=== PATIENT | male | born 1950 | race African-American/Black ===

== ENCOUNTER 2017-10-30 14:22 | Emergency (ER) | payer MEDICARE, MEDICAID ==
[2017-10-30 16:13] LABS: #Eosinphils 0.2 thou/uL (0.0-0.7); #Lymphocytes 0.9 thou/uL (1.20-3.40); #Monocytes 0.3 thou/uL (0.11-0.59); %Eosinophils 4.7 % (0.0-10.0); %Lymphocytes 27.3 % (21.0-51.0); %Monocytes 8.7 % (0.0-10.0); %Neutrophils 58.3 % (42.0-75.0); Hemoglobin 15.5 g/dL (14.0-18.0); Mean Corpuscular HGB CONC 33.5 g/dL (32.0-36.0); Mean Corpuscular Hemoglobin 30.3 pg (27.0-31.0); Mean Corpuscular Volume 90.4 fl (80.0-94.0); Mean Platelet Volume 8.5 fL (7.4-10.4); Platelet Count 167 thou/uL (130-400); RBC Distribution Width 12.8 % (11.5-14.5); Red Blood Cell (RBC) Count 5.14 mill/uL (4.70-6.10); White Blood Cell (WBC) Count 3.4 thou/uL (4.8-10.8)
[2017-10-30 16:23] LABS: INR-International Normal Ratio 1.1; PTT 36.2 SEC (22.9-36.1); Prothrombin Time 14.7 SEC (12.0-14.7)
[2017-10-30 16:38] LABS: ALT (SGPT) Less than 7 U/L (8-55); AST (SGOT) 14 U/L (5-34); Albumin 3.7 g/dL (3.4-4.8); Alkaline Phosphatase 68 U/L (40-150); Anion Gap 10 mmol/L (10-20); BUN (Urea Nitrogen) 15 mg/dL (8.4-25.7); Bilirubin, Total 0.6 mg/dL (0.2-1.2); Calc. Creatinine Clearance 0 mL/min (70-130); Carbon Dioxide 28 mmol/L (23-31); Chloride 107 mmol/L (98-107); Estimated GFR-MDRD 69; Globulin 2.3 g/dL (2.4-3.5); Glucose 167 mg/dL (80-115); Lipase 7 U/L (8-78); Potassium 4.2 mmol/L (3.5-5.1); Sodium 141 mmol/L (136-145)
== END 2017-10-30 16:55 | disposition home or self-care (01) ==
LOC: ERS 14:22
DX: K62.5 Hemorrhage of anus and rectum (principal); E11.9 Type 2 diabetes mellitus without complications; I11.0 Hypertensive heart disease with heart failure; I50.9 Heart failure, unspecified; J44.9 Chronic obstructive pulmonary disease, unspecified; Z87.891 Personal history of nicotine dependence; Z79.82 Long term (current) use of aspirin; Z79.4 Long term (current) use of insulin; Z79.899 Other long term (current) drug therapy
CPT/HCPCS: 36415; 80053; 82274; 83690; 85025; 85610; 85730; 99285

== ENCOUNTER 2018-01-25 12:51 | Emergency (ER) | payer MEDICARE, MEDICAID ==
[2018-01-25] MEDS ORDERED: Nitroglycerin 2% Ointment 1 INCH/1 GM Packet ONE (12:57)
[2018-01-25 13:23] LABS: #Eosinphils 0.2 thou/uL (0.0-0.7); #Monocytes 0.2 thou/uL (0.11-0.59); #Neutrophils 1.4 thou/uL (1.40-6.50); %Basophils 0.4 % (0.0-1.0); %Eosinophils 5.6 % (0.0-10.0); %Lymphocytes 36.4 % (21.0-51.0); %Monocytes 7.5 % (0.0-10.0); Mean Corpuscular Hemoglobin 29.8 pg (27.0-31.0); Mean Corpuscular Volume 87.6 fl (80.0-94.0); Mean Platelet Volume 7.8 fL (7.4-10.4); Platelet Count 163 thou/uL (130-400); RBC Distribution Width 12.7 % (11.5-14.5); Red Blood Cell (RBC) Count 5.36 mill/uL (4.70-6.10); White Blood Cell (WBC) Count 2.8 thou/uL (4.8-10.8)
[2018-01-25 13:43] LABS: ALT (SGPT) 10 U/L (8-55); AST (SGOT) 15 U/L (5-34); Albumin 3.7 g/dL (3.4-4.8); Alkaline Phosphatase 67 U/L (40-150); Anion Gap 8 mmol/L (10-20); BUN (Urea Nitrogen) 12 mg/dL (8.4-25.7); Bilirubin, Total 0.7 mg/dL (0.2-1.2); Calc. Creatinine Clearance 0 mL/min (70-130); Calcium 9.2 mg/dL (7.8-10.44); Carbon Dioxide 31 mmol/L (23-31); Chloride 106 mmol/L (98-107); Estimated GFR-MDRD 58; Globulin 2.4 g/dL (2.4-3.5); Glucose 255 mg/dL (80-115); Potassium 4.4 mmol/L (3.5-5.1); Protein, Total 6.1 g/dL (5.8-8.1); Sodium 141 mmol/L (136-145)
[2018-01-25 13:48] LABS: CKMB 1.9 ng/mL (0-6.6); Troponin I 0.022 ng/mL (< 0.028)
--- NOTE | 2018-01-25 14:09 | RAD ---
PORTABLE AP CHEST: Date: 01/25/18 HISTORY: Chest pain. COMPARISON: 01/07/17. FINDINGS: Postsurgical changes related to CABG are again noted. Cardiac silhouette and pulmonary vasculature ar e within normal limits. Vascular calcifications seen in thoracic aorta. Lungs are clear. There is rig ht convex curvature of the thoracic spine. Chest is stable from prior exam. IMPRESSION: No acute cardiopulmonary process. POS: [facility]
== END 2018-01-25 14:35 | disposition home or self-care (01) ==
LOC: ERS 12:51
DX: M54.2 Cervicalgia (principal); E11.9 Type 2 diabetes mellitus without complications; I25.10 Atherosclerotic heart disease of native coronary artery without angina pectoris; I11.0 Hypertensive heart disease with heart failure; I50.9 Heart failure, unspecified; I69.361 Other paralytic syndrome following cerebral infarction affecting right dominant side; J44.9 Chronic obstructive pulmonary disease, unspecified; Z87.891 Personal history of nicotine dependence
CPT/HCPCS: 36415; 71045; 80053; 82553; 84484; 85025; 93005

== ENCOUNTER 2018-03-02 09:04 | Emergency (ER) | payer MEDICARE, MEDICAID ==
[2018-03-02 10:00] LABS: #Eosinphils 0.2 thou/uL (0.0-0.7); #Lymphocytes 0.9 thou/uL (1.20-3.40); #Monocytes 0.2 thou/uL (0.11-0.59); #Neutrophils 1.9 thou/uL (1.40-6.50); %Basophils 0.6 % (0.0-1.0); %Eosinophils 5.3 % (0.0-10.0); %Lymphocytes 28.1 % (21.0-51.0); %Monocytes 6.3 % (0.0-10.0); %Neutrophils 59.6 % (42.0-75.0); Hemoglobin 16.1 g/dL (14.0-18.0); Mean Corpuscular HGB CONC 34.8 g/dL (32.0-36.0); Mean Corpuscular Hemoglobin 30.6 pg (27.0-31.0); Mean Corpuscular Volume 88.1 fL (78.0-98.0); Mean Platelet Volume 7.7 fL (7.4-10.4); Platelet Count 159 thou/uL (130-400); RBC Distribution Width 13.3 % (11.5-14.5); Red Blood Cell (RBC) Count 5.25 mill/uL (4.70-6.10); White Blood Cell (WBC) Count 3.3 thou/uL (4.8-10.8)
[2018-03-02 10:37] LABS: Bilirubin Small (Negative); Blood, Urine Negative (Negative); Clarity CLEAR (Clear); Glucose, Urine (Dipstick) 500 mg/dL (Negative); Leukocyte Negative (Negative); Nitrite Negative (Negative); Protein, Urine (Dipstick) 30 mg/dL (Neg-Trace); Specific Gravity, Urine 1.023 (1.002-1.036); pH, Urine 5.5 (5.0-9.0)
[2018-03-02 10:39] LABS: Bacteria/HPF None Seen HPF (None Seen); Hyaline Casts/LPF 4-6 HYALINE CAST LPF (0-3 Hyaline); Pathc Cast-AUWi Flag 1.16 (0-2.49); Squamous Epithelial 0-3 HPF (0-3)
[2018-03-02 11:41] LABS: Albumin 3.8 g/dL (3.4-4.8); Calcium 9.2 mg/dL (7.8-10.44); Carbon Dioxide 32 mmol/L (23-31); Chloride 107 mmol/L (98-107); Globulin 2.3 g/dL (2.4-3.5); Glucose 129 mg/dL (80-115); Potassium 4.1 mmol/L (3.5-5.1); Protein, Total 6.1 g/dL (5.8-8.1); Sodium 144 mmol/L (136-145)
[2018-03-02 11:42] LABS: Bilirubin, Total 0.6 mg/dL (0.2-1.2)
[2018-03-02 11:43] LABS: Alkaline Phosphatase 66 U/L (40-150)
[2018-03-02 11:44] LABS: BUN (Urea Nitrogen) 12 mg/dL (8.4-25.7); Calc. Creatinine Clearance 0 mL/min (70-130); Estimated GFR-MDRD 66
[2018-03-02 11:45] LABS: AST (SGOT) 16 U/L (5-34)
[2018-03-02 11:46] LABS: ALT (SGPT) 11 U/L (8-55)
[2018-03-02 11:53] LABS: Anion Gap 12 mmol/L (10-20)
== END 2018-03-02 13:05 | disposition home or self-care (01) ==
LOC: ERS 09:04
DX: M54.5 Low back pain (principal); E11.9 Type 2 diabetes mellitus without complications; I11.0 Hypertensive heart disease with heart failure; I50.9 Heart failure, unspecified; J44.9 Chronic obstructive pulmonary disease, unspecified; Z87.891 Personal history of nicotine dependence; Z79.899 Other long term (current) drug therapy; Z86.73 Personal history of transient ischemic attack (TIA), and cerebral infarction without residual deficits; Z79.4 Long term (current) use of insulin
CPT/HCPCS: 36415; 80053; 81003; 81015; 85025; 85652; 86140; 99283

== ENCOUNTER 2018-03-09 09:41 | Emergency (ER) | payer MEDICARE, MEDICAID ==
[2018-03-09] MEDS ORDERED: Ketorolac Tromethamine 60 MG/2 ML VIAL ONE (10:58)
== END 2018-03-09 11:19 | disposition home or self-care (01) ==
LOC: ERS 09:41
DX: M54.2 Cervicalgia (principal); E11.9 Type 2 diabetes mellitus without complications; I25.10 Atherosclerotic heart disease of native coronary artery without angina pectoris; I11.0 Hypertensive heart disease with heart failure; I50.9 Heart failure, unspecified; Z86.73 Personal history of transient ischemic attack (TIA), and cerebral infarction without residual deficits; J44.9 Chronic obstructive pulmonary disease, unspecified; Z87.891 Personal history of nicotine dependence
CPT/HCPCS: 96372; J1885

== ENCOUNTER 2018-03-14 18:47 | Emergency (ER) | payer MEDICARE, MEDICAID ==
--- NOTE | 2018-03-14 19:22 | RAD ---
RIGHT KNEE: 03/14/18 Four views. HISTORY: Knee pain. FINDINGS/IMPRESSION: The joint spaces are maintained. No significant degenerative change seen. No evidence of joint effusi on. There is mild irregularity along the articular surface of the patella which could present early c hanges of chondromalacia. MRI could better evaluate if clinically indicated. Otherwise, the right knee is unremarkable. POS: [facility]
--- NOTE | 2018-03-14 19:49 | RAD ---
RIGHT SHOULDER: 03/14/18 Three views. HISTORY: Shoulder pain. No evidence of fracture or dislocation. AC joint is normally aligned with mild degenerative change. N o significant degenerative change seen at the glenohumeral joint. IMPRESSION: No acute process. POS: [facility]
== END 2018-03-14 20:06 | disposition home or self-care (01) ==
LOC: ERS 18:47
DX: S80.211A Abrasion, right knee, initial encounter (principal); M25.511 Pain in right shoulder; E11.9 Type 2 diabetes mellitus without complications; I25.10 Atherosclerotic heart disease of native coronary artery without angina pectoris; I11.0 Hypertensive heart disease with heart failure; J44.9 Chronic obstructive pulmonary disease, unspecified; I50.9 Heart failure, unspecified; Z79.82 Long term (current) use of aspirin; Z79.4 Long term (current) use of insulin; Z79.899 Other long term (current) drug therapy; W17.89XA Other fall from one level to another, initial encounter

== ENCOUNTER 2018-03-16 19:05 | Emergency (ER) | payer MEDICARE, MEDICAID ==
[2018-03-16 20:01] LABS: #Eosinphils 0.1 thou/uL (0.0-0.7); #Lymphocytes 0.9 thou/uL (1.20-3.40); #Monocytes 0.5 thou/uL (0.11-0.59); #Neutrophils 4.3 thou/uL (1.40-6.50); %Basophils 0.5 % (0.0-1.0); %Eosinophils 2.4 % (0.0-10.0); %Lymphocytes 14.7 % (21.0-51.0); %Neutrophils 73.5 % (42.0-75.0); Hemoglobin 15.8 g/dL (14.0-18.0); Mean Corpuscular Hemoglobin 30.5 pg (27.0-31.0); Mean Corpuscular Volume 89.7 fL (78.0-98.0); Mean Platelet Volume 8.4 fL (7.4-10.4); Platelet Count 173 thou/uL (130-400); RBC Distribution Width 13.2 % (11.5-14.5); Red Blood Cell (RBC) Count 5.18 mill/uL (4.70-6.10); White Blood Cell (WBC) Count 5.8 thou/uL (4.8-10.8)
[2018-03-16] MEDS ORDERED: Ketorolac Tromethamine 30 MG/ML VIAL ONE (20:02)
--- NOTE | 2018-03-16 20:05 | RAD ---
SINGLE VIEW OF THE PELVIS: 03/16/18 COMPARISON: 09/12/10. HISTORY: Right leg and hip pain. FINDINGS: Single view of the pelvis shows no evidence of acute fracture or dislocation. There are mild degenera tive changes in both hips. Surgical clips are seen in the right inguinal region. Vascular calcificati ons are seen. IMPRESSION: Mild bilateral hip osteoarthritis without acute osseous abnormality. POS: [facility]
[2018-03-16 20:19] LABS: ALT (SGPT) 17 U/L (8-55); AST (SGOT) 32 U/L (5-34); Albumin 4.2 g/dL (3.4-4.8); Alkaline Phosphatase 72 U/L (40-150); Anion Gap 13 mmol/L (10-20); BUN (Urea Nitrogen) 22 mg/dL (8.4-25.7); Bilirubin, Total 0.7 mg/dL (0.2-1.2); Calc. Creatinine Clearance 0 mL/min (70-130); Calcium 9.8 mg/dL (7.8-10.44); Carbon Dioxide 27 mmol/L (23-31); Chloride 108 mmol/L (98-107); Estimated GFR-MDRD 56; Globulin 2.6 g/dL (2.4-3.5); Potassium 3.8 mmol/L (3.5-5.1); Protein, Total 6.8 g/dL (5.8-8.1); Sodium 144 mmol/L (136-145)
[2018-03-16 20:22] LABS: Glucose 38 mg/dL (80-115)
--- NOTE | 2018-03-16 20:51 | ULT ---
RIGHT LOWER EXTREMITY VENOUS ULTRASOUND: 03/16/18 COMPARISON: 09/30/13 HISTORY: Right lower extremity pain. TECHNIQUE: Multiplanar franco scale and color doppler images were obtained in a right lower extremity venous ultra sound. Spectral analysis of the doppler waveforms were performed. FINDINGS: The right common femoral vein, profunda femoral vein, superficial femoral vein, popliteal vein have a normal appearance without visible thrombus. These vessels demonstrate a normal compression, flow and augmentation. The posterior tibial vein and greater saphenous vein are also patent. IMPRESSION: No evidence of DVT in the right lower extremity. POS: [facility]
[2018-03-16] MEDS ORDERED: HYDROcodone/Acetaminophen 10/325 mg Tablet ONE (21:28)
--- NOTE | 2018-03-16 21:59 | CT ---
CT OF THE PELVIS WITHOUT CONTRAST: 03/16/18 COMPARISON: None. HISTORY: Right hip pain for one day that radiates down the right lower extremity. COMPARISON: Pelvic radiographs 03/16/18. TECHNIQUE: Multiple contiguous axial images are obtained in a CT of the pelvis and hips without contrast. Sagitt al and coronal reformats were performed. FINDINGS: Mild degenerative changes are seen in both hips. No fracture or dislocation are seen. Moderate stool seen in the rectum. The other visualized intrapelvic structures are unremarkable. Vasc ular calcifications are seen. IMPRESSION: 1. No evidence of right hip fracture. 2. Mild bilateral hip osteoarthritis. POS: [facility]
== END 2018-03-16 22:07 | disposition home or self-care (01) ==
LOC: ERS 19:05
DX: M54.10 Radiculopathy, site unspecified (principal); S80.211D Abrasion, right knee, subsequent encounter; E11.9 Type 2 diabetes mellitus without complications; I25.10 Atherosclerotic heart disease of native coronary artery without angina pectoris; I11.0 Hypertensive heart disease with heart failure; I50.9 Heart failure, unspecified; J44.9 Chronic obstructive pulmonary disease, unspecified; Z86.73 Personal history of transient ischemic attack (TIA), and cerebral infarction without residual deficits; Z79.4 Long term (current) use of insulin; Z79.899 Other long term (current) drug therapy; Z79.82 Long term (current) use of aspirin
CPT/HCPCS: 36415; 72170; 72192; 80053; 85025; 85379; 85652; 86140; 96372; J1885

== ENCOUNTER 2018-06-01 12:21 | Emergency (ER) | payer MEDICARE, OTHER ==
[2018-06-01 13:37] LABS: #Eosinphils 0.2 thou/uL (0.0-0.7); #Lymphocytes 1.2 thou/uL (1.20-3.40); #Monocytes 0.3 thou/uL (0.11-0.59); %Basophils 0.8 % (0.0-1.0); %Eosinophils 5.8 % (0.0-10.0); %Lymphocytes 31.8 % (21.0-51.0); %Monocytes 7.3 % (0.0-10.0); %Neutrophils 54.4 % (42.0-75.0); Mean Corpuscular HGB CONC 33.1 g/dL (32.0-36.0); Mean Corpuscular Hemoglobin 29.7 pg (27.0-31.0); Mean Corpuscular Volume 89.7 fL (78.0-98.0); Mean Platelet Volume 8.6 fL (7.4-10.4); Platelet Count 197 thou/uL (130-400); RBC Distribution Width 12.2 % (11.5-14.5); Red Blood Cell (RBC) Count 5.38 mill/uL (4.70-6.10); White Blood Cell (WBC) Count 3.6 thou/uL (4.8-10.8)
[2018-06-01 13:57] LABS: CKMB 3.6 ng/mL (0-6.6); Troponin I Less than 0.010 ng/mL (< 0.028)
--- NOTE | 2018-06-01 14:23 | CT ---
NONCONTRAST CT HEAD: DATE: 06/01/18. HISTORY: Altered mental status. Right-sided weakness. COMPARISON: 08/05/15. FINDINGS: There are mild chronic small-vessel ischemic changes and cerebral volume loss. There is no evidence of an acute cortical infarction, hemorrhage, mass effect, or midline shift. Mild cerebral and cerebe llar volume loss is again seen. There has been no interval change compared to prior study. IMPRESSION: No acute intracranial abnormality is demonstrated. POS: [facility]
[2018-06-01 14:27] LABS: ALT (SGPT) 15 U/L (8-55); AST (SGOT) 25 U/L (5-34); Albumin 3.8 g/dL (3.4-4.8); Alkaline Phosphatase 75 U/L (40-150); Anion Gap 14 mmol/L (10-20); BUN (Urea Nitrogen) 20 mg/dL (8.4-25.7); Bilirubin, Total 0.6 mg/dL (0.2-1.2); CK (CPK) 137 U/L (30-200); Calc. Creatinine Clearance 0 mL/min (70-130); Calcium 8.9 mg/dL (7.8-10.44); Carbon Dioxide 24 mmol/L (23-31); Chloride 109 mmol/L (98-107); Estimated GFR-MDRD 63; Globulin 2.7 g/dL (2.4-3.5); Glucose 157 mg/dL (80-115); Lipase 8 U/L (8-78); Protein, Total 6.5 g/dL (5.8-8.1); Sodium 142 mmol/L (136-145)
--- NOTE | 2018-06-01 14:40 | RAD ---
SINGLE VIEW OF THE CHEST: COMPARISON: 01/25/18. HISTORY: Chest pain that extends down the right arm. FINDINGS: A single view of the chest shows a normal-size cardiomediastinal silhouette. The patient is status p ost sternotomy. There is no evidence of consolidation, mass, or pleural effusion. IMPRESSION: No evidence of acute cardiopulmonary disease. POS: [facility]
== END 2018-06-01 15:25 | disposition home or self-care (01) ==
LOC: ERS 12:21
DX: Z04.3 Encounter for examination and observation following other accident (principal); E11.9 Type 2 diabetes mellitus without complications; I11.0 Hypertensive heart disease with heart failure; I50.9 Heart failure, unspecified; I69.844 Monoplegia of lower limb following other cerebrovascular disease affecting left non-dominant side; Z79.82 Long term (current) use of aspirin; Z79.899 Other long term (current) drug therapy; Z79.4 Long term (current) use of insulin
CPT/HCPCS: 70450; 71045; 80053; 82553; 83690; 83880; 84484; 85025; 93005

== ENCOUNTER 2018-06-16 10:41 | Emergency (ER) | payer MEDICARE, OTHER ==
[2018-06-16 12:45] LABS: ALT (SGPT) 14 U/L (8-55); AST (SGOT) 17 U/L (5-34); Albumin 3.8 g/dL (3.4-4.8); Alkaline Phosphatase 69 U/L (40-150); Anion Gap 9 mmol/L (10-20); BUN (Urea Nitrogen) 16 mg/dL (8.4-25.7); Bilirubin, Total 0.9 mg/dL (0.2-1.2); CK (CPK) 204 U/L (30-200); Calc. Creatinine Clearance 0 mL/min (70-130); Calcium 9.2 mg/dL (7.8-10.44); Carbon Dioxide 30 mmol/L (23-31); Chloride 104 mmol/L (98-107); Estimated GFR-MDRD 57; Globulin 2.6 g/dL (2.4-3.5); Glucose 241 mg/dL (80-115); Potassium 4.1 mmol/L (3.5-5.1); Protein, Total 6.4 g/dL (5.8-8.1); Sodium 139 mmol/L (136-145)
[2018-06-16 12:45] LABS: Bilirubin Negative (Negative); Blood, Urine Negative (Negative); Clarity CLEAR (Clear); Glucose, Urine (Dipstick) 500 mg/dL (Negative); Leukocyte Negative (Negative); Nitrite Negative (Negative); Protein, Urine (Dipstick) Negative (Neg-Trace); Specific Gravity, Urine 1.016 (1.002-1.036)
[2018-06-16] MEDS ORDERED: Metoprolol Tartrate 25 MG TAB ONE (13:23)
[2018-06-16] MEDS ORDERED: Lisinopril 10 MG TAB ONE ×2 (14:08→14:10)
== END 2018-06-16 16:05 | disposition home or self-care (01) ==
LOC: ERS 10:41
DX: R30.0 Dysuria (principal); I11.0 Hypertensive heart disease with heart failure; I50.9 Heart failure, unspecified; I25.10 Atherosclerotic heart disease of native coronary artery without angina pectoris; E11.9 Type 2 diabetes mellitus without complications; Z86.73 Personal history of transient ischemic attack (TIA), and cerebral infarction without residual deficits; J44.9 Chronic obstructive pulmonary disease, unspecified; Z79.899 Other long term (current) drug therapy; Z79.82 Long term (current) use of aspirin; Z79.4 Long term (current) use of insulin
CPT/HCPCS: 36415; 80053; 81003; 82550; 93005

== ENCOUNTER 2018-06-26 10:36 | Emergency (ER) | payer MEDICARE, MEDICAID ==
--- NOTE | 2018-06-26 11:36 | RAD ---
PORTABLE CHEST: Date: 06/26/18 HISTORY: Chest pain. COMPARISON: 06/01/18 exam. FINDINGS: Heart size is within normal limits for portable technique with postop sternotomy change. The lungs ar e clear of infiltrates. There are no signs of failure. IMPRESSION: No active intrathoracic disease. POS: [facility]
[2018-06-26 11:40] LABS: #Eosinphils 0.2 thou/uL (0.0-0.7); #Lymphocytes 1.1 thou/uL (1.20-3.40); #Monocytes 0.3 thou/uL (0.11-0.59); #Neutrophils 2.3 thou/uL (1.40-6.50); %Basophils 0.8 % (0.0-1.0); %Eosinophils 4.4 % (0.0-10.0); %Lymphocytes 28.7 % (21.0-51.0); %Monocytes 7.3 % (0.0-10.0); %Neutrophils 58.8 % (42.0-75.0); Hemoglobin 15.9 g/dL (14.0-18.0); Mean Corpuscular HGB CONC 32.2 g/dL (32.0-36.0); Mean Corpuscular Hemoglobin 28.8 pg (27.0-31.0); Mean Corpuscular Volume 89.4 fL (78.0-98.0); Mean Platelet Volume 8.5 fL (7.4-10.4); Platelet Count 171 thou/uL (130-400); Red Blood Cell (RBC) Count 5.52 mill/uL (4.70-6.10); White Blood Cell (WBC) Count 3.9 thou/uL (4.8-10.8)
[2018-06-26 12:07] LABS: CKMB 2.1 ng/mL (0-6.6); Troponin I Less than 0.010 ng/mL (< 0.028)
[2018-06-26 12:46] LABS: ALT (SGPT) 11 U/L (8-55); AST (SGOT) 12 U/L (5-34); Albumin 3.8 g/dL (3.4-4.8); Alkaline Phosphatase 97 U/L (40-150); Anion Gap 12 mmol/L (10-20); BUN (Urea Nitrogen) 21 mg/dL (8.4-25.7); Bilirubin, Total 0.6 mg/dL (0.2-1.2); CK (CPK) 70 U/L (30-200); Calc. Creatinine Clearance 0 mL/min (70-130); Calcium 9.5 mg/dL (7.8-10.44); Carbon Dioxide 29 mmol/L (23-31); Chloride 104 mmol/L (98-107); Estimated GFR-MDRD 50; Globulin 2.5 g/dL (2.4-3.5); Glucose 296 mg/dL (80-115); Lipase 93 U/L (8-78); Potassium 4.7 mmol/L (3.5-5.1); Protein, Total 6.3 g/dL (5.8-8.1); Sodium 140 mmol/L (136-145)
[2018-06-26 14:50] LABS: Troponin I 0.017 ng/mL (< 0.028)
--- NOTE | 2018-06-26 15:40 | ULT ---
RIGHT UPPER QUADRANT ULTRASOUND: 06/26/18 INDICATION: Chest pain. FINDINGS: Overlying bowel gas heavily limits image detail. The pancreas is largely obscured. There is a nodular contour to the liver with coarse echogenicity tidwell spicious for changes of underlying chronic liver disease. No focal hepatic lesion is evident. Within the region of the gallbladder, there is suspicion of small stones within a contracted gallbladder. G allbladder wall measures approximately 2.4 mm. No Hensley's sign is reported. Common bile duct measure s 4.3 mm. The right kidney measures 10.6 cm in length. There is a 1.3 cm cyst seen within the right mid kidney. IMPRESSION: 1. Coarse echotexture of the liver with nodular contour suspicious for underlying chronic liver disease. Recommend correlation with clinical exam and laboratory evaluations. 2. Contracted gallbladder with gallstones. No definite sonographic evidence to suggest acute cho lecystitis. 3. Right renal cyst. 4. Limitations to the exam as above. POS: [facility]
--- NOTE | 2018-07-06 13:41 | EKG ---
Test Reason : Blood Pressure : / mmHG Vent. Rate : 083 BPM Atrial Rate : 083 BPM P-R Int : 146 ms QRS Dur : 072 ms QT Int : 342 ms P-R-T Axes : 074 061 -04 degrees QTc Int : 401 ms Normal sinus rhythm Septal infarct , age undetermined Abnormal ECG Confirmed by EMMA HOUSTON DO ([id number]), material expeditor ARLEN SEXTON ([id number]) on 07/06/2018 1:41:03 PM Referred By: Confirmed By:EMMA HOUSTON DO
== END 2018-06-26 15:10 | disposition home or self-care (01) ==
LOC: ERS 10:36
DX: K80.20 Calculus of gallbladder without cholecystitis without obstruction (principal); G89.29 Other chronic pain; M79.661 Pain in right lower leg; E11.9 Type 2 diabetes mellitus without complications; I25.10 Atherosclerotic heart disease of native coronary artery without angina pectoris; I11.0 Hypertensive heart disease with heart failure; I50.9 Heart failure, unspecified; J44.9 Chronic obstructive pulmonary disease, unspecified; Z79.899 Other long term (current) drug therapy; Z79.82 Long term (current) use of aspirin; Z79.4 Long term (current) use of insulin
CPT/HCPCS: 36415; 71045; 76705; 80053; 82553; 83690; 83880; 84484; 85025; 93005

== ENCOUNTER 2018-07-19 14:53 | Observation (INO) | payer MEDICARE, MEDICAID ==
[2018-07-19 15:19] LABS: #Eosinphils 0.2 thou/uL (0.0-0.7); #Lymphocytes 1.2 thou/uL (1.20-3.40); #Monocytes 0.2 thou/uL (0.11-0.59); #Neutrophils 2.1 thou/uL (1.40-6.50); %Basophils 0.8 % (0.0-1.0); %Eosinophils 5.4 % (0.0-10.0); %Lymphocytes 32.2 % (21.0-51.0); %Monocytes 6.5 % (0.0-10.0); %Neutrophils 55.1 % (42.0-75.0); Mean Corpuscular HGB CONC 33.3 g/dL (32.0-36.0); Mean Corpuscular Hemoglobin 29.1 pg (27.0-31.0); Mean Corpuscular Volume 87.5 fL (78.0-98.0); Mean Platelet Volume 8.2 fL (7.4-10.4); Platelet Count 174 thou/uL (130-400); RBC Distribution Width 12.4 % (11.5-14.5); White Blood Cell (WBC) Count 3.7 thou/uL (4.8-10.8)
[2018-07-19 15:29] LABS: Prothrombin Time 13.3 SEC (12.0-14.7)
[2018-07-19 15:46] LABS: CKMB 3.3 ng/mL (0-6.6); Troponin I 0.014 ng/mL (< 0.028)
[2018-07-19 15:49] LABS: Anion Gap 10 mmol/L (10-20); BUN (Urea Nitrogen) 20 mg/dL (8.4-25.7); Calc. Creatinine Clearance 0 mL/min (70-130); Calcium 9.1 mg/dL (7.8-10.44); Carbon Dioxide 28 mmol/L (23-31); Chloride 107 mmol/L (98-107); Estimated GFR-MDRD 65; Glucose 230 mg/dL (80-115); Potassium 4.1 mmol/L (3.5-5.1); Sodium 141 mmol/L (136-145)
--- NOTE | 2018-07-19 16:06 | RAD ---
CHEST 1 VIEW: Date: 07/19/18 HISTORY: Dyspnea. COMPARISON: 06/26/18. FINDINGS: Cardiac silhouette is magnified by projection. Pulmonary vasculature is unremarkable. Mediastinum is midline with postoperative changes and aortic calcification. No lobar consolidation or evidence of pn eumothorax. playground monitor leads overlie the chest. IMPRESSION: No active cardiopulmonary abnormalities are demonstrated. Chronic-type findings are stable. POS: [facility]
[2018-07-19] MEDS ORDERED: Nitroglycerin 0.4 MG TAB (25 Tab Bottle) ONE (16:27)
[2018-07-19] MEDS ORDERED: Morphine 2 MG/ML SYRINGE ONE (16:27)
[2018-07-19 17:27] LABS: Troponin I Less than 0.010 ng/mL (< 0.028)
[2018-07-19] MEDS ORDERED: Labetalol HCl 100 MG/20 ML VIAL ONE (19:31)
[2018-07-19] MEDS ORDERED: Acetaminophen 325 MG TAB PO PRN (20:32)
[2018-07-19] MEDS ORDERED: HYDROcodone/Acetaminophen 5/325 mg Tablet PO PRN ×2 (20:32)
[2018-07-19 20:34] VITALS: BMI 27.3
[2018-07-19] MEDS ORDERED: Enoxaparin Sodium 80 MG/0.8 ML SYRINGE SC SCH (21:00)
[2018-07-19] MEDS ORDERED: Dextrose 50% Abboject 50 ML SYRINGE IVP PRN (21:32)
[2018-07-19] MEDS ORDERED: HumaLOG 300 UNITS/3 ML VIAL SC PRN ×2 (21:32)
[2018-07-19] MEDS ORDERED: Dextrose 5% in Water 1,000 ML IV PRN (21:32)
[2018-07-19] MEDS: hydrALAZINE 20 MG/ML VIAL SLOW IVP PRN (22:26)
[2018-07-20] MEDS ORDERED: Bisacodyl 5 MG TAB PO PRN (03:12)
[2018-07-20] MEDS ORDERED: Acetaminophen 325 MG TAB PO PRN (03:12)
[2018-07-20] MEDS: hydrALAZINE 20 MG/ML VIAL SLOW IVP PRN (04:23)
--- NOTE | 2018-07-20 04:28 | HP ---
PRIMARY CARE PROVIDER: Luis Christina M.D. CHIEF COMPLAINT: Chest pain. HISTORY OF PRESENT ILLNESS: Mr. Reed is a pleasant 68-year-old gentleman, who was seen at [facility] on 07/20/2018. He reports that he developed chest pain around 7:00 a.m. yesterday. The pain is over the left side o f his chest, sharp, 5/10 at its worst, accompanied by shortness of breath, but not accompanied by maria dolores sea or vomiting. He denies any lightheadedness. He denies any fevers or chills. He reports that he is scheduled to see his machine tool rebuilder, Dr. Magan Valdez at [facility] in 2 days. REVIEW OF SYSTEMS: All other systems reviewed and found to be negative. PAST MEDICAL HISTORY: Significant for coronary artery disease, status post PCI with stent, coronary artery bypass graft, diabetes mellitus type 2, peripheral vascular disease bilaterally with stent roderick cement, congestive heart failure, hypertension, CVA x3 with right leg paralysis and COPD. PAST SURGICAL HISTORY: Coronary artery bypass graft surgery. SOCIAL HISTORY: The patient denies tobacco use, alcohol use or recreational drug use. CODE STATUS: I discussed his code status. He is FULL CODE. ALLERGIES: No known drug allergies. CURRENT MEDICATIONS: Ranexa 500 mg 2 times a day, isosorbide mononitrate 30 mg daily, aspirin 81 mg daily, latanoprost eyedrops, atorvastatin 20 mg daily, Levemir 40 units daily, lisinopril 20 mg 2 deniz es a day, Coreg 12.5 mg 2 times a day, Norvasc 5 mg daily, and acetaminophen/codeine 1-2 tablets ever y 4 hours as needed. PHYSICAL EXAMINATION: GENERAL: Mr. Reed is awake and alert, not in acute distress. VITAL SIGNS: Blood pressure is 143/76, pulse 82, respiratory rate 17, and oxygen saturation 99% on r oom air. He is afebrile. EYES: No scleral icterus. No conjunctival pallor. ENT: Moist mucosal membranes, no oropharyngeal erythema or exudates. NECK: Supple, nontender. Trachea is midline. RESPIRATORY: Accessory muscles of breathing are not active. Chest wall movements are symmetric bila terally. LUNGS: Clear to auscultation without wheeze, rhonchi or crepitations. CARDIOVASCULAR: S1 and S2 are heard, regular. Peripheral pulses palpable. No carotid bruit, no per icardial rub. ABDOMEN: Soft, nontender, bowel sounds are heard. NEUROLOGIC: Cranial nerves II-XII intact. Deep tendon reflexes are 2+. MUSCULOSKELETAL: Moving all 4 extremities. SKIN: No rashes or subcutaneous nodules. LYMPHATIC: No cervical lymphadenopathy. PSYCHIATRIC: Normal mood, normal affect, patient is oriented to person, place, and time. LABORATORY DATA: Mr. Reed's labs and investigations were reviewed. I reviewed his electrocardiogram , which shows normal sinus rhythm, no ST changes to suggest an acute coronary syndrome. I also revie wed his chest x-ray, which does not show any pulmonary infiltrates. He has leukopenia with 3700 whit e cells, otherwise unremarkable CBC, D-dimer less than 0.27, INR 1.0, normal sodium, normal potassium , normal blood urea nitrogen, elevated creatinine of 1.32, last known creatinine 1.66 on 06/26/2018, troponin I negative x2, normal BNP of 77.6 and normal lipase. ASSESSMENT AND PLAN: Mr. Reed is a pleasant 68-year-old gentleman, who was seen at [facility] on 07/20/2018. His problem list includes: 1. Chest pain: Etiology is unclear. He has a normal D-dimer. He does have a history of coronary a rtery disease. His case was discussed with machine tool rebuilder hand stoner by emergency room physician, who has kindly agreed to see the patient during this hospitalization. We will await opinion and instruction s. 2. Diabetes mellitus type 2: We will start Accu-Cheks and insulin sliding scale. 3. Congestive heart failure: Appears to be stable. 4. Hypertension: Resume home medications, monitor vital signs and titrate antihypertensives as need ed. 5. Chronic obstructive pulmonary disease: Stable. Many thanks for allowing me to participate in your patient's care. Please feel free to contact me wi th any questions or concerns. LEVEL OF RISK: High. LEVEL OF COMPLEXITY: High.
[2018-07-20 05:48] LABS: #Eosinphils 0.2 thou/uL (0.0-0.7); #Lymphocytes 1.2 thou/uL (1.20-3.40); #Monocytes 0.3 thou/uL (0.11-0.59); #Neutrophils 2.1 thou/uL (1.40-6.50); %Basophils 0.2 % (0.0-1.0); %Eosinophils 5.6 % (0.0-10.0); %Lymphocytes 30.5 % (21.0-51.0); %Monocytes 7.6 % (0.0-10.0); Hemoglobin 16.1 g/dL (14.0-18.0); Mean Corpuscular HGB CONC 32.5 g/dL (32.0-36.0); Mean Corpuscular Hemoglobin 28.9 pg (27.0-31.0); Mean Corpuscular Volume 88.9 fL (78.0-98.0); Platelet Count 164 thou/uL (130-400); RBC Distribution Width 12.5 % (11.5-14.5); Red Blood Cell (RBC) Count 5.58 mill/uL (4.70-6.10); White Blood Cell (WBC) Count 3.8 thou/uL (4.8-10.8)
[2018-07-20 06:15] LABS: Anion Gap 11 mmol/L (10-20); BUN (Urea Nitrogen) 18 mg/dL (8.4-25.7); Calc. Creatinine Clearance 63 mL/min (70-130); Calcium 8.9 mg/dL (7.8-10.44); Carbon Dioxide 28 mmol/L (23-31); Chloride 106 mmol/L (98-107); Estimated GFR-MDRD 72; Glucose 185 mg/dL (80-115); Potassium 3.5 mmol/L (3.5-5.1); Sodium 141 mmol/L (136-145)
[2018-07-20] MEDS ORDERED: Enoxaparin Sodium 40 MG/0.4 ML SYRINGE SC SCH (09:00)
--- NOTE | 2018-07-20 11:51 | PDOC.PN ---
- Subjective Encounter Start Date: 07/20/18 Encounter Start Time: 09:15 Subjective: no chest pain or sob -: feels better this morning - Objective Resuscitation Status: Resuscitation Status FULL:Full Resuscitation MAR Reviewed: Yes Vital Signs & Weight: Vital Signs (12 hours) Temp Pulse Resp BP BP Pulse Ox 07/20/18 08:43 98.4 F 80 13 164/84 H 98 07/20/18 04:23 74 183/105 H 07/20/18 03:55 97.9 F 76 15 183/105 H 97 07/20/18 00:00 97.7 F 82 17 143/76 H 99 Weight Weight 164 lb 11.2 oz Result Diagrams: 07/20/18 04:37 07/20/18 04:37 Additional Labs: Accuchecks 07/20/18 07/20/18 07/19/18 06:09 04:33 21:18 POC Glucose 223 H 173 H 451 H Phys Exam - Physical Examination HEENT: PERRLA, moist MMs Neck: no JVD, supple Respiratory: no wheezing, no rales Cardiovascular: RRR, no significant murmur Gastrointestinal: soft, non-tender, positive bowel sounds Musculoskeletal: no edema, pulses present Neurological: non-focal, moves all 4 limbs Dx/Plan (1) Chest pain Code(s): R07.9 - CHEST PAIN, UNSPECIFIED Status: Acute Qualifiers: Chest pain type: unspecified Qualified Code(s): R07.9 - Chest pain, unspecified (2) COPD (chronic obstructive pulmonary disease) Status: Chronic Qualifiers: COPD type: chronic bronchitis (3) H/O: CVA (cerebrovascular accident) Code(s): Z86.73 - PRSNL HX OF TIA (TIA), AND CEREB INFRC W/O RESID DEFICITS Status: Chronic Comment: right LE paresis (4) CAD (coronary artery disease) Code(s): I25.10 - ATHSCL HEART DISEASE OF [place] CORONARY ARTERY W/O ANG PCTRS Status: Chronic Qualifiers: Coronary Disease-Associated Artery/Lesion type: bypass graft [place] vs. transplanted heart: [place] heart Associated angina: without angina Qualified Code(s): I25.810 - Atherosclerosis of coronary artery bypass graft(s) without angina pectoris (5) Dyslipidemia Code(s): E78.5 - HYPERLIPIDEMIA, UNSPECIFIED Status: Chronic (6) Hypertension Code(s): I10 - ESSENTIAL (PRIMARY) HYPERTENSION Status: Chronic Qualifiers: Hypertension type: essential hypertension Qualified Code(s): I10 - Essential (primary) hypertension (7) PAD (peripheral artery disease) Code(s): I73.9 - PERIPHERAL VASCULAR DISEASE, UNSPECIFIED Status: Chronic Comment: prior stent - Plan hemostable -: cardiac enzymes are -ve -: has f/u appt to see his cardio at [facility] in am at 10 am per patient -: dc pt home * . Review of Systems - Medications/Allergies Allergies/Adverse Reactions: Allergies Allergy/AdvReac Type Severity Reaction Status Date / Time No Known Allergies Allergy Verified 10/19/16 21:26 Medications: Current Medications Acetaminophen (Tylenol) 650 mg PO Q4H PRN PRN Reason: Headache/Fever/Mild Pain (1-3) Bisacodyl (Dulcolax) 10 mg PO DAILYPRN PRN PRN Reason: Constipation Dextrose/Water (Dextrose 50%) 25 gm IVP PRN PRN PRN Reason: HYPOGLYCEMIA PROTOCOL Enoxaparin Sodium (Lovenox) 40 mg SC 0900 KISHAN Last Admin: 07/20/18 08:47 Dose: 40 mg Glucagon (Glucagon) 1 mg IM PRN PRN PRN Reason: HYPOGLYCEMIA PROTOCOL Hydralazine HCl (Apresoline) 10 mg SLOW IVP Q4H PRN PRN Reason: IF SBP > 180 Last Admin: 07/20/18 04:23 Dose: 10 mg Dextrose/Water (D5w) 1,000 mls @ 0 mls/hr IV INF PRN PRN Reason: HYPOGLYCEMIA PROTOCOL Insulin Human Lispro (Humalog) 0 units SC .MODERATE SLIDING SC PRN; Protocol PRN Reason: MODERATE SLIDING SCALE Insulin Human Lispro (Humalog) 0 units SC .BEDTIME SLIDING SC PRN; Protocol PRN Reason: BEDTIME SLIDING SCALE Last Admin: 07/19/18 22:35 Dose: 5 unit
[2018-07-20 16:12] VITALS: BP 172/89; TEMP 97.8
--- NOTE | 2018-07-20 16:29 | CON ---
DATE OF CONSULTATION: 07/20/2018 HISTORY OF PRESENT ILLNESS: Patient is a 68-year-old gentleman with a long history of coronary artery disease who presents with recurrent chest discomfort. The patient has a history of coronary artery disease and has undergone coronary artery bypass graft surgery. The patient was admitted on several occasions with chest discomfort. He has had previous stent placement into the LAD in 2017. The patient states he was in his usual state of health when he developed left-sided chest discomfort. He states this was a persistent discomfort that was present throughout the day. He stated it was clearly made worse when he took a deep breath. The patient denies having any present chest discomfort. The patient was noted to be markedly hypertensive on admission. PAST MEDICAL HISTORY: 1. Coronary artery disease. 2. Hypertension. 3. Peripheral vascular disease. 4. History of cerebrovascular accident. 5. Chronic obstructive pulmonary disease. PAST SURGICAL HISTORY: Coronary artery bypass surgery. SOCIAL HISTORY: Nonsmoker. ALLERGIES: No known drug allergies. MEDICATIONS: See nursing list. REVIEW OF SYSTEMS: Ten-point system otherwise is unremarkable. PHYSICAL EXAMINATION: GENERAL: This is a middle-aged gentleman in no acute distress. VITAL SIGNS: Blood pressure of 164/84. NECK: No jugular venous distention. LUNGS: Clear to auscultation. HEART: Regular rate and rhythm, normal S1, S2. ABDOMEN: Nondistended. EXTREMITIES: Showed no edema. VASCULAR: Radial pulses are 2+. LABORATORY DATA: White blood count 3.8, hemoglobin 16.1, hematocrit 49.6, platelets are 164. His sodium was 141, potassium 3.5, chloride 106, bicarbonate 28, BUN 18, creatinine 1.2, glucose is 185. Troponin was less than 0.01. EKG revealed him to have normal sinus rhythm with nonspecific T-wave abnormality. IMPRESSION: 1. Chest pain, atypical. 2. History of coronary artery disease. 3. Status post coronary artery bypass surgery. 4. Peripheral vascular disease. 5. History of cerebrovascular accident. 6. Chronic obstructive pulmonary disease. PLAN: This gentleman presented with left-sided chest discomfort. His blood pressure was markedly hypertensive. The patient had persistent chest pain with no elevation in his cardiac enzymes or EKG changes. The patient will follow up with his blue leather sorter next week. The patient needs to remain compliant with his medication and have improved control of his hypertension. We will follow this patient with you through his hospitalization. BREANN
--- NOTE | 2018-07-21 18:05 | DIS ---
DATE OF ADMISSION: 07/19/2018 DATE OF DISCHARGE: 07/20/2018 DISCHARGE DISPOSITION: To home. PRIMARY DISCHARGE DIAGNOSIS: Chest pain, which is noncardiac. SECONDARY DISCHARGE DIAGNOSES: Uncontrolled hypertension, resolved; chronic obstructive pulmonary di sease; history of cerebrovascular accident with right lower extremity paresis; coronary artery diseas e; dyslipidemia; peripheral vascular disease; hypertension. PROCEDURES DONE DURING HOSPITALIZATION: Chest x-ray done showed no acute cardiopulmonary abnormaliti es. There are chronic changes seen. H and H 16 and 49, platelet count 164. D-dimer was less than 0 .2. BUN 18, creatinine 1.21. Troponin x2 negative. CK-MB 3.3. BNP 77. DISCHARGE MEDICATIONS: Plavix 75 mg p.o. daily, Coreg 6.25 mg p.o. twice daily, atorvastatin 20 mg d aily, Imdur extended release 30 mg daily, latanoprost eyedrops as before, Levemir 40 units subcutaneo usly daily, lisinopril 20 mg twice daily, Ranexa 500 mg p.o. twice daily, aspirin 81 mg p.o. daily. ALLERGIES: No known drug allergies. DISCHARGE PLAN: The patient to follow up with his financial services counselor at [facility] at 10:00 a.m. on 09/21/2017. BRIEF COURSE DURING HOSPITALIZATION: Patient initially got admitted with complaints of chest pain. Also, his initial blood pressure was elevated. He was placed under observation on telemetry. Two se ts of cardiac enzymes were negative. He was placed on his home medications for high blood pressure o n and they are stable at present. The patient is asymptomatic now. He has a followup appointment to see his financial services counselor at [facility] on Sunday at 10:00 a.m. In view of this and the cardiac enz ymes being negative with chest pain being atypical, he is being discharged home. Please see a face-t o-face documentation on [facility] for the day of discharge.
== END 2018-07-20 15:38 | disposition home or self-care (01) ==
LOC: ERS 14:53 → 2NO 18:08
PROVIDERS: ADMIT Family Medicine; ATTEND Family Medicine
DX: R07.89 Other chest pain (principal); I25.10 Atherosclerotic heart disease of native coronary artery without angina pectoris; I11.0 Hypertensive heart disease with heart failure; I50.9 Heart failure, unspecified; I69.341 Monoplegia of lower limb following cerebral infarction affecting right dominant side; J44.9 Chronic obstructive pulmonary disease, unspecified; E11.51 Type 2 diabetes mellitus with diabetic peripheral angiopathy without gangrene; I73.9 Peripheral vascular disease, unspecified; Z79.02 Long term (current) use of antithrombotics/antiplatelets; Z79.4 Long term (current) use of insulin; Z79.82 Long term (current) use of aspirin; Z79.899 Other long term (current) drug therapy; Z95.1 Presence of aortocoronary bypass graft; Z95.5 Presence of coronary angioplasty implant and graft; Z95.820 Peripheral vascular angioplasty status with implants and grafts
CPT/HCPCS: 71045; 80048 ×2; 82553; 82962 ×2; 83690; 83880; 84484 ×2; 85025 ×2; 85379; 85610; 93005; 96372 ×2; 96374; 96375 ×2; 96376; 99285; G0378 ×2; 36415; 36416; J0360; J1650; J2270

== ENCOUNTER 2018-07-26 15:49 | Emergency (ER) | payer MEDICARE, MEDICAID ==
--- NOTE | 2018-07-26 16:23 | RAD ---
CHEST 1 VIEW: Date: 07/26/18 HISTORY: Chest pain. COMPARISON: 07/19/18. FINDINGS: Cardiac silhouette is magnified and upper limits of normal in size. Pulmonary vasculature is unremark able. Mediastinum is midline with aortic calcification and postoperative changes. Rightward convex cu rvature of the thoracic spine is similar in appearance to the prior study. monitor car operator leads over lie the chest. IMPRESSION: Atherosclerosis. Chronic-type findings are stable. No active cardiopulmonary abnormalities are demons trated. POS: [facility]
[2018-07-26 17:06] LABS: #Eosinphils 0.2 thou/uL (0.0-0.7); #Lymphocytes 1.5 thou/uL (1.20-3.40); #Monocytes 0.3 thou/uL (0.11-0.59); #Neutrophils 1.9 thou/uL (1.40-6.50); %Lymphocytes 37.3 % (21.0-51.0); %Monocytes 7.6 % (0.0-10.0); %Neutrophils 48.1 % (42.0-75.0); Hemoglobin 14.3 g/dL (14.0-18.0); Mean Corpuscular HGB CONC 33.6 g/dL (32.0-36.0); Mean Corpuscular Hemoglobin 29.7 pg (27.0-31.0); Mean Corpuscular Volume 88.5 fL (78.0-98.0); Mean Platelet Volume 8.8 fL (7.4-10.4); Platelet Count 161 thou/uL (130-400); RBC Distribution Width 12.5 % (11.5-14.5); White Blood Cell (WBC) Count 3.9 thou/uL (4.8-10.8)
[2018-07-26 17:26] LABS: ALT (SGPT) 17 U/L (8-55); AST (SGOT) 15 U/L (5-34); Albumin 3.5 g/dL (3.4-4.8); Alkaline Phosphatase 80 U/L (40-150); Anion Gap 8 mmol/L (10-20); BUN (Urea Nitrogen) 25 mg/dL (8.4-25.7); Bilirubin, Total 0.6 mg/dL (0.2-1.2); CK (CPK) 89 U/L (30-200); Calc. Creatinine Clearance 0 mL/min (70-130); Calcium 8.8 mg/dL (7.8-10.44); Carbon Dioxide 30 mmol/L (23-31); Chloride 107 mmol/L (98-107); Estimated GFR-MDRD 46; Globulin 2.3 g/dL (2.4-3.5); Glucose 317 mg/dL (80-115); Lipase 32 U/L (8-78); Potassium 4.7 mmol/L (3.5-5.1); Protein, Total 5.8 g/dL (5.8-8.1); Sodium 140 mmol/L (136-145)
[2018-07-26 17:30] LABS: CKMB 2.7 ng/mL (0-6.6); Troponin I Less than 0.010 ng/mL (< 0.028)
[2018-07-26] MEDS ORDERED: Labetalol HCl 100 MG/20 ML VIAL ONE (18:47)
[2018-07-26 20:14] LABS: Troponin I Less than 0.010 ng/mL (< 0.028)
== END 2018-07-26 20:28 | disposition home or self-care (01) ==
LOC: ERS 15:49
DX: R07.9 Chest pain, unspecified (principal); K02.9 Dental caries, unspecified; R05 Cough; E11.9 Type 2 diabetes mellitus without complications; I25.10 Atherosclerotic heart disease of native coronary artery without angina pectoris; I11.0 Hypertensive heart disease with heart failure; I50.9 Heart failure, unspecified; J44.9 Chronic obstructive pulmonary disease, unspecified; Z86.73 Personal history of transient ischemic attack (TIA), and cerebral infarction without residual deficits; Z79.899 Other long term (current) drug therapy; Z79.82 Long term (current) use of aspirin; Z79.4 Long term (current) use of insulin
CPT/HCPCS: 36415; 71045; 80053; 82553; 83690; 83880; 84484; 85025; 85379; 93005; 96374

== ENCOUNTER 2018-07-30 10:17 | Emergency (ER) | payer MEDICARE, MEDICAID ==
--- NOTE | 2018-07-30 11:26 | RAD ---
RIGHT HIP TWO VIEWS: HISTORY: Fall. Right hip pain. FINDINGS: Degenerative changes are present. No acute fracture or dislocation is identified. POS: [facility]
--- NOTE | 2018-07-30 11:31 | RAD ---
CHEST ONE VIEW: HISTORY: Fall. COMPARISON: 07/26/2018 FINDINGS: There are sternotomy wires. Atherosclerosis of the aorta. Coronary calcifications are noted. Jessica l cardiac silhouette. Pulmonary vessels and hilum are normal. Costophrenic angles are clear. No co nsolidation or mass. No pneumothorax or osseous abnormalities. IMPRESSION: No acute cardiopulmonary process. POS: [facility]
[2018-07-30] MEDS ORDERED: Lisinopril 10 MG TAB ONE (13:02)
[2018-07-30] MEDS ORDERED: Bacitracin Zinc 1 Packet ONE (13:02)
--- NOTE | 2018-07-30 13:21 | CT ---
HEAD CT WITHOUT CONTRAST: COMPARISON: 06/01/2018. History Fall from standing. Hit head on wall. FINDINGS: No parenchymal hemorrhage. No extraaxial hematoma. No midline shift. Basilar cisterns are patent. Brain volume age appropriate. Cortical franco-white matter differentiation is preserved. No evidence of hydrocephalus. Chronic small-vessel ischemic changes of the white matter are noted. Calvarium is intact. Adequate aeration of the sinuses mastoid air cells. IMPRESSION: Intracranial posttraumatic sequelae. POS: [facility]
== END 2018-07-30 13:15 | disposition home or self-care (01) ==
LOC: ERS 10:17
DX: S00.31XA Abrasion of nose, initial encounter (principal); M25.551 Pain in right hip; E11.9 Type 2 diabetes mellitus without complications; I25.10 Atherosclerotic heart disease of native coronary artery without angina pectoris; I11.0 Hypertensive heart disease with heart failure; I50.9 Heart failure, unspecified; Z86.73 Personal history of transient ischemic attack (TIA), and cerebral infarction without residual deficits; J44.9 Chronic obstructive pulmonary disease, unspecified; Z79.899 Other long term (current) drug therapy; Z79.82 Long term (current) use of aspirin; Z79.4 Long term (current) use of insulin; W01.0XXA Fall on same level from slipping, tripping and stumbling without subsequent striking against object, initial encounter
CPT/HCPCS: 70450; 71045; 93005

== ENCOUNTER 2018-09-11 12:59 | Emergency (ER) | payer MEDICARE, MEDICAID ==
[2018-09-11 13:57] LABS: #Basophils 0.1 thou/uL (0.0-0.2); #Eosinphils 0.2 thou/uL (0.0-0.7); #Lymphocytes 1.5 thou/uL (1.20-3.40); #Monocytes 0.3 thou/uL (0.11-0.59); #Neutrophils 1.7 thou/uL (1.40-6.50); %Basophils 1.4 % (0.0-1.0); %Eosinophils 5.1 % (0.0-10.0); %Lymphocytes 39.5 % (21.0-51.0); %Monocytes 7.9 % (0.0-10.0); %Neutrophils 46.1 % (42.0-75.0); Hemoglobin 15.6 g/dL (14.0-18.0); Mean Corpuscular HGB CONC 32.9 g/dL (32.0-36.0); Mean Corpuscular Volume 88.2 fL (78.0-98.0); Mean Platelet Volume 7.6 fL (7.4-10.4); Platelet Count 258 thou/uL (130-400); RBC Distribution Width 12.5 % (11.5-14.5); Red Blood Cell (RBC) Count 5.38 mill/uL (4.70-6.10); White Blood Cell (WBC) Count 3.8 thou/uL (4.8-10.8)
[2018-09-11 14:18] LABS: ALT (SGPT) 12 U/L (8-55); AST (SGOT) 14 U/L (5-34); Albumin 3.9 g/dL (3.4-4.8); Alkaline Phosphatase 71 U/L (40-150); Anion Gap 11 mmol/L (10-20); BUN (Urea Nitrogen) 11 mg/dL (8.4-25.7); Bilirubin, Total 0.7 mg/dL (0.2-1.2); CK (CPK) 123 U/L (30-200); Calc. Creatinine Clearance 0 mL/min (70-130); Calcium 9.5 mg/dL (7.8-10.44); Carbon Dioxide 29 mmol/L (23-31); Chloride 108 mmol/L (98-107); Estimated GFR-MDRD 71; Globulin 2.7 g/dL (2.4-3.5); Potassium 4.7 mmol/L (3.5-5.1); Protein, Total 6.6 g/dL (5.8-8.1); Sodium 143 mmol/L (136-145)
[2018-09-11 14:28] LABS: Glucose 40 mg/dL (80-115)
[2018-09-11] MEDS ORDERED: Dextrose 50% Abboject 50 ML SYRINGE ONE (14:35)
--- NOTE | 2018-09-11 14:45 | RAD ---
CHEST 1 VIEW: Date: 09/11/18 HISTORY: Chest pain. COMPARISON: Radiograph dated 07/30/18. FINDINGS: Exam performed in lordotic technique with the patient tilted to the left. No focal air space consolid ation, pneumothorax, or effusion. Coronal artery stents are present. Multiple midline sternotomy wire s. IMPRESSION: No acute intrathoracic abnormality. POS: [facility]
== END 2018-09-11 17:30 | disposition home or self-care (01) ==
LOC: ERS 12:59
DX: E11.649 Type 2 diabetes mellitus with hypoglycemia without coma (principal); G89.29 Other chronic pain; I25.10 Atherosclerotic heart disease of native coronary artery without angina pectoris; I11.0 Hypertensive heart disease with heart failure; I50.9 Heart failure, unspecified; Z86.73 Personal history of transient ischemic attack (TIA), and cerebral infarction without residual deficits; J44.9 Chronic obstructive pulmonary disease, unspecified; Z79.899 Other long term (current) drug therapy; Z79.4 Long term (current) use of insulin; Z79.82 Long term (current) use of aspirin
CPT/HCPCS: 36415; 36416; 71045; 80053; 82550; 84484; 85025; 93005; 96374

== ENCOUNTER 2018-09-14 11:31 | Emergency (ER) | payer MEDICARE, MEDICAID ==
[2018-09-14 12:32] LABS: #Eosinphils 0.1 thou/uL (0.0-0.7); #Monocytes 0.2 thou/uL (0.11-0.59); #Neutrophils 1.6 thou/uL (1.40-6.50); %Basophils 1.2 % (0.0-1.0); %Eosinophils 3.4 % (0.0-10.0); %Lymphocytes 33.2 % (21.0-51.0); %Monocytes 8.1 % (0.0-10.0); %Neutrophils 54.1 % (42.0-75.0); Hemoglobin 15.5 g/dL (14.0-18.0); Mean Corpuscular Hemoglobin 29.8 pg (27.0-31.0); Mean Corpuscular Volume 87.7 fL (78.0-98.0); Mean Platelet Volume 7.7 fL (7.4-10.4); Platelet Count 166 thou/uL (130-400); RBC Distribution Width 12.4 % (11.5-14.5)
[2018-09-14 12:47] LABS: ALT (SGPT) 11 U/L (8-55); AST (SGOT) 15 U/L (5-34); Albumin 3.7 g/dL (3.4-4.8); Alkaline Phosphatase 93 U/L (40-150); Anion Gap 14 mmol/L (10-20); BUN (Urea Nitrogen) 20 mg/dL (8.4-25.7); Bilirubin, Total 0.5 mg/dL (0.2-1.2); CK (CPK) 163 U/L (30-200); Calc. Creatinine Clearance 0 mL/min (70-130); Calcium 9.3 mg/dL (7.8-10.44); Carbon Dioxide 28 mmol/L (23-31); Chloride 104 mmol/L (98-107); Estimated GFR-MDRD 50; Globulin 2.7 g/dL (2.4-3.5); Glucose 341 mg/dL (80-115); Lipase 13 U/L (8-78); Protein, Total 6.4 g/dL (5.8-8.1); Sodium 141 mmol/L (136-145)
--- NOTE | 2018-09-14 13:46 | RAD ---
CHEST 1 VIEW: Date: 09/14/18 HISTORY: Chest pain. COMPARISON: Radiograph dated 09/11/18. FINDINGS: Likely a prominent nipple shadow projecting over the right lung base. Moderate dextroscoliosis. No ac vy osseous abnormality. IMPRESSION: No acute intrathoracic abnormality. POS: [facility]
[2018-09-14] MEDS ORDERED: Acetaminophen 500 MG TAB ONE (19:06)
[2018-09-14] MEDS ORDERED: Nitroglycerin 0.4 MG TAB (25 Tab Bottle) ONE (19:06)
--- NOTE | 2018-09-14 22:30 | CON ---
DATE OF CONSULTATION: CHIEF COMPLAINT: Chest pain. HISTORY OF PRESENT ILLNESS: This patient is a 68-year-old male who has a history of diabetes, coronary artery disease, peripheral vascular disease with stent placement, history of bypass surgery, history of stroke with paralysis to the right leg, pulmonary disease with chronic obstructive pulmonary disease. The patient has been seen here multiple times with the complaint of chest pain. The patient had admission with a stress test performed in December of 2016 with normal results. 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 The patient came here on July 26 and September 11 complaining of chest pain and came back again today. The patient reports his pain is the same all the time and central in his chest. The patient demonstrates significant keloid over the midsternal incision line and points to this as the source of his pain. The patient reports that he has seen his electrical laboratory technician and he has been referred and has had multiple injections of the keloid, but in his opinion it only made it get bigger, but he is quite clear that his pain is emanating from the keloid. He has no other abdominal or chest pains. No shortness of breath. PAST MEDICAL HISTORY: As above. PAST SURGICAL HISTORY: Coronary artery bypass graft. SOCIAL HISTORY: The patient denies alcohol, drugs, or tobacco. FAMILY HISTORY: Negative for coronary artery disease. ALLERGIES: NONE. CURRENT MEDICATIONS: 1. Ranexa 500 mg b.i.d. 2. Isosorbide 30 mg daily. 3. Aspirin 81 mg daily. 4. Latanoprost eyedrops. 5. Atorvastatin 20 mg daily. 6. Levemir 60 units q.a.m. and 20 q.p.m. 7. Lisinopril 20 mg b.i.d. 8. Carvedilol 12.5 mg b.i.d. 9. Norvasc 5 mg daily. 10. Tylenol No.3 q.4 hours p.r.n. PHYSICAL EXAMINATION: VITAL SIGNS: BP 167/110, pulse 89, respirations 18, temperature 97.9, O2 sats 100% on room air. GENERAL APPEARANCE: Age-appropriate male. He is awake and alert. He is in no distress. He is extremely pleasant, but appears to be fairly simple and possibly a low intellect. HEENT: PERRL. No OP lesions. NECK: Supple and symmetric. No lymphadenopathy or carotid bruits. HEART: Regular rate and rhythm without murmurs, gallops, or rubs. LUNGS: Clear bilaterally. ABDOMEN: Soft, nontender, and nondistended. Positive bowel sounds. No masses. No organomegaly. EXTREMITIES: Warm and dry with no edema. SKIN: Reveals large keloid over the midline incision, which is tender to palpation throughout the course of it. There is no erythema or cellulitic changes to suggest that this is infected or inflamed. LABORATORY DATA: White count 3.0, hemoglobin 15.5, platelets 166. Sodium 141, potassium 5.0, chloride 104, CO2 of 28, BUN 20, creatinine is 1.67, glucose 341, calcium 9.3, AST 15, ALT 11, alkaline phosphatase 93, CK 163, troponin 0.01. Albumin 3.7, lipase 13. Chest x-ray shows no acute intrathoracic abnormalities. EKG shows no acute ischemic changes. IMPRESSION AND PLAN: 1. Chest pain. This appears to be specifically related to pain associated with his chest incision keloid that he reports the reproducible pain with palpation of the keloid is exactly the pain that he came in for and it is the pain that he has been in for before. He has no other pain or associated symptoms. I do not believe this represents cardiac chest pain, and as such, I believe the patient can be treated for his hypertension with IV medication x1 and then discharge to home to have outpatient followup with his electrical laboratory technician. Discussed this with the patient. He is amenable to that plan. 2. Hypertension. The patient's blood pressure is poorly controlled. In reviewing his record, it was poorly controlled when he was here in his last visit; however , when he was started back on his usual home medications, it improved, and there were no other interventions necessary. He may need a dose of IV medication here now in order to give a better control prior to discharge. However, I will leave that to the discretion of the ER provider. 3. Chronic kidney disease. The patient's creatinine is about his current baseline. 4. Diabetes mellitus with mild hyperglycemia. Reviewing the patient's previous blood sugars, he has had substantial lability in fact his one from his last ER visit when he was here was 40 and before that in July was 317. The patient will need outpatient followup with the PCP to improve the blood sugar control. Addendum: Discussed the case with the ED physician. He indicated that he would repeat a troponin and discharge the patient if normal. I agreed with that plan and again iterated the need to consider something for his hypertension. Dr. Díaz took over care of the patient and called me as well. She was in agreement with the plan to discharge the patient to follow up with his PCP and electrical laboratory technician for his chronic keloid-associated pain. Job ID: [id number] MTDD
== END 2018-09-14 19:58 | disposition home or self-care (01) ==
LOC: ERS 11:31
DX: R07.9 Chest pain, unspecified (principal); I11.0 Hypertensive heart disease with heart failure; I50.9 Heart failure, unspecified; E11.9 Type 2 diabetes mellitus without complications; J44.9 Chronic obstructive pulmonary disease, unspecified; Z87.891 Personal history of nicotine dependence; Z79.4 Long term (current) use of insulin; Z79.899 Other long term (current) drug therapy
CPT/HCPCS: 36415; 71045; 80053; 82550; 83690; 84484; 85025; 93005

== ENCOUNTER 2018-11-10 08:34 | Inpatient (IN) | payer MEDICARE, MEDICAID ==
[2018-11-10 09:30] LABS: #Eosinphils 0.1 thou/uL (0.0-0.7); #Lymphocytes 1.2 thou/uL (1.20-3.40); #Monocytes 0.4 thou/uL (0.11-0.59); %Basophils 0.3 % (0.0-1.0); %Eosinophils 0.8 % (0.0-10.0); %Lymphocytes 15.4 % (21.0-51.0); %Monocytes 4.8 % (0.0-10.0); %Neutrophils 78.7 % (42.0-75.0); Hemoglobin 18.8 g/dL (14.0-18.0); Mean Corpuscular HGB CONC 33.5 g/dL (32.0-36.0); Mean Corpuscular Hemoglobin 30.1 pg (27.0-31.0); Mean Platelet Volume 9.1 fL (7.4-10.4); Platelet Count 199 thou/uL (130-400); RBC Distribution Width 13.1 % (11.5-14.5); Red Blood Cell (RBC) Count 6.23 mill/uL (4.70-6.10); White Blood Cell (WBC) Count 7.6 thou/uL (4.8-10.8)
[2018-11-10 09:55] LABS: ALT (SGPT) 28 U/L (8-55); AST (SGOT) 40 U/L (5-34); Albumin 4.5 g/dL (3.4-4.8); Alkaline Phosphatase 82 U/L (40-150); Anion Gap 18 mmol/L (10-20); BUN (Urea Nitrogen) 30 mg/dL (8.4-25.7); Bilirubin, Total 0.7 mg/dL (0.2-1.2); Calc. Creatinine Clearance 0 mL/min (70-130); Calcium 10.9 mg/dL (7.8-10.44); Carbon Dioxide 22 mmol/L (23-31); Chloride 107 mmol/L (98-107); Estimated GFR-MDRD 37; Glucose 107 mg/dL (80-115); Potassium 4.4 mmol/L (3.5-5.1); Protein, Total 7.5 g/dL (5.8-8.1); Sodium 143 mmol/L (136-145)
[2018-11-10] MEDS ORDERED: Dextrose 50% Abboject 50 ML SYRINGE SLOW IVP PRN (10:33)
[2018-11-10] MEDS ORDERED: Dextrose 5% in Water 1,000 ML IV PRN (10:33)
[2018-11-10] MEDS ORDERED: HumaLOG 300 UNITS/3 ML VIAL SC PRN (10:33)
[2018-11-10] MEDS ORDERED: Piperacillin/Tazobactam 3.375 GM VIAL ONE (10:48)
[2018-11-10] MEDS ORDERED: Senokot S 8.6-50 MG TAB PO PRN (10:54)
[2018-11-10] MEDS ORDERED: Ondansetron PF 4 MG/2 ML Vial IVP PRN (10:54)
[2018-11-10] MEDS ORDERED: Bisacodyl 5 MG TAB PO PRN (10:54)
[2018-11-10] MEDS ORDERED: [UNRECOGNIZED DRUG - REMARK] IVPB PRN (12:22)
[2018-11-10] MEDS ORDERED: VANCOMYCIN IVPB PRN (12:24)
--- NOTE | 2018-11-10 12:52 | HP ---
PRIMARY CARE PHYSICIAN: Dr. Elizabeth Mayorga. CHIEF COMPLAINT: Rash on both elbows. HISTORY OF PRESENTING ILLNESS: Mr. Reed is a 68-year-old male with known history of coronary artery disease, status post CABG as well as stenting and history of diabetes, peripheral vascular disease with stenting, as well as congestive heart failure, hypertension, CVA with right leg weakness, and COPD, who presented to the emergency room from [facility] with the above-mentioned complaint. History is mainly obtained from the patient who is a little bit of a poor historian. Extensive electronic medical records have been reviewed and case has been discussed with admitting ER physician. Mr. Reed reports that he started to notice this rash on inside of his elbows on both arms just this morning, so, he presented to the ER. He feels that the rash is expanding. He denies any fever or chills with that. Denies any nausea, vomiting, diarrhea, or any other recent illnesses. In general, reports that his right leg is weak and he is having a hard time walking around and he has a cane and a walker as well as a motorized wheelchair. Upon presentation in the ER, he was hemodynamically stable with a blood pressure 163/101 with a pulse of 84. He was found to have some maceration and excoriation of the skin in the cubital fossa with some probability of cellulitis. He was given IV antibiotics. His creatinine was also found to be bumped up to 2.19 and a baseline is around 1.6. Now, he is being admitted to medical floor for IV antibiotics and further evaluation and management of acute renal insufficiency. PAST MEDICAL HISTORY: 1. Coronary artery disease, status post coronary artery bypass graft and stenting in the past. 2. History of CVA with residual right-sided hemiparesis and muscle weakness in the leg. 3. Diabetes mellitus. 4. Peripheral vascular disease with stent placement. 5. COPD. PAST SURGICAL HISTORY: 1. Coronary artery bypass graft 3 vessels in 2017. 2. Status post bilateral lower extremity stent placement. ALLERGIES: NO KNOWN MEDICATION ALLERGIES. FAMILY HISTORY: Mother at the age of 48 secondary to diabetes complications. SOCIAL HISTORY: He is currently a resident of long term at [facility]. He has no history of drug, tobacco, or alcohol abuse. HOME MEDICATIONS: Not updated as yet, but according to the ER records, he takes the following; 1. Ranexa 500 b.i.d. 2. Isosorbide mononitrate 30 mg daily. 3. Aspirin 81 mg daily. 4. Latanoprost eyedrops daily. 5. Atorvastatin 20 mg daily. 6. Levemir 60 units in the morning and 20 units at bedtime. 7. Lisinopril 20 mg b.i.d. 8. Carvedilol 12.5 mg p.o. b.i.d. 9. Norvasc 5 mg daily. CODE STATUS: Full code discussed with the patient in detail. REVIEW OF SYSTEMS: A 12-point review of system is done, it is negative except for those mentioned in history and physical. LABORATORY DATA: His CBC shows normal WBCs at 7.6 with 78% neutrophils, otherwise unremarkable. Serum chemistry showed BUN 30, creatinine 2.19 with baseline creatinine anywhere from 1 to 1.5. Lactic acid elevated to 2.6. PHYSICAL EXAMINATION: VITAL SIGNS: Upon presentation, blood pressure 163/101, pulse of 84, respirations 16, temperature 97, saturating 100% on room air. GENERAL: No acute distress. Awake, alert, and oriented x3. He is very emotionally labile and starts to cry at the drop of a hat. HEENT: Mucous membrane is moist and pink. No oropharyngeal exudate or erythema. Head is normocephalic, atraumatic. Pupils are equal and reactive to light and accommodation. Extraocular movement intact. NECK: Supple without any lymphadenopathy, JVD, or bruit. CHEST: Clear to auscultation bilaterally without any wheezing, rales, or rhonchi. He had extensive keloid present at the midline scar from his prior CABG incision. The rate and rhythm are regular without any murmurs, rubs, or gallops. EXTREMITIES: Free of any cyanosis, clubbing, or edema. His bilateral antecubital fossa shows excoriation and macerated skin with rash and erythema and warmth extending upwards and downwards in the right arm. This skin is peeling over the area. Lower extremity examination show pitting edema +1 bilaterally. NEUROLOGICAL: Nonfocal. SKIN: As above. PSYCHIATRIC: Labile affect. IMPRESSION: 1. Right upper extremity cellulitis. The patient had sudden onset of excoriation in the antecubital fossa consistent with possible eczema rash with cellulitis in the right upper extremity. He will be treated with IV antibiotics and we will check ultrasound to rule out deep venous thrombosis in both right and left upper extremities. 2. Acute renal insufficiency. Start him on gentle IV fluids and consult Nephrology. Avoid any nephrotoxic medications. We will monitor renal function closely and renally dose the medications. 3. Lactic acidosis. This is most likely secondary to acute renal insufficiency. Monitor and follow the results of the blood cultures obtained in the ER. 4. Uncontrolled hypertension. We will restart him on home medications once confirmed and use p.r.n. antihypertensives until then. 5. History of coronary artery disease. Restart Ranexa, isosorbide, statin, and beta dann. We will avoid the NIKOLAS inhibitor in the setting of acute renal insufficiency for now. 6. History of peripheral vascular disease. Continue medications including aspirin and statin. 7. Diabetes mellitus. We will restart his home medications once confirmed with close monitoring to avoid any hypoglycemia. Insulin sliding scale will be added as well. 8. History of chronic obstructive pulmonary disease, currently well compensated. Nebs as needed. 9. History of cerebrovascular accident. The patient reports worsening weakness in his right leg. We will consult OT/PT for therapy and outpatient followup as well. 10. Code status, full code. DISPOSITION: Mr. Reed is currently being admitted to the hospital for right upper extremity cellulitis and acute renal failure. Currently, he is admitted under observation status. Further management will depend upon his clinical course. Job ID: [id number]
[2018-11-10 13:36] LABS: Lactic Acid 3.2 mmol/L (0.5-2.2)
--- NOTE | 2018-11-10 15:10 | CON ---
DATE OF CONSULTATION: 11/10/2018 CONSULTING PHYSICIAN: Dr. Naima Olson. REASON FOR CONSULTATION: Acute kidney injury on CKD 3. CHIEF COMPLAINT: Bilateral cubital fossa rash. HISTORY OF PRESENT ILLNESS: A 68-year-old male with known history of coronary artery disease status post CABG, hypertension, peripheral vascular disease as well as CHF and others, who was brought in from his [facility] due to worsening bilateral cubital fossa rash. The patient reported that the rash was associated with a blister squish busted recently and has been getting worse, associated with pain. He, however, denied history of fever. The patient also was found to have acute increase in creatinine to 2.17 from recent baseline of 1.6, hence Nephrology consult was requested. The patient denied nausea, vomiting, or diarrhea. He, however, admitted to recent commencement of a new medication hydrochlorothiazide/triamterene 2 days ago. He denied any NSAID use, dysuria, hematuria, or leg swelling. In the emergency room, the patient was found to have elevated blood pressure. He is admitted by the hospitalist service for IV antibiotics. PAST MEDICAL HISTORY: 1. Coronary artery disease. 2. Status post CABG. 3. CVA with residual right-sided weakness. 4. Diabetes mellitus. 5. Peripheral vascular disease. 6. COPD. 7. Chronic congestive heart failure. 8. Hypertension. PAST SURGICAL HISTORY: 1. Coronary artery bypass graft in 2017. 2. Bilateral lower extremity stent placement. FAMILY HISTORY: Significant for diabetes in mother. SOCIAL HISTORY: The patient is currently residing in a fpc. He denied drug, tobacco, or alcohol use. ALLERGIES: NO KNOWN DRUG ALLERGIES REPORTED. HOME MEDICATIONS: 1. Isosorbide mononitrate. 2. Ranexa. 3. Lipitor. 4. Triamterene/hydrochlorothiazide. 5. Carvedilol. 6. Latanoprost eye drops. The patient may also be on lisinopril 20 mg b.i.d. and Norvasc, but these are not included in the bag I reviewed at the bedside. Of note, triamterene/hydrochlorothiazide was prescribed on November 08, 2018, for the first time. REVIEW OF SYSTEMS: A 12-point review of system performed was negative other than pertinent positives and negatives included in the history of present illness. PHYSICAL EXAMINATION: VITAL SIGNS: On presentation to the emergency room, the patient had BP of 150/95, pulse of 92, respiratory rate 16, temperature 97, and SpO2 of 100 on room air. Last vitals showed BP 131/82, pulse 82, respiratory rate 16, SpO2 of 100% on room air. GENERAL: Elderly male, in no obvious distress. Afebrile, anicteric, acyanotic. HEENT: Normocephalic, atraumatic. Pupils are equal and reactive to light. Oral mucosa is moist. NECK: Supple. Nontender with full range of motion. No JVD was appreciated. CHEST: Clear to auscultation without any obvious crackle or rhonchi or use of accessory muscles. CARDIOVASCULAR: Regular rhythm and rate with normal heart sounds 1 and 2. No edema appreciated. GI: Abdomen is full, soft, nontender, nondistended with normal bowel sounds. EXTREMITIES: Bilateral cubital fossa erythematous exfoliating rash, worse on the right with erythema extending both to the arm and proximally to the upper arm. The patient reported some blister squish had busted on the right side. There is some excoriation as well. Other extremities are grossly unremarkable with no edema or cyanosis. NEUROLOGIC: Conscious and alert, oriented x3 with appropriate mental status. Cranial nerves 2 through 12 are intact. The patient moves all extremities. Gait was not tested. DIAGNOSTIC DATA: CBC showed WBC count of 7.6, hemoglobin of 18.8, hematocrit of 56.1, and platelet of 199. Of note, the patient had a hemoglobin of 15.5 on September 14, 2018, but have had prior hemoglobin as high as 18.9 in the past. CMP showed sodium 143, potassium 4.4, chloride 107, CO2 of 22, anion gap 18, BUN 30, creatinine 2.19, glucose 107. Calcium 10.9, total bilirubin 0.9, AST 40, ALT 28, alkaline phosphatase 82, total protein 7.5, albumin 4.5. Lactic acid 2.6. Of note, the patient had a creatinine of 1.67 on September 14 and 1.23 on September 11, 2018. Review of prior creatinine showed baseline to range from 1.2 to 1.6. ASSESSMENT AND PLAN: Acute kidney injury superimposed on baseline chronic kidney disease stage 3: This most likely is due to hemodynamic factors. The patient seems clinically dry and also was recently started on triamterene/hydrochlorothiazide. It is unclear at this time the patient's home medication whether he is still on lisinopril. The medications patient showed me that are his medication, did not have lisinopril or amlodipine on it. Again, acute elevation in hemoglobin from 15.5 on September 14 to 18.8 is suggestive of hemoconcentration and volume depletion. The patient was started on IV fluids normal saline at 75 mL/hour. We will observe renal function with IV fluids. If acute kidney injury is not resolved with fluid therapy, we will proceed with urinary electrolytes to calculate fractional excretion of sodium and urea in case the patient given recent commencement of triamterene/hydrochlorothiazide. Hypertension: Control is suboptimal. We will avoid lisinopril at this time and other nephrotoxic agent giving acute kidney injury. Isosorbide, beta dann, and amlodipine would be appropriate at this time. Type 2 diabetes mellitus. The patient is at increased risk for complications. We will get urine protein and microalbuminuria. We will also get urinalysis as well as urine electrolytes and urine protein creatinine ratio. Further recommendation to follow depending on patient's clinical course. Many thanks for involving us in the care of this patient. We will follow along with you. Job ID: [id number]
[2018-11-10] MEDS: Sodium Chloride 0.9% 1,000 ML IV SCH (15:12)
[2018-11-10] MEDS ORDERED: Piperacillin/Tazobactam 3.375 GM in Sodium Chloride 0.9% 100 ML IVPB SCH (17:00)
--- NOTE | 2018-11-10 17:12 | ULT ---
BILATERAL VENOUS DOPPLER ULTRASOUND: TECHNIQUE: Multiple longitudinal and transverse images of the right and left upper extremity venous system are o btained using a Multi-Hertz linear array transducer. FINDINGS: Real-time, color-flow, and spectral wave-form Doppler analysis demonstrates no evidence of acute or o ld clot seen in the right or left internal jugular veins, subclavian veins, axillary veins, right and left basilic veins, right and left brachial veins, and right and left radial and ulnar veins. No evidence of clot seen in the right cephalic vein. There is a segment of clot and occlusion of the left cephalic vein, at a segmental portion in the lef t antecubital region. This only involves a segment of the left cephalic vein. POS: [facility]
[2018-11-10] MEDS: Carvedilol 6.25 MG TAB PO SCH (17:27)
[2018-11-10] MEDS: Famotidine 20 MG TAB PO SCH (20:07)
[2018-11-10] MEDS: Heparin 5,000 UNITS/ML VIAL SC SCH (20:07)
[2018-11-10] MEDS: Acetaminophen 325 MG TAB PO PRN (20:08)
[2018-11-11] MEDS: Sodium Chloride 0.9% 1,000 ML IV SCH ×3 (01:06→13:54)
[2018-11-11] MEDS: Piperacillin/Tazobactam 2.25 GM in Sodium Chloride 0.9% 100 ML IVPB SCH ×4 (01:08→20:29)
[2018-11-11 03:53] LABS: Bilirubin Negative (Negative); Blood, Urine Negative (Negative); Clarity CLEAR (Clear); Glucose, Urine (Dipstick) >=1000 mg/dL (Negative); Leukocyte Negative (Negative); Nitrite Negative (Negative); Protein, Urine (Dipstick) Negative (Neg-Trace); Specific Gravity, Urine 1.024 (1.002-1.036); pH, Urine 5.5 (5.0-9.0)
[2018-11-11 03:55] LABS: Bacteria/HPF None Seen HPF (None Seen); Hyaline Casts/LPF 0-3 HYALINE CAST LPF (0-3 Hyaline); Pathc Cast-AUWi Flag 0.58 (0-2.49); RBC/HPF 0-3 HPF (0-3); Squamous Epithelial 0-3 HPF (0-3); Urine Culture Reflex Yes Yes
[2018-11-11 04:11] LABS: Creatinine, Urine 104.26 mg/dL (63-166); Microalbumin Urine 2.5 mg/dL (0.5-50.0)
[2018-11-11] MEDS: Acetaminophen 325 MG TAB PO PRN (04:16)
[2018-11-11] MEDS ORDERED: diphenhydrAMINE 25 MG CAP PO SCH (04:45)
[2018-11-11 04:51] LABS: #Eosinphils 0.2 thou/uL (0.0-0.7); #Lymphocytes 1.3 thou/uL (1.20-3.40); #Monocytes 0.4 thou/uL (0.11-0.59); #Neutrophils 2.7 thou/uL (1.40-6.50); %Basophils 0.7 % (0.0-1.0); %Eosinophils 4.7 % (0.0-10.0); %Lymphocytes 28.8 % (21.0-51.0); %Monocytes 7.5 % (0.0-10.0); %Neutrophils 58.3 % (42.0-75.0); Hemoglobin 17.4 g/dL (14.0-18.0); Mean Corpuscular HGB CONC 33.4 g/dL (32.0-36.0); Mean Corpuscular Hemoglobin 30.3 pg (27.0-31.0); Mean Corpuscular Volume 90.6 fL (78.0-98.0); Mean Platelet Volume 8.9 fL (7.4-10.4); Platelet Count 158 thou/uL (130-400); Red Blood Cell (RBC) Count 5.75 mill/uL (4.70-6.10); White Blood Cell (WBC) Count 4.6 thou/uL (4.8-10.8)
[2018-11-11 05:17] LABS: Anion Gap 12 mmol/L (10-20); BUN (Urea Nitrogen) 26 mg/dL (8.4-25.7); Calc. Creatinine Clearance 31 mL/min (70-130); Calcium 9.7 mg/dL (7.8-10.44); Carbon Dioxide 26 mmol/L (23-31); Chloride 106 mmol/L (98-107); Estimated GFR-MDRD 38; Glucose 446 mg/dL (80-115); Potassium 4.1 mmol/L (3.5-5.1); Sodium 140 mmol/L (136-145)
[2018-11-11] MEDS ORDERED: HumaLOG 300 UNITS/3 ML VIAL SC SCH (06:00)
[2018-11-11] MEDS ORDERED: Insulin Glargine 12 UNITS in Pre-Filled Syringe 1 EACH SC SCH (06:00)
[2018-11-11] MEDS: Carvedilol 6.25 MG TAB PO SCH ×2 (08:39→16:20)
[2018-11-11] MEDS: Famotidine 20 MG TAB PO SCH ×2 (08:39→20:30)
[2018-11-11] MEDS: Heparin 5,000 UNITS/ML VIAL SC SCH ×3 (08:40→20:29)
[2018-11-11] MEDS: HumaLOG 300 UNITS/3 ML VIAL SC PRN ×2 (11:28→16:22)
[2018-11-11] MEDS: Vancomycin HCl 1 GM in Premix Bag 1 BAG IVPB SCH (11:29)
[2018-11-11 11:50] VITALS: BMI 24.1
[2018-11-11] MEDS: diphenhydrAMINE 25 MG CAP PO PRN ×2 (12:27→20:37)
--- NOTE | 2018-11-11 14:10 | PDOC.PN ---
- Subjective Encounter Start Date: 11/11/18 Encounter Start Time: 14:05 Subjective: f/u for Bilat UE cellulitis on Vanc/Zosyn as well as LOBO on IVF's. -: States feeling better overall and less redness to UE's. - Objective Resuscitation Status - Order Detail: 11/10/18 12:03 Resuscitation Status Routine Resuscitation Status: FULL: Full Resuscitation Discussed with: discussed w pt MAR Reviewed: Yes Vital Signs & Weight: Vital Signs (12 hours) Temp Pulse Resp BP BP BP Pulse Ox 11/11/18 13:15 97.5 F L 76 18 118/74 98 11/11/18 08:39 138/84 11/11/18 08:15 98.2 F 87 18 138/84 98 11/11/18 08:00 98.2 F 87 18 138/84 98 11/11/18 03:45 97.7 F 77 16 126/74 97 Weight Admit Weight 144 lb 15.968 oz Weight 144 lb 15.968 oz I&O: 11/10/18 11/11/18 11/12/18 06:59 06:59 06:59 Intake Total 300 Balance 300 Result Diagrams: 11/11/18 04:40 11/11/18 04:40 Additional Labs: Accuchecks 11/11/18 11/11/18 11/10/18 11:22 05:31 21:15 POC Glucose 276 H Greater than 550 H* 401 H 11/10/18 15:54 POC Glucose 131 H Microbiology 11/11/18 03:58 Urine clean catch Urine Culture - Preliminary NO GROWTH AT 12 HOURS 11/10/18 09:11 Venous blood - Right Arm Blood Culture - Preliminary Specimen has been received and culture in progress. No Growth to date. 11/10/18 09:11 Venous blood - Left Arm Blood Culture - Preliminary Specimen has been received and culture in progress. No Growth to date. Laboratory Tests 11/10/18 11/10/18 11/10/18 09:11 09:11 09:11 WBC 7.6 Neutrophils % 78.7 H Creatinine 2.19 H Lactic Acid 2.6 H 11/10/18 11/11/18 13:04 04:40 WBC Neutrophils % 58.3 Creatinine Lactic Acid 3.2 H Radiology Reviewed by me: Yes (Venogram - small L cephalic vein thrombus, superficial) Phys Exam - Physical Examination Constitutional: NAD HEENT: PERRLA, sclera anicteric, oral pharynx no lesions Neck: no nodes, no JVD, supple, full ROM Respiratory: no wheezing, no rales, no rhonchi, clear to auscultation bilateral S1, S2 Cardiovascular: RRR, no significant murmur, no rub, gallop Gastrointestinal: soft, non-tender, no distention, positive bowel sounds bilat antecubital fossa erythema R>L Musculoskeletal: pulses present, edema present Neurological: normal sensation, moves all 4 limbs Psychiatric: A&O x 3 Skin: normal turgor, cap refill <2 seconds Dx/Plan (1) Cellulitis of upper extremity Code(s): L03.119 - CELLULITIS OF UNSPECIFIED PART OF LIMB Status: Acute Comment: Bilat UE involvement, continue Zosyn/Vancomycin another 24h then de- escalate coverage, improving (2) LOBO (acute kidney injury) Code(s): N17.9 - ACUTE KIDNEY FAILURE, UNSPECIFIED Status: Acute Comment: Improved, continue IVF's, avoid nephrotoxic meds and limit contrast (3) Cephalic vein thrombosis, left Code(s): I82.612 - ACUTE EMBOLISM AND THOMBOS OF SUPERFIC VEINS OF L UP EXTREM Status: Acute Comment: Superficial vein involvement, no anticoagulation warranted (4) Diabetes mellitus type II, uncontrolled Code(s): E11.65 - TYPE 2 DIABETES MELLITUS WITH HYPERGLYCEMIA Status: Chronic Comment: Continue Glargine, ISS, ADA - Plan continue antibiotics, PT/OT, psychosocial rehabilitation counselor, out of bed/ambulate, DVT proph w/ SCDs Stable currently -: Continue Zosyn/Vancomycin -: Continue IVF's another 24h -: PT evaluation for functional assessment -: AM lab: BMP * Convert to inpt status
--- NOTE | 2018-11-11 18:57 | PRG ---
DATE OF SERVICE: 11/11/2018 SUBJECTIVE: The patient is seen and examined. Noted with the following vital signs. OBJECTIVE: VITAL SIGNS: Afebrile, temperature 97.5, pulse 76, respiratory rate of 18, O2 saturation of 98% with blood pressure of 176/101. HEENT: Unremarkable. CARDIOVASCULAR SYSTEM: First and second heart sounds were heard. RESPIRATORY SYSTEM: Clear to auscultation. DIGESTIVE SYSTEM: Revealed a benign abdomen. Positive bowel sounds. EXTREMITIES: No peripheral edema. SKIN: No new gross rash. LYMPHATICS: No peripheral lymphadenopathy. LABORATORY INVESTIGATION: Significant for creatinine of 2.14, BUN of 26, sodium of 140, hemoglobin 17.4. IMPRESSION: 1. Acute on chronic kidney disease, possibly related to medication in this case, Bactrim. 2. Cannot completely rule out hemodynamically mediated changes. PLAN: 1. The patient's blood pressure seems to be suboptimally controlled with systolic in the 170s. We will proceed to deescalate IV fluid resuscitation in this patient. 2. Renally dose all medications for low GFR. 3. Avoid potentially nephrotoxic agents. 4. Further management to be dependent on the clinical course. The patient to continue with his yarn carrier, Dr. Yang. Job ID: [id number]
[2018-11-12] MEDS: Piperacillin/Tazobactam 2.25 GM in Sodium Chloride 0.9% 100 ML IVPB SCH ×3 (01:22→13:30)
[2018-11-12 05:27] LABS: Anion Gap 14 mmol/L (10-20); BUN (Urea Nitrogen) 19 mg/dL (8.4-25.7); Calc. Creatinine Clearance 44 mL/min (70-130); Calcium 9.4 mg/dL (7.8-10.44); Carbon Dioxide 23 mmol/L (23-31); Chloride 106 mmol/L (98-107); Estimated GFR-MDRD 55; Glucose 274 mg/dL (80-115); Potassium 4.4 mmol/L (3.5-5.1); Sodium 139 mmol/L (136-145)
[2018-11-12] MEDS: HumaLOG 300 UNITS/3 ML VIAL SC PRN ×2 (06:29→12:22)
[2018-11-12] MEDS: Carvedilol 6.25 MG TAB PO SCH (07:55)
[2018-11-12] MEDS: Famotidine 20 MG TAB PO SCH (08:02)
[2018-11-12] MEDS: Heparin 5,000 UNITS/ML VIAL SC SCH (08:02)
[2018-11-12] MEDS ORDERED: Insulin Glargine 12 UNITS in Pre-Filled Syringe 1 EACH SC SCH (09:00)
--- NOTE | 2018-11-12 11:11 | DIS ---
DATE OF ADMISSION: 11/10/2018 DATE OF DISCHARGE: 11/12/2018 PRIMARY CARE PHYSICIAN: Dr. Luis Mayorga. DISCHARGE DIAGNOSES: 1. Cellulitis of bilateral upper extremities, improved. 2. Acute kidney injury, improved. 3. Left cephalic vein superficial thrombosis. No anticoagulation recommended. 4. Diabetes mellitus type 2, insulin requiring, labile. CONSULTATIONS: Camilo Mcbride Obi, MD with Nephrology Service. PERTINENT LAB AND X-RAY FINDINGS: Creatinine ranged between 1.53 to 2.19, estimated GFR ranged between 37 to 55, and lactic acid level ranged between 2.6 to 3.2. CBC showed a white blood cell count ranged between 4.6 to 7.6 and hemoglobin ranged between 17.7 to 18.8. Blood cultures x2 dated 11/10/2018, showed no growth to-date. Urine culture dated 11/11/2018, showed no growth at 12 hours. Bilateral venous Doppler study of the upper extremities dated 11/10/2018, showed thrombus of the left cephalic vein. HOSPITAL COURSE: The patient was initially admitted to the medical floor after presenting with rash and erythema of the antecubital fossa on bilateral upper extremities. The patient underwent evaluation and placed on IV Zosyn and vancomycin for suspected cellulitis of the upper extremities. The patient was also treated for acute kidney injury with intravenous fluids and avoidance of nephrotoxic agents. Serial monitoring of creatinine showed overall improving renal function with modification to his chronic medication regimen and volume replacement. The patient was evaluated by the Nephrology Service with recommendations to continue conservative management and monitor on an ongoing basis as an outpatient. The patient clinically improved with IV antibiotic therapy with decreased erythema and edema of the antecubital fossa. The patient was noted with a superficial thrombus of the left cephalic vein, likely secondary to recent peripheral catheter insertion for IV access. Recommendations are for conservative management, local warm compresses, and no anticoagulation. Overall, the patient did remain clinically stable throughout the hospital course, tolerating regular oral intake and ambulating without assistance or difficulty. I have examined the patient at the time of discharge and discussed followup instructions. The patient verbalized understanding and agreement, ready for discharge on 11/12/2018. DISCHARGE MEDICATIONS: 1. Tylenol No. 3, 300/30 mg 1 to 2 tablets p.o. q.4 to 6 hours p.r.n. pain. 2. Norvasc 5 mg p.o. daily. 3. Lipitor 20 mg p.o. daily. 4. Coreg 6.25 mg p.o. b.i.d. 5. Isosorbide mononitrate 30 mg p.o. daily. 6. Latanoprost 0.05% 1 drop each eye at bedtime. 7. Levemir 60 units subcutaneously q.a.m. and 40 units subcutaneously at bedtime. 8. Ranexa 500 mg p.o. b.i.d. 9. Augmentin 500 mg 1 tablet p.o. b.i.d. x5 days. 10. Enteric-coated aspirin 81 mg p.o. daily. 11. Lisinopril 20 mg p.o. b.i.d., hold until 11/15/2018. FOLLOWUP: The patient followup with his primary care provider, Dr. Luis Mayorga's within 7 days of discharge. CONDITION ON DISCHARGE: Stable. ACTIVITY: Ad-nora. DIET: Heart healthy and ADA. CODE STATUS: Full. DISPOSITION: Home on 11/12/2018. TIME SPENT: Total time preparing and coordinating discharge, 32 minutes. Job ID: [id number]
[2018-11-12 11:27] LABS: Vancomycin, Trough 7.6 ug/mL
[2018-11-12] MEDS: Vancomycin HCl 1 GM in Premix Bag 1 BAG IVPB SCH (11:50)
[2018-11-12] MEDS ORDERED: Vancomycin HCl 750 MG in Sodium Chloride 0.9% 250 ML 250 ML IVPB SCH (12:00)
[2018-11-12 15:02] VITALS: BP 176/96; TEMP 97.6
== END 2018-11-12 15:03 | disposition home or self-care (01) | DRG 603 ==
LOC: ERS 08:34 → OBSVTOIN 10:43 → SURG B 10:43 → ONC 21:14
PROVIDERS: ADMIT Internal Medicine; ATTEND Internal Medicine
DX: L03.113 Cellulitis of right upper limb (principal); I69.351 Hemiplegia and hemiparesis following cerebral infarction affecting right dominant side; E87.2 Acidosis; N17.9 Acute kidney failure, unspecified; I82.612 Acute embolism and thrombosis of superficial veins of left upper extremity; I25.10 Atherosclerotic heart disease of native coronary artery without angina pectoris; E11.51 Type 2 diabetes mellitus with diabetic peripheral angiopathy without gangrene; J44.9 Chronic obstructive pulmonary disease, unspecified; N28.9 Disorder of kidney and ureter, unspecified; I12.9 Hypertensive chronic kidney disease with stage 1 through stage 4 chronic kidney disease, or unspecified chronic kidney disease; N18.3 Chronic kidney disease, stage 3 (moderate); L03.114 Cellulitis of left upper limb; E11.22 Type 2 diabetes mellitus with diabetic chronic kidney disease; Z95.1 Presence of aortocoronary bypass graft; Z79.82 Long term (current) use of aspirin; Z79.84 Long term (current) use of oral hypoglycemic drugs
CPT/HCPCS: 36415; 36416; 80048; 80053; 80202; 81001; 82043; 82570; 83605; 84156; 85025; 87040; 87086; 93970; 96361; 96365; 96375; J1644; J1825; J2543; J3370; J7050; Q0163

== ENCOUNTER 2018-11-13 10:24 | Emergency (ER) | payer MEDICARE, MEDICAID | END 2018-11-13 12:09 | disposition home or self-care (01) | LOC: ERS 10:24 | DX: L03.113 Cellulitis of right upper limb (principal); L03.114 Cellulitis of left upper limb; E11.9 Type 2 diabetes mellitus without complications; I25.10 Atherosclerotic heart disease of native coronary artery without angina pectoris; I11.0 Hypertensive heart disease with heart failure; I50.9 Heart failure, unspecified; J44.9 Chronic obstructive pulmonary disease, unspecified; Z87.891 Personal history of nicotine dependence; Z86.73 Personal history of transient ischemic attack (TIA), and cerebral infarction without residual deficits | CPT/HCPCS: 99283 ==

== ENCOUNTER 2018-11-16 07:55 | Emergency (ER) | payer MEDICARE, MEDICAID ==
--- NOTE | 2018-11-16 10:16 | ULT ---
ULTRASOUND WITH DOPPLER DUPLEX VENOUS LOWER EXTREMITY RIGHT: HISTORY: A 68-year-old male with right lower extremity pain and edema. TECHNIQUE: Color flow Doppler, spectral waveform analysis of pulsed Doppler, and franco-scale imaging with sebastian maldonado and augmentation, were used to evaluate the right common femoral, femoral, popliteal, posterior tibial, and superficial femoral, veins; and the proximal portions of the profunda femoral and greater saphenous, veins. FINDINGS: There is normal compressibility, demonstration of blood flow by color Doppler and pulsed Doppler, and response to augmentation, in all interrogated veins. IMPRESSION: Negative. No deep vein thrombosis in the right lower extremity. jn [] POS: NITZA
== END 2018-11-16 09:21 | disposition home or self-care (01) ==
LOC: ERS 07:55
DX: M79.604 Pain in right leg (principal); L30.9 Dermatitis, unspecified; I25.10 Atherosclerotic heart disease of native coronary artery without angina pectoris; E11.9 Type 2 diabetes mellitus without complications; I11.0 Hypertensive heart disease with heart failure; I50.9 Heart failure, unspecified; Z86.73 Personal history of transient ischemic attack (TIA), and cerebral infarction without residual deficits; J44.9 Chronic obstructive pulmonary disease, unspecified; Z87.891 Personal history of nicotine dependence

== ENCOUNTER 2018-11-25 12:01 | Emergency (ER) | payer MEDICARE, MEDICAID ==
[2018-11-25] MEDS ORDERED: Ketorolac Tromethamine 30 MG/ML VIAL ONE (14:07)
== END 2018-11-25 14:57 | disposition home or self-care (01) ==
LOC: ERS 12:01
DX: G89.29 Other chronic pain (principal); M54.9 Dorsalgia, unspecified
CPT/HCPCS: 96372; J1885

== ENCOUNTER 2019-02-11 13:19 | Inpatient (IN) | payer MEDICARE, MEDICAID ==
--- NOTE | 2019-02-11 13:39 | CT ---
Exam: Head CT without contrast HISTORY: Level 1 stroke alert. Altered mental status. Patient quit following commands and communicating, during transfer. COMPARISON: 07/30/2018 FINDINGS: Hemorrhage: No intraparenchymal hemorrhage or extra-axial hematoma. Brain parenchyma: Cortical franco-white matter differentiation is preserved. No mass effect or midline shift. Basilar cisterns are patent. Ventricular system: Ventricles and sulci are patent and symmetric. Calvarium: Intact. Sinuses and mastoid air cells: Adequate aeration. IMPRESSION: No acute intracranial process. Results of study discussed with Dr. Pacheco 02/11/2019 at 1:36 PM code CR
[2019-02-11 13:57] LABS: #Eosinphils 0.1 thou/uL (0.0-0.7); #Monocytes 0.3 thou/uL (0.11-0.59); #Neutrophils 3.1 thou/uL (1.40-6.50); %Basophils 0.4 % (0.0-1.0); %Eosinophils 1.1 % (0.0-10.0); %Lymphocytes 22.5 % (21.0-51.0); %Monocytes 7.2 % (0.0-10.0); %Neutrophils 68.7 % (42.0-75.0); Hemoglobin 14.1 g/dL (14.0-18.0); Mean Corpuscular HGB CONC 34.4 g/dL (32.0-36.0); Mean Corpuscular Hemoglobin 31.8 pg (27.0-31.0); Mean Corpuscular Volume 92.3 fL (78.0-98.0); Mean Platelet Volume 7.9 fL (7.4-10.4); Platelet Count 192 thou/uL (130-400); RBC Distribution Width 14.2 % (11.5-14.5); Red Blood Cell (RBC) Count 4.45 mill/uL (4.70-6.10); White Blood Cell (WBC) Count 4.5 thou/uL (4.8-10.8)
--- NOTE | 2019-02-11 13:58 | RAD ---
RADIOGRAPH CHEST 1 VIEW: Date: 02/11/19 Time: 1336 hours HISTORY: 68-year-old male with dyspnea. FINDINGS: There are no air space densities, pulmonary edema, pneumothorax, or cardiomegaly. The lateral costop hrenic angles are sharp. There are sternotomy wires. IMPRESSION: 1. No acute cardiopulmonary findings. 2. Evidence of previous open heart surgery. jn [] POS: TPC
--- NOTE | 2019-02-11 13:59 | CT ---
CTA Angio Head W WO Con History: [Level One stroke alert.] Comparison: None. Findings: CT angiogram of the head and neck performed after the intravenous administration of contras t. 3-D rendering provided. Likely inflow artifact of the visualized portion of the pulmonary trunk. The transverse aorta is normal. Lung apices are clear. Prior median sternotomy. The right vertebral artery is dominant. The left vertebral artery terminates in the PICA. The right common carotid artery is patent. Per NASCET criteria no hemodynamically significant stenosi s of the internal carotid artery. Left common carotid artery is patent. Per NASCET criteria no hemodynamically significant stenosis of the internal carotid artery. The [place] is patent. No stenosis, thrombosis, nor aneurysm formation. 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 Impression: 1. Per NASCET criteria no hemodynamically significant stenosis of the internal carotid arteries. 2. [place] is patent without stenosis, thrombosis, nor aneurysm formation.
[2019-02-11 14:02] LABS: INR-International Normal Ratio 1.2; PTT 34.3 SEC (22.9-36.1); Prothrombin Time 14.8 SEC (12.0-14.7)
[2019-02-11 14:11] LABS: ALT (SGPT) 14 U/L (8-55); AST (SGOT) 16 U/L (5-34); Albumin 3.7 g/dL (3.4-4.8); Alkaline Phosphatase 53 U/L (40-150); Anion Gap 14 mmol/L (10-20); BUN (Urea Nitrogen) 78 mg/dL (8.4-25.7); Bilirubin, Total 0.7 mg/dL (0.2-1.2); CK (CPK) 107 U/L (30-200); Calc. Creatinine Clearance 0 mL/min (70-130); Calcium 9.3 mg/dL (7.8-10.44); Carbon Dioxide 22 mmol/L (23-31); Chloride 104 mmol/L (98-107); Estimated GFR-MDRD 24; Globulin 2.2 g/dL (2.4-3.5); Glucose 116 mg/dL (80-115); Potassium 5.7 mmol/L (3.5-5.1); Protein, Total 5.9 g/dL (5.8-8.1); Sodium 134 mmol/L (136-145)
[2019-02-11 15:43] LABS: Anion Gap 12 mmol/L (10-20); BUN (Urea Nitrogen) 74 mg/dL (8.4-25.7); Calc. Creatinine Clearance 0 mL/min (70-130); Calcium 9.3 mg/dL (7.8-10.44); Carbon Dioxide 24 mmol/L (23-31); Chloride 106 mmol/L (98-107); Estimated GFR-MDRD 27; Potassium 5.8 mmol/L (3.5-5.1); Sodium 136 mmol/L (136-145)
[2019-02-11 15:53] LABS: Glucose 59 mg/dL (80-115)
[2019-02-11] MEDS ORDERED: Bisacodyl 10 MG SUPP PR PRN (17:28)
[2019-02-11] MEDS ORDERED: Dextrose 50% Abboject 50 ML SYRINGE SLOW IVP PRN (17:28)
[2019-02-11] MEDS ORDERED: Acetaminophen 325 MG TAB PO PRN (17:28)
[2019-02-11] MEDS ORDERED: Dextrose 5% in Water 1,000 ML IV PRN (17:28)
[2019-02-11] MEDS ORDERED: Senokot S 8.6-50 MG TAB PO PRN (17:28)
[2019-02-11] MEDS ORDERED: Guaifenesin DM 100-10/5 ML UDCUP PO PRN (17:28)
--- NOTE | 2019-02-11 19:03 | HP ---
REASON FOR ADMISSION: Acute renal failure, hypoglycemia, and hyperkalemia. HISTORY OF PRESENTING ILLNESS: The patient was mobilizing in his power scooter, apparently, the power got out of it. He was found slumped over in his power wheelchair. When EMS arrived, the patient's blood sugar was in the 50s. He was given multiple D50 ampules and was brought to emergency room here. Currently, the patient has no complaints of chest pain, palpitations, or PND. He is not clear what medications he takes. He knows he takes insulin. The patient says he might not have hydrated himself well while he was out in the sun today. Currently, he answers most of the questions correctly. He has no complaints of urinary frequency or urgency. He has not noticed any change in the color of his urine. No new cough or expectoration. He has some dry cough, which is chronic for him. No complaints of fever at home yesterday or day before. No diarrhea, nausea, or vomiting. PAST MEDICAL AND SURGICAL HISTORY: Hypertension, history of CABG, stenting for his coronaries in the past, history of CVA with right hemiparesis, diabetes mellitus type 2, peripheral vascular disease with prior stent, COPD. He has had CABG for 3-vessel disease in 2017, bilateral lower extremities with stents for peripheral vascular disease, dyslipidemia. CURRENT MEDICATIONS: Per discharge records from here in November of 2018, he was on; 1. Norvasc 5 mg daily. 2. Atorvastatin 20 mg daily. 3. Coreg 6.25 mg twice daily. 4. Imdur extended release 30 mg daily. 5. Latanoprost eye drops. 6. Levemir 60 units q.a.m. and 40 units q.p.m. 7. Ranexa 500 mg p.o. twice daily. 8. Aspirin 81 mg daily. 9. Lisinopril 20 mg twice daily. 10. Tylenol No.3 one to two tabs q.4 hourly p.r.n. ALLERGIES: NO KNOWN DRUG ALLERGIES. PERSONAL HISTORY: Says he quit alcohol, smoking, and drugs when he was 26 years old. FAMILY HISTORY: The patient says he is not and has no children. He had 2 siblings, brother and sister, both are . Brother apparently at the age of 52, he had lung cancer and was on chemotherapy. Sister killed herself when she was 48 years old. Mother of stroke at the age of 51. Father of old age apparently per patient, at the age of 53 years. CODE STATUS: Full. Power of trust and estates attorney is his cousin, Ms. Tika Solis. REVIEW OF SYSTEMS: CONSTITUTIONAL: Negative for weight loss or gain, ability to conduct usual activities. SKIN: Negative for rash, itching. EYES: Negative for double vision, pain. ENT/MOUTH: Negative for nose bleeding, neck stiffness, pain, tenderness. CARDIOVASCULAR: Negative for palpitations, dyspnea on exertion, orthopnea. RESPIRATORY: Negative for shortness of breath, wheezing, cough, hemoptysis, fever or night sweats. GASTROINTESTINAL: Negative for poor appetite, abdominal pain, heartburn, nausea , vomiting, constipation, or diarrhea. GENITOURINARY: Negative for urgency, frequency, dysuria, nocturia. MUSCULOSKELETAL: Negative for pain, swelling. NEUROLOGIC/PSYCHIATRIC: Negative for anxiety, depression. ALLERGY/IMMUNOLOGIC: Negative for skin rash, bleeding tendency. PHYSICAL EXAMINATION: GENERAL: The patient is a 68-year-old male, who is currently not in any acute distress. VITAL SIGNS: Blood pressure 130/76, pulse 74 per minute, respiratory rate 18 per minute, temperature 98.7 degrees Fahrenheit, saturating 98% on room air. NECK: Supple. No elevated JVD. HEENT: Eyes; extraocular muscles intact. Pupils reacting to light. Oral cavity, mucous membranes are dry. No exudates or congestion. CARDIOVASCULAR: S1 and S2 heard. Regular rhythm. RESPIRATORY: Air entry 1+ bilateral. Scattered rhonchi plus no rales or wheezing. ABDOMEN: Soft. Bowel sounds heard. No tenderness, rigidity, or guarding. EXTREMITIES: No peripheral edema or calf tenderness. VASCULAR: Peripheral pulses 1+ bilateral. No ischemic ulcerations or gangrene. CENTRAL NERVOUS SYSTEM: No gross focal deficits noted. The patient moves all 4 extremities. PSYCHIATRIC: The patient is a bit slow to talk, but is oriented. No obvious hallucinations or delusions. LABORATORY DATA: The patient has had 2 prior stress test done in October of 2016 and December of 2016, both of which were negative. He has had cardiac cath done in October of 2016 when he had a stent placed to proximal LAD, he was known to have a vein graft to mid RCA, free CALLES graft to distal LAD. His ejection fraction was normal on the stress test that was done in 2017. White count of 4.5, H and H 14 and 41, platelet count 192, MCV is 92. PT, INR, and PTT within normal limits. Potassium 5.8, serum bicarb 22, BUN 78, creatinine 3.16. Serum glucose initially was 116, repeat was 59. Liver enzymes within normal limits. CK level is 107. Albumin is 3.7. Troponin I 0.02. CT head without contrast done showed no acute intracranial process. Chest x-ray done shows no acute cardiopulmonary findings. CT angio head with and without contrast showed no hemodynamically significant stenosis of internal carotid arteries. [place] was patent without stenosis, thrombosis, nor aneurysm formation. CLINICAL IMPRESSION AND PLAN: The patient will be admitted to medical floor for acute kidney injury, likely prerenal plus medications that he was on including lisinopril might have contributed to it. He also has hyperkalemia and hypoglycemia on arrival. We will try to keep him on regular diet until his sugars consistently come up. He was on a heavy dose of Levemir per prior records. We will obtain accurate medication list from [email or web address] I have consulted Dr. Fraire for Nephrology. He will be gently hydrated with D5 water at 70 mL per hour for now. We will also continue him on aspirin, home dose of 5 mg of Norvasc, Lipitor 20 mg, Coreg 6.25 mg twice daily, Ranexa 500 mg twice daily, and Xalatan eye drops as before. Echo with 2D Doppler for LV function will be obtained. The patient has had contrast given for a CT angio in the ER and this might worsen his renal failure, acute kidney injury, and will closely monitor him. Job ID: [id number] [facility]
[2019-02-11 20:48] VITALS: BMI 28.4
[2019-02-11] MEDS: Carvedilol 6.25 MG TAB PO SCH (20:52)
[2019-02-11] MEDS: Dextrose 5% in Water 1,000 ML IV SCH (20:52)
[2019-02-11] MEDS: Latanoprost 0.005% Ophth Soln 2.5 ml Bottle EA EYE SCH (20:52)
[2019-02-12 00:37] LABS: Bilirubin Negative (Negative); Blood, Urine Negative (Negative); Clarity CLOUDY (Clear); Glucose, Urine (Dipstick) 250 mg/dL (Negative); Leukocyte Negative (Negative); Nitrite Negative (Negative); Protein, Urine (Dipstick) Negative (Neg-Trace); Specific Gravity, Urine 1.026 (1.002-1.036)
[2019-02-12 00:39] LABS: Bacteria/HPF None Seen HPF (None Seen); Hyaline Casts/LPF 4-6 HYALINE CAST LPF (0-3 Hyaline); Pathc Cast-AUWi Flag 0.95 (0-2.49); Squamous Epithelial 0-3 HPF (0-3); WBC/HPF 0-3 HPF (0-3)
[2019-02-12 00:54] LABS: Potassium, Urine 39.8 mmol/L
--- NOTE | 2019-02-12 01:33 | CON ---
DATE OF CONSULTATION: REASON FOR CONSULTATION: Hyperkalemia, elevated creatinine. HISTORY OF PRESENT ILLNESS: This is a very pleasant 68-year-old gentleman with a baseline creatinine of 1.5 on November 12, presented to the hospital and was noted to have a creatinine which was elevated. The patient had a CT scan for altered mental status. The patient can give no further history except was on a high potassium diet. PAST MEDICAL HISTORY: Coronary artery disease, CABG, history of CVA, diabetes mellitus, peripheral vascular disease, COPD, high blood pressure, bilateral lower extremity stent placement. FAMILY HISTORY: Negative for ESRD. ALLERGIES: REVIEWED. MEDICATIONS: Home medication list reviewed. Hospital medication list reviewed. REVIEW OF SYSTEMS: Unobtainable. PHYSICAL EXAMINATION: See above. CONSTITUTIONAL: The patient is awake and alert. VITAL SIGNS: Afebrile, pulse 75, breathing 16, blood pressure 130/73. GENERAL APPEARANCE AND MENTAL STATUS: Fair. HEAD/NECK: Normocephalic. Atraumatic. EYES: EOMI. No deformity. EARS: Clear. No ulcers. NOSE: Intact. No lesions. MOUTH: Clear. No discharge. THROAT: Clear. No exudate. LUNGS: Clear. No crackles. CARDIAC: S1, S2. No rub. ABDOMEN: Benign. Bowel sounds positive. GENITALIA/RECTUM: James absent. BACK/EXTREMITIES: Edema 0+. NEUROLOGICAL: Alert and motor intact. SKIN: LYMPHATICS: LABORATORY DATA: Potassium is 5.8, creatinine 2.8. ASSESSMENT AND PLAN: 1. Acute kidney injury with chronic kidney disease, most likely due to decreased effective arterial blood volume and progressive ischemic nephropathy. We would recommend hydration. 2. Hyperkalemia. Avoid NIKOLAS and ARB and Lovenox. 3. No urgent indication for dialysis. We will follow patient's renal function closely. Job ID: [id number]
[2019-02-12] MEDS: Dextrose 5% in Water 1,000 ML IV SCH (06:04)
[2019-02-12] MEDS ORDERED: HumaLOG 300 UNITS/3 ML VIAL SC PRN (06:09)
[2019-02-12 06:14] LABS: #Eosinphils 0.1 thou/uL (0.0-0.7); #Lymphocytes 1.2 thou/uL (1.20-3.40); #Monocytes 0.4 thou/uL (0.11-0.59); #Neutrophils 2.4 thou/uL (1.40-6.50); %Basophils 0.5 % (0.0-1.0); %Eosinophils 2.5 % (0.0-10.0); %Lymphocytes 28.9 % (21.0-51.0); %Monocytes 9.1 % (0.0-10.0); %Neutrophils 59.1 % (42.0-75.0); Hemoglobin 14.3 g/dL (14.0-18.0); Mean Corpuscular HGB CONC 34.5 g/dL (32.0-36.0); Mean Corpuscular Volume 92.7 fL (78.0-98.0); Mean Platelet Volume 8.6 fL (7.4-10.4); Platelet Count 172 thou/uL (130-400); RBC Distribution Width 14.1 % (11.5-14.5); Red Blood Cell (RBC) Count 4.46 mill/uL (4.70-6.10); White Blood Cell (WBC) Count 4.1 thou/uL (4.8-10.8)
[2019-02-12] MEDS ORDERED: Sodium Chloride 0.9% 1,000 ML IV SCH (06:15)
[2019-02-12 06:17] LABS: Hemoglobin A1c 6.7 % (4.0-6.0)
[2019-02-12] MEDS: HumaLOG 300 UNITS/3 ML VIAL SC PRN ×3 (06:18→17:28)
[2019-02-12 06:32] LABS: Albumin 3.6 g/dL (3.4-4.8); Anion Gap 12 mmol/L (10-20); BUN (Urea Nitrogen) 56 mg/dL (8.4-25.7); BUN/Creatinine Ratio 22.58; Calc. Creatinine Clearance 32 mL/min (70-130); Calcium 9.1 mg/dL (7.8-10.44); Carbon Dioxide 25 mmol/L (23-31); Chloride 107 mmol/L (98-107); Estimated GFR-MDRD 32; Glucose 321 mg/dL (80-115); Phosphorus 2.8 mg/dL (2.3-4.7); Sodium 139 mmol/L (136-145)
--- NOTE | 2019-02-12 08:09 | ULT ---
US Renal Bilateral STANDARD HISTORY: Acute renal insufficiency. COMPARISON: None. FINDINGS: Real-time imaging of the right and left kidneys were performed. The left kidney measures 10 .7 cm, the right kidney 10.4 cm in size. No evidence of cyst, mass or obstruction. The bladder is mildly distended at the time of this exam. IMPRESSION: Unremarkable renal ultrasound.
[2019-02-12] MEDS: Sodium Chloride 0.45% 1,000 ML IV SCH ×2 (08:14→23:03)
[2019-02-12] MEDS ORDERED: Insulin Glargine 10 UNITS in Pre-Filled Syringe 1 EACH SC SCH (09:00)
[2019-02-12] MEDS: Aspirin 81 mg Enteric Coated Tablet PO SCH (09:02)
[2019-02-12] MEDS: Atorvastatin Calcium 20 MG TAB PO SCH (09:02)
[2019-02-12] MEDS: Amlodipine 5 MG TAB PO SCH (09:02)
[2019-02-12] MEDS: Enoxaparin Sodium 30 MG/0.3 ML SYRINGE SC SCH (09:02)
[2019-02-12] MEDS: Carvedilol 6.25 MG TAB PO SCH ×2 (09:03→20:11)
--- NOTE | 2019-02-12 12:50 | PDOC.PN ---
- Subjective Encounter Start Date: 02/12/19 Encounter Start Time: 10:30 Subjective: awake, no sob -: gets emotional easily -: no chest pain, wants to ambulate with walker - Objective Resuscitation Status - Order Detail: 02/11/19 17:17 Resuscitation Status Routine Resuscitation Status: FULL: Full Resuscitation MAR Reviewed: Yes Vital Signs & Weight: Vital Signs (12 hours) Temp Pulse Resp BP BP Pulse Ox 02/12/19 11:00 97.6 F 83 18 132/83 95 02/12/19 09:03 143/87 H 02/12/19 09:02 86 143/87 H 02/12/19 07:46 98.2 F 88 18 143/87 H 94 L 02/12/19 05:00 98.5 F 86 18 112/71 95 Weight Weight 170 lb 13.732 oz I&O: 02/11/19 02/12/19 02/13/19 06:59 06:59 06:59 Intake Total 1250 Output Total 200 Balance 1050 Result Diagrams: 02/12/19 05:36 02/12/19 05:36 Additional Labs: Accuchecks 02/12/19 02/12/19 02/11/19 11:12 05:23 20:46 POC Glucose 297 H 325 H 266 H 02/11/19 02/11/19 17:52 13:26 POC Glucose 98 96 Phys Exam - Physical Examination HEENT: PERRLA, moist MMs Neck: no JVD, supple Respiratory: no rales, no rhonchi Cardiovascular: RRR, no significant murmur Gastrointestinal: soft, non-tender, positive bowel sounds Musculoskeletal: no edema, pulses present Neurological: non-focal, moves all 4 limbs responds well to verbal questions, oriented Dx/Plan (1) LOBO (acute kidney injury) Code(s): N17.9 - ACUTE KIDNEY FAILURE, UNSPECIFIED Status: Acute (2) Hypoglycemia associated with diabetes Code(s): E11.649 - TYPE 2 DIABETES MELLITUS WITH HYPOGLYCEMIA WITHOUT COMA Status: Resolved (3) CAD (coronary artery disease) Code(s): I25.10 - ATHSCL HEART DISEASE OF [place] CORONARY ARTERY W/O ANG PCTRS Status: Chronic Qualifiers: Coronary Disease-Associated Artery/Lesion type: bypass graft [place] vs. transplanted heart: [place] heart Associated angina: without angina Qualified Code(s): I25.810 - Atherosclerosis of coronary artery bypass graft(s) without angina pectoris (4) COPD (chronic obstructive pulmonary disease) Status: Chronic Qualifiers: COPD type: unspecified COPD Qualified Code(s): J44.9 - Chronic obstructive pulmonary disease, unspecified (5) Diabetes mellitus type II, uncontrolled Code(s): E11.65 - TYPE 2 DIABETES MELLITUS WITH HYPERGLYCEMIA Status: Chronic Comment: Continue Glargine, ISS, ADA (6) Dyslipidemia Code(s): E78.5 - HYPERLIPIDEMIA, UNSPECIFIED Status: Chronic (7) H/O: CVA (cerebrovascular accident) Code(s): Z86.73 - PRSNL HX OF TIA (TIA), AND CEREB INFRC W/O RESID DEFICITS Status: Chronic Comment: h/o right LE paresis (8) Hypertension Code(s): I10 - ESSENTIAL (PRIMARY) HYPERTENSION Status: Chronic Qualifiers: Hypertension type: essential hypertension (9) PAD (peripheral artery disease) Code(s): I73.9 - PERIPHERAL VASCULAR DISEASE, UNSPECIFIED Status: Chronic Comment: prior stent - Plan renal function is slowly returning towards baseline, still high -: tolerating iv fluids -: start lantus 20u bid, glucose trending towards 300 -: provide him walker to amb in room/hallway -: spiritual care consultation, continue asp, lipitor, coreg, norvasc and zoila * . Review of Systems - Medications/Allergies Allergies/Adverse Reactions: Allergies Allergy/AdvReac Type Severity Reaction Status Date / Time No Known Allergies Allergy Verified 10/19/16 21:26 Medications: Current Medications Acetaminophen (Tylenol) 650 mg PO Q4H PRN PRN Reason: Headache/Fever/Mild Pain (1-3) Amlodipine Besylate (Norvasc) [address] [facility] Last Admin: 02/12/19 09:02 Dose: 5 mg Aspirin (Ecotrin) [address] [facility] Last Admin: 02/12/19 09:02 Dose: 81 mg Atorvastatin Calcium (Lipitor) [address] [facility] Last Admin: 02/12/19 09:02 Dose: 20 mg Bisacodyl (Dulcolax) 10 mg OR DAILYPRN PRN PRN Reason: Constipation Carvedilol (Coreg) 6.[address] [facility] Last Admin: 02/12/19 09:03 Dose: 6.25 mg Dextrose/Water (Dextrose 50%) 25 gm SLOW IVP PRN PRN PRN Reason: Hypoglycemia Enoxaparin Sodium (Lovenox) [address] [facility] Last Admin: 02/12/19 09:02 Dose: 30 mg Glucagon (Glucagon) 1 mg IM PRN PRN PRN Reason: Hypoglycemia Guaifenesin/Dextromethorphan (Robitussin Dm) 15 ml PO Q4H PRN PRN Reason: Cough Dextrose/Water (D5w) 1,000 mls @ 0 mls/hr IV .Q0M PRN PRN Reason: Hypoglycemia Sodium Chloride (1/2 Normal Saline) 1,000 mls @ 75 mls/hr IV .[id number] [facility] Last Admin: 02/12/19 08:14 Dose: Not Given Insulin Glargine 20 units/ (Miscellaneous Medication) 0.2 mls @ 0 mls/hr SC BID [facility] Insulin Human Lispro (Humalog) 0 units SC .MILD SLIDING SCALE PRN; Protocol PRN Reason: MILD SLIDING SCALE Last Admin: 02/12/19 12:37 Dose: 4 unit Insulin Human Lispro (Humalog) 0 units SC .BEDTIME SLIDING SC PRN; Protocol PRN Reason: BEDTIME SLIDING SCALE Latanoprost (Xalatan 0.005% Oph Sol) [address] [facility] Last Admin: 02/11/19 20:52 Dose: 1 drp Ranolazine (Ranexa) [address] [facility] Last Admin: 02/12/19 09:02 Dose: 500 mg Senna/Docusate Sodium (Senokot S) 2 tab PO BID PRN PRN Reason: Constipation Sodium Chloride (Flush - Normal Saline) [address] [facility] Last Admin: 02/12/19 09:03 Dose: 10 ml Sodium Chloride (Flush - Normal Saline) 10 ml IVF PRN PRN PRN Reason: Saline Flush
--- NOTE | 2019-02-12 15:17 | PRG ---
DATE OF SERVICE: 02/12/2019 SUBJECTIVE: A 68-year-old gentleman being seen for acute kidney injury. The patient denies any nausea, vomiting, or chest pain. OBJECTIVE: CONSTITUTIONAL: The patient is awake and alert. VITAL SIGN: Afebrile, pulse 83, breathing 16, and blood pressure 132/86. GENERAL APPEARANCE AND MENTAL STATUS: Fair. HEAD/NECK: Normocephalic. Atraumatic. EYES: EOMI. No deformity. EARS: Clear. No ulcers. NOSE: Intact. No lesions. MOUTH: Clear. No discharge. THROAT: Clear. No exudate. LUNGS: Clear. No crackles. CARDIAC: S1, S2. No rub. ABDOMEN: Benign. Bowel sounds positive. GENITALIA/RECTUM: James absent. BACK/EXTREMITIES: Edema 0+. NEUROLOGICAL: Alert and motor intact. SKIN: LYMPHATICS: LABORATORY DATA: Hemoglobin 14.3, creatinine 2.4. ASSESSMENT AND PLAN: 1. Chronic kidney disease stage 3, stable. 2. Acute kidney injury, stable. 3. Hyperkalemia, stable. 4. Medication based on GFR appropriate. No indication for dialysis at this time. Job ID: [id number]
[2019-02-12] MEDS: Latanoprost 0.005% Ophth Soln 2.5 ml Bottle EA EYE SCH (20:13)
[2019-02-12] MEDS: Insulin Glargine 20 UNITS in Pre-Filled Syringe 1 EACH SC SCH (20:13)
[2019-02-13 05:43] LABS: Albumin 3.7 g/dL (3.4-4.8); Anion Gap 11 mmol/L (10-20); BUN (Urea Nitrogen) 32 mg/dL (8.4-25.7); Calc. Creatinine Clearance 49 mL/min (70-130); Calcium 8.8 mg/dL (7.8-10.44); Carbon Dioxide 26 mmol/L (23-31); Chloride 107 mmol/L (98-107); Estimated GFR-MDRD 53; Glucose 202 mg/dL (80-115); Phosphorus 2.6 mg/dL (2.3-4.7); Potassium 4.3 mmol/L (3.5-5.1); Sodium 140 mmol/L (136-145)
[2019-02-13] MEDS: Carvedilol 6.25 MG TAB PO SCH ×2 (07:58→20:10)
[2019-02-13] MEDS: Aspirin 81 mg Enteric Coated Tablet PO SCH (07:58)
[2019-02-13] MEDS: Enoxaparin Sodium 30 MG/0.3 ML SYRINGE SC SCH (07:58)
[2019-02-13] MEDS: Atorvastatin Calcium 20 MG TAB PO SCH (07:58)
[2019-02-13] MEDS: Amlodipine 5 MG TAB PO SCH (07:58)
[2019-02-13] MEDS: Insulin Glargine 20 UNITS in Pre-Filled Syringe 1 EACH SC SCH ×2 (08:33→20:09)
--- NOTE | 2019-02-13 10:56 | PDOC.PN ---
- Subjective Encounter Start Date: 02/13/19 Encounter Start Time: 09:15 Subjective: awake, sitting on bed, oriented well -: no sob, no trouble passing urine - Objective Resuscitation Status - Order Detail: 02/11/19 17:17 Resuscitation Status Routine Resuscitation Status: FULL: Full Resuscitation MAR Reviewed: Yes Vital Signs & Weight: Vital Signs (12 hours) Temp Pulse Resp BP BP Pulse Ox 02/13/19 07:58 76 129/76 02/13/19 07:23 97.8 F 76 16 129/76 97 Weight Weight 170 lb 13.732 oz I&O: 02/12/19 02/13/19 02/14/19 06:59 06:59 06:59 Intake Total 1250 1125 Output Total 200 950 Balance 1050 175 Result Diagrams: 02/12/19 05:36 02/13/19 04:31 Additional Labs: Accuchecks 02/13/19 02/12/19 02/12/19 05:06 19:57 16:18 POC Glucose 191 H 218 H 250 H 02/12/19 02/12/19 13:59 11:12 POC Glucose 325 H 297 H Phys Exam - Physical Examination HEENT: PERRLA, moist MMs Neck: no JVD, supple Respiratory: no wheezing, no rales Cardiovascular: RRR, no significant murmur Gastrointestinal: soft, non-tender, positive bowel sounds Musculoskeletal: no edema, pulses present Neurological: non-focal, moves all 4 limbs Psychiatric: normal affect, A&O x 3 Dx/Plan (1) LOBO (acute kidney injury) Code(s): N17.9 - ACUTE KIDNEY FAILURE, UNSPECIFIED Status: Acute Comment: resolving (2) Hypoglycemia associated with diabetes Code(s): E11.649 - TYPE 2 DIABETES MELLITUS WITH HYPOGLYCEMIA WITHOUT COMA Status: Resolved (3) CAD (coronary artery disease) Code(s): I25.10 - ATHSCL HEART DISEASE OF [place] CORONARY ARTERY W/O ANG PCTRS Status: Chronic Qualifiers: Coronary Disease-Associated Artery/Lesion type: bypass graft [place] vs. transplanted heart: [place] heart Associated angina: without angina Qualified Code(s): I25.810 - Atherosclerosis of coronary artery bypass graft(s) without angina pectoris (4) COPD (chronic obstructive pulmonary disease) Status: Chronic Qualifiers: COPD type: unspecified COPD Qualified Code(s): J44.9 - Chronic obstructive pulmonary disease, unspecified (5) Diabetes mellitus type II, uncontrolled Code(s): E11.65 - TYPE 2 DIABETES MELLITUS WITH HYPERGLYCEMIA Status: Chronic Comment: Continue Glargine, ISS, ADA (6) Dyslipidemia Code(s): E78.5 - HYPERLIPIDEMIA, UNSPECIFIED Status: Chronic (7) H/O: CVA (cerebrovascular accident) Code(s): Z86.73 - PRSNL HX OF TIA (TIA), AND CEREB INFRC W/O RESID DEFICITS Status: Chronic Comment: h/o right LE paresis (8) Hypertension Code(s): I10 - ESSENTIAL (PRIMARY) HYPERTENSION Status: Chronic Qualifiers: Hypertension type: essential hypertension (9) PAD (peripheral artery disease) Code(s): I73.9 - PERIPHERAL VASCULAR DISEASE, UNSPECIFIED Status: Chronic Comment: prior stent - Plan renal function is slowly trending back to baseline -: dc iv fluids, dm is slowly getting controlled -: increase lantus to 20u bid -: on asp, lipitor, norvasc, coreg, ranexa -: likely dc plan in am home with HH, has ambulated 160ft with PT * . Review of Systems - Medications/Allergies Allergies/Adverse Reactions: Allergies Allergy/AdvReac Type Severity Reaction Status Date / Time No Known Allergies Allergy Verified 10/19/16 21:26 Medications: Current Medications Acetaminophen (Tylenol) 650 mg PO Q4H PRN PRN Reason: Headache/Fever/Mild Pain (1-3) Amlodipine Besylate (Norvasc) 5 mg PO QAM [facility] Last Admin: 02/13/19 07:58 Dose: 5 mg Aspirin (Ecotrin) 81 mg PO DAILY [facility] Last Admin: 02/13/19 07:58 Dose: 81 mg Atorvastatin Calcium (Lipitor) 20 mg PO DAILY [facility] Last Admin: 02/13/19 07:58 Dose: 20 mg Bisacodyl (Dulcolax) 10 mg OR DAILYPRN PRN PRN Reason: Constipation Carvedilol (Coreg) 6.25 mg PO BID [facility] Last Admin: 02/13/19 07:58 Dose: 6.25 mg Dextrose/Water (Dextrose 50%) 25 gm SLOW IVP PRN PRN PRN Reason: Hypoglycemia Enoxaparin Sodium (Lovenox) 30 mg SC 0900 [facility] Last Admin: 02/13/19 07:58 Dose: 30 mg Glucagon (Glucagon) 1 mg IM PRN PRN PRN Reason: Hypoglycemia Guaifenesin/Dextromethorphan (Robitussin Dm) 15 ml PO Q4H PRN PRN Reason: Cough Dextrose/Water (D5w) 1,000 mls @ 0 mls/hr IV .Q0M PRN PRN Reason: Hypoglycemia Insulin Glargine 20 units/ (Miscellaneous Medication) 0.2 mls @ 0 mls/hr SC BID [facility] Last Admin: 02/13/19 08:33 Dose: 0.2 mls Insulin Human Lispro (Humalog) 0 units SC .MILD SLIDING SCALE PRN; Protocol PRN Reason: MILD SLIDING SCALE Last Admin: 02/12/19 17:28 Dose: 3 unit Insulin Human Lispro (Humalog) 0 units SC .BEDTIME SLIDING SC PRN; Protocol PRN Reason: BEDTIME SLIDING SCALE Latanoprost (Xalatan 0.005% Ophth Soln) 1 drop EA EYE HS [facility] Last Admin: 02/12/19 20:13 Dose: 1 drp Ranolazine (Ranexa) 500 mg PO BID [facility] Last Admin: 02/13/19 07:58 Dose: 500 mg Senna/Docusate Sodium (Senokot S) 2 tab PO BID PRN PRN Reason: Constipation Sodium Chloride (Flush - Normal Saline) 10 ml IVF Q12HR [facility] Last Admin: 02/13/19 07:58 Dose: 10 ml Sodium Chloride (Flush - Normal Saline) 10 ml IVF PRN PRN PRN Reason: Saline Flush
[2019-02-13] MEDS: HumaLOG 300 UNITS/3 ML VIAL SC PRN ×2 (12:18→17:36)
--- NOTE | 2019-02-13 12:47 | PRG ---
DATE OF SERVICE: 02/13/2019 SUBJECTIVE: A 68-year-old gentleman being seen for acute kidney injury. The patient denies any nausea, vomiting, or chest pain. OBJECTIVE: CONSTITUTIONAL: The patient is awake and alert. VITAL SIGN: Afebrile, pulse 76, breathing 16, and blood pressure 129/76. GENERAL APPEARANCE AND MENTAL STATUS: Fair. HEAD/NECK: Normocephalic. Atraumatic. EYES: EOMI. No deformity. EARS: Clear. No ulcers. NOSE: Intact. No lesions. MOUTH: Clear. No discharge. THROAT: Clear. No exudate. LUNGS: Clear. No crackles. CARDIAC: S1, S2. No rub. ABDOMEN: Benign. Bowel sounds positive. GENITALIA/RECTUM: James absent. BACK/EXTREMITIES: Edema 0+. NEUROLOGICAL: Alert and motor intact. SKIN: LYMPHATICS: LABORATORY DATA: Labs reviewed. ASSESSMENT AND PLAN: Chronic kidney disease stage 3, stable. Hypertension, stable. Anemia, stable. Acute kidney injury, resolved. No indication for dialysis. The patient can follow up to see me in one week. I will sign off on this patient. Job ID: [id number]
--- NOTE | 2019-02-13 17:16 | CT ---
CTA Angio Head W WO Con History: [Level One stroke alert.] Comparison: None. Findings: CT angiogram of the head and neck performed after the intravenous administration of contras t. 3-D rendering provided. Likely inflow artifact of the visualized portion of the pulmonary trunk. The transverse aorta is normal. Lung apices are clear. Prior median sternotomy. The right vertebral artery is dominant. The left vertebral artery terminates in the PICA. The right common carotid artery is patent. Per NASCET criteria no hemodynamically significant stenosi s of the internal carotid artery. Left common carotid artery is patent. Per NASCET criteria no hemodynamically significant stenosis of the internal carotid artery. The little [place] of [place] is patent. No stenosis, thrombosis, nor aneurysm formation. 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 Impression: 1. Per NASCET criteria no hemodynamically significant stenosis of the internal carotid arteries. 2. [place] is patent without stenosis, thrombosis, nor aneurysm formation. Transcribed Date/Time: 02/13/2019 5:16 PM
[2019-02-13] MEDS: Latanoprost 0.005% Ophth Soln 2.5 ml Bottle EA EYE SCH (20:10)
[2019-02-14] MEDS: HumaLOG 300 UNITS/3 ML VIAL SC PRN ×2 (04:58→11:59)
[2019-02-14 06:06] LABS: Albumin 3.9 g/dL (3.4-4.8); Anion Gap 7 mmol/L (10-20); BUN (Urea Nitrogen) 27 mg/dL (8.4-25.7); BUN/Creatinine Ratio 16.56; Calc. Creatinine Clearance 48 mL/min (70-130); Calcium 9.4 mg/dL (7.8-10.44); Carbon Dioxide 30 mmol/L (23-31); Chloride 107 mmol/L (98-107); Estimated GFR-MDRD 51; Glucose 207 mg/dL (80-115); Phosphorus 2.3 mg/dL (2.3-4.7); Potassium 4.3 mmol/L (3.5-5.1)
[2019-02-14 06:11] LABS: Sodium 140 mmol/L (136-145)
[2019-02-14] MEDS: Carvedilol 6.25 MG TAB PO SCH (08:02)
[2019-02-14] MEDS: Aspirin 81 mg Enteric Coated Tablet PO SCH (08:02)
[2019-02-14] MEDS: Insulin Glargine 20 UNITS in Pre-Filled Syringe 1 EACH SC SCH (08:02)
[2019-02-14] MEDS: Amlodipine 5 MG TAB PO SCH (08:03)
[2019-02-14] MEDS: Atorvastatin Calcium 20 MG TAB PO SCH (08:03)
[2019-02-14] MEDS ORDERED: Enoxaparin Sodium 40 MG/0.4 ML SYRINGE SC SCH (09:00)
[2019-02-14 11:30] VITALS: BP 143/92; TEMP 98
--- NOTE | 2019-02-15 04:36 | DIS ---
DATE OF ADMISSION: 02/11/2019 DATE OF DISCHARGE: 02/14/2019 PRIMARY CARE PROVIDER: Dr. Alvino Christina. DISCHARGE DIAGNOSES: 1. Acute on chronic stage 3 renal failure. 2. Hypoglycemia. CONDITION OF PATIENT ON THE DAY OF DISCHARGE: Stable. I assessed Mr. Reed on the day of discharge. He denies any chest pain or shortness of breath. Vital signs are stable. S1 and S2 are heard, regular. Lungs are clear to auscultation bilaterally. CONSULTATIONS DURING THIS HOSPITALIZATION: Nephrology, Dr. Fraire. HOSPITAL COURSE: Mr. eRed is a pleasant 68-year-old gentleman, who was admitted to [facility] on February 11, 2019, for acute on chronic stage 3 renal failure. Please refer to Dr. Trotter's history and physical note dated February 11, 2019, for further details. He was seen by Nephrology Service. He also had episodes of hypoglycemia secondary to insulin use and acute on chronic renal failure. His creatinine improved. He has been restarted on his home medications as dictated by Dr. Trotter in his history and physical note dated February 11, 2019. He has been cleared for discharge by Nephrology Service, who will follow up with him in 1 weeks' time. He is being discharged home with resumption of home health services. Many thanks for allowing me to participate in Mr. Reed's care. Please feel free to contact me with any questions or concerns. DISCHARGE DESTINATION: Home. TIME SPENT: Total amount of time spent coordinating this discharge: 32 minutes. Job ID: [id number]
--- NOTE | 2019-02-15 15:13 | EKG ---
Test Reason : Blood Pressure : / mmHG Vent. Rate : 078 BPM Atrial Rate : 078 BPM P-R Int : 140 ms QRS Dur : 090 ms QT Int : 364 ms P-R-T Axes : 076 056 005 degrees QTc Int : 414 ms Normal sinus rhythm Normal ECG Confirmed by MASOOD STEWART ([id number]), editor trade journal ARLEN SEXTON ([id number]) on 02/15/2019 3:12:46 PM Referred By: Confirmed By:MASOOD STEWART
== END 2019-02-14 12:16 | disposition home or self-care (01) | DRG 683 ==
LOC: ERS 13:19 → T4-A 19:49
PROVIDERS: ADMIT Internal Medicine; ATTEND Internal Medicine
DX: N17.9 Acute kidney failure, unspecified (principal); I69.351 Hemiplegia and hemiparesis following cerebral infarction affecting right dominant side; E87.6 Hypokalemia; E11.22 Type 2 diabetes mellitus with diabetic chronic kidney disease; I12.9 Hypertensive chronic kidney disease with stage 1 through stage 4 chronic kidney disease, or unspecified chronic kidney disease; E11.649 Type 2 diabetes mellitus with hypoglycemia without coma; E11.51 Type 2 diabetes mellitus with diabetic peripheral angiopathy without gangrene; J44.9 Chronic obstructive pulmonary disease, unspecified; I25.10 Atherosclerotic heart disease of native coronary artery without angina pectoris; N18.3 Chronic kidney disease, stage 3 (moderate); E78.5 Hyperlipidemia, unspecified; D63.1 Anemia in chronic kidney disease; Z79.4 Long term (current) use of insulin; Z95.1 Presence of aortocoronary bypass graft; Z79.82 Long term (current) use of aspirin; Z79.899 Other long term (current) drug therapy; Z87.891 Personal history of nicotine dependence
CPT/HCPCS: 36415; 36416; 70450; 70496; 70498; 71045; 76770; 80053; 80069; 81001; 82436; 82550; 82570; 83036; 84133; 84300; 84484; 85025; 85610; 85730; 93005; 93306; 96360; J1650; J1825

== ENCOUNTER 2019-02-25 15:17 | Inpatient (IN) | payer MEDICARE, MEDICAID ==
--- NOTE | 2019-02-25 15:48 | CT ---
CT BRAIN WITHOUT CONTRAST: HISTORY:Level 1 stroke, hypoglycemia, unresponsive, altered mental status COMPARISON:02/11/2019 FINDINGS: No evidence of acute infarct, hemorrhage, midline shift or abnormal extra-axial fluid collections is seen. The ventricular size is appropriate and the basilar cisterns are patent. The bony calvarium is intact.The visualized paranasal sinuses and mastoid air cells are well aerated. IMPRESSION: No CT evidence of acute intracranial process. Discussed over the telephone with Dr. Manasa Aguilar at 3:43 PM.
[2019-02-25 16:02] LABS: #Eosinphils 0.1 thou/uL (0.0-0.7); #Lymphocytes 0.8 thou/uL (1.20-3.40); #Monocytes 0.3 thou/uL (0.11-0.59); #Neutrophils 3.1 thou/uL (1.40-6.50); %Basophils 0.6 % (0.0-1.0); %Eosinophils 1.9 % (0.0-10.0); %Lymphocytes 17.8 % (21.0-51.0); %Monocytes 7.4 % (0.0-10.0); %Neutrophils 72.3 % (42.0-75.0); Hemoglobin 13.3 g/dL (14.0-18.0); Mean Corpuscular HGB CONC 33.5 g/dL (32.0-36.0); Mean Corpuscular Hemoglobin 32.1 pg (27.0-31.0); Mean Corpuscular Volume 95.7 fL (78.0-98.0); Mean Platelet Volume 8.2 fL (7.4-10.4); Platelet Count 150 thou/uL (130-400); RBC Distribution Width 14.4 % (11.5-14.5); Red Blood Cell (RBC) Count 4.15 mill/uL (4.70-6.10); White Blood Cell (WBC) Count 4.3 thou/uL (4.8-10.8)
[2019-02-25 16:21] LABS: ALT (SGPT) 14 U/L (8-55); AST (SGOT) 15 U/L (5-34); Acetaminophen Less than 6.0 mcg/mL (10.0-30.0); Albumin 3.6 g/dL (3.4-4.8); Alcohol Less than 10 mg/dL (Less than 10); Alkaline Phosphatase 57 U/L (40-150); Anion Gap 11 mmol/L (10-20); BUN (Urea Nitrogen) 32 mg/dL (8.4-25.7); Bilirubin, Total 0.5 mg/dL (0.2-1.2); Calc. Creatinine Clearance 0 mL/min (70-130); Calcium 8.8 mg/dL (7.8-10.44); Carbon Dioxide 24 mmol/L (23-31); Chloride 103 mmol/L (98-107); Estimated GFR-MDRD 48; Globulin 2.2 g/dL (2.4-3.5); Glucose 222 mg/dL (80-115); Potassium 4.9 mmol/L (3.5-5.1); Protein, Total 5.8 g/dL (5.8-8.1); Salicylate Less than 8.0 mg/dL (15.0-30.0); Sodium 133 mmol/L (136-145)
--- NOTE | 2019-02-25 17:22 | CT ---
CT ANGIOGRAM OF THE HEAD WITH IV CONTRAST AND 3D POST PROCESSING: CT ANGIOGRAM OF THE NECK WITH IV CONTRAST AND 3D POST PROCESSIN02/25/19 HISTORY: Level I stroke alert, unresponsive, hypoglycemia, altered mental status. COMPARISON: 02/11/19. FINDINGS: There is good flow in the vertebrobasilar and carotid artery systems on both sides with a dominant ri ght vertebral artery. Vascular calcifications are present. No evidence of significant stenosis, major branch occlusion or aneurysm formation is seen. IMPRESSION: Stable exam since 02/11/19. No evidence of significant stenosis, major branch occlusion or aneurysm for mation. Discussed over the telephone with ER physician, Dr. Manasa Aguilar at 4:08 p.m. POS: [facility]
[2019-02-25 17:34] LABS: Bilirubin Negative (Negative); Blood, Urine Negative (Negative); Clarity CLEAR (Clear); Glucose, Urine (Dipstick) 250 mg/dL (Negative); Leukocyte Negative (Negative); Nitrite Negative (Negative); Protein, Urine (Dipstick) Negative (Neg-Trace); Specific Gravity, Urine 1.021 (1.002-1.036)
[2019-02-25 17:43] LABS: Amphetamine Not Detected (NotDetected); Barbiturates Screen Not Detected (NotDetected); Benzodiazepine Screen Not Detected (NotDetected); Cocaine Metabolite Screen Not Detected (NotDetected); Medtox Control Line Valid? VALID (VALID); Medtox Reader # READER 1; Methadone Not Detected (NotDetected); Methamphetamine Not Detected (NotDetected); Opiate Screen Not Detected (NotDetected); Oxycodone Screen Not Detected (NotDetected); Phencyclidine (PCP) Not Detected (NotDetected); THC/Cannabinoid Screen Not Detected (NotDetected); Tricyclic Screen Not Detected (NotDetected)
[2019-02-25] MEDS ORDERED: Aspirin 325 MG TAB ONE (20:31)
[2019-02-25 21:27] VITALS: BMI 29.9
[2019-02-26] MEDS: Acetaminophen 325 MG TAB PO PRN ×2 (02:45→08:07)
[2019-02-26] MEDS ORDERED: Ondansetron ODT 4 MG TAB PO PRN (03:04)
[2019-02-26] MEDS ORDERED: Ondansetron PF 4 MG/2 ML Vial IVP PRN (03:04)
[2019-02-26] MEDS ORDERED: Cyclobenzaprine 10 MG TAB PO PRN (03:06)
[2019-02-26 04:37] LABS: #Eosinphils 0.1 thou/uL (0.0-0.7); #Lymphocytes 0.9 thou/uL (1.20-3.40); #Monocytes 0.3 thou/uL (0.11-0.59); #Neutrophils 2.2 thou/uL (1.40-6.50); %Basophils 0.2 % (0.0-1.0); %Eosinophils 2.8 % (0.0-10.0); %Lymphocytes 24.6 % (21.0-51.0); %Monocytes 9.6 % (0.0-10.0); %Neutrophils 62.7 % (42.0-75.0); Mean Corpuscular Hemoglobin 31.9 pg (27.0-31.0); Mean Corpuscular Volume 93.8 fL (78.0-98.0); Mean Platelet Volume 8.1 fL (7.4-10.4); Platelet Count 166 thou/uL (130-400); RBC Distribution Width 14.2 % (11.5-14.5); White Blood Cell (WBC) Count 3.5 thou/uL (4.8-10.8)
[2019-02-26 04:55] LABS: Anion Gap 12 mmol/L (10-20); BUN (Urea Nitrogen) 27 mg/dL (8.4-25.7); Calc. Creatinine Clearance 46 mL/min (70-130); Calcium 9.2 mg/dL (7.8-10.44); Carbon Dioxide 25 mmol/L (23-31); Chloride 105 mmol/L (98-107); Estimated GFR-MDRD 46; Glucose 310 mg/dL (80-115); Potassium 4.5 mmol/L (3.5-5.1); Sodium 137 mmol/L (136-145)
[2019-02-26] MEDS ORDERED: Dextrose 5% in Water 1,000 ML IV PRN (05:22)
[2019-02-26] MEDS ORDERED: Dextrose 50% Abboject 50 ML SYRINGE IVP PRN (05:22)
[2019-02-26] MEDS: HumaLOG 300 UNITS/3 ML VIAL SC PRN ×3 (05:28→16:37)
[2019-02-26] MEDS: Enoxaparin Sodium 40 MG/0.4 ML SYRINGE SC SCH (08:05)
[2019-02-26] MEDS: Aspirin 81 mg Enteric Coated Tablet PO SCH (08:06)
[2019-02-26] MEDS: Lisinopril 20 MG TAB PO SCH (08:06)
[2019-02-26] MEDS: Carvedilol 6.25 MG TAB PO SCH (08:06)
[2019-02-26] MEDS: Gabapentin 100 MG CAP PO SCH ×2 (08:07→16:37)
[2019-02-26] MEDS: Triamterene/Hydrochlorothiazide 37.5 mg/25 mg Tablet PO SCH (08:07)
[2019-02-26] MEDS: Atorvastatin Calcium 20 MG TAB PO SCH (08:07)
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
--- NOTE | 2019-02-26 14:26 | PDOC.PN ---
- Subjective Encounter Start Date: 02/26/19 Encounter Start Time: 13:00 Subjective: Patient examined, has just gotten back from MRI -: Denies complaints, reports an episode of syncope yesterday -: Is unable to describe what happened, A&O x3 today - Objective Resuscitation Status - Order Detail: 02/26/19 03:04 Resuscitation Status Routine Resuscitation Status: FULL: Full Resuscitation Vital Signs & Weight: Vital Signs (12 hours) Temp Pulse Resp BP BP Pulse Ox 02/26/19 11:26 97.9 F 87 16 105/74 95 02/26/19 08:06 117/77 02/26/19 07:16 97.7 F 85 16 117/77 94 L 02/26/19 04:36 98.1 F 96 20 112/72 94 L Weight Weight 81.601 kg I&O: 02/25/19 02/26/19 02/27/19 06:59 06:59 06:59 Intake Total 250 600 Output Total 800 Balance -550 600 Result Diagrams: 02/26/19 04:24 02/26/19 04:24 Additional Labs: Accuchecks 02/26/19 02/26/19 02/25/19 10:38 05:08 20:22 POC Glucose 218 H 274 H 106 02/25/19 02/25/19 15:55 15:23 POC Glucose 149 H 70 Phys Exam - Physical Examination HEENT: PERRLA, moist MMs poor dentition Neck: no nodes, no JVD Respiratory: clear to auscultation bilateral Cardiovascular: RRR Gastrointestinal: soft, non-tender Musculoskeletal: no edema, pulses present Neurological: non-focal, normal sensation, moves all 4 limbs Psychiatric: normal affect, A&O x 3 Skin: no rash, normal turgor Dx/Plan - Plan cont current plan of care, PT/OT, speech therapy Stroke team evaluation -: Echo is pending, MRI brain done today -: CTA negative, will continue to monitor BS, heart -: Did not have any overnight events * .
--- NOTE | 2019-02-26 15:23 | MRI ---
MRI OF BRAIN WITHOUT CONTRAST: 02/26/19 HISTORY: Altered mental status. Hypoglycemia, unresponsive. COMPARISON: CT brain, CTA head and neck from previous day. 06/08/06. FINDINGS: No restricted diffusion is seen. No evidence of infarct, hemorrhage, midline shift, or abnormal extra -axial fluid collections are seen. The ventricular size is appropriate and the basilar cisterns paten t. Multiple foci of T2 prolongation in the periventricular white matter consistent with chronic small vessel ischemic disease. The visualized paranasal sinuses and mastoid air cells are well aerated. IMPRESSION: No evidence of acute intracranial process. POS: [facility]
[2019-02-26] MEDS ORDERED: Insulin Glargine 40 UNITS in Pre-Filled Syringe 1 EACH SC SCH (21:00)
[2019-02-26] MEDS ORDERED: Latanoprost 0.005% Ophth Soln 2.5 ml Bottle EA EYE SCH (21:00)
[2019-02-26] MEDS ORDERED: INSULIN DETEMIR 40 UNIT SC SCH (21:00)
[2019-02-27] MEDS ORDERED: Nitroglycerin 0.4 MG TAB (25 Tab Bottle) ONE (06:40)
[2019-02-27] MEDS ORDERED: Nitroglycerin 0.4 MG TAB (25 Tab Bottle) SL PRN (09:06)
[2019-02-27] MEDS ORDERED: Morphine 2 MG/ML SYRINGE SLOW IVP PRN (09:06)
[2019-02-27] MEDS: Lisinopril 20 MG TAB PO SCH ×2 (10:00→10:36)
[2019-02-27] MEDS: Gabapentin 100 MG CAP PO SCH ×3 (10:01→17:00)
[2019-02-27] MEDS: Carvedilol 6.25 MG TAB PO SCH ×2 (10:01→10:35)
[2019-02-27] MEDS: Aspirin 81 mg Enteric Coated Tablet PO SCH (10:35)
[2019-02-27] MEDS: Triamterene/Hydrochlorothiazide 37.5 mg/25 mg Tablet PO SCH (10:35)
[2019-02-27] MEDS: Enoxaparin Sodium 40 MG/0.4 ML SYRINGE SC SCH (10:36)
[2019-02-27] MEDS: Atorvastatin Calcium 20 MG TAB PO SCH (10:36)
[2019-02-27] MEDS: HumaLOG 300 UNITS/3 ML VIAL SC PRN (11:42)
--- NOTE | 2019-02-27 15:37 | PDOC.PN ---
- Subjective Encounter Start Date: 02/27/19 Encounter Start Time: 15:35 Mr. Reed was seen today in follow-up of hypoglycemia. He does not have any complaints today. He has some very fixed beliefs regarding his diabetic management . He feels like changing to oral hypoglycemic will kill him. He feels that if I make any changes in his medications it will not work. - Objective Resuscitation Status - Order Detail: 02/26/19 03:04 Resuscitation Status Routine Resuscitation Status: FULL: Full Resuscitation MAR Reviewed: Yes Vital Signs & Weight: Vital Signs (12 hours) Temp Pulse Pulse Pulse Pulse Resp BP 02/27/19 11:51 98.5 F 81 18 02/27/19 10:45 85 83 02/27/19 10:36 145/79 H 02/27/19 10:35 145/79 H 02/27/19 10:01 117/77 02/27/19 10:00 117/77 02/27/19 09:04 84 81 84 02/27/19 08:00 BP BP BP BP Pulse Ox 02/27/19 11:51 154/87 H 96 02/27/19 10:45 118/79 154/87 H 02/27/19 10:36 02/27/19 10:35 02/27/19 10:01 02/27/19 10:00 02/27/19 09:04 137/82 134/76 155/82 H 02/27/19 08:00 95 Weight Weight 179 lb 14.4 oz I&O: 02/26/19 02/27/19 02/28/19 06:59 06:59 06:59 Intake Total 250 890 Output Total 800 800 Balance -550 90 Result Diagrams: 02/26/19 04:24 02/26/19 04:24 Additional Labs: Accuchecks 02/27/19 02/27/19 02/27/19 10:36 06:42 05:25 POC Glucose 393 H 245 H 248 H 02/26/19 02/26/19 21:50 16:29 POC Glucose 248 H 257 H Phys Exam - Physical Examination HEENT: PERRLA Respiratory: no wheezing, no rales, no rhonchi, clear to auscultation bilateral Cardiovascular: RRR, no significant murmur, no rub Gastrointestinal: soft, non-tender, no distention, positive bowel sounds Musculoskeletal: no edema Dx/Plan (1) Hypoglycemia Code(s): E16.2 - HYPOGLYCEMIA, UNSPECIFIED Status: Acute (2) Diabetes mellitus type II, uncontrolled Code(s): E11.65 - TYPE 2 DIABETES MELLITUS WITH HYPERGLYCEMIA Status: Chronic Comment: Continue Glargine, ISS, ADA (3) Hypertension Code(s): I10 - ESSENTIAL (PRIMARY) HYPERTENSION Status: Chronic Qualifiers: Hypertension type: essential hypertension - Plan * Hypoglycemic episode- this is likely due to non-compliance with medications. It is unclear if the patient has an understanding of how he is supposed to take his insulin and hos his diet relates to this * I called Dr. Christina his PCP, to make him aware of the situation, and he will be able to see him tomorrow * Stable for discharge home.
[2019-02-27 15:42] VITALS: BP 144/92; TEMP 97.4
--- NOTE | 2019-02-28 03:12 | DIS ---
DATE OF ADMISSION: 02/25/2019 DATE OF DISCHARGE: 02/27/2019 PRIMARY CARE PHYSICIAN: Dr. Luis Christina. DISCHARGE DISPOSITION: Home. PRIMARY DISCHARGE DIAGNOSES: 1. Metabolic encephalopathy secondary to hypoglycemia. 2. Diabetes mellitus, insulin dependent. 3. Chronic kidney disease stage 3. 4. Hyperlipidemia. 5. Chronic obstructive pulmonary disease. 6. Coronary artery disease, status post bypass. 7. Peripheral vascular disease. DISCHARGE MEDICATIONS: Include, 1. Lisinopril 20 mg twice a day. 2. Aspirin 81 mg daily. 3. Maxzide 37.5/25 one tablet daily. 4. Ranexa 500 mg twice a day. 5. Metformin 500 mg twice daily. 6. Latanoprost one drop in each eye at bedtime. 7. Isosorbide mononitrate 30 mg extended release daily. 8. Levemir 40 units in the p.m. and 60 units in the a.m. 9. Ibuprofen 800 mg t.i.d. 10. Gabapentin 100 mg t.i.d. 11. Flexeril 10 mg three times a day. 12. Carvedilol 12.5 mg twice daily. 13. Atorvastatin 20 mg daily. CODE STATUS: Full code. ALLERGIES: NO KNOWN DRUG ALLERGIES. PROCEDURES DONE DURING THE ADMISSION: The patient had a CT scan of the brain, which was negative for any acute intracranial abnormalities. MRI of the brain also did not demonstrate any stroke or bleed. CT angiogram was also negative. He had an echocardiogram which was noted that he had an ejection fraction of 55% to 60%, some E to A flow reversal suggestive of diastolic dysfunction. HOSPITAL COURSE: Mr. Reed is a pleasant 69-year-old gentleman who was brought in after he passed out. At that time, he was found to have a blood sugar in the 40s. He was admitted to the hospital and his blood sugars improved. It appears as if the patient has a difficult time understanding how he should take his insulin as well as when to eat. He also is very fixed in his police with regard to diabetic medication and was very distressful with any change in his medications unless it is made by his primary care physician. He seems to have poor insight into his diabetes control, but yet believes that he knows more than even the physicians with regard to how his diabetes should be treated, and in my opinion, he likely should not be on insulin as this is very dangerous in his particular situation, but he says that he is unwilling to take the oral hypoglycemics due to the fact that he believes they will "kill him." I spoke with his primary care physician over the phone, Dr. Christina, and explained the situation that he is not take any instructions from us with regard to adjusting his medications in any way. I have suggested that he go to see Dr. Christina tomorrow with regard to this situation as his current insulin regimen and control is very dangerous as he has had multiple episodes of hypoglycemia and admissions as a result of this. He was also ruled out for stroke with MRI, CT scan, and echo. These were negative. I also suspect that the patient has some underlying psychiatric condition that has likely gone undiagnosed for years. The patient did have a home health nurse who comes in to help put his medications and what sounds like a pill bottles, but he says he will not let anybody touch his insulin and he administers this himself. I explained this also to Dr. Christina on the phone who was under the impression that the nurse was helping him with his insulin. The patient has a very high risk behavior and will likely be readmitted and is at risk for very poor even dangerous outcome. Job ID: [id number]
--- NOTE | 2019-03-01 17:07 | EKG ---
Test Reason : STROKE Blood Pressure : / mmHG Vent. Rate : 086 BPM Atrial Rate : 086 BPM P-R Int : 148 ms QRS Dur : 084 ms QT Int : 364 ms P-R-T Axes : 068 066 -02 degrees QTc Int : 435 ms Poor data quality, interpretation may be adversely affected Normal sinus rhythm Abnormal QRS-T angle, consider primary T wave abnormality Abnormal ECG Confirmed by LOREN VARNER DO ([id number]), photography editor ARLEN SEXTON ([id number]) on 03/01/2019 5:07:12 PM Referred By: Confirmed By:LOREN VARNER DO
== END 2019-02-27 17:35 | disposition home health service (06) | DRG 637 ==
LOC: ERS 15:17 → 2SE 20:48
PROVIDERS: ADMIT Hospitalist; ATTEND Hospitalist
DX: E11.649 Type 2 diabetes mellitus with hypoglycemia without coma (principal); G93.41 Metabolic encephalopathy; E11.22 Type 2 diabetes mellitus with diabetic chronic kidney disease; N18.3 Chronic kidney disease, stage 3 (moderate); I12.9 Hypertensive chronic kidney disease with stage 1 through stage 4 chronic kidney disease, or unspecified chronic kidney disease; E11.51 Type 2 diabetes mellitus with diabetic peripheral angiopathy without gangrene; E11.65 Type 2 diabetes mellitus with hyperglycemia; Z91.14 Patient's other noncompliance with medication regimen; Z79.899 Other long term (current) drug therapy; Z79.4 Long term (current) use of insulin; Z79.82 Long term (current) use of aspirin
CPT/HCPCS: 36415; 36416; 51701; 70450; 70496; 70498; 70551; 80048; 80053; 80306; 80307; 81003; 84484; 85025; 93005; 93010; 93306; 96374; J1650; J1825

== ENCOUNTER 2019-03-14 13:54 | Inpatient (IN) | payer MEDICARE, MEDICAID ==
[~2019-03-14 13:54] MED LIST: ISOVUE-370 76%-LOCM 1 ML ONE
[2019-03-14] MEDS ORDERED: Lorazepam 2 MG/ML VIAL ONE (14:01)
[2019-03-14 14:22] LABS: #Eosinphils 0.1 thou/uL (0.0-0.7); #Lymphocytes 1.1 thou/uL (1.20-3.40); #Monocytes 0.3 thou/uL (0.11-0.59); #Neutrophils 3.2 thou/uL (1.40-6.50); %Basophils 0.2 % (0.0-1.0); %Eosinophils 2.2 % (0.0-10.0); %Lymphocytes 23.8 % (21.0-51.0); %Monocytes 5.3 % (0.0-10.0); %Neutrophils 68.5 % (42.0-75.0); Hemoglobin 14.8 g/dL (14.0-18.0); Mean Corpuscular HGB CONC 33.5 g/dL (32.0-36.0); Mean Corpuscular Hemoglobin 31.4 pg (27.0-31.0); Mean Corpuscular Volume 93.8 fL (78.0-98.0); Mean Platelet Volume 8.5 fL (7.4-10.4); Platelet Count 184 thou/uL (130-400); RBC Distribution Width 12.9 % (11.5-14.5); Red Blood Cell (RBC) Count 4.72 mill/uL (4.70-6.10); White Blood Cell (WBC) Count 4.7 thou/uL (4.8-10.8)
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
[2019-03-14 14:45] LABS: ALT (SGPT) 15 U/L (8-55); AST (SGOT) 14 U/L (5-34); Albumin 4.4 g/dL (3.4-4.8); Alkaline Phosphatase 62 U/L (40-150); Anion Gap 14 mmol/L (10-20); BUN (Urea Nitrogen) 34 mg/dL (8.4-25.7); Bilirubin, Total 0.6 mg/dL (0.2-1.2); CK (CPK) 222 U/L (30-200); Calc. Creatinine Clearance 0 mL/min (70-130); Carbon Dioxide 23 mmol/L (23-31); Chloride 109 mmol/L (98-107); Estimated GFR-MDRD 41; Globulin 2.4 g/dL (2.4-3.5); Glucose 216 mg/dL (80-115); Protein, Total 6.8 g/dL (5.8-8.1); Sodium 141 mmol/L (136-145)
[2019-03-14] MEDS ORDERED: levETIRAcetam 2,000 MG in Sodium Chloride 0.9% 100 ML IVPB SCH (15:45)
--- NOTE | 2019-03-14 15:47 | CT ---
CT angiogram thorax with contrast: (CTA pulmonary angiogram) DATE: 03/14/2019 HISTORY: 69-year-old male with syncope and diaphoresis. TECHNIQUE: IV injection of iodinated contrast. Scan acquisition timing attempted to coincide with iodinated contrast bolus reaching maximal density in pulmonary arteries. 3-D MIP reconstructions. FINDINGS: No evidence of pulmonary thromboembolism. 3 x 4 mm noncalcified pulmonary nodule in superior segment of left lower lobe (image 51 of 100, series 3). No consolidation, pulmonary alveolar edema, pleural effusion, or pneumothorax. No thoracic aortic aneurysm or dissection. No mediastinal or hilar lymphad enopathy. Stent within the LAD. No cardiomegaly or pericardial effusion. Partially imaged multiple small calcific densities in the gallbladder. IMPRESSION: 1. No evidence of pulmonary thromboembolism. 2. No acute intrathoracic findings. 3. Coronary atherosclerotic disease. 4. Evidence for Cholelithiasis without acute cholecystitis.
[2019-03-14] MEDS ORDERED: Acetaminophen 325 MG TAB PO PRN (17:46)
[2019-03-14] MEDS ORDERED: Lorazepam 2 MG/ML VIAL SLOW IVP PRN (17:47)
[2019-03-14 17:49] LABS: Troponin I 0.018 ng/mL (< 0.028)
[2019-03-14] MEDS ORDERED: Dextrose 50% Abboject 50 ML SYRINGE SLOW IVP PRN (17:52)
[2019-03-14] MEDS ORDERED: Dextrose 5% in Water 1,000 ML IV PRN (17:52)
--- NOTE | 2019-03-14 19:55 | HP ---
CHIEF COMPLAINT: Possible seizure/syncope. HISTORY OF PRESENT ILLNESS: The patient is a 69-year-old male with a past medical history of diabetes, history of hypertension, and possible history of stroke, who presents to the hospital after having a syncopal episode. The patient stated that this was confirmed by the patient's nurse. The patient was unsettling trying to pay his cable bill, when the patient had a syncopal episode. At this time, EMS was summoned. The nurse then stated that the patient was alert and oriented x4. However, while the EMS were present, the patient started having a focal seizure. At this time, he was brought into the hospital, where he suffered another focal seizure and was given Ativan. The patient currently is awake and oriented to self and place. The patient after that does not recall what really happened. He denies any recent fevers or chills, any diarrhea, or any nausea or vomiting. The patient states that he lives alone. PAST MEDICAL HISTORY: He has a history of 1. Diabetes. 2. Hypertension. 3. Possible stroke. PAST SURGICAL HISTORY: He has had a knee surgery and two bypass surgeries. FAMILY HISTORY: Unable to obtain. The patient does not recall. REVIEW OF SYSTEMS: All negative except for the ones mentioned above in HPI. SOCIAL HISTORY: He denies any alcohol use, drug use, or smoking history. ALLERGIES: HE HAS NO KNOWN DRUG ALLERGIES. MEDICATIONS: As of the following; 1. Isosorbide. 2. Metformin. 3. Vitamin D3. 4. Atorvastatin. 5. Gabapentin. 6. Aspirin. 7. Carvedilol. 8. Ranexa. 9. Cyclobenzaprine. 10. Lisinopril. PHYSICAL EXAMINATION: VITAL SIGNS: As of the following; temperature of 98.6, 95% on room air, respirations 18, pulse 87, blood pressure 162/94. GENERAL: He awake, alert, and oriented x2. The patient is a little slow to respond. However, he is awake. CV: S1 and S2 present. No murmurs, rubs, or gallops. LUNGS: Clear to auscultation. No rhonchi or wheezes noted. HEENT: Pupils are equal, reactive to light. No lymphadenopathy noted. ABDOMEN: Soft and nontender. Bowel sounds are present x2. EXTREMITIES: He has no edema. Pedal pulses are present x2. NEUROVASCULAR: No focal deficits noted. He does have a little decreased strength to his right lower extremity. The patient's cranial nerves 3 through 11 are intact. SKIN: Again as I mentioned, no cuts, lesions, or bruises noted. LABORATORY RESULTS: As of the following; WBCs of 4.7, hemoglobin of 14.8, hematocrit of 44.3, and platelets of 184. His chemistry; sodium of 141, potassium of 5.0, BUN of 34, creatinine 1.97. His glucose was 216, and his CK was 222. He did have a CTA and a brain CT. This CTA did not indicate any acute abnormalities. He did have a CT head, which also did not indicate any acute abnormalities, it just indicated some chronic small-vessel ischemic changes and remote lacunar infarct. ASSESSMENT AND PLAN: The patient is a very pleasant 69-year-old male, who presents to the hospital with possible syncope versus seizure. 1. New onset seizure. Again, the CT head is negative. I will go ahead and do an MRI brain. The patient does not have any history of a seizure before. I will check a prolactin level on this patient. The CTA did not indicate any acute abnormalities. I will also check a UDS on this patient. I will consult Neurology and put him on Keppra 1000 mg b.i.d. and also Ativan p.r.n. 2. History of diabetes. We will check Accu-Cheks before meals and at bedtime and also continue his sliding scale insulin and put him on a diabetic diet once he is cleared from a nursing standpoint in terms of swallow eval. 3. History of hypertension. I will continue his home medications. 4. History of hyperlipidemia. We will continue his atorvastatin. The patient already had an echocardiogram recently. This was in February of 2019, which indicated an ejection fraction of 55% to 60%, and he had no atrial septal defect and no patent foramen ovale. He actually also had a recent brain MRI on 02/26/2019, that indicated no evidence of acute intracranial processes. I will at this time discontinue the MRI that I have ordered. I will wait for Neurology's recommendations. I will also get an EEG for this patient, and deep venous thrombosis prophylaxis will be some SCDs. Job ID: [id number]
[2019-03-14 20:40] LABS: Troponin I Less than 0.010 ng/mL (< 0.028)
[2019-03-14] MEDS ORDERED: Famotidine/PF 20 mg/2ml Vial SLOW IVP SCH (21:00)
[2019-03-15] MEDS: Carvedilol 25 MG TAB PO SCH ×3 (00:36→21:31)
[2019-03-15] MEDS: levETIRAcetam In NaCl (Iso-Os) 1,000 MG in Premix Bag 1 BAG IVPB SCH ×3 (00:37→21:30)
[2019-03-15] MEDS: Gabapentin 100 MG CAP PO SCH ×4 (00:37→21:31)
[2019-03-15 05:25] LABS: #Eosinphils 0.1 thou/uL (0.0-0.7); #Lymphocytes 0.9 thou/uL (1.20-3.40); #Monocytes 0.2 thou/uL (0.11-0.59); #Neutrophils 2.3 thou/uL (1.40-6.50); %Basophils 0.4 % (0.0-1.0); %Eosinophils 2.8 % (0.0-10.0); %Lymphocytes 25.4 % (21.0-51.0); %Monocytes 6.9 % (0.0-10.0); %Neutrophils 64.5 % (42.0-75.0); Mean Corpuscular HGB CONC 33.9 g/dL (32.0-36.0); Mean Corpuscular Hemoglobin 32.4 pg (27.0-31.0); Mean Corpuscular Volume 95.5 fL (78.0-98.0); Mean Platelet Volume 8.2 fL (7.4-10.4); Platelet Count 173 thou/uL (130-400); RBC Distribution Width 12.9 % (11.5-14.5); Red Blood Cell (RBC) Count 4.33 mill/uL (4.70-6.10); White Blood Cell (WBC) Count 3.5 thou/uL (4.8-10.8)
[2019-03-15 05:46] LABS: Anion Gap 9 mmol/L (10-20); BUN (Urea Nitrogen) 29 mg/dL (8.4-25.7); Calc. Creatinine Clearance 0 mL/min (70-130); Calcium 9.6 mg/dL (7.8-10.44); Carbon Dioxide 25 mmol/L (23-31); Chloride 110 mmol/L (98-107); Estimated GFR-MDRD 48; Glucose 281 mg/dL (80-115); Potassium 4.4 mmol/L (3.5-5.1); Sodium 140 mmol/L (136-145)
[2019-03-15 05:55] VITALS: BMI 24.4
[2019-03-15 06:45] LABS: Bilirubin Negative (Negative); Blood, Urine Negative (Negative); Clarity Clear (Clear); Glucose, Urine (Dipstick) Greater than 1000 mg/dL (Negative); Leukocyte Negative Leu/uL (Negative); Nitrite Negative (Negative); Protein, Urine (Dipstick) Negative (Neg-Trace); Urobilinogen 3 mg/dL (Less than 2)
[2019-03-15 06:51] LABS: Urine Culture Reflex No No
[2019-03-15 07:17] LABS: Amphetamine Not Detected (NotDetected); Barbiturates Screen Not Detected (NotDetected); Benzodiazepine Screen Detected (NotDetected); Cocaine Metabolite Screen Not Detected (NotDetected); Medtox Control Line Valid? VALID (VALID); Medtox Reader # READER 1; Methadone Not Detected (NotDetected); Methamphetamine Not Detected (NotDetected); Opiate Screen Not Detected (NotDetected); Oxycodone Screen Not Detected (NotDetected); Phencyclidine (PCP) Not Detected (NotDetected); THC/Cannabinoid Screen Not Detected (NotDetected); Tricyclic Screen Not Detected (NotDetected)
[2019-03-15] MEDS: Atorvastatin Calcium 20 MG TAB PO SCH (08:34)
[2019-03-15] MEDS: Famotidine/PF 20 mg/2ml Vial SLOW IVP SCH (08:35)
[2019-03-15] MEDS: HumaLOG 300 UNITS/3 ML VIAL SC PRN ×2 (11:07→17:05)
[2019-03-15] MEDS ORDERED: Lidocaine 2% Viscous Solution 10 ML, Aluminum & Magnesium Hydroxide 30 ML SSW SCH (12:15)
[2019-03-15] MEDS: Aspirin 81 mg Enteric Coated Tablet PO SCH (12:39)
[2019-03-15] MEDS: Acetaminophen/Codeine 30-300mg Tablet PO PRN ×2 (12:39→21:31)
--- NOTE | 2019-03-15 13:10 | RAD ---
XR Knee Rt 2 View History: Knee pain Comparison: Knee radiograph 2018 Findings: Superficial surgical clips along the distal soft tissues. No acute fracture or malalignment . Mild enthesopathic changes. Low-grade vascular calcifications. No significant joint space narrowing. Impression: Minimal degenerative change. No acute osseous abnormality.
--- NOTE | 2019-03-15 13:12 | RAD ---
XR Tib Fib Rt Leg 2 View History: Pain and fall Comparison: None. Findings: No fracture. No malalignment. Soft tissues are unremarkable. Impression: Intact tib-fib.
--- NOTE | 2019-03-15 13:57 | CON ---
DATE OF TELEMEDICINE CONSULTATION: 03/15/2019 CHIEF COMPLAINT: Possible syncope versus seizure. HISTORY OF PRESENT ILLNESS: The patient is a 69-year-old man, who was recently admitted and evaluated. He presents with syncopal or seizure event. The patient reports that when his head turned, his eyes turned the opposite direction and he passed out and this occurred yesterday evening. He has had 4 seizures stroke so far and he was noted to have a focal seizure by the EMS and he was given Ativan since these two events happened yesterday. PREVIOUS MEDICAL HISTORY: Diabetes, hypertension, possible stroke and seizures, history of 4 seizures. SURGICAL HISTORY: Knee surgery on the right knee and two bypass surgeries in the heart. FAMILY HISTORY: Sister had seizures. Mom as her heart gave away from sadness at 38. Father at 53 from a stroke. His brother at 36, he was shot; sister at 38 from a stroke; another sister at 46, a table fell on her. SOCIAL HISTORY: He lives by himself. He does not smoke or drink alcohol. He works at [employer]. PAST SURGICAL HISTORY: Right knee surgery, coronary artery bypass surgery, and septal defect. He tells me they could not fix it and this was in 2006. MEDICATIONS: At home. He does take aspirin on a daily basis. He also takes; 1. Isosorbide. 2. Metformin. 3. Vitamin D3. 4. Atorvastatin. 5. Gabapentin. 6. Carvedilol. 7. Ranexa. 8. Cyclobenzaprine. 9. Lisinopril. REVIEW OF SYSTEMS: PULMONARY: Negative for cough or shortness of breath GI: Negative for diarrhea, vomiting, or nausea. GENITOURINARY: Negative for any bladder problems. NEUROLOGICAL: Positive for seizure. DERMATOLOGIC: Negative for a rash. LABORATORY WORKUP: White count 3.5, hemoglobin 14, hematocrit 41.4, and platelet count 173. Chemistry; sodium 140, potassium 4.4, chloride 110, bicarb 25, BUN 29, creatinine 1.72, glucose 281. Urinalysis is positive for urine glucose and toxicology screen positive for benzos. His CT of the head showed no acute infarct. His recent MRI did not show any acute infarct. PHYSICAL EXAMINATION: VITAL SIGNS: Blood pressure 200/95, pulse is 82, temperature 97.3, respiratory rate 20. GENERAL APPEARANCE: Well-built, well-nourished man, who is comfortable in bed. He has mild dysarthria and difficult to understand. CHEST: Clear vesicular breathing. CARDIOVASCULAR: S1 and S2 heard. No murmurs. ABDOMEN: Soft. NEUROLOGICAL: Higher intellectual functions. He is oriented to place, but not oriented to time. He thought it was February and was able to follow all commands. Cranial nerve examination, normal extraocular movements. Pupils 2 mm bilaterally and tongue midline. No atrophy noted. Normal sensation of face. Normal strength of facial muscles bilaterally and normal hearing bilaterally. Normal elevation of palate. Motor examination, bulk normal, tone normal. Strength 5/5 throughout in upper and lower extremities bilaterally. Muscle groups tested are deltoid, biceps, triceps, wrist extension and flexion, finger extension and flexion, iliopsoas, hamstrings, quadriceps, ankle dorsiflexion, plantar flexion, deltoid, and deep tendon reflexes were 2+ in upper and lower extremities. He has mild incoordination of the left leg on cerebellar exam. Sensory normal. IMPRESSION: The patient is a 69-year-old man, who had syncopal event and was noted to have focal seizures. He has had 4 seizures so far. He has not had any acute stroke at this admission. His examination is relatively normal except for very mild proximal muscle weakness in the right lower extremity and mild incoordination of the left leg. RECOMMENDATIONS: Suggest continuation of Keppra for now. He can follow up with Dr. Ewing as outpatient when he is discharged. Job ID: [id number] MTDD
--- NOTE | 2019-03-15 14:46 | PDOC.PN ---
- Subjective Encounter Start Date: 03/15/19 Encounter Start Time: 11:00 Subjective: pt up in bed got very upset started to yell, security was called -: spoke with pt that he needed to calm down,which he did - Objective Resuscitation Status - Order Detail: 03/14/19 17:46 Resuscitation Status Routine Resuscitation Status: FULL: Full Resuscitation Vital Signs & Weight: Vital Signs (12 hours) Temp Pulse Resp BP BP BP Pulse Ox 03/15/19 11:30 98.4 F 77 20 150/76 H 100 03/15/19 09:39 177/98 H 200/95 H 03/15/19 08:00 97.3 F L 82 20 157/92 H 99 03/15/19 04:00 97.8 F 87 18 144/88 H 98 Weight Weight 170 lb 6.4 oz I&O: 03/14/19 03/15/19 03/16/19 06:59 06:59 06:59 Intake Total 600 Output Total 300 Balance 300 Result Diagrams: 03/15/19 05:06 03/15/19 05:06 Additional Labs: Accuchecks 03/15/19 03/15/19 10:37 05:47 POC Glucose 286 H 234 H Phys Exam - Physical Examination Neck: no nodes, no JVD, supple, full ROM Respiratory: no wheezing, no rales, no rhonchi, wheezing present, clear to auscultation bilateral Cardiovascular: RRR, no significant murmur, no rub, gallop, irregular Gastrointestinal: soft, non-tender, no distention, positive bowel sounds Dx/Plan (1) Syncope Code(s): R55 - SYNCOPE AND COLLAPSE Status: Acute (2) Seizure Code(s): R56.9 - UNSPECIFIED CONVULSIONS Status: Acute (3) Right leg pain Code(s): M79.604 - PAIN IN RIGHT LEG Status: Acute (4) Diabetes mellitus type II, uncontrolled Code(s): E11.65 - TYPE 2 DIABETES MELLITUS WITH HYPERGLYCEMIA Status: Chronic Comment: Continue Glargine, ISS, ADA (5) Hypertension Code(s): I10 - ESSENTIAL (PRIMARY) HYPERTENSION Status: Chronic Qualifiers: (6) CKD (chronic kidney disease) stage 3, GFR 30-59 ml/min Code(s): N18.3 - CHRONIC KIDNEY DISEASE, STAGE 3 (MODERATE) Status: Acute - Plan will continue maicol szymanski to see pt -: will get right knee and tib/fib xray -: he had a MRI on 02/26 which was negative -: will add pain medication * . Review of Systems - Review of Systems Respiratory: negative: Cough, Dry, Shortness of Breath, Hemoptysis, SOB with Excertion, Pleuritic Pain, Sputum, Wheezing Cardiovascular: negative: chest pain, palpitations, orthopnea, paroxysmal nocturnal dyspnea, edema, light headedness, other Gastrointestinal: negative: Nausea, Vomiting, Abdominal Pain, Diarrhea, Constipation, Melena, Hematochezia, Other - Medications/Allergies Allergies/Adverse Reactions: Allergies Allergy/AdvReac Type Severity Reaction Status Date / Time No Known Allergies Allergy Verified 02/25/19 21:29 Medications: Current Medications Acetaminophen (Tylenol) 650 mg PO Q4H PRN PRN Reason: Headache/Fever/Mild Pain (1-3) Last Admin: 03/15/19 08:35 Dose: 650 mg Acetaminophen/Codeine Phosphate (Tylenol #3) 1 tab PO Q6H PRN PRN Reason: Moderate Pain (4-6) Last Admin: 03/15/19 12:39 Dose: 1 tab Aspirin (Ecotrin) 81 mg PO DAILY [facility] Last Admin: 03/15/19 12:39 Dose: 81 mg Atorvastatin Calcium (Lipitor) 20 mg PO DAILY [facility] Last Admin: 03/15/19 08:34 Dose: 20 mg Carvedilol (Coreg) 12.5 mg PO BID [facility] Last Admin: 03/15/19 08:34 Dose: 12.5 mg Dextrose/Water (Dextrose 50%) 25 gm SLOW IVP PRN PRN PRN Reason: Hypoglycemia Famotidine (Pepcid) 20 mg SLOW IVP 0900 [facility] Last Admin: 03/15/19 08:35 Dose: 20 mg Gabapentin (Neurontin) 100 mg PO TID [facility] Last Admin: 03/15/19 08:35 Dose: 100 mg Glucagon (Glucagon) 1 mg IM PRN PRN PRN Reason: Hypoglycemia Levetiracetam 1,000 mg/ Device 100 mls @ 200 mls/hr IVPB BID [facility] Last Admin: 03/15/19 09:25 Dose: 100 mls Dextrose/Water (D5w) 1,000 mls @ 0 mls/hr IV .Q0M PRN PRN Reason: Hypoglycemia Insulin Human Lispro (Humalog) 0 units SC .MILD SLIDING SCALE PRN PRN Reason: Mild Correctional Scale Last Admin: 03/15/19 11:07 Dose: 4 unit Lorazepam (Ativan) 2 mg SLOW IVP Q6H PRN PRN Reason: Seizures Senna/Docusate Sodium (Senokot S) 2 tab PO BIDPRN PRN PRN Reason: Constipation
[2019-03-15 19:14] LABS: INR-International Normal Ratio 1.1; Prothrombin Time 13.8 SEC (12.0-14.7)
[2019-03-15 19:24] LABS: Anion Gap 13 mmol/L (10-20); BUN (Urea Nitrogen) 25 mg/dL (8.4-25.7); Calc. Creatinine Clearance 47 mL/min (70-130); Calcium 9.3 mg/dL (7.8-10.44); Carbon Dioxide 22 mmol/L (23-31); Chloride 108 mmol/L (98-107); Estimated GFR-MDRD 51; Glucose 269 mg/dL (80-115); Potassium 4.2 mmol/L (3.5-5.1); Sodium 139 mmol/L (136-145)
[2019-03-15 19:27] LABS: Eosinophils 2 % (0-10); Hemoglobin 15.2 g/dL (14.0-18.0); Lymphocytes 12 % (21-51); MDiff Complete? YES; Mean Corpuscular HGB CONC 33.6 g/dL (32.0-36.0); Mean Corpuscular Hemoglobin 32.2 pg (27.0-31.0); Mean Corpuscular Volume 95.9 fL (78.0-98.0); Mean Platelet Volume 8.2 fL (7.4-10.4); Monocytes 5 % (0-10); Neutrophil 81 % (42-75); Platelet Count 189 thou/uL (130-400); Platelet Morphology Comment Appears Adequate; RBC Distribution Width 12.9 % (11.5-14.5); Red Blood Cell (RBC) Count 4.73 mill/uL (4.70-6.10); White Blood Cell (WBC) Count 4.4 thou/uL (4.8-10.8)
[2019-03-15 20:54] LABS: Troponin I Less than 0.010 ng/mL (< 0.028)
[2019-03-15] MEDS ORDERED: Non-Formulary Item 1 EACH (Insulin Detemir [Levemir Flextouch] 20 UNITS) SC SCH (21:00)
[2019-03-15] MEDS: Lisinopril 20 MG TAB PO SCH (21:31)
[2019-03-15] MEDS: Insulin Glargine 20 UNITS in Pre-Filled Syringe SC SCH (21:32)
[2019-03-16] MEDS: HumaLOG 300 UNITS/3 ML VIAL SC PRN ×3 (06:40→16:57)
[2019-03-16] MEDS: Famotidine/PF 20 mg/2ml Vial SLOW IVP SCH (08:54)
[2019-03-16] MEDS: Atorvastatin Calcium 20 MG TAB PO SCH (08:55)
[2019-03-16] MEDS: Insulin Glargine 20 UNITS in Pre-Filled Syringe SC SCH ×2 (08:55→21:34)
[2019-03-16] MEDS: Aspirin 81 mg Enteric Coated Tablet PO SCH (08:55)
[2019-03-16] MEDS: Lisinopril 20 MG TAB PO SCH ×2 (08:55→21:19)
[2019-03-16] MEDS: Gabapentin 100 MG CAP PO SCH ×3 (08:55→21:19)
[2019-03-16] MEDS: Carvedilol 25 MG TAB PO SCH ×2 (08:55→21:19)
[2019-03-16] MEDS: levETIRAcetam In NaCl (Iso-Os) 1,000 MG in Premix Bag 1 BAG IVPB SCH ×2 (08:57→21:20)
[2019-03-16] MEDS ORDERED: Non-Formulary Item 1 EACH (Insulin Detemir [Levemir Flextouch] 20 UNITS) SC SCH (09:00)
--- NOTE | 2019-03-16 11:18 | PRG ---
DATE OF TELEMEDICINE SERVICE: 03/16/2019 INTERVAL HISTORY: The patient had an event last night where he was difficult to awake and the patient has been much better this morning and Carrie Lucia was called yesterday and no witnessed seizure was reported. No tonic-clonic activity was recorded and was described in the Code Green note has difficulty to arouse. CURRENT LABORATORY WORKUP: No new labs done yesterday. PHYSICAL EXAMINATION: VITAL SIGNS: Blood pressure 152/86, temperature 97.4, pulse 72, respiratory rate 20, and O2 sats 97%. GENERAL APPEARANCE: Well-built, well-nourished man, who is stable. NEUROLOGIC: Cranial nerves, normal extraocular movements. He has no facial asymmetry. Motor examination, strength 5/5 in both upper and left lower extremity. In the right lower extremity, he still has proximal muscle weakness and iliopsoas at 4/5. Higher intellectual functions normal. Orientation to time, place, person. IMPRESSION: The patient is a 69-year-old man with history of possible seizures. He is currently on Keppra at 1000 mg b.i.d. and he is pending MRI at this time. RECOMMENDATION: I would like to go ahead and add Topamax to his regimen. Please have complete his EEG and MRI as planned and have Neurology followup tomorrow. Job ID: [id number] [facility]
--- NOTE | 2019-03-16 14:42 | PDOC.PN ---
- Subjective Encounter Start Date: 03/16/19 Encounter Start Time: 10:30 Subjective: pt up in bed denies any complains -: code david was called yestarday. pt's vitals were stable but -: he would not get up, but vitals were stable. - Objective Resuscitation Status - Order Detail: 03/14/19 17:46 Resuscitation Status Routine Resuscitation Status: FULL: Full Resuscitation Vital Signs & Weight: Vital Signs (12 hours) Temp Pulse Pulse Pulse Resp BP BP 03/16/19 11:42 97.6 F 84 20 03/16/19 09:40 77 74 136/79 152/86 H 03/16/19 07:58 97.4 F L 72 20 03/16/19 04:00 97.8 F 81 16 BP Pulse Ox 03/16/19 11:42 97/57 L 97 03/16/19 09:40 03/16/19 07:58 133/81 97 03/16/19 04:00 114/69 95 Weight Weight 170 lb 6.4 oz I&O: 03/15/19 03/16/19 03/17/19 06:59 06:59 06:59 Intake Total 900 480 Output Total 500 Balance 400 480 Result Diagrams: 03/15/19 18:57 03/15/19 18:57 Additional Labs: Accuchecks 03/16/19 03/16/19 03/15/19 10:38 06:21 20:22 POC Glucose 387 H 279 H 296 H 03/15/19 03/15/19 18:45 17:01 POC Glucose 289 H 272 H Dx/Plan (1) Syncope Code(s): R55 - SYNCOPE AND COLLAPSE Status: Acute (2) Seizure Code(s): R56.9 - UNSPECIFIED CONVULSIONS Status: Acute (3) Right leg pain Code(s): M79.604 - PAIN IN RIGHT LEG Status: Acute (4) Diabetes mellitus type II, uncontrolled Code(s): E11.65 - TYPE 2 DIABETES MELLITUS WITH HYPERGLYCEMIA Status: Chronic Comment: Continue Glargine, ISS, ADA (5) Hypertension Code(s): I10 - ESSENTIAL (PRIMARY) HYPERTENSION Status: Chronic Qualifiers: (6) CKD (chronic kidney disease) stage 3, GFR 30-59 ml/min Code(s): N18.3 - CHRONIC KIDNEY DISEASE, STAGE 3 (MODERATE) Status: Acute - Plan will continue keppra and topamax was added -: mri pending, pt was able to walk with pt -: tib/fib xray negative * . Review of Systems - Review of Systems Respiratory: negative: Cough, Dry, Shortness of Breath, Hemoptysis, SOB with Excertion, Pleuritic Pain, Sputum, Wheezing Cardiovascular: negative: chest pain, palpitations, orthopnea, paroxysmal nocturnal dyspnea, edema, light headedness, other - Medications/Allergies Allergies/Adverse Reactions: Allergies Allergy/AdvReac Type Severity Reaction Status Date / Time No Known Allergies Allergy Verified 02/25/19 21:29 Medications: Current Medications Acetaminophen (Tylenol) 650 mg PO Q4H PRN PRN Reason: Headache/Fever/Mild Pain (1-3) Last Admin: 03/15/19 08:35 Dose: 650 mg Acetaminophen/Codeine Phosphate (Tylenol #3) 1 tab PO Q6H PRN PRN Reason: Moderate Pain (4-6) Last Admin: 03/15/19 21:31 Dose: 1 tab Aspirin (Ecotrin) 81 mg PO DAILY [facility] Last Admin: 03/16/19 08:55 Dose: 81 mg Atorvastatin Calcium (Lipitor) 20 mg PO DAILY [facility] Last Admin: 03/16/19 08:55 Dose: 20 mg Carvedilol (Coreg) 12.5 mg PO BID [facility] Last Admin: 03/16/19 08:55 Dose: 12.5 mg Dextrose/Water (Dextrose 50%) 25 gm SLOW IVP PRN PRN PRN Reason: Hypoglycemia Famotidine (Pepcid) 20 mg SLOW IVP 0900 [facility] Last Admin: 03/16/19 08:54 Dose: 20 mg Gabapentin (Neurontin) 100 mg PO TID [facility] Last Admin: 03/16/19 08:55 Dose: 100 mg Glucagon (Glucagon) 1 mg IM PRN PRN PRN Reason: Hypoglycemia Levetiracetam 1,000 mg/ Device 100 mls @ 200 mls/hr IVPB BID [facility] Last Admin: 03/16/19 08:57 Dose: 100 mls Dextrose/Water (D5w) 1,000 mls @ 0 mls/hr IV .Q0M PRN PRN Reason: Hypoglycemia Insulin Glargine 20 units/ (Miscellaneous Medication) 0.2 mls @ 0 mls/hr SC BID [facility] Last Admin: 03/16/19 08:55 Dose: 0.2 mls Insulin Human Lispro (Humalog) 0 units SC .MILD SLIDING SCALE PRN PRN Reason: Mild Correctional Scale Last Admin: 03/16/19 11:43 Dose: 6 unit Insulin Human Lispro (Humalog) 6 units SC [facility] Isosorbide Mononitrate (Imdur Er) 30 mg PO DAILY [facility] Last Admin: 03/16/19 08:55 Dose: 30 mg Lisinopril (Zestril) 20 mg PO BID [facility] Last Admin: 03/16/19 08:55 Dose: 20 mg Lorazepam (Ativan) 2 mg SLOW IVP Q6H PRN PRN Reason: Seizures Ranolazine (Ranexa) 500 mg PO BID [facility] Last Admin: 03/16/19 08:55 Dose: 500 mg Senna/Docusate Sodium (Senokot S) 2 tab PO BIDPRN PRN PRN Reason: Constipation Topiramate (Topamax) 50 mg PO BID [facility]
[2019-03-16] MEDS: HumaLOG 300 UNITS/3 ML VIAL SC SCH (16:56)
[2019-03-16] MEDS: Topiramate 25 MG TAB PO SCH (21:18)
[2019-03-17] MEDS: HumaLOG 300 UNITS/3 ML VIAL SC PRN ×2 (06:38→12:14)
[2019-03-17] MEDS: levETIRAcetam In NaCl (Iso-Os) 1,000 MG in Premix Bag 1 BAG IVPB SCH ×2 (08:49→21:30)
[2019-03-17] MEDS: Famotidine/PF 20 mg/2ml Vial SLOW IVP SCH (08:49)
[2019-03-17] MEDS: Insulin Glargine 20 UNITS in Pre-Filled Syringe SC SCH ×2 (08:49→21:31)
[2019-03-17] MEDS: Aspirin 81 mg Enteric Coated Tablet PO SCH (08:50)
[2019-03-17] MEDS: Topiramate 25 MG TAB PO SCH ×2 (08:50→21:31)
[2019-03-17] MEDS: Carvedilol 25 MG TAB PO SCH (08:50)
[2019-03-17] MEDS: Gabapentin 100 MG CAP PO SCH ×3 (08:50→21:31)
[2019-03-17] MEDS: Atorvastatin Calcium 20 MG TAB PO SCH (08:50)
[2019-03-17] MEDS: HumaLOG 300 UNITS/3 ML VIAL SC SCH ×3 (08:52→17:50)
[2019-03-17] MEDS: Lisinopril 20 MG TAB PO SCH (08:53)
--- NOTE | 2019-03-17 13:31 | MRI ---
BRAIN MRI NONCONTRAST: Date: 03/17/19 INDICATION: History of stroke/seizure. FINDINGS: There is a ortega cisterna magna. Mild global atrophy with compensatory dilatation of the ventricular s ystem. No acute territorial infarction, mass effect, or midline shift. There is mild chronic microvas cular ischemic disease of the cerebral white matter. Stable pontine gliosis is noted, bilaterally. No intracranial hemorrhagic susceptibility. Trace right mastoid fluid. There is mild mucosal thickening of the paranasal sinuses. IMPRESSION: 1. No acute territorial infarction or intracranial mass effect. 2. Mild chronic microvascular ischemic disease and mild global atrophy. POS: [facility]
--- NOTE | 2019-03-17 14:13 | PDOC.PN ---
- Subjective Encounter Start Date: 03/17/19 Encounter Start Time: 11:45 Subjective: pt up in bed no complains - Objective Resuscitation Status - Order Detail: 03/14/19 17:46 Resuscitation Status Routine Resuscitation Status: FULL: Full Resuscitation Vital Signs & Weight: Vital Signs (12 hours) Temp Pulse Pulse Pulse Resp BP BP 03/17/19 11:44 97.8 F 81 16 03/17/19 10:13 87 84 111/71 03/17/19 08:53 107/62 03/17/19 08:00 03/17/19 07:45 97.5 F L 79 16 03/17/19 04:00 97.8 F 86 16 BP BP Pulse Ox 03/17/19 11:44 111/77 96 03/17/19 10:13 99/57 L 03/17/19 08:53 03/17/19 08:00 96 03/17/19 07:45 104/62 95 03/17/19 04:00 112/64 92 L Weight Weight 170 lb 6.4 oz I&O: 03/16/19 03/17/19 03/18/19 06:59 06:59 06:59 Intake Total 900 720 Output Total 500 325 Balance 400 395 Result Diagrams: 03/15/19 18:57 03/15/19 18:57 Additional Labs: Accuchecks 03/17/19 03/17/19 03/16/19 10:41 05:46 20:30 POC Glucose 293 H 173 H 105 03/16/19 03/14/19 16:52 23:29 POC Glucose 202 H 267 H Phys Exam - Physical Examination Neck: no nodes, no JVD, supple, full ROM Respiratory: no wheezing, no rales, no rhonchi, wheezing present, clear to auscultation bilateral Cardiovascular: RRR, no significant murmur, no rub, gallop, irregular Gastrointestinal: soft, non-tender, no distention, positive bowel sounds Dx/Plan (1) Syncope Code(s): R55 - SYNCOPE AND COLLAPSE Status: Acute (2) Seizure Code(s): R56.9 - UNSPECIFIED CONVULSIONS Status: Acute (3) Right leg pain Code(s): M79.604 - PAIN IN RIGHT LEG Status: Acute (4) Diabetes mellitus type II, uncontrolled Code(s): E11.65 - TYPE 2 DIABETES MELLITUS WITH HYPERGLYCEMIA Status: Chronic Comment: Continue Glargine, ISS, ADA (5) Hypertension Code(s): I10 - ESSENTIAL (PRIMARY) HYPERTENSION Status: Chronic Qualifiers: (6) CKD (chronic kidney disease) stage 3, GFR 30-59 ml/min Code(s): N18.3 - CHRONIC KIDNEY DISEASE, STAGE 3 (MODERATE) Status: Acute - Plan will order MR[facility] brain, PT to work with patient -: will continue keppra and topamax -: possible discharge home in am * . Review of Systems - Review of Systems Respiratory: negative: Cough, Dry, Shortness of Breath, Hemoptysis, SOB with Excertion, Pleuritic Pain, Sputum, Wheezing Cardiovascular: negative: chest pain, palpitations, orthopnea, paroxysmal nocturnal dyspnea, edema, light headedness, other Gastrointestinal: negative: Nausea, Vomiting, Abdominal Pain, Diarrhea, Constipation, Melena, Hematochezia, Other - Medications/Allergies Allergies/Adverse Reactions: Allergies Allergy/AdvReac Type Severity Reaction Status Date / Time No Known Allergies Allergy Verified 02/25/19 21:29 Medications: Current Medications Acetaminophen (Tylenol) 650 mg PO Q4H PRN PRN Reason: Headache/Fever/Mild Pain (1-3) Last Admin: 03/15/19 08:35 Dose: 650 mg Acetaminophen/Codeine Phosphate (Tylenol #3) 1 tab PO Q6H PRN PRN Reason: Moderate Pain (4-6) Last Admin: 03/15/19 21:31 Dose: 1 tab Aspirin (Ecotrin) 81 mg PO DAILY [facility] Last Admin: 03/17/19 08:50 Dose: 81 mg Atorvastatin Calcium (Lipitor) 20 mg PO DAILY [facility] Last Admin: 03/17/19 08:50 Dose: 20 mg Carvedilol (Coreg) 12.5 mg PO BID [facility] Last Admin: 03/17/19 08:50 Dose: 12.5 mg Dextrose/Water (Dextrose 50%) 25 gm SLOW IVP PRN PRN PRN Reason: Hypoglycemia Famotidine (Pepcid) 20 mg SLOW IVP 0900 [facility] Last Admin: 03/17/19 08:49 Dose: 20 mg Gabapentin (Neurontin) 100 mg PO TID [facility] Last Admin: 03/17/19 08:50 Dose: 100 mg Glucagon (Glucagon) 1 mg IM PRN PRN PRN Reason: Hypoglycemia Levetiracetam 1,000 mg/ Device 100 mls @ 200 mls/hr IVPB BID [facility] Last Admin: 03/17/19 08:49 Dose: 100 mls Dextrose/Water (D5w) 1,000 mls @ 0 mls/hr IV .Q0M PRN PRN Reason: Hypoglycemia Insulin Glargine 20 units/ (Miscellaneous Medication) 0.2 mls @ 0 mls/hr SC BID [facility] Last Admin: 03/17/19 08:49 Dose: 0.2 mls Insulin Human Lispro (Humalog) 0 units SC .MILD SLIDING SCALE PRN PRN Reason: Mild Correctional Scale Last Admin: 03/17/19 12:14 Dose: 4 unit Insulin Human Lispro (Humalog) 6 units SC AC [facility] Last Admin: 03/17/19 12:14 Dose: 6 unit Isosorbide Mononitrate (Imdur Er) 30 mg PO DAILY [facility] Last Admin: 03/17/19 08:50 Dose: 30 mg Lisinopril (Zestril) 20 mg PO BID [facility] Last Admin: 03/17/19 08:53 Dose: 20 mg Lorazepam (Ativan) 2 mg SLOW IVP Q6H PRN PRN Reason: Seizures Ranolazine (Ranexa) 500 mg PO BID [facility] Last Admin: 03/17/19 08:50 Dose: 500 mg Senna/Docusate Sodium (Senokot S) 2 tab PO BIDPRN PRN PRN Reason: Constipation Topiramate (Topamax) 50 mg PO BID [facility] Last Admin: 03/17/19 08:50 Dose: 50 mg
[2019-03-17] MEDS ORDERED: Sodium Chloride 0.9% 500 ML IVPB SCH (16:30)
[2019-03-18 06:03] LABS: Anion Gap 11 mmol/L (10-20); BUN (Urea Nitrogen) 28 mg/dL (8.4-25.7); Calc. Creatinine Clearance 47 mL/min (70-130); Calcium 8.6 mg/dL (7.8-10.44); Carbon Dioxide 22 mmol/L (23-31); Chloride 111 mmol/L (98-107); Estimated GFR-MDRD 51; Glucose 115 mg/dL (80-115); Sodium 140 mmol/L (136-145)
[2019-03-18] MEDS: Aspirin 81 mg Enteric Coated Tablet PO SCH (09:44)
[2019-03-18] MEDS: Topiramate 25 MG TAB PO SCH ×2 (09:44→22:06)
[2019-03-18] MEDS: Gabapentin 100 MG CAP PO SCH ×3 (09:44→22:07)
[2019-03-18] MEDS: levETIRAcetam In NaCl (Iso-Os) 1,000 MG in Premix Bag 1 BAG IVPB SCH (09:45)
[2019-03-18] MEDS: Atorvastatin Calcium 20 MG TAB PO SCH (09:45)
[2019-03-18] MEDS: Insulin Glargine 20 UNITS in Pre-Filled Syringe SC SCH ×2 (09:46→22:07)
[2019-03-18] MEDS: Famotidine/PF 20 mg/2ml Vial SLOW IVP SCH (09:47)
[2019-03-18] MEDS: HumaLOG 300 UNITS/3 ML VIAL SC SCH ×3 (09:54→17:42)
[2019-03-18] MEDS ORDERED: Carvedilol 25 MG TAB PO SCH (11:07)
--- NOTE | 2019-03-18 15:27 | PDOC.PN ---
- Subjective Encounter Start Date: 03/18/19 Encounter Start Time: 10:45 Subjective: pt up in bed no complains - Objective Resuscitation Status - Order Detail: 03/14/19 17:46 Resuscitation Status Routine Resuscitation Status: FULL: Full Resuscitation Vital Signs & Weight: Vital Signs (12 hours) Temp Pulse Pulse Pulse Resp BP BP 03/18/19 11:57 97.8 F 84 20 03/18/19 10:06 84 80 116/64 115/66 03/18/19 08:00 97.6 F 75 20 03/18/19 04:00 97.1 F L 75 16 BP Pulse Ox 03/18/19 11:57 105/64 95 03/18/19 10:06 03/18/19 08:00 111/71 94 L 03/18/19 04:00 92/60 97 Weight Weight 170 lb 6.4 oz I&O: 03/17/19 03/18/19 03/19/19 06:59 06:59 06:59 Intake Total 720 960 Output Total 325 Balance 395 960 Result Diagrams: 03/15/19 18:57 03/18/19 05:33 Additional Labs: Accuchecks 03/18/19 03/18/19 03/17/19 10:35 05:56 20:40 POC Glucose 144 H 101 196 H 03/17/19 16:39 POC Glucose 144 H Phys Exam - Physical Examination Respiratory: no wheezing, no rales, no rhonchi, wheezing present, clear to auscultation bilateral Cardiovascular: RRR, no significant murmur, no rub, gallop, irregular Gastrointestinal: soft, non-tender, no distention, positive bowel sounds Dx/Plan (1) Syncope Code(s): R55 - SYNCOPE AND COLLAPSE Status: Acute (2) Seizure Code(s): R56.9 - UNSPECIFIED CONVULSIONS Status: Acute (3) Right leg pain Code(s): M79.604 - PAIN IN RIGHT LEG Status: Acute (4) Diabetes mellitus type II, uncontrolled Code(s): E11.65 - TYPE 2 DIABETES MELLITUS WITH HYPERGLYCEMIA Status: Chronic Comment: Continue Glargine, ISS, ADA (5) Hypertension Code(s): I10 - ESSENTIAL (PRIMARY) HYPERTENSION Status: Chronic Qualifiers: (6) CKD (chronic kidney disease) stage 3, GFR 30-59 ml/min Code(s): N18.3 - CHRONIC KIDNEY DISEASE, STAGE 3 (MODERATE) Status: Acute - Plan talked to family today, pt has had seizure in the past -: was put on meds then taken off. he is now on keppra -: will change meds to po. waiting for placement * . Review of Systems - Review of Systems Cardiovascular: negative: chest pain, palpitations, orthopnea, paroxysmal nocturnal dyspnea, edema, light headedness, other - Medications/Allergies Allergies/Adverse Reactions: Allergies Allergy/AdvReac Type Severity Reaction Status Date / Time No Known Allergies Allergy Verified 02/25/19 21:29 Medications: Current Medications Acetaminophen (Tylenol) 650 mg PO Q4H PRN PRN Reason: Headache/Fever/Mild Pain (1-3) Last Admin: 03/15/19 08:35 Dose: 650 mg Acetaminophen/Codeine Phosphate (Tylenol #3) 1 tab PO Q6H PRN PRN Reason: Moderate Pain (4-6) Last Admin: 03/15/19 21:31 Dose: 1 tab Aspirin (Ecotrin) 81 mg PO DAILY [facility] Last Admin: 03/18/19 09:44 Dose: 81 mg Atorvastatin Calcium (Lipitor) 20 mg PO DAILY [facility] Last Admin: 03/18/19 09:45 Dose: 20 mg Carvedilol (Coreg) 3.125 mg PO BID[facility] Dextrose/Water (Dextrose 50%) 25 gm SLOW IVP PRN PRN PRN Reason: Hypoglycemia Famotidine (Pepcid) 20 mg PO BID [facility] Gabapentin (Neurontin) 100 mg PO TID [facility] Last Admin: 03/18/19 09:44 Dose: 100 mg Glucagon (Glucagon) 1 mg IM PRN PRN PRN Reason: Hypoglycemia Dextrose/Water (D5w) 1,000 mls @ 0 mls/hr IV .Q0M PRN PRN Reason: Hypoglycemia Insulin Glargine 20 units/ (Miscellaneous Medication) 0.2 mls @ 0 mls/hr SC BID [facility] Last Admin: 03/18/19 09:46 Dose: 0.2 mls Insulin Human Lispro (Humalog) 0 units SC .MILD SLIDING SCALE PRN PRN Reason: Mild Correctional Scale Last Admin: 03/17/19 12:14 Dose: 4 unit Insulin Human Lispro (Humalog) 6 units SC [facility] Last Admin: 03/18/19 13:43 Dose: 6 unit Isosorbide Mononitrate (Imdur Er) 30 mg PO DAILY [facility] Last Admin: 03/18/19 09:44 Dose: 30 mg Levetiracetam (Keppra) 1,000 mg PO BID [facility] Lisinopril (Zestril) 5 mg PO DAILY [facility] Lorazepam (Ativan) 2 mg SLOW IVP Q6H PRN PRN Reason: Seizures Ranolazine (Ranexa) 500 mg PO BID [facility] Last Admin: 03/18/19 09:44 Dose: 500 mg Senna/Docusate Sodium (Senokot S) 2 tab PO BIDPRN PRN PRN Reason: Constipation Topiramate (Topamax) 50 mg PO BID [facility] Last Admin: 03/18/19 09:44 Dose: 50 mg
[2019-03-18] MEDS ORDERED: Sodium Chloride 0.9% 500 ML IVPB SCH (15:55)
[2019-03-18] MEDS: Carvedilol 3.125 MG TAB PO SCH (17:41)
[2019-03-18] MEDS: levETIRAcetam 500 MG TAB PO SCH (22:07)
[2019-03-18] MEDS: Famotidine 20 MG TAB PO SCH (22:07)
[2019-03-19] MEDS ORDERED: Lisinopril 5 MG TAB PO SCH (09:00)
[2019-03-19] MEDS: Lisinopril 2.5 MG TAB PO SCH (09:10)
[2019-03-19] MEDS: Gabapentin 100 MG CAP PO SCH ×3 (09:11→21:24)
[2019-03-19] MEDS: Topiramate 25 MG TAB PO SCH ×2 (09:11→21:23)
[2019-03-19] MEDS: levETIRAcetam 500 MG TAB PO SCH ×2 (09:12→21:24)
[2019-03-19] MEDS: Famotidine 20 MG TAB PO SCH ×2 (09:12→21:24)
[2019-03-19] MEDS: Aspirin 81 mg Enteric Coated Tablet PO SCH (09:13)
[2019-03-19] MEDS: Insulin Glargine 20 UNITS in Pre-Filled Syringe SC SCH ×2 (09:13→21:24)
[2019-03-19] MEDS: Carvedilol 3.125 MG TAB PO SCH ×2 (09:13→16:33)
[2019-03-19] MEDS: HumaLOG 300 UNITS/3 ML VIAL SC SCH ×3 (09:15→16:34)
[2019-03-19] MEDS: Atorvastatin Calcium 20 MG TAB PO SCH (13:27)
--- NOTE | 2019-03-19 14:53 | PDOC.PN ---
- Subjective Encounter Start Date: 03/19/19 Encounter Start Time: 09:00 Subjective: pt up in bed no complains - Objective Resuscitation Status - Order Detail: 03/14/19 17:46 Resuscitation Status Routine Resuscitation Status: FULL: Full Resuscitation Vital Signs & Weight: Vital Signs (12 hours) Temp Pulse Pulse Pulse Resp BP BP 03/19/19 12:01 97.9 F 79 14 03/19/19 11:21 76 77 161/87 H 03/19/19 09:10 70 112/72 03/19/19 09:07 03/19/19 07:50 97.5 F L 70 14 03/19/19 04:00 97.4 F L 73 18 BP BP Pulse Ox 03/19/19 12:01 143/83 H 97 03/19/19 11:21 143/83 H 03/19/19 09:10 03/19/19 09:07 95 03/19/19 07:50 112/72 95 03/19/19 04:00 97/60 97 Weight Weight 170 lb 6.4 oz I&O: 03/18/19 03/19/19 03/20/19 06:59 06:59 06:59 Intake Total 960 250 240 Output Total 725 Balance 960 -475 240 Result Diagrams: 03/15/19 18:57 03/18/19 05:33 Additional Labs: Accuchecks 03/19/19 03/19/19 03/18/19 10:50 06:20 19:36 POC Glucose 246 H 99 185 H Phys Exam - Physical Examination Neck: no nodes, no JVD, supple, full ROM Respiratory: no wheezing, no rales, no rhonchi, wheezing present, clear to auscultation bilateral Cardiovascular: RRR, no significant murmur, no rub, gallop, irregular Gastrointestinal: soft, non-tender, no distention, positive bowel sounds Dx/Plan (1) Syncope Code(s): R55 - SYNCOPE AND COLLAPSE Status: Acute (2) Seizure Code(s): R56.9 - UNSPECIFIED CONVULSIONS Status: Acute (3) Right leg pain Code(s): M79.604 - PAIN IN RIGHT LEG Status: Acute (4) Diabetes mellitus type II, uncontrolled Code(s): E11.65 - TYPE 2 DIABETES MELLITUS WITH HYPERGLYCEMIA Status: Chronic Comment: Continue Glargine, ISS, ADA (5) Hypertension Code(s): I10 - ESSENTIAL (PRIMARY) HYPERTENSION Status: Chronic Qualifiers: (6) CKD (chronic kidney disease) stage 3, GFR 30-59 ml/min Code(s): N18.3 - CHRONIC KIDNEY DISEASE, STAGE 3 (MODERATE) Status: Acute - Plan * . Review of Systems - Review of Systems Cardiovascular: negative: chest pain, palpitations, orthopnea, paroxysmal nocturnal dyspnea, edema, light headedness, other - Medications/Allergies Allergies/Adverse Reactions: Allergies Allergy/AdvReac Type Severity Reaction Status Date / Time No Known Allergies Allergy Verified 02/25/19 21:29 Medications: Current Medications Acetaminophen (Tylenol) 650 mg PO Q4H PRN PRN Reason: Headache/Fever/Mild Pain (1-3) Last Admin: 03/15/19 08:35 Dose: 650 mg Acetaminophen/Codeine Phosphate (Tylenol #3) 1 tab PO Q6H PRN PRN Reason: Moderate Pain (4-6) Last Admin: 03/15/19 21:31 Dose: 1 tab Aspirin (Ecotrin) 81 mg PO DAILY [facility] Last Admin: 03/19/19 09:13 Dose: 81 mg Atorvastatin Calcium (Lipitor) 20 mg PO DAILY [facility] Last Admin: 03/19/19 13:27 Dose: 20 mg Carvedilol (Coreg) 3.125 mg PO BID[facility] Last Admin: 03/19/19 09:13 Dose: 3.125 mg Dextrose/Water (Dextrose 50%) 25 gm SLOW IVP PRN PRN PRN Reason: Hypoglycemia Famotidine (Pepcid) 20 mg PO BID [facility] Last Admin: 03/19/19 09:12 Dose: 20 mg Gabapentin (Neurontin) 100 mg PO TID [facility] Last Admin: 03/19/19 09:11 Dose: 100 mg Glucagon (Glucagon) 1 mg IM PRN PRN PRN Reason: Hypoglycemia Dextrose/Water (D5w) 1,000 mls @ 0 mls/hr IV .Q0M PRN PRN Reason: Hypoglycemia Insulin Glargine 20 units/ (Miscellaneous Medication) 0.2 mls @ 0 mls/hr SC BID [facility] Last Admin: 03/19/19 09:13 Dose: 0.2 mls Insulin Human Lispro (Humalog) 0 units SC .MILD SLIDING SCALE PRN PRN Reason: Mild Correctional Scale Last Admin: 03/17/19 12:14 Dose: 4 unit Insulin Human Lispro (Humalog) 6 units SC AC [facility] Last Admin: 03/19/19 13:28 Dose: 6 unit Isosorbide Mononitrate (Imdur Er) 15 mg PO DAILY [facility] Last Admin: 03/19/19 09:13 Dose: 15 mg Levetiracetam (Keppra) 1,000 mg PO BID [facility] Last Admin: 03/19/19 09:12 Dose: 1,000 mg Lisinopril (Zestril) 2.5 mg PO DAILY [facility] Last Admin: 03/19/19 09:10 Dose: 2.5 mg Lorazepam (Ativan) 2 mg SLOW IVP Q6H PRN PRN Reason: Seizures Ranolazine (Ranexa) 500 mg PO BID [facility] Last Admin: 03/19/19 09:11 Dose: 500 mg Senna/Docusate Sodium (Senokot S) 2 tab PO BIDPRN PRN PRN Reason: Constipation Topiramate (Topamax) 50 mg PO BID [facility] Last Admin: 03/19/19 09:11 Dose: 50 mg
[2019-03-20] MEDS: HumaLOG 300 UNITS/3 ML VIAL SC SCH ×3 (06:54→23:20)
[2019-03-20] MEDS: levETIRAcetam 500 MG TAB PO SCH ×2 (10:00→23:22)
[2019-03-20] MEDS: Atorvastatin Calcium 20 MG TAB PO SCH (10:01)
[2019-03-20] MEDS: Topiramate 25 MG TAB PO SCH ×2 (10:01→23:23)
[2019-03-20] MEDS: Aspirin 81 mg Enteric Coated Tablet PO SCH (10:01)
[2019-03-20] MEDS: Famotidine 20 MG TAB PO SCH ×2 (10:02→23:21)
[2019-03-20] MEDS: Carvedilol 3.125 MG TAB PO SCH ×2 (10:02→16:50)
[2019-03-20] MEDS: Lisinopril 2.5 MG TAB PO SCH (10:02)
[2019-03-20] MEDS: Insulin Glargine 20 UNITS in Pre-Filled Syringe SC SCH ×2 (10:05→23:20)
[2019-03-20] MEDS: Gabapentin 100 MG CAP PO SCH ×3 (10:10→23:21)
--- NOTE | 2019-03-20 13:12 | PDOC.PN ---
- Subjective Encounter Start Date: 03/20/19 Encounter Start Time: 10:45 Subjective: pt up in bed no complains - Objective Resuscitation Status - Order Detail: 03/14/19 17:46 Resuscitation Status Routine Resuscitation Status: FULL: Full Resuscitation Vital Signs & Weight: Vital Signs (12 hours) Temp Pulse Resp BP BP Pulse Ox 03/20/19 11:48 97.8 F 75 16 130/69 98 03/20/19 10:02 70 110/58 L 03/20/19 09:50 96 03/20/19 07:59 97.7 F 70 17 110/58 L 96 03/20/19 04:00 97.7 F 72 16 113/60 97 Weight Weight 170 lb 6.4 oz I&O: 03/19/19 03/20/19 03/21/19 06:59 06:59 06:59 Intake Total 250 1122 Output Total 725 2397 350 Balance -849 -1735 -350 Result Diagrams: 03/15/19 18:57 03/18/19 05:33 Additional Labs: Accuchecks 03/20/19 03/19/19 03/19/19 06:02 21:09 17:03 POC Glucose 263 H 260 H 180 H Phys Exam - Physical Examination Respiratory: no wheezing, no rales, no rhonchi, wheezing present, clear to auscultation bilateral Cardiovascular: RRR, no significant murmur, no rub, gallop, irregular Gastrointestinal: soft, non-tender, no distention, positive bowel sounds Dx/Plan (1) Syncope Code(s): R55 - SYNCOPE AND COLLAPSE Status: Acute (2) Seizure Code(s): R56.9 - UNSPECIFIED CONVULSIONS Status: Acute (3) Right leg pain Code(s): M79.604 - PAIN IN RIGHT LEG Status: Acute (4) Diabetes mellitus type II, uncontrolled Code(s): E11.65 - TYPE 2 DIABETES MELLITUS WITH HYPERGLYCEMIA Status: Chronic Comment: Continue Glargine, ISS, ADA (5) Hypertension Code(s): I10 - ESSENTIAL (PRIMARY) HYPERTENSION Status: Chronic Qualifiers: (6) CKD (chronic kidney disease) stage 3, GFR 30-59 ml/min Code(s): N18.3 - CHRONIC KIDNEY DISEASE, STAGE 3 (MODERATE) Status: Acute - Plan awaiting placement, continue keppra and topamax -: pt now able to urinate, will add flomax * . Review of Systems - Review of Systems Respiratory: negative: Cough, Dry, Shortness of Breath, Hemoptysis, SOB with Excertion, Pleuritic Pain, Sputum, Wheezing Cardiovascular: negative: chest pain, palpitations, orthopnea, paroxysmal nocturnal dyspnea, edema, light headedness, other Gastrointestinal: negative: Nausea, Vomiting, Abdominal Pain, Diarrhea, Constipation, Melena, Hematochezia, Other - Medications/Allergies Allergies/Adverse Reactions: Allergies Allergy/AdvReac Type Severity Reaction Status Date / Time No Known Allergies Allergy Verified 02/25/19 21:29 Medications: Current Medications Acetaminophen (Tylenol) 650 mg PO Q4H PRN PRN Reason: Headache/Fever/Mild Pain (1-3) Last Admin: 03/15/19 08:35 Dose: 650 mg Acetaminophen/Codeine Phosphate (Tylenol #3) 1 tab PO Q6H PRN PRN Reason: Moderate Pain (4-6) Last Admin: 03/15/19 21:31 Dose: 1 tab Aspirin (Ecotrin) 81 mg PO DAILY [facility] Last Admin: 03/20/19 10:01 Dose: 81 mg Atorvastatin Calcium (Lipitor) 20 mg PO DAILY [facility] Last Admin: 03/20/19 10:01 Dose: 20 mg Carvedilol (Coreg) 3.125 mg PO BID-[facility] Last Admin: 03/20/19 10:02 Dose: 3.125 mg Dextrose/Water (Dextrose 50%) 25 gm SLOW IVP PRN PRN PRN Reason: Hypoglycemia Famotidine (Pepcid) 20 mg PO BID [facility] Last Admin: 03/20/19 10:02 Dose: 20 mg Gabapentin (Neurontin) 100 mg PO TID [facility] Last Admin: 03/20/19 10:10 Dose: 100 mg Glucagon (Glucagon) 1 mg IM PRN PRN PRN Reason: Hypoglycemia Dextrose/Water (D5w) 1,000 mls @ 0 mls/hr IV .Q0M PRN PRN Reason: Hypoglycemia Insulin Glargine 20 units/ (Miscellaneous Medication) 0.2 mls @ 0 mls/hr SC BID [facility] Last Admin: 03/20/19 10:05 Dose: 0.2 mls Insulin Human Lispro (Humalog) 0 units SC .MILD SLIDING SCALE PRN PRN Reason: Mild Correctional Scale Last Admin: 03/17/19 12:14 Dose: 4 unit Insulin Human Lispro (Humalog) 6 units SC AC [facility] Last Admin: 03/20/19 12:26 Dose: 6 unit Isosorbide Mononitrate (Imdur Er) 15 mg PO DAILY [facility] Last Admin: 03/20/19 10:04 Dose: 15 mg Levetiracetam (Keppra) 1,000 mg PO BID [facility] Last Admin: 03/20/19 10:00 Dose: 1,000 mg Lisinopril (Zestril) 2.5 mg PO DAILY [facility] Last Admin: 03/20/19 10:02 Dose: 2.5 mg Lorazepam (Ativan) 2 mg SLOW IVP Q6H PRN PRN Reason: Seizures Ranolazine (Ranexa) 500 mg PO BID [facility] Last Admin: 03/20/19 10:01 Dose: 500 mg Senna/Docusate Sodium (Senokot S) 2 tab PO BIDPRN PRN PRN Reason: Constipation Tamsulosin HCl (Flomax) 0.4 mg PO [facility] Topiramate (Topamax) 50 mg PO BID [facility] Last Admin: 03/20/19 10:01 Dose: 50 mg
[2019-03-20] MEDS: Senokot S 8.6-50 MG TAB PO PRN (16:50)
[2019-03-20] MEDS: Tamsulosin HCl 0.4 MG CAP PO SCH (23:22)
[2019-03-21] MEDS: Topiramate 25 MG TAB PO SCH ×2 (09:52→21:54)
[2019-03-21] MEDS: Atorvastatin Calcium 20 MG TAB PO SCH (09:53)
[2019-03-21] MEDS: Famotidine 20 MG TAB PO SCH ×2 (09:53→21:54)
[2019-03-21] MEDS: Gabapentin 100 MG CAP PO SCH ×3 (09:53→21:54)
[2019-03-21] MEDS: levETIRAcetam 500 MG TAB PO SCH ×2 (09:53→21:54)
[2019-03-21] MEDS: Aspirin 81 mg Enteric Coated Tablet PO SCH (09:53)
[2019-03-21] MEDS: Carvedilol 3.125 MG TAB PO SCH ×2 (09:54→17:44)
[2019-03-21] MEDS: Lisinopril 2.5 MG TAB PO SCH (09:54)
[2019-03-21] MEDS: Insulin Glargine 20 UNITS in Pre-Filled Syringe SC SCH ×2 (09:55→21:55)
[2019-03-21] MEDS: HumaLOG 300 UNITS/3 ML VIAL SC SCH ×3 (09:55→17:44)
[2019-03-21] MEDS: HumaLOG 300 UNITS/3 ML VIAL SC PRN ×2 (12:27→17:45)
--- NOTE | 2019-03-21 15:17 | PDOC.PN ---
- Subjective Encounter Start Date: 03/21/19 Encounter Start Time: 07:20 Pt seenf ro followup re; syncope. Says he feels well. - Objective Resuscitation Status - Order Detail: 03/14/19 17:46 Resuscitation Status Routine Resuscitation Status: FULL: Full Resuscitation MAR Reviewed: Yes Vital Signs & Weight: Vital Signs (12 hours) Temp Pulse Pulse Pulse Resp BP BP 03/21/19 11:50 97.5 F L 73 16 03/21/19 09:54 71 111/62 03/21/19 08:58 74 72 133/75 03/21/19 08:00 03/21/19 07:41 97.4 F L 71 16 03/21/19 03:17 97.2 F L 68 20 BP BP Pulse Ox 03/21/19 11:50 133/74 98 03/21/19 09:54 03/21/19 08:58 120/58 L 03/21/19 08:00 99 03/21/19 07:41 111/62 99 03/21/19 03:17 124/65 96 Weight Weight 170 lb 6.4 oz I&O: 03/20/19 03/21/19 03/22/19 06:59 06:59 06:59 Intake Total 1122 400 Output Total 2857 1100 Balance -1735 -700 Result Diagrams: 03/15/19 18:57 03/18/19 05:33 EKG Reviewed by me: Yes (Tele: NSR) Phys Exam - Physical Examination Constitutional: NAD HEENT: moist MMs Neck: supple Respiratory: clear to auscultation bilateral Cardiovascular: RRR Gastrointestinal: soft Neurological: moves all 4 limbs Psychiatric: normal affect Dx/Plan (1) Syncope Code(s): R55 - SYNCOPE AND COLLAPSE Status: Acute Comment: no recurrence (2) Seizure Code(s): R56.9 - UNSPECIFIED CONVULSIONS Status: Acute Comment: continue Keppra and Topamax (3) COPD (chronic obstructive pulmonary disease) Status: Chronic Qualifiers: COPD type: unspecified COPD Qualified Code(s): J44.9 - Chronic obstructive pulmonary disease, unspecified Comment: stable (4) Chronic kidney disease, stage 3 Code(s): N18.3 - CHRONIC KIDNEY DISEASE, STAGE 3 (MODERATE) Status: Chronic Comment: stable (5) Hypertension Code(s): I10 - ESSENTIAL (PRIMARY) HYPERTENSION Status: Chronic Qualifiers: Comment: controlled (6) DM2 (diabetes mellitus, type 2) Status: Chronic Comment: continue accuchecks, insulin sliding scale - Plan * . Review of Systems - Review of Systems Respiratory: negative: Cough, Shortness of Breath, SOB with Excertion, Pleuritic Pain, Wheezing Cardiovascular: negative: chest pain, palpitations, orthopnea, paroxysmal nocturnal dyspnea, edema, light headedness - Medications/Allergies Allergies/Adverse Reactions: Allergies Allergy/AdvReac Type Severity Reaction Status Date / Time No Known Allergies Allergy Verified 02/25/19 21:29 Medications: Current Medications Acetaminophen (Tylenol) 650 mg PO Q4H PRN PRN Reason: Headache/Fever/Mild Pain (1-3) Last Admin: 03/15/19 08:35 Dose: 650 mg Acetaminophen/Codeine Phosphate (Tylenol #3) 1 tab PO Q6H PRN PRN Reason: Moderate Pain (4-6) Last Admin: 03/15/19 21:31 Dose: 1 tab Aspirin (Ecotrin) 81 mg PO DAILY [facility] Last Admin: 03/21/19 09:53 Dose: 81 mg Atorvastatin Calcium (Lipitor) 20 mg PO DAILY [facility] Last Admin: 03/21/19 09:53 Dose: 20 mg Carvedilol (Coreg) 3.125 mg PO BID[facility] Last Admin: 03/21/19 09:54 Dose: 3.125 mg Dextrose/Water (Dextrose 50%) 25 gm SLOW IVP PRN PRN PRN Reason: Hypoglycemia Famotidine (Pepcid) 20 mg PO BID [facility] Last Admin: 03/21/19 09:53 Dose: 20 mg Gabapentin (Neurontin) 100 mg PO TID [facility] Last Admin: 03/21/19 15:08 Dose: 100 mg Glucagon (Glucagon) 1 mg IM PRN PRN PRN Reason: Hypoglycemia Dextrose/Water (D5w) 1,000 mls @ 0 mls/hr IV .Q0M PRN PRN Reason: Hypoglycemia Insulin Glargine 20 units/ (Miscellaneous Medication) 0.2 mls @ 0 mls/hr SC BID [facility] Last Admin: 03/21/19 09:55 Dose: 0.2 mls Insulin Human Lispro (Humalog) 0 units SC .MILD SLIDING SCALE PRN PRN Reason: Mild Correctional Scale Last Admin: 03/21/19 12:27 Dose: 4 unit Insulin Human Lispro (Humalog) 6 units SC AC [facility] 234 [facility] Last Admin: 03/21/19 12:26 Dose: 6 unit Isosorbide Mononitrate (Imdur Er) 15 mg PO DAILY [facility] 234 [facility] Last Admin: 03/21/19 09:53 Dose: 15 mg Levetiracetam (Keppra) 1,000 mg PO BID [facility] 234 [facility] Last Admin: 03/21/19 09:53 Dose: 1,000 mg Lisinopril (Zestril) 2.5 mg PO DAILY [facility] 234 [facility] Last Admin: 03/21/19 09:54 Dose: 2.5 mg Lorazepam (Ativan) 2 mg SLOW IVP Q6H PRN PRN Reason: Seizures Ranolazine (Ranexa) 500 mg PO BID COUNTS INCLUDE 234 BEDS AT THE [facility] Last Admin: 03/21/19 09:52 Dose: 500 mg Senna/Docusate Sodium (Senokot S) 2 tab PO BIDPRN PRN PRN Reason: Constipation Last Admin: 03/20/19 16:50 Dose: 2 tab Tamsulosin HCl (Flomax) 0.4 mg PO HS COUNTS INCLUDE 234 BEDS AT THE [facility] Last Admin: 03/20/19 23:22 Dose: 0.4 mg Topiramate (Topamax) 50 mg PO BID COUNTS INCLUDE 234 BEDS AT THE [facility] Last Admin: 03/21/19 09:52 Dose: 50 mg
[2019-03-21] MEDS: Tamsulosin HCl 0.4 MG CAP PO SCH (21:54)
[2019-03-22] MEDS: Insulin Glargine 20 UNITS in Pre-Filled Syringe SC SCH ×2 (09:24→21:46)
[2019-03-22] MEDS: levETIRAcetam 500 MG TAB PO SCH ×2 (09:25→21:45)
[2019-03-22] MEDS: Carvedilol 3.125 MG TAB PO SCH ×2 (09:25→18:09)
[2019-03-22] MEDS: Atorvastatin Calcium 20 MG TAB PO SCH (09:25)
[2019-03-22] MEDS: Gabapentin 100 MG CAP PO SCH ×3 (09:25→21:45)
[2019-03-22] MEDS: Topiramate 25 MG TAB PO SCH ×2 (09:25→21:44)
[2019-03-22] MEDS: HumaLOG 300 UNITS/3 ML VIAL SC SCH ×3 (09:25→18:09)
[2019-03-22] MEDS: Famotidine 20 MG TAB PO SCH ×2 (09:25→21:46)
[2019-03-22] MEDS: Lisinopril 2.5 MG TAB PO SCH (09:26)
[2019-03-22] MEDS: Aspirin 81 mg Enteric Coated Tablet PO SCH (09:26)
[2019-03-22] MEDS: HumaLOG 300 UNITS/3 ML VIAL SC PRN (12:59)
--- NOTE | 2019-03-22 13:11 | PDOC.PN ---
- Subjective Encounter Start Date: 03/22/19 Encounter Start Time: 07:00 Pt seen for followup re: seizure. Sleepy but arousable, no complaints today. - Objective Resuscitation Status - Order Detail: 03/14/19 17:46 Resuscitation Status Routine Resuscitation Status: FULL: Full Resuscitation MAR Reviewed: Yes Vital Signs & Weight: Vital Signs (12 hours) Temp Pulse Pulse Pulse Resp BP BP 03/22/19 11:57 97.3 F L 78 17 03/22/19 10:17 88 79 134/78 03/22/19 09:26 72 136/82 03/22/19 08:00 03/22/19 07:49 97.3 F L 72 16 03/22/19 03:11 97.4 F L 71 20 BP BP Pulse Ox 03/22/19 11:57 119/65 98 03/22/19 10:17 124/67 03/22/19 09:26 03/22/19 08:00 98 03/22/19 07:49 136/82 98 03/22/19 03:11 119/69 100 Weight Weight 170 lb 6.4 oz I&O: 03/21/19 03/22/19 03/23/19 06:59 06:59 06:59 Intake Total 400 1220 Output Total 1100 Balance -700 1220 Result Diagrams: 03/15/19 18:57 03/18/19 05:33 EKG Reviewed by me: Yes (Tele: NSR) Phys Exam - Physical Examination Constitutional: NAD HEENT: moist MMs Neck: supple Respiratory: clear to auscultation bilateral Cardiovascular: no rub Gastrointestinal: no distention Neurological: moves all 4 limbs Psychiatric: normal affect Dx/Plan (1) Seizure Code(s): R56.9 - UNSPECIFIED CONVULSIONS Status: Acute Comment: will continue Keppra and Topamax (2) COPD (chronic obstructive pulmonary disease) Status: Chronic Qualifiers: COPD type: unspecified COPD Qualified Code(s): J44.9 - Chronic obstructive pulmonary disease, unspecified Comment: stable (3) Chronic kidney disease, stage 3 Code(s): N18.3 - CHRONIC KIDNEY DISEASE, STAGE 3 (MODERATE) Status: Chronic Comment: stable (4) Hypertension Code(s): I10 - ESSENTIAL (PRIMARY) HYPERTENSION Status: Chronic Qualifiers: Comment: controlled, continue Coreg (5) DM2 (diabetes mellitus, type 2) Status: Chronic Comment: reasonable control, continue accuchecks and insulin sliding scale (6) Syncope Code(s): R55 - SYNCOPE AND COLLAPSE Status: Resolved - Plan * . Review of Systems - Review of Systems Constitutional: negative: fever, chills, sweats, weakness, malaise Cardiovascular: negative: chest pain, palpitations, orthopnea, paroxysmal nocturnal dyspnea, edema, light headedness Gastrointestinal: negative: Nausea, Vomiting, Abdominal Pain, Diarrhea, Constipation, Melena, Hematochezia - Medications/Allergies Allergies/Adverse Reactions: Allergies Allergy/AdvReac Type Severity Reaction Status Date / Time No Known Allergies Allergy Verified 02/25/19 21:29 Medications: Current Medications Acetaminophen (Tylenol) 650 mg PO Q4H PRN PRN Reason: Headache/Fever/Mild Pain (1-3) Last Admin: 03/15/19 08:35 Dose: 650 mg Acetaminophen/Codeine Phosphate (Tylenol #3) 1 tab PO Q6H PRN PRN Reason: Moderate Pain (4-6) Last Admin: 03/15/19 21:31 Dose: 1 tab Aspirin (Ecotrin) 81 mg PO DAILY [facility] Last Admin: 03/22/19 09:26 Dose: 81 mg Atorvastatin Calcium (Lipitor) 20 mg PO DAILY [facility] Last Admin: 03/22/19 09:25 Dose: 20 mg Carvedilol (Coreg) 3.125 mg PO BID-[facility] Last Admin: 03/22/19 09:25 Dose: 3.125 mg Dextrose/Water (Dextrose 50%) 25 gm SLOW IVP PRN PRN PRN Reason: Hypoglycemia Famotidine (Pepcid) 20 mg PO BID [facility] Last Admin: 03/22/19 09:25 Dose: 20 mg Gabapentin (Neurontin) 100 mg PO TID [facility] Last Admin: 03/22/19 09:25 Dose: 100 mg Glucagon (Glucagon) 1 mg IM PRN PRN PRN Reason: Hypoglycemia Dextrose/Water (D5w) 1,000 mls @ 0 mls/hr IV .Q0M PRN PRN Reason: Hypoglycemia Insulin Glargine 20 units/ (Miscellaneous Medication) 0.2 mls @ 0 mls/hr SC BID [facility] Last Admin: 03/22/19 09:24 Dose: 0.2 mls Insulin Human Lispro (Humalog) 0 units SC .MILD SLIDING SCALE PRN PRN Reason: Mild Correctional Scale Last Admin: 03/22/19 12:59 Dose: 4 unit Insulin Human Lispro (Humalog) 6 units SC AC [facility] Last Admin: 03/22/19 12:59 Dose: 6 unit Isosorbide Mononitrate (Imdur Er) 15 mg PO DAILY [facility] Last Admin: 03/22/19 09:26 Dose: 15 mg Levetiracetam (Keppra) 1,000 mg PO BID [facility] Last Admin: 03/22/19 09:25 Dose: 1,000 mg Lisinopril (Zestril) 2.5 mg PO DAILY [facility] Last Admin: 03/22/19 09:26 Dose: 2.5 mg Lorazepam (Ativan) 2 mg SLOW IVP Q6H PRN PRN Reason: Seizures Ranolazine (Ranexa) 500 mg PO BID [facility] Last Admin: 03/22/19 09:26 Dose: 500 mg Senna/Docusate Sodium (Senokot S) 2 tab PO BIDPRN PRN PRN Reason: Constipation Last Admin: 03/20/19 16:50 Dose: 2 tab Tamsulosin HCl (Flomax) 0.4 mg PO HS [facility] Last Admin: 03/21/19 21:54 Dose: 0.4 mg Topiramate (Topamax) 50 mg PO BID [facility] Last Admin: 03/22/19 09:25 Dose: 50 mg
[2019-03-22] MEDS: Tamsulosin HCl 0.4 MG CAP PO SCH (21:45)
[2019-03-23 09:18] LABS: Glucose 129 mg/dL (80-115)
[2019-03-23] MEDS: HumaLOG 300 UNITS/3 ML VIAL SC SCH ×3 (10:04→18:17)
[2019-03-23] MEDS: Insulin Glargine 20 UNITS in Pre-Filled Syringe SC SCH ×2 (10:05→21:39)
[2019-03-23] MEDS: Lisinopril 2.5 MG TAB PO SCH (10:10)
[2019-03-23] MEDS: levETIRAcetam 500 MG TAB PO SCH ×2 (10:10→21:37)
[2019-03-23] MEDS: Gabapentin 100 MG CAP PO SCH ×3 (10:10→21:38)
[2019-03-23] MEDS: Aspirin 81 mg Enteric Coated Tablet PO SCH (10:10)
[2019-03-23] MEDS: Famotidine 20 MG TAB PO SCH ×2 (10:11→21:38)
[2019-03-23] MEDS: Atorvastatin Calcium 20 MG TAB PO SCH (10:11)
[2019-03-23] MEDS: Carvedilol 3.125 MG TAB PO SCH ×2 (10:11→18:17)
[2019-03-23] MEDS: Topiramate 25 MG TAB PO SCH ×2 (10:11→21:38)
[2019-03-23 12:13] LABS: Glucose 251 mg/dL (80-115)
[2019-03-23] MEDS: HumaLOG 300 UNITS/3 ML VIAL SC PRN (12:54)
--- NOTE | 2019-03-23 17:35 | PDOC.PN ---
- Subjective Encounter Start Date: 03/23/19 Encounter Start Time: 07:00 Pt seen for followup re: seizure. Awake and alert, no complaints today. - Objective Resuscitation Status - Order Detail: 03/14/19 17:46 Resuscitation Status Routine Resuscitation Status: FULL: Full Resuscitation MAR Reviewed: Yes Vital Signs & Weight: Vital Signs (12 hours) Temp Pulse Resp BP BP Pulse Ox 03/23/19 15:31 97.5 F L 77 16 127/65 99 03/23/19 11:26 97.3 F L 76 16 128/72 100 03/23/19 10:10 76 119/69 03/23/19 08:55 99 03/23/19 07:41 97.7 F 76 16 119/72 99 Weight Weight 170 lb 6.4 oz I&O: 03/22/19 03/23/19 03/24/19 06:59 06:59 06:59 Intake Total 1220 1400 480 Output Total 400 Balance 1220 1000 480 Result Diagrams: 03/15/19 18:57 03/23/19 11:36 Additional Labs: Accuchecks 03/23/19 16:37 POC Glucose 142 H EKG Reviewed by me: Yes (Tele: NSR) Phys Exam - Physical Examination Constitutional: NAD HEENT: moist MMs Neck: supple Respiratory: no rales Cardiovascular: RRR Gastrointestinal: no distention Neurological: moves all 4 limbs Psychiatric: normal affect Dx/Plan (1) Seizure Code(s): R56.9 - UNSPECIFIED CONVULSIONS Status: Acute Comment: continue Keppra and Topamax (2) COPD (chronic obstructive pulmonary disease) Status: Chronic Qualifiers: COPD type: unspecified COPD Qualified Code(s): J44.9 - Chronic obstructive pulmonary disease, unspecified Comment: stable (3) Chronic kidney disease, stage 3 Code(s): N18.3 - CHRONIC KIDNEY DISEASE, STAGE 3 (MODERATE) Status: Chronic Comment: stable (4) Hypertension Code(s): I10 - ESSENTIAL (PRIMARY) HYPERTENSION Status: Chronic Qualifiers: Comment: controlled, on Coreg (5) DM2 (diabetes mellitus, type 2) Status: Chronic Comment: continue accuchecks and insulin sliding scale (6) Syncope Code(s): R55 - SYNCOPE AND COLLAPSE Status: Resolved - Plan * . Review of Systems - Review of Systems Cardiovascular: negative: chest pain, palpitations, orthopnea, paroxysmal nocturnal dyspnea, edema, light headedness Gastrointestinal: negative: Nausea, Vomiting, Abdominal Pain, Diarrhea, Constipation, Melena, Hematochezia - Medications/Allergies Allergies/Adverse Reactions: Allergies Allergy/AdvReac Type Severity Reaction Status Date / Time No Known Allergies Allergy Verified 02/25/19 21:29 Medications: Current Medications Acetaminophen (Tylenol) 650 mg PO Q4H PRN PRN Reason: Headache/Fever/Mild Pain (1-3) Last Admin: 03/15/19 08:35 Dose: 650 mg Acetaminophen/Codeine Phosphate (Tylenol #3) 1 tab PO Q6H PRN PRN Reason: Moderate Pain (4-6) Last Admin: 03/15/19 21:31 Dose: 1 tab Aspirin (Ecotrin) 81 mg PO DAILY [facility] Last Admin: 03/23/19 10:10 Dose: 81 mg Atorvastatin Calcium (Lipitor) 20 mg PO DAILY [facility] Last Admin: 03/23/19 10:11 Dose: 20 mg Carvedilol (Coreg) 3.125 mg PO BID-[facility] Last Admin: 03/23/19 10:11 Dose: 3.125 mg Dextrose/Water (Dextrose 50%) 25 gm SLOW IVP PRN PRN PRN Reason: Hypoglycemia Famotidine (Pepcid) 20 mg PO BID [facility] Last Admin: 03/23/19 10:11 Dose: 20 mg Gabapentin (Neurontin) 100 mg PO TID [facility] Last Admin: 03/23/19 15:56 Dose: 100 mg Glucagon (Glucagon) 1 mg IM PRN PRN PRN Reason: Hypoglycemia Dextrose/Water (D5w) 1,000 mls @ 0 mls/hr IV .Q0M PRN PRN Reason: Hypoglycemia Insulin Glargine 20 units/ (Miscellaneous Medication) 0.2 mls @ 0 mls/hr SC BID [facility] Last Admin: 03/23/19 10:05 Dose: 0.2 mls Insulin Human Lispro (Humalog) 0 units SC .MILD SLIDING SCALE PRN PRN Reason: Mild Correctional Scale Last Admin: 03/23/19 12:54 Dose: 4 unit Insulin Human Lispro (Humalog) 6 units SC AC [facility] Last Admin: 03/23/19 12:47 Dose: 6 unit Isosorbide Mononitrate (Imdur Er) 15 mg PO DAILY [facility] Last Admin: 03/23/19 10:09 Dose: 15 mg Levetiracetam (Keppra) 1,000 mg PO BID [facility] Last Admin: 03/23/19 10:10 Dose: 1,000 mg Lisinopril (Zestril) 2.5 mg PO DAILY [facility] Last Admin: 03/23/19 10:10 Dose: 2.5 mg Lorazepam (Ativan) 2 mg SLOW IVP Q6H PRN PRN Reason: Seizures Ranolazine (Ranexa) 500 mg PO BID [facility] Last Admin: 03/23/19 10:08 Dose: 500 mg Senna/Docusate Sodium (Senokot S) 2 tab PO BIDPRN PRN PRN Reason: Constipation Last Admin: 03/20/19 16:50 Dose: 2 tab Tamsulosin HCl (Flomax) 0.4 mg PO HS [facility] Last Admin: 03/22/19 21:45 Dose: 0.4 mg Topiramate (Topamax) 50 mg PO BID [facility] Last Admin: 03/23/19 10:11 Dose: 50 mg
[2019-03-23] MEDS: Senokot S 8.6-50 MG TAB PO PRN (21:36)
[2019-03-23] MEDS: Tamsulosin HCl 0.4 MG CAP PO SCH (21:38)
[2019-03-24] MEDS: HumaLOG 300 UNITS/3 ML VIAL SC SCH ×3 (07:01→17:53)
[2019-03-24] MEDS: Insulin Glargine 20 UNITS in Pre-Filled Syringe SC SCH (09:16)
[2019-03-24] MEDS: Lisinopril 2.5 MG TAB PO SCH (09:19)
[2019-03-24] MEDS: Topiramate 25 MG TAB PO SCH (09:20)
[2019-03-24] MEDS: Aspirin 81 mg Enteric Coated Tablet PO SCH (09:20)
[2019-03-24] MEDS: levETIRAcetam 500 MG TAB PO SCH (09:20)
[2019-03-24] MEDS: Senokot S 8.6-50 MG TAB PO PRN (09:21)
[2019-03-24] MEDS: Atorvastatin Calcium 20 MG TAB PO SCH (09:21)
[2019-03-24] MEDS: Gabapentin 100 MG CAP PO SCH ×2 (09:21→15:18)
[2019-03-24] MEDS: Famotidine 20 MG TAB PO SCH (09:21)
[2019-03-24] MEDS: Carvedilol 3.125 MG TAB PO SCH ×2 (09:21→17:53)
[2019-03-24] MEDS: HumaLOG 300 UNITS/3 ML VIAL SC PRN ×2 (12:28→17:53)
--- NOTE | 2019-03-24 12:56 | PDOC.PN ---
- Subjective Encounter Start Date: 03/24/19 Encounter Start Time: 07:20 Pt seen for followup re: seizure. Says he feels well, no complaints. - Objective Resuscitation Status - Order Detail: 03/14/19 17:46 Resuscitation Status Routine Resuscitation Status: FULL: Full Resuscitation MAR Reviewed: Yes Vital Signs & Weight: Vital Signs (12 hours) Temp Pulse Resp BP BP Pulse Ox 03/24/19 12:00 98.2 F 85 17 135/82 96 03/24/19 09:19 85 113/55 L 03/24/19 07:55 97.4 F L 75 17 109/64 100 03/24/19 03:57 97.5 F L 71 16 108/64 98 Weight Weight 170 lb 6.4 oz I&O: 03/23/19 03/24/19 03/25/19 06:59 06:59 06:59 Intake Total 1400 1200 Output Total 400 650 Balance 1000 550 Result Diagrams: 03/15/19 18:57 03/23/19 11:36 Additional Labs: Accuchecks 03/24/19 03/24/19 03/23/19 10:46 05:51 19:42 POC Glucose 256 H 197 H 137 H 03/23/19 16:37 POC Glucose 142 H EKG Reviewed by me: Yes (Tele: NSR) Phys Exam - Physical Examination Constitutional: NAD HEENT: moist MMs Neck: no JVD Respiratory: clear to auscultation bilateral Cardiovascular: RRR Gastrointestinal: soft Neurological: moves all 4 limbs Psychiatric: normal affect Dx/Plan (1) Seizure Code(s): R56.9 - UNSPECIFIED CONVULSIONS Status: Acute Comment: continue Keppra and Topamax; await Rehab bed (2) COPD (chronic obstructive pulmonary disease) Status: Chronic Qualifiers: COPD type: unspecified COPD Qualified Code(s): J44.9 - Chronic obstructive pulmonary disease, unspecified Comment: stable (3) Chronic kidney disease, stage 3 Code(s): N18.3 - CHRONIC KIDNEY DISEASE, STAGE 3 (MODERATE) Status: Chronic Comment: stable (4) Hypertension Code(s): I10 - ESSENTIAL (PRIMARY) HYPERTENSION Status: Chronic Qualifiers: Comment: controlled (5) DM2 (diabetes mellitus, type 2) Status: Chronic Comment: continue accuchecks and insulin sliding scale (6) Syncope Code(s): R55 - SYNCOPE AND COLLAPSE Status: Resolved - Plan * . Review of Systems - Review of Systems Skin: negative: Rash, Lesions, Volodymyr, Bruising Neurological: negative: Weakness, Numbness, Incoordination, Change in Speech, Confusion, Seizures - Medications/Allergies Allergies/Adverse Reactions: Allergies Allergy/AdvReac Type Severity Reaction Status Date / Time No Known Allergies Allergy Verified 02/25/19 21:29 Medications: Current Medications Acetaminophen (Tylenol) 650 mg PO Q4H PRN PRN Reason: Headache/Fever/Mild Pain (1-3) Last Admin: 03/15/19 08:35 Dose: 650 mg Acetaminophen/Codeine Phosphate (Tylenol #3) 1 tab PO Q6H PRN PRN Reason: Moderate Pain (4-6) Last Admin: 03/15/19 21:31 Dose: 1 tab Aspirin (Ecotrin) 81 mg PO DAILY [facility] Last Admin: 03/24/19 09:20 Dose: 81 mg Atorvastatin Calcium (Lipitor) 20 mg PO DAILY [facility] Last Admin: 03/24/19 09:21 Dose: 20 mg Carvedilol (Coreg) 3.125 mg PO BID-[facility] Last Admin: 03/24/19 09:21 Dose: 3.125 mg Dextrose/Water (Dextrose 50%) 25 gm SLOW IVP PRN PRN PRN Reason: Hypoglycemia Famotidine (Pepcid) 20 mg PO BID [facility] Last Admin: 03/24/19 09:21 Dose: 20 mg Gabapentin (Neurontin) 100 mg PO TID [facility] Last Admin: 03/24/19 09:21 Dose: 100 mg Glucagon (Glucagon) 1 mg IM PRN PRN PRN Reason: Hypoglycemia Dextrose/Water (D5w) 1,000 mls @ 0 mls/hr IV .Q0M PRN PRN Reason: Hypoglycemia Insulin Glargine 20 units/ (Miscellaneous Medication) 0.2 mls @ 0 mls/hr SC BID [facility] Last Admin: 03/24/19 09:16 Dose: 0.2 mls Insulin Human Lispro (Humalog) 0 units SC .MILD SLIDING SCALE PRN PRN Reason: Mild Correctional Scale Last Admin: 03/24/19 12:28 Dose: 4 unit Insulin Human Lispro (Humalog) 6 units SC AC [facility] Last Admin: 07/15/19 12:28 Dose: 6 unit Isosorbide Mononitrate (Imdur Er) 15 mg PO DAILY [facility] Last Admin: 03/24/19 09:19 Dose: 15 mg Levetiracetam (Keppra) 1,000 mg PO BID [facility] Last Admin: 03/24/19 09:20 Dose: 1,000 mg Lisinopril (Zestril) 2.5 mg PO DAILY [facility] Last Admin: 03/24/19 09:19 Dose: 2.5 mg Lorazepam (Ativan) 2 mg SLOW IVP Q6H PRN PRN Reason: Seizures Ranolazine (Ranexa) 500 mg PO BID [facility] Last Admin: 03/24/19 09:18 Dose: 500 mg Senna/Docusate Sodium (Senokot S) 2 tab PO BIDPRN PRN PRN Reason: Constipation Last Admin: 03/24/19 09:21 Dose: 2 tab Tamsulosin HCl (Flomax) 0.4 mg PO HS [facility] Last Admin: 03/23/19 21:38 Dose: 0.4 mg Topiramate (Topamax) 50 mg PO BID [facility] Last Admin: 03/24/19 09:20 Dose: 50 mg
[2019-03-25] MEDS: Famotidine 20 MG TAB PO SCH ×3 (00:31→20:38)
[2019-03-25] MEDS: Gabapentin 100 MG CAP PO SCH ×4 (00:31→20:39)
[2019-03-25] MEDS: Insulin Glargine 20 UNITS in Pre-Filled Syringe SC SCH ×3 (00:31→20:39)
[2019-03-25] MEDS: levETIRAcetam 500 MG TAB PO SCH ×3 (00:31→20:39)
[2019-03-25] MEDS: Topiramate 25 MG TAB PO SCH ×3 (00:32→20:39)
[2019-03-25] MEDS: Tamsulosin HCl 0.4 MG CAP PO SCH ×2 (00:32→20:39)
[2019-03-25 09:36] LABS: #Eosinphils 0.2 thou/uL (0.0-0.7); #Lymphocytes 1.2 thou/uL (1.20-3.40); #Monocytes 0.3 thou/uL (0.11-0.59); #Neutrophils 2.5 thou/uL (1.40-6.50); %Basophils 0.3 % (0.0-1.0); %Eosinophils 4.2 % (0.0-10.0); %Lymphocytes 27.9 % (21.0-51.0); %Monocytes 7.3 % (0.0-10.0); %Neutrophils 60.3 % (42.0-75.0); Hemoglobin 15.1 g/dL (14.0-18.0); Mean Corpuscular HGB CONC 33.6 g/dL (32.0-36.0); Mean Corpuscular Hemoglobin 32.3 pg (27.0-31.0); Mean Corpuscular Volume 96.2 fL (78.0-98.0); Mean Platelet Volume 8.4 fL (7.4-10.4); Platelet Count 174 thou/uL (130-400); RBC Distribution Width 13.2 % (11.5-14.5); Red Blood Cell (RBC) Count 4.67 mill/uL (4.70-6.10); White Blood Cell (WBC) Count 4.2 thou/uL (4.8-10.8)
[2019-03-25 10:07] LABS: Anion Gap 10 mmol/L (10-20); BUN (Urea Nitrogen) 31 mg/dL (8.4-25.7); Calc. Creatinine Clearance 45 mL/min (70-130); Calcium 9.2 mg/dL (7.8-10.44); Carbon Dioxide 24 mmol/L (23-31); Chloride 107 mmol/L (98-107); Estimated GFR-MDRD 48; Glucose 295 mg/dL (80-115); Potassium 4.3 mmol/L (3.5-5.1); Sodium 137 mmol/L (136-145)
[2019-03-25] MEDS: Lisinopril 2.5 MG TAB PO SCH (10:11)
[2019-03-25] MEDS: Carvedilol 3.125 MG TAB PO SCH ×2 (10:11→17:56)
[2019-03-25] MEDS: Aspirin 81 mg Enteric Coated Tablet PO SCH (10:13)
[2019-03-25] MEDS: HumaLOG 300 UNITS/3 ML VIAL SC SCH ×3 (10:14→17:56)
[2019-03-25] MEDS: Atorvastatin Calcium 20 MG TAB PO SCH (10:14)
[2019-03-25] MEDS: HumaLOG 300 UNITS/3 ML VIAL SC PRN (13:41)
--- NOTE | 2019-03-25 14:34 | PDOC.PN ---
- Subjective Encounter Start Date: 03/25/19 Encounter Start Time: 07:00 Pt seen for followup re: seizure. No complaints today. - Objective Resuscitation Status - Order Detail: 03/14/19 17:46 Resuscitation Status Routine Resuscitation Status: FULL: Full Resuscitation MAR Reviewed: Yes Vital Signs & Weight: Vital Signs (12 hours) Temp Pulse Pulse Pulse Resp BP BP 03/25/19 11:45 97.9 F 86 16 03/25/19 10:22 95 89 128/97 H 158/76 H 03/25/19 10:11 84 03/25/19 08:00 03/25/19 07:43 97.6 F 84 17 03/25/19 04:00 97.7 F 78 19 BP Pulse Ox 03/25/19 11:45 116/70 98 03/25/19 10:22 03/25/19 10:11 03/25/19 08:00 97 03/25/19 07:43 126/69 97 03/25/19 04:00 106/61 97 Weight Admit Weight 170 lb 6.4 oz Weight 170 lb 6.4 oz I&O: 03/24/19 03/25/19 03/26/19 06:59 06:59 06:59 Intake Total 1200 960 Output Total 650 425 200 Balance 550 535 -200 Result Diagrams: 03/25/19 09:06 03/25/19 09:06 Additional Labs: Accuchecks 03/25/19 03/25/19 03/24/19 10:47 06:13 19:47 POC Glucose 268 H 153 H 167 H 03/24/19 16:50 POC Glucose 202 H EKG Reviewed by me: Yes (Tele: NSR) Phys Exam - Physical Examination Constitutional: NAD HEENT: moist MMs Neck: supple Respiratory: clear to auscultation bilateral Cardiovascular: RRR Gastrointestinal: soft Neurological: moves all 4 limbs Psychiatric: normal affect Dx/Plan (1) Seizure Code(s): R56.9 - UNSPECIFIED CONVULSIONS Status: Acute Comment: continue Keppra and Topamax; HH vs SNU (2) COPD (chronic obstructive pulmonary disease) Status: Chronic Qualifiers: COPD type: unspecified COPD Qualified Code(s): J44.9 - Chronic obstructive pulmonary disease, unspecified Comment: stable (3) Chronic kidney disease, stage 3 Code(s): N18.3 - CHRONIC KIDNEY DISEASE, STAGE 3 (MODERATE) Status: Chronic Comment: stable (4) Hypertension Code(s): I10 - ESSENTIAL (PRIMARY) HYPERTENSION Status: Chronic Qualifiers: Comment: controlled (5) DM2 (diabetes mellitus, type 2) Status: Chronic Comment: continue accuchecks and insulin sliding scale (6) Syncope Code(s): R55 - SYNCOPE AND COLLAPSE Status: Resolved - Plan PT/OT, out of bed/ambulate * . Review of Systems - Review of Systems Cardiovascular: negative: chest pain, palpitations, orthopnea, paroxysmal nocturnal dyspnea, edema, light headedness Gastrointestinal: negative: Nausea, Vomiting, Abdominal Pain, Diarrhea, Constipation, Melena, Hematochezia - Medications/Allergies Allergies/Adverse Reactions: Allergies Allergy/AdvReac Type Severity Reaction Status Date / Time No Known Allergies Allergy Verified 02/25/19 21:29 Medications: Current Medications Acetaminophen (Tylenol) 650 mg PO Q4H PRN PRN Reason: Headache/Fever/Mild Pain (1-3) Last Admin: 03/15/19 08:35 Dose: 650 mg Aspirin (Ecotrin) 81 mg PO DAILY [facility] Last Admin: 03/25/19 10:13 Dose: 81 mg Atorvastatin Calcium (Lipitor) 20 mg PO DAILY [facility] Last Admin: 03/25/19 10:14 Dose: 20 mg Carvedilol (Coreg) 3.125 mg PO BID-[facility] Last Admin: 03/25/19 10:11 Dose: 3.125 mg Dextrose/Water (Dextrose 50%) 25 gm SLOW IVP PRN PRN PRN Reason: Hypoglycemia Famotidine (Pepcid) 20 mg PO BID [facility] Last Admin: 03/25/19 10:13 Dose: 20 mg Gabapentin (Neurontin) 100 mg PO TID [facility] Last Admin: 03/25/19 10:13 Dose: 100 mg Glucagon (Glucagon) 1 mg IM PRN PRN PRN Reason: Hypoglycemia Dextrose/Water (D5w) 1,000 mls @ 0 mls/hr IV .Q0M PRN PRN Reason: Hypoglycemia Insulin Glargine 20 units/ (Miscellaneous Medication) 0.2 mls @ 0 mls/hr SC BID [facility] Last Admin: 03/25/19 10:14 Dose: 0.2 mls Insulin Human Lispro (Humalog) 0 units SC .MILD SLIDING SCALE PRN PRN Reason: Mild Correctional Scale Last Admin: 03/25/19 13:41 Dose: 4 unit Insulin Human Lispro (Humalog) 6 units SC [facility] Last Admin: 03/25/19 13:41 Dose: 6 unit Isosorbide Mononitrate (Imdur Er) 15 mg PO DAILY [facility] Last Admin: 03/25/19 10:12 Dose: 15 mg Levetiracetam (Keppra) 1,000 mg PO BID [facility] Last Admin: 03/25/19 10:11 Dose: 1,000 mg Lisinopril (Zestril) 2.5 mg PO DAILY [facility] Last Admin: 03/25/19 10:11 Dose: 2.5 mg Ranolazine (Ranexa) 500 mg PO BID [facility] Last Admin: 03/25/19 10:11 Dose: 500 mg Senna/Docusate Sodium (Senokot S) 2 tab PO BIDPRN PRN PRN Reason: Constipation Last Admin: 03/24/19 09:21 Dose: 2 tab Tamsulosin HCl (Flomax) 0.4 mg PO [facility] Last Admin: 03/25/19 00:32 Dose: Not Given Topiramate (Topamax) 50 mg PO BID [facility] Last Admin: 03/25/19 10:10 Dose: 50 mg
[2019-03-26] MEDS: HumaLOG 300 UNITS/3 ML VIAL SC SCH ×2 (07:39→13:42)
[2019-03-26] MEDS: Insulin Glargine 20 UNITS in Pre-Filled Syringe SC SCH (10:15)
[2019-03-26] MEDS: Lisinopril 2.5 MG TAB PO SCH (10:15)
[2019-03-26] MEDS: Aspirin 81 mg Enteric Coated Tablet PO SCH (10:16)
[2019-03-26] MEDS: Atorvastatin Calcium 20 MG TAB PO SCH (10:16)
[2019-03-26] MEDS: Famotidine 20 MG TAB PO SCH (10:16)
[2019-03-26] MEDS: Gabapentin 100 MG CAP PO SCH (10:16)
[2019-03-26] MEDS: levETIRAcetam 500 MG TAB PO SCH (10:17)
[2019-03-26] MEDS: Topiramate 25 MG TAB PO SCH (10:17)
[2019-03-26] MEDS: Carvedilol 3.125 MG TAB PO SCH (10:17)
[2019-03-26 11:37] VITALS: TEMP 97.9
[2019-03-26] MEDS: HumaLOG 300 UNITS/3 ML VIAL SC PRN (13:42)
[2019-03-26 14:09] VITALS: BP 105/70
--- NOTE | 2019-03-26 16:36 | DIS ---
DATE OF ADMISSION: 03/14/2019 DATE OF DISCHARGE: 03/26/2019 PRIMARY CARE PROVIDER: Dr. Alvino Christina. DISCHARGE DIAGNOSES: 1. Seizure. 2. Syncope. 3. Hypotension. CONDITION OF THE PATIENT ON THE DAY OF DISCHARGE: Stable. I assessed Mr. Reed on the day of discharge. He denies any chest pain or shortness of breath. Vital signs are stable. S1 and S2 are heard, regular. Lungs are clear to auscultation bilaterally. CONSULTATIONS DURING THIS HOSPITALIZATION: Neurology, Dr. Galvez. DISCHARGE MEDICATIONS: 1. Atorvastatin 20 mg daily. 2. Gabapentin 100 mg 3 times a day. 3. Ranexa 500 mg 2 times a day. 4. Aspirin 81 mg daily. 5. Coreg 3.125 mg 2 times a day. 6. Humalog 6 units before meals. 7. Lantus 20 units 2 times a day. 8. Imdur 15 mg daily. 9. Keppra 1000 mg 2 times a day. 10. Lisinopril 2.5 mg daily. 11. Senokot-S p.r.n. 12. Flomax 0.4 mg daily. 13. Topamax 50 mg 2 times a day. HOSPITAL COURSE: Mr. Reed is a pleasant 69-year-old gentleman, who was admitted to [facility] on March 14, 2019, following seizure and syncopal episode. Please refer to Dr. Krishna's history and physical note dated March 14, 2019, for further details. He was seen by Neurology Service. He has been started on Keppra and Topamax. MRI of the brain did not show any infarct or intracranial mass effect. He was also seen by Therapy Services. He is being discharged to [facility] sn[facility]. He had episodes of hypotension. Therefore, his blood pressure medications were decreased. Many thanks for allowing me to participate in your patient's care. Please feel free to contact me with any questions or concerns. DISCHARGE DESTINATION: Home. TIME SPENT: Total amount of time spent coordinating this discharge: 32 minutes. Job ID: [id number]
== END 2019-03-26 15:05 | DRG 101 ==
LOC: ERS 13:54 → 2SE 19:02
PROVIDERS: ADMIT Internal Medicine; ATTEND Internal Medicine
DX: R56.9 Unspecified convulsions (principal); R55 Syncope and collapse; I95.9 Hypotension, unspecified; E78.5 Hyperlipidemia, unspecified; J44.9 Chronic obstructive pulmonary disease, unspecified; M79.604 Pain in right leg; N18.3 Chronic kidney disease, stage 3 (moderate); E11.22 Type 2 diabetes mellitus with diabetic chronic kidney disease; I12.9 Hypertensive chronic kidney disease with stage 1 through stage 4 chronic kidney disease, or unspecified chronic kidney disease; Z95.1 Presence of aortocoronary bypass graft; Z86.73 Personal history of transient ischemic attack (TIA), and cerebral infarction without residual deficits; Z79.4 Long term (current) use of insulin
CPT/HCPCS: 36415; 36416; 70450; 70551; 71275; 80048; 80053; 80306; 81001; 82550; 82947; 84146; 84484; 85025; 85610; 93005; 96365; 96375; J1815; J1953; J2060; J3490; J7050; Q9966; S0028

== ENCOUNTER 2019-10-02 19:24 | Inpatient (IN) | payer MEDICAID, MEDICARE ==
[2019-10-02 19:58] LABS: Base Excess-Venous -1.1 mmol/L (-2.0 to 3.0); Bicarbonate (HCO3v) 27.3 mmol/L (22.0-28.0); CO2 Tension (PvCO2) 59.8 mmHg (40.0-50.0); Calcium, Ionized 1.26 mmol/L (See Comments:); Chloride 100 mmol/L (98-107); Hemoglobin - Calc 14.9 g/dL (14.0-18.0); Potassium 5.3 mmol/L (3.5-5.1); Sodium 136 mmol/L (138-145); T. Carbon Dioxide 29.1 mmol/L (22.0-28.0); vO2 Saturation-calc 23.8 % (60.0-85.0)
[2019-10-02 20:03] LABS: #Eosinphils 0.1 thou/uL (0.0-0.7); #Lymphocytes 1.5 thou/uL (1.20-3.40); #Monocytes 0.3 thou/uL (0.11-0.59); #Neutrophils 2.3 thou/uL (1.40-6.50); %Basophils 0.4 % (0.0-1.0); %Eosinophils 2.8 % (0.0-10.0); %Lymphocytes 35.4 % (21.0-51.0); %Monocytes 7.1 % (0.0-10.0); %Neutrophils 54.3 % (42.0-75.0); Hemoglobin 14.6 g/dL (14.0-18.0); Mean Corpuscular HGB CONC 33.8 g/dL (32.0-36.0); Mean Corpuscular Volume 88.7 fL (78.0-98.0); Mean Platelet Volume 9.5 fL (7.4-10.4); Platelet Count 154 thou/uL (130-400); Red Blood Cell (RBC) Count 4.86 mill/uL (4.70-6.10); White Blood Cell (WBC) Count 4.2 thou/uL (4.8-10.8)
[2019-10-02] MEDS ORDERED: HumaLOG 300 UNITS/3 ML VIAL ONE (20:20)
[2019-10-02 20:26] LABS: ALT (SGPT) 15 U/L (8-55); AST (SGOT) 14 U/L (5-34); Albumin 3.8 g/dL (3.4-4.8); Alkaline Phosphatase 83 U/L (40-110); Anion Gap 12 mmol/L (10-20); BUN (Urea Nitrogen) 23 mg/dL (8.4-25.7); Bilirubin, Total 0.6 mg/dL (0.2-1.2); Calc. Creatinine Clearance 0 mL/min (70-130); Calcium 9.3 mg/dL (7.8-10.44); Carbon Dioxide 26 mmol/L (23-31); Chloride 99 mmol/L (98-107); Estimated GFR-MDRD 36; Globulin 2.4 g/dL (2.4-3.5); Magnesium 1.7 mg/dL (1.6-2.6); Potassium 5.2 mmol/L (3.5-5.1); Protein, Total 6.2 g/dL (5.8-8.1); Sodium 132 mmol/L (136-145)
[2019-10-02 20:32] LABS: Glucose 577 mg/dL (80-115)
[2019-10-02 20:47] LABS: Bilirubin Negative (Negative); Blood, Urine Negative (Negative); Clarity Clear (Clear); Glucose, Urine (Dipstick) Greater than 1000 mg/dL (Negative); Leukocyte Negative Leu/uL (Negative); Nitrite Negative (Negative); Protein, Urine (Dipstick) Negative (Neg-Trace); Urobilinogen Normal mg/dL (Less than 2)
[2019-10-02] MEDS ORDERED: Insulin Regular 100 units/100 ml in NS IVPB SCH (21:30)
[2019-10-02] MEDS ORDERED: Ondansetron PF 4 MG/2 ML Vial IVP PRN ×2 (22:45→22:54)
[2019-10-02] MEDS ORDERED: Ondansetron ODT 4 MG TAB SL PRN (22:45)
[2019-10-02] MEDS ORDERED: CCU Electrolyte Replacement 1 EACH IVPB ONE (22:54)
[2019-10-02] MEDS ORDERED: Labetalol HCl 100 MG/20 ML VIAL SLOW IVP PRN (22:54)
[2019-10-02] MEDS ORDERED: hydrALAZINE 20 MG/ML VIAL SLOW IVP PRN (22:54)
[2019-10-02] MEDS ORDERED: NS 0.9% w/ 20 MEQ KCL 1,000 ML IV PRN ×2 (22:54)
[2019-10-02] MEDS ORDERED: Sodium Chloride 0.9% 1,000 ML IV PRN ×4 (22:54)
[2019-10-02] MEDS ORDERED: HUMULIN R 100 UNITS in Sodium Chloride 0.9% 100 ML IVPB SCH (22:54)
[2019-10-02] MEDS ORDERED: Ondansetron ODT 4 MG TAB PO PRN (22:54)
[2019-10-02] MEDS ORDERED: Dextrose 5 %-0.45 % NaCl 1,000 ML IV PRN (22:54)
[2019-10-02] MEDS ORDERED: Magnesium 2 GM/50 ML 2 GM in Premix Bag 1 BAG IVPB PRN (22:59)
[2019-10-02] MEDS ORDERED: Magnesium Oxide 400 MG TAB PO PRN (22:59)
[2019-10-02] MEDS ORDERED: Potassium Phosphate 12 MMOL in Sodium Chloride 0.9% 250 ML 250 ML IV PRN (22:59)
[2019-10-02] MEDS ORDERED: Potassium Chloride 40 MEQ in Premix Bag 1 BAG IVPB PRN (22:59)
[2019-10-02] MEDS ORDERED: PHOS-NAK 1 PKT PACK PO PRN ×2 (22:59)
[2019-10-02] MEDS ORDERED: Potassium Chloride 20 MEQ TAB PO PRN (22:59)
[2019-10-02] MEDS ORDERED: Potassium Phosphate 15 MMOL in Sodium Chloride 0.9% 250 ML 250 ML IV PRN (22:59)
[2019-10-02] MEDS ORDERED: CCU ELECTROLYTE REPLACEMENT PROTOCOL FS PRN (22:59)
[2019-10-02] MEDS ORDERED: Potassium Phosphate 9 MMOL in Sodium Chloride 0.9% 100 ML IVPB PRN (22:59)
[2019-10-02] MEDS ORDERED: Potassium Chloride 40 MEQ in Sodium Chloride 0.9% 250 ML 250 ML IVPB PRN (22:59)
[2019-10-02] MEDS: Sodium Chloride 0.9% 1,000 ML IV SCH (23:03)
[2019-10-02] MEDS: Magnesium Oxide 400 MG TAB PO PRN (23:18)
[2019-10-02 23:43] VITALS: BMI 25.9
[2019-10-02 23:50] LABS: Anion Gap 13 mmol/L (10-20); BUN (Urea Nitrogen) 21 mg/dL (8.4-25.7); Calc. Creatinine Clearance 39 mL/min (70-130); Calcium 8.9 mg/dL (7.8-10.44); Carbon Dioxide 26 mmol/L (23-31); Chloride 105 mmol/L (98-107); Estimated GFR-MDRD 45; Glucose 378 mg/dL (80-115); Potassium 4.5 mmol/L (3.5-5.1); Sodium 139 mmol/L (136-145)
--- NOTE | 2019-10-03 00:41 | HP ---
PRIMARY CARE PROVIDER: Dr. Knight. CHIEF COMPLAINT: Failure to thrive. HISTORY OF PRESENT ILLNESS: This is a 69-year-old male, who is a current resident at [facility], who was referred to [facility] Emergency room by his primary care provider, Dr. Knight at [facility]. Adult Protective Services were noted for welfare call as patient was at risk for self neglect while living at [place]. The patient apparently was not taking his chronic medication regimen and not caring for himself, at which point, APS was notified. EMS arrived and patient was noted with hyperglycemia with glucose over 500. The patient was lethargic and unable to provide any history. The patient was meeting mild DKA criteria with a pH of 7.26 and positive beta hydroxybutyrate level. The patient was placed on insulin infusion as well as given IV fluids x 2L in the emergency room. The patient is unable to provide any coherent history due to lethargy and altered mental status. According to ER reports, the patient also with baseline dementia. No focal workup consistent with infectious process and patient continued to receive IV fluids in the emergency room. No family are present for corroboration of the story or further history. PAST MEDICAL HISTORY: 1. Diabetes mellitus type 2, poorly controlled. 2. Hypertension. 3. History of CVA. 4. Dementia, likely Alzheimer's type. 5. Coronary artery disease. 6. Hyperlipidemia. 7. Failure to thrive and self neglect. PAST SURGICAL HISTORY: 1. Status post coronary artery bypass grafting. 2. Status post knee surgery. CURRENT MEDICATIONS: Based on previous review of the electronic medical record; 1. Lipitor 20 mg p.o. daily. 2. Gabapentin 100 mg p.o. t.i.d. 3. Ranexa 500 mg p.o. b.i.d. 4. Enteric-coated aspirin 81 mg p.o. daily. 5. Coreg 3.125 mg p.o. b.i.d. 6. Humalog 6 units subcutaneously before each meal. 7. Lantus 20 units subcutaneously b.i.d. 8. Isosorbide mononitrate 15 mg p.o. daily. 9. Keppra 1000 mg p.o. b.i.d. 10. Lisinopril 2.5 mg p.o. daily. 11. Flomax 0.4 mg p.o. at bedtime. 12. Topamax 50 mg p.o. b.i.d. ALLERGIES: NO KNOWN DRUG ALLERGIES. FAMILY HISTORY: Positive for hypertension and coronary artery disease. SOCIAL HISTORY: Resides at [facility]. Positive reports of self neglect and failure to take chronic medication regimen. No current alcohol, tobacco, or illicit drug use. Nonambulatory. Unknown fall history. REVIEW OF SYSTEMS: Unobtainable due to patient's altered mentation and encephalopathy. PHYSICAL EXAMINATION: VITAL SIGNS: On admission, blood pressure 145/84, pulse 84, respiratory rate is 19, temperature 97.7 degrees Fahrenheit, O2 saturation 99% on room air. GENERAL APPEARANCE: This is a 69-year-old male, lethargic, opens eyes minimally to name, retracts to painful stimulus, in mild distress. HEENT: Pupils are equal, round, reactive to light and accommodation. Extraocular muscles are intact. No scleral icterus. No conjunctival injection. Nares patent. OP is clear. Oral mucosa dry. NECK: Supple. No cervical adenopathy. No thyromegaly. No carotid bruits. No JVD appreciated. Cervical spine with full active and passive range of motion. No meningeal signs noted. CHEST: Lungs are clear to auscultation bilaterally. CARDIOVASCULAR: S1, S2 without noted murmur, rub, or gallop. CHEST: With previous coronary artery bypass grafting. Midline sternal scar with keloid formation. ABDOMEN: Rounded, soft, nontender, and nondistended. Bowel sounds are positive in all 4 quadrants. There is no hepatosplenomegaly. No abdominal bruits. No rebound or guarding appreciated. EXTREMITIES: Warm and dry with fair turgor. No clubbing, cyanosis, or asymmetric edema appreciated. Pulses palpable distally at the dorsalis pedis, posterior tibial, and popliteal arteries bilaterally. Capillary refill less than 2 seconds. NEUROLOGIC: Lethargic, opens eyes minimally to name and direct stimulation. No verbalization. Not observed ambulatory. Does not follow commands. PERTINENT LABORATORY AND X-RAY FINDINGS: Sodium 132, potassium 5.2, chloride 99, CO2 of 26, BUN 23, creatinine 2.19, estimated GFR 36, glucose 577. Serum osmolality 315, calcium 9.3, magnesium 1.7. LFTs within normal limits. TSH 1.20. CBC showed a white blood cell count of 4.2, hemoglobin 14.6, hematocrit 43, platelet count 154 with normal differential. Venous blood gas dated 10/02/2019 showed a pH of 7.23, pCO2 of 60, PO2 of 19.6, bicarb 27.3. Urinalysis positive for glucose and trace ketones. Beta-hydroxybutyrate level 1.10. EKG dated 10/02/2019 by my interpretation shows sinus mechanism, heart rates in the 80s. Attenuated R-waves in the precordial leads. Normal axis. No acute ST-T wave changes appreciated. ASSESSMENT AND PLAN: 1. Diabetic ketoacidosis. Mild presentation. We will continue insulin infusion and monitor serial glucose per diabetic ketoacidosis protocol. Serial beta hydroxybutyrate level evaluation. Continue IV fluids per protocol. No focal evidence of infectious process. 2. Acute kidney injury on chronic kidney disease stage 3. We will continue IV fluids as outlined previously. Avoid nephrotoxic agents and limit contrast exposure. Serial creatinine monitoring. 3. Acute toxic metabolic encephalopathy. Multifactorial process including diabetic ketoacidosis. We will continue supportive management for underlying metabolic process. Monitor mental status improvement with correction of acidosis. 4. Severe deconditioning. PT evaluation for functional assessment. General fall risk precautions. Case management for assisted/fdc options. 5. Failure to thrive/self neglect. We will continue supportive management as outlined previously. Case management consult for assisted options. We will need to discuss with family members and medical power of assistant attorney general, which is not clear at this time. 6. Seizure disorder. We will confirm home Keppra regimen and resume when clinically stable. No current evidence to suggest acute seizure activity. 7. Prophylaxis. SCDs while in bed. Pepcid 20 mg IV b.i.d. PT evaluation in the a.m. CODE STATUS: Full. Surrogate medical decision maker not identified. Job ID: [id number]
[2019-10-03] MEDS: Sodium Chloride 0.9% 1,000 ML IV SCH (01:01)
[2019-10-03] MEDS: D5 1/2 NS w/20 mEq KCL 1,000 ML IV PRN ×2 (03:04→07:05)
[2019-10-03 04:20] LABS: Anion Gap 11 mmol/L (10-20); BUN (Urea Nitrogen) 19 mg/dL (8.4-25.7); Calc. Creatinine Clearance 49 mL/min (70-130); Calcium 8.3 mg/dL (7.8-10.44); Carbon Dioxide 23 mmol/L (23-31); Chloride 111 mmol/L (98-107); Estimated GFR-MDRD 58; Glucose 123 mg/dL (80-115); Magnesium 1.7 mg/dL (1.6-2.6); Potassium 3.8 mmol/L (3.5-5.1); Sodium 141 mmol/L (136-145)
[2019-10-03 07:42] LABS: Anion Gap 10 mmol/L (10-20); BUN (Urea Nitrogen) 17 mg/dL (8.4-25.7); Calc. Creatinine Clearance 49 mL/min (70-130); Calcium 8.3 mg/dL (7.8-10.44); Carbon Dioxide 26 mmol/L (23-31); Chloride 108 mmol/L (98-107); Estimated GFR-MDRD 58; Glucose 154 mg/dL (80-115); Potassium 4.5 mmol/L (3.5-5.1); Sodium 139 mmol/L (136-145)
[2019-10-03] MEDS ORDERED: Senokot S 8.6-50 MG TAB PO PRN (09:11)
[2019-10-03] MEDS ORDERED: Dextrose 5% in Water 1,000 ML IV PRN (09:16)
[2019-10-03] MEDS ORDERED: Dextrose 50% Abboject 50 ML SYRINGE SLOW IVP PRN (09:16)
[2019-10-03] MEDS ORDERED: Insulin Glargine 5 UNITS in Pre-Filled Syringe 1 EACH SC SCH (09:30)
--- NOTE | 2019-10-03 10:10 | RAD ---
XR Chest 1 View History: Shortness of breath Comparison: None. Findings: Mild dextro scoliosis thoracic spine. The lungs are without confluent airspace consolidatio n, pneumothorax, or effusion. No acute osseous abnormality. Impression: No acute intrathoracic abnormality.
[2019-10-03] MEDS: Famotidine/PF 20 mg/2ml Vial SLOW IVP SCH ×2 (10:37→20:10)
[2019-10-03] MEDS: HumaLOG 300 UNITS/3 ML VIAL SC PRN ×3 (11:30→21:28)
--- NOTE | 2019-10-03 15:31 | PDOC.HOSPP ---
- Subjective Subjective: Seen and examined in intermediate medical care floor. Patient mentation has significantly improved since arrival. He is alert and talking. Patient had a little bit of liquids for breakfast and tolerated without difficulties. Will advanced diet. Labs improved, stopping insulin drip. Chest x-ray to monitor for volume overload with IV fluid resuscitation. - Objective Vital Signs & Weight: Vital Signs (12 hours) Temp Pulse Pulse BP BP 10/03/19 15:18 96.7 F L 10/03/19 11:32 97.4 F L 10/03/19 09:45 89 86 157/95 H 151/90 H 10/03/19 07:44 97.0 F L Weight Weight 156 lb 3 oz Most Recent Monitor Data Heart Rate from ECG 81 NIBP 137/91 NIBP BP-Mean 106 Respiration from ECG 16 SpO2 100 I&O: 10/02/19 10/03/19 10/04/19 06:59 06:59 06:59 Intake Total 3044.5 750 Balance 3044.5 750 Result Diagrams: 10/02/19 19:53 10/03/19 06:51 Additional Labs: Accuchecks 10/03/19 10/03/19 10/03/19 10:53 09:03 08:04 POC Glucose 251 H 259 H 197 H 10/03/19 10/03/19 10/03/19 05:00 04:02 02:59 POC Glucose 123 H 130 H 152 H 10/03/19 10/03/19 10/03/19 02:00 01:12 00:00 POC Glucose 217 H 286 H 373 H 10/02/19 10/02/19 10/02/19 22:50 21:42 19:46 POC Glucose 396 H 491 H 481 H Radiology Reviewed by me: Yes Hospitalist ROS - Review of Systems All other systems reviewed; all pertinent +/- noted in HPI/Subj - Medication Medications: Active Medications Generic Name Dose Route Start Last Admin Trade Name Freq PRN Reason Stop Dose Admin Famotidine 20 mg 10/03/19 09:00 10/03/19 10:37 Pepcid SLOW IVP 20 mg Q12HR KISHAN Administration Insulin Human Lispro 0 units 10/03/19 09:16 10/03/19 11:30 Humalog SC 6 unit .MODERATE SLIDING SC PRN Administration Moderate Correctional Scale Magnesium Oxide 400 mg 10/02/19 22:59 10/02/19 23:18 Magnesium Oxide PO 400 mg BIDPRN PRN Administration FOR SERUM MAG 1.4 - 2.0 - Exam General Appearance: NAD, awake alert Eye: PERRL ENT: normocephalic atraumatic, moist mucosa Neck: supple, symmetric, no lymphadenopathy Heart: no murmur, no gallops, no rubs Respiratory: CTAB, no wheezes, no rales, no ronchi, normal chest expansion Gastrointestinal: soft, non-tender, no guarding, no rigidity Extremities: no edema Skin: no lesions, no rashes Neurological: cranial nerve grossly intact, no focal deficits Musculoskeletal: generalized weakness Psychiatric: normal affect, normal behavior Hosp A/P (1) CKD (chronic kidney disease) stage 3, GFR 30-59 ml/min Code(s): N18.3 - CHRONIC KIDNEY DISEASE, STAGE 3 (MODERATE) Status: Acute (2) Seizure Code(s): R56.9 - UNSPECIFIED CONVULSIONS Status: Acute (3) CAD (coronary artery disease) Code(s): I25.10 - ATHSCL HEART DISEASE OF [place] CORONARY ARTERY W/O ANG PCTRS Status: Chronic Qualifiers: Coronary Disease-Associated Artery/Lesion type: bypass graft [place] vs. transplanted heart: [place] heart Associated angina: without angina Qualified Code(s): I25.810 - Atherosclerosis of coronary artery bypass graft(s) without angina pectoris (4) COPD (chronic obstructive pulmonary disease) Status: Chronic Qualifiers: COPD type: unspecified COPD Qualified Code(s): J44.9 - Chronic obstructive pulmonary disease, unspecified (5) Chronic kidney disease, stage 3 Code(s): N18.3 - CHRONIC KIDNEY DISEASE, STAGE 3 (MODERATE) Status: Chronic (6) Diabetes mellitus type II, uncontrolled Code(s): E11.65 - TYPE 2 DIABETES MELLITUS WITH HYPERGLYCEMIA Status: Chronic (7) Dyslipidemia Code(s): E78.5 - HYPERLIPIDEMIA, UNSPECIFIED Status: Chronic (8) H/O: CVA (cerebrovascular accident) Code(s): Z86.73 - PRSNL HX OF TIA (TIA), AND CEREB INFRC W/O RESID DEFICITS Status: Chronic (9) Hypertension Code(s): I10 - ESSENTIAL (PRIMARY) HYPERTENSION Status: Chronic Qualifiers: - Plan Plan: intermediate medical care floor Transition off insulin drip insulin sliding-scale coverage advanced diet, DM and healthy heart chest x-ray to monitor for volume overload echocardiogram history of coronary artery bypass grafting no chest pain or discomfort on this admission on Ranexa chronically for angina had aggressive IV fluid resuscitation blood pressure control continual home medications as able G.I. prophylaxis DVT prophylaxis
[2019-10-03] MEDS: Carvedilol 3.125 MG TAB PO SCH (17:00)
[2019-10-03] MEDS: levETIRAcetam 500 MG TAB PO SCH (20:11)
[2019-10-03] MEDS: Magnesium Oxide 400 MG TAB PO PRN (20:11)
[2019-10-03] MEDS ORDERED: FLU VACC TS2019-20(65YR UP)/PF 180 MCG/0.5 ML SYRINGE IM ONE (21:00)
[2019-10-03] MEDS: Insulin Glargine 5 UNITS in Pre-Filled Syringe 1 EACH SC SCH (21:28)
[2019-10-04 04:18] LABS: Anion Gap 9 mmol/L (10-20); BUN (Urea Nitrogen) 14 mg/dL (8.4-25.7); Calc. Creatinine Clearance 49 mL/min (70-130); Calcium 8.7 mg/dL (7.8-10.44); Carbon Dioxide 24 mmol/L (23-31); Chloride 109 mmol/L (98-107); Estimated GFR-MDRD 59; Glucose 337 mg/dL (80-115); Magnesium 1.6 mg/dL (1.6-2.6); Potassium 4.1 mmol/L (3.5-5.1); Sodium 138 mmol/L (136-145)
[2019-10-04] MEDS: Magnesium Oxide 400 MG TAB PO PRN (05:41)
[2019-10-04] MEDS: HumaLOG 300 UNITS/3 ML VIAL SC PRN ×4 (05:41→21:35)
[2019-10-04] MEDS: Lisinopril 2.5 MG TAB PO SCH (08:41)
[2019-10-04] MEDS: Carvedilol 3.125 MG TAB PO SCH ×2 (08:41→16:58)
[2019-10-04] MEDS: Insulin Glargine 5 UNITS in Pre-Filled Syringe 1 EACH SC SCH (08:41)
[2019-10-04] MEDS: Tamsulosin HCl 0.4 MG CAP PO SCH (08:42)
[2019-10-04] MEDS: levETIRAcetam 500 MG TAB PO SCH ×2 (08:42→20:10)
[2019-10-04] MEDS: Famotidine/PF 20 mg/2ml Vial SLOW IVP SCH ×2 (08:43→20:11)
[2019-10-04] MEDS: Isosorbide Mononitrate (ER) 30 MG TAB PO SCH (08:43)
[2019-10-04] MEDS: Topiramate 25 MG TAB PO SCH (09:58)
[2019-10-04] MEDS: Insulin Glargine 10 UNITS in Pre-Filled Syringe 1 EACH SC SCH ×2 (09:58→21:34)
--- NOTE | 2019-10-04 13:21 | PDOC.HOSPP ---
- Subjective Subjective: Seen and examined. Patient continues to clinically improved. Tolerating diet. No nausea or vomiting. Breathing comfortably. Patient stable for downgrade to medical unit. - Objective Vital Signs & Weight: Vital Signs (12 hours) Temp Pulse Ox 10/04/19 11:07 98.0 F 10/04/19 10:56 100 10/04/19 07:10 97.6 F 10/04/19 04:00 97.6 F Weight Weight 156 lb 3 oz Most Recent Monitor Data Heart Rate from ECG 85 NIBP 133/83 NIBP BP-Mean 99 Respiration from ECG 9 SpO2 100 I&O: 10/03/19 10/04/19 10/05/19 06:59 06:59 06:59 Intake Total 3044.5 2610 Output Total 975 Balance 3044.5 1635 Result Diagrams: 10/02/19 19:53 10/04/19 03:52 Additional Labs: Accuchecks 10/04/19 10/04/19 10/03/19 10:53 05:29 20:20 POC Glucose 334 H 321 H 235 H 10/03/19 10/03/19 10/03/19 16:41 07:00 06:06 POC Glucose 277 H 142 H 147 H Radiology Reviewed by me: Yes Hospitalist ROS - Review of Systems All other systems reviewed; all pertinent +/- noted in HPI/Subj - Medication Medications: Active Medications Generic Name Dose Route Start Last Admin Trade Name Freq PRN Reason Stop Dose Admin Carvedilol 6.25 mg 10/03/19 17:00 10/04/19 08:41 Coreg PO 6.25 mg BID-WM KISHAN Administration Famotidine 20 mg 10/03/19 09:00 10/04/19 08:43 Pepcid SLOW IVP 20 mg Q12HR KISHAN Administration Insulin Glargine 10 units/ 0.1 mls @ 1 mls/hr 10/04/19 09:00 10/04/19 09:58 Miscellaneous Medication SC 0.05 mls BID KISHAN Administration Insulin Human Lispro 0 units 10/03/19 09:16 10/04/19 11:34 Humalog SC 8 unit .MODERATE SLIDING SC PRN Administration Moderate Correctional Scale Insulin Human Lispro 0 units 10/03/19 09:16 10/03/19 21:28 Humalog SC 2 unit .BEDTIME SLIDING SC PRN Administration Bedtime Correctional Scale Isosorbide Mononitrate 30 mg 10/04/19 09:00 10/04/19 08:43 Imdur Er PO 30 mg DAILY KISHAN Administration Levetiracetam 1,000 mg 10/03/19 21:00 10/04/19 08:42 Keppra PO 1,000 mg BID KISHAN Administration Lisinopril 2.5 mg 10/04/19 09:00 10/04/19 08:41 Zestril PO 2.5 mg DAILY KISHAN Administration Magnesium Oxide 400 mg 10/02/19 22:59 10/04/19 05:41 Magnesium Oxide PO 400 mg BIDPRN PRN Administration FOR SERUM MAG 1.4 - 2.0 Ranolazine 500 mg 10/03/19 21:00 10/04/19 08:43 Ranexa PO 500 mg BID KISHAN Administration Tamsulosin HCl 0.4 mg 10/04/19 09:00 10/04/19 08:42 Flomax PO 0.4 mg DAILY KISHAN Administration Topiramate 50 mg 10/04/19 09:00 10/04/19 09:58 Topamax PO 50 mg DAILY KISHAN Administration - Exam General Appearance: NAD, awake alert Eye: PERRL ENT: moist mucosa Neck: supple, symmetric Heart: no murmur, no gallops, no rubs Respiratory: CTAB, no wheezes, no rales, no ronchi, no tachypnea Gastrointestinal: soft, non-tender, no guarding, no rigidity Extremities: no edema Skin: no lesions, no rashes Neurological: cranial nerve grossly intact, no focal deficits Musculoskeletal: generalized weakness Psychiatric: normal affect, normal behavior, A&O x 3 Hosp A/P (1) CKD (chronic kidney disease) stage 3, GFR 30-59 ml/min Code(s): N18.3 - CHRONIC KIDNEY DISEASE, STAGE 3 (MODERATE) Status: Acute (2) Seizure Code(s): R56.9 - UNSPECIFIED CONVULSIONS Status: Acute (3) CAD (coronary artery disease) Code(s): I25.10 - ATHSCL HEART DISEASE OF [place] CORONARY ARTERY W/O ANG PCTRS Status: Chronic Qualifiers: Coronary Disease-Associated Artery/Lesion type: bypass graft [place] vs. transplanted heart: [place] heart Associated angina: without angina Qualified Code(s): I25.810 - Atherosclerosis of coronary artery bypass graft(s) without angina pectoris (4) COPD (chronic obstructive pulmonary disease) Status: Chronic Qualifiers: COPD type: unspecified COPD Qualified Code(s): J44.9 - Chronic obstructive pulmonary disease, unspecified (5) Chronic kidney disease, stage 3 Code(s): N18.3 - CHRONIC KIDNEY DISEASE, STAGE 3 (MODERATE) Status: Chronic (6) Diabetes mellitus type II, uncontrolled Code(s): E11.65 - TYPE 2 DIABETES MELLITUS WITH HYPERGLYCEMIA Status: Chronic (7) Dyslipidemia Code(s): E78.5 - HYPERLIPIDEMIA, UNSPECIFIED Status: Chronic (8) H/O: CVA (cerebrovascular accident) Code(s): Z86.73 - PRSNL HX OF TIA (TIA), AND CEREB INFRC W/O RESID DEFICITS Status: Chronic (9) Hypertension Code(s): I10 - ESSENTIAL (PRIMARY) HYPERTENSION Status: Chronic Qualifiers: - Plan Plan: Medical unit Adjust insulin sliding-scale coverage Start Metformin advanced diet, DM and healthy heart chest x-ray to monitor for volume overload echocardiogram history of coronary artery bypass grafting no chest pain or discomfort on this admission on Ranexa chronically for angina On admission had aggressive IV fluid resuscitation blood pressure control continual home medications as able G.I. prophylaxis DVT prophylaxis
[2019-10-04] MEDS: metFORMIN 500 MG TAB PO SCH (16:58)
[2019-10-05] MEDS: Magnesium Oxide 400 MG TAB PO PRN (00:26)
[2019-10-05 04:41] LABS: Anion Gap 9 mmol/L (10-20); BUN (Urea Nitrogen) 14 mg/dL (8.4-25.7); Calc. Creatinine Clearance 54 mL/min (70-130); Calcium 8.8 mg/dL (7.8-10.44); Carbon Dioxide 25 mmol/L (23-31); Chloride 110 mmol/L (98-107); Estimated GFR-MDRD 66; Glucose 219 mg/dL (80-115); Magnesium 1.7 mg/dL (1.6-2.6); Potassium 4.2 mmol/L (3.5-5.1); Sodium 140 mmol/L (136-145)
[2019-10-05] MEDS: HumaLOG 300 UNITS/3 ML VIAL SC PRN ×3 (06:29→17:07)
[2019-10-05] MEDS: levETIRAcetam 500 MG TAB PO SCH ×2 (08:34→20:56)
[2019-10-05] MEDS: metFORMIN 500 MG TAB PO SCH ×2 (08:34→17:07)
[2019-10-05] MEDS: Lisinopril 2.5 MG TAB PO SCH (08:34)
[2019-10-05] MEDS: Insulin Glargine 10 UNITS in Pre-Filled Syringe 1 EACH SC SCH ×2 (08:35→20:56)
[2019-10-05] MEDS: Carvedilol 3.125 MG TAB PO SCH ×2 (08:35→17:06)
[2019-10-05] MEDS: Tamsulosin HCl 0.4 MG CAP PO SCH (08:35)
[2019-10-05] MEDS: Famotidine/PF 20 mg/2ml Vial SLOW IVP SCH ×2 (08:35→20:56)
[2019-10-05] MEDS: Isosorbide Mononitrate (ER) 30 MG TAB PO SCH (09:59)
[2019-10-05] MEDS: Topiramate 25 MG TAB PO SCH (09:59)
--- NOTE | 2019-10-05 13:28 | PDOC.HOSPP ---
- Subjective Subjective: Medically he continues to improve. Tolerating diet. Moving bowels. Breathing comfortably on room air. Patient is emotionally upset about his living situation and he is having difficulty understanding why it is dangerous for him to live alone, I again reeducated that it is because he needs improved compliance with his medical regimen in order to be safe. Time was given for questions, all answered in detail. - Objective Vital Signs & Weight: Vital Signs (12 hours) Temp Pulse Resp BP BP Pulse Ox 10/05/19 08:34 76 124/73 10/05/19 08:28 98 10/05/19 07:40 97.8 F 83 16 139/80 98 10/05/19 04:00 97.7 F 80 16 112/69 98 Weight Weight 156 lb 3 oz Most Recent Monitor Data Heart Rate from ECG 85 NIBP 133/83 NIBP BP-Mean 99 Respiration from ECG 9 SpO2 100 I&O: 10/04/19 10/05/19 10/06/19 06:59 06:59 06:59 Intake Total 2610 1320 Output Total 975 Balance 1635 1320 Result Diagrams: 10/02/19 19:53 10/05/19 04:08 Additional Labs: Accuchecks 10/05/19 10/05/19 10/04/19 11:20 06:09 21:20 POC Glucose 232 H 205 H 206 H 10/04/19 15:45 POC Glucose 325 H Radiology Reviewed by me: Yes Hospitalist ROS - Review of Systems All other systems reviewed; all pertinent +/- noted in HPI/Subj - Medication Medications: Active Medications Generic Name Dose Route Start Last Admin Trade Name Freq PRN Reason Stop Dose Admin Carvedilol 6.25 mg 10/03/19 17:00 10/05/19 08:35 Coreg PO 6.25 mg BID-WM KISHAN Administration Famotidine 20 mg 10/03/19 09:00 10/05/19 08:35 Pepcid SLOW IVP 20 mg Q12HR KISHAN Administration Insulin Glargine 10 units/ 0.1 mls @ 1 mls/hr 10/04/19 09:00 10/05/19 08:35 Miscellaneous Medication SC 0.1 mls BID KISHAN Administration Insulin Human Lispro 0 units 10/03/19 09:16 10/05/19 11:38 Humalog SC 4 unit .MODERATE SLIDING SC PRN Administration Moderate Correctional Scale Insulin Human Lispro 0 units 10/03/19 09:16 10/04/19 21:35 Humalog SC 2 unit .BEDTIME SLIDING SC PRN Administration Bedtime Correctional Scale Isosorbide Mononitrate 30 mg 10/04/19 09:00 10/05/19 09:59 Imdur Er PO 30 mg DAILY KISHAN Administration Levetiracetam 1,000 mg 10/03/19 21:00 10/05/19 08:34 Keppra PO 1,000 mg BID KISHAN Administration Lisinopril 2.5 mg 10/04/19 09:00 10/05/19 08:34 Zestril PO 2.5 mg DAILY KISHAN Administration Metformin HCl 1,000 mg 10/04/19 17:00 10/05/19 08:34 Glucophage PO 1,000 mg BID-WM KISHAN Administration Ranolazine 500 mg 10/03/19 21:00 10/05/19 08:35 Ranexa PO 500 mg BID KISHAN Administration Tamsulosin HCl 0.4 mg 10/04/19 09:00 10/05/19 08:35 Flomax PO 0.4 mg DAILY KISHAN Administration Topiramate 50 mg 10/04/19 09:00 10/05/19 09:59 Topamax PO 50 mg DAILY KISHAN Administration - Exam General Appearance: NAD Eye: anicteric sclera ENT: normocephalic atraumatic, moist mucosa Neck: supple, symmetric, no lymphadenopathy Heart: no murmur, no gallops, no rubs Respiratory: CTAB, no wheezes, no rales, no ronchi, normal chest expansion Gastrointestinal: soft, non-tender, no guarding, no rigidity Extremities: no edema Skin: no lesions, no rashes Neurological: cranial nerve grossly intact, no focal deficits Musculoskeletal: normal strength Psychiatric: A&O x 3 Hosp A/P (1) CKD (chronic kidney disease) stage 3, GFR 30-59 ml/min Code(s): N18.3 - CHRONIC KIDNEY DISEASE, STAGE 3 (MODERATE) Status: Acute (2) Seizure Code(s): R56.9 - UNSPECIFIED CONVULSIONS Status: Acute (3) CAD (coronary artery disease) Code(s): I25.10 - ATHSCL HEART DISEASE OF [place] CORONARY ARTERY W/O ANG PCTRS Status: Chronic Qualifiers: Coronary Disease-Associated Artery/Lesion type: bypass graft [place] vs. transplanted heart: [place] heart Associated angina: without angina Qualified Code(s): I25.810 - Atherosclerosis of coronary artery bypass graft(s) without angina pectoris (4) COPD (chronic obstructive pulmonary disease) Status: Chronic Qualifiers: COPD type: unspecified COPD Qualified Code(s): J44.9 - Chronic obstructive pulmonary disease, unspecified (5) Chronic kidney disease, stage 3 Code(s): N18.3 - CHRONIC KIDNEY DISEASE, STAGE 3 (MODERATE) Status: Chronic (6) Diabetes mellitus type II, uncontrolled Code(s): E11.65 - TYPE 2 DIABETES MELLITUS WITH HYPERGLYCEMIA Status: Chronic (7) Dyslipidemia Code(s): E78.5 - HYPERLIPIDEMIA, UNSPECIFIED Status: Chronic (8) H/O: CVA (cerebrovascular accident) Code(s): Z86.73 - PRSNL HX OF TIA (TIA), AND CEREB INFRC W/O RESID DEFICITS Status: Chronic (9) Hypertension Code(s): I10 - ESSENTIAL (PRIMARY) HYPERTENSION Status: Chronic Qualifiers: - Plan Plan: Medical unit Adjust insulin sliding-scale coverage Continue Metformin advanced diet, DM and healthy heart chest x-ray to monitor for volume overload echocardiogram history of coronary artery bypass grafting no chest pain or discomfort on this admission on Ranexa chronically for angina On admission had aggressive IV fluid resuscitation blood pressure control continual home medications as able G.I. prophylaxis DVT prophylaxis CM for D/c planning
[2019-10-06 06:02] LABS: Anion Gap 12 mmol/L (10-20); BUN (Urea Nitrogen) 15 mg/dL (8.4-25.7); Calc. Creatinine Clearance 53 mL/min (70-130); Calcium 8.7 mg/dL (7.8-10.44); Carbon Dioxide 22 mmol/L (23-31); Chloride 108 mmol/L (98-107); Estimated GFR-MDRD 65; Glucose 225 mg/dL (80-115); Potassium 4.2 mmol/L (3.5-5.1); Sodium 138 mmol/L (136-145)
[2019-10-06] MEDS: HumaLOG 300 UNITS/3 ML VIAL SC PRN ×4 (06:16→20:20)
[2019-10-06] MEDS: Lisinopril 2.5 MG TAB PO SCH (08:09)
[2019-10-06] MEDS: Tamsulosin HCl 0.4 MG CAP PO SCH (08:10)
[2019-10-06] MEDS: Carvedilol 3.125 MG TAB PO SCH ×2 (08:10→17:04)
[2019-10-06] MEDS: levETIRAcetam 500 MG TAB PO SCH ×2 (08:10→20:12)
[2019-10-06] MEDS: Isosorbide Mononitrate (ER) 30 MG TAB PO SCH (08:10)
[2019-10-06] MEDS: Famotidine/PF 20 mg/2ml Vial SLOW IVP SCH ×2 (08:11→20:12)
[2019-10-06] MEDS: metFORMIN 500 MG TAB PO SCH ×2 (08:11→17:03)
[2019-10-06] MEDS: Topiramate 25 MG TAB PO SCH (08:40)
[2019-10-06] MEDS: Insulin Glargine 10 UNITS in Pre-Filled Syringe 1 EACH SC SCH ×2 (08:41→20:13)
--- NOTE | 2019-10-06 15:14 | PDOC.HOSPP ---
- Subjective Subjective: Seen and examined. Remains clinically stable. Breathing comfortably on low-flow nasal cannula. Moving bowels. Tolerating diet. Case management consulted for discharge planning. Adult Protective Services has been involved. - Objective Vital Signs & Weight: Vital Signs (12 hours) Temp Pulse Resp BP BP Pulse Ox 10/06/19 08:09 85 125/68 10/06/19 08:00 97.6 F 82 16 125/68 100 10/06/19 07:17 100 10/06/19 03:33 98 Weight Weight 156 lb 3 oz Most Recent Monitor Data Heart Rate from ECG 85 NIBP 133/83 NIBP BP-Mean 99 Respiration from ECG 9 SpO2 100 I&O: 10/05/19 10/06/19 10/07/19 06:59 06:59 06:59 Intake Total 1320 1650 Output Total 775 Balance 1320 875 Result Diagrams: 10/02/19 19:53 10/06/19 04:45 Additional Labs: Accuchecks 10/06/19 10/06/19 10/06/19 11:20 08:45 06:07 POC Glucose 231 H 189 H 203 H 10/05/19 10/05/19 20:09 16:34 POC Glucose 223 H 290 H Hospitalist ROS - Review of Systems All other systems reviewed; all pertinent +/- noted in HPI/Subj - Medication Medications: Active Medications Generic Name Dose Route Start Last Admin Trade Name Freq PRN Reason Stop Dose Admin Carvedilol 6.25 mg 10/03/19 17:00 10/06/19 08:10 Coreg PO 6.25 mg BID-WM KISHAN Administration Famotidine 20 mg 10/03/19 09:00 10/06/19 08:11 Pepcid SLOW IVP 20 mg Q12HR KISHAN Administration Insulin Glargine 10 units/ 0.1 mls @ 1 mls/hr 10/04/19 09:00 10/06/19 08:41 Miscellaneous Medication SC 0.1 mls BID KISHAN Administration Insulin Human Lispro 0 units 10/03/19 09:16 10/06/19 11:47 Humalog SC 4 unit .MODERATE SLIDING SC PRN Administration Moderate Correctional Scale Insulin Human Lispro 0 units 10/03/19 09:16 10/04/19 21:35 Humalog SC 2 unit .BEDTIME SLIDING SC PRN Administration Bedtime Correctional Scale Isosorbide Mononitrate 30 mg 10/04/19 09:00 10/06/19 08:10 Imdur Er PO 30 mg DAILY KISHAN Administration Levetiracetam 1,000 mg 10/03/19 21:00 10/06/19 08:10 Keppra PO 1,000 mg BID KISHAN Administration Lisinopril 2.5 mg 10/04/19 09:00 10/06/19 08:09 Zestril PO 2.5 mg DAILY KISHAN Administration Metformin HCl 1,000 mg 10/04/19 17:00 10/06/19 08:11 Glucophage PO 1,000 mg BID-WM KISHAN Administration Ranolazine 500 mg 10/03/19 21:00 10/06/19 08:10 Ranexa PO 500 mg BID KISHAN Administration Tamsulosin HCl 0.4 mg 10/04/19 09:00 10/06/19 08:10 Flomax PO 0.4 mg DAILY KISHAN Administration Topiramate 50 mg 10/04/19 09:00 10/06/19 08:40 Topamax PO 50 mg DAILY KISHAN Administration - Exam General Appearance: NAD, awake alert Eye: anicteric sclera ENT: normocephalic atraumatic, moist mucosa Neck: supple, symmetric, no lymphadenopathy Heart: no murmur, no gallops, no rubs Respiratory: CTAB, no wheezes, no rales, no ronchi Gastrointestinal: soft, non-tender, non-distended, no guarding, no rigidity Extremities: no cyanosis, no edema Skin: no lesions, no rashes Neurological: cranial nerve grossly intact, no focal deficits Musculoskeletal: generalized weakness Psychiatric: normal behavior, A&O x 3 Hosp A/P (1) CKD (chronic kidney disease) stage 3, GFR 30-59 ml/min Code(s): N18.3 - CHRONIC KIDNEY DISEASE, STAGE 3 (MODERATE) Status: Acute (2) Seizure Code(s): R56.9 - UNSPECIFIED CONVULSIONS Status: Acute (3) CAD (coronary artery disease) Code(s): I25.10 - ATHSCL HEART DISEASE OF [place] CORONARY ARTERY W/O ANG PCTRS Status: Chronic Qualifiers: Coronary Disease-Associated Artery/Lesion type: bypass graft [place] vs. transplanted heart: [place] heart Associated angina: without angina Qualified Code(s): I25.810 - Atherosclerosis of coronary artery bypass graft(s) without angina pectoris (4) COPD (chronic obstructive pulmonary disease) Status: Chronic Qualifiers: COPD type: unspecified COPD Qualified Code(s): J44.9 - Chronic obstructive pulmonary disease, unspecified (5) Chronic kidney disease, stage 3 Code(s): N18.3 - CHRONIC KIDNEY DISEASE, STAGE 3 (MODERATE) Status: Chronic (6) Diabetes mellitus type II, uncontrolled Code(s): E11.65 - TYPE 2 DIABETES MELLITUS WITH HYPERGLYCEMIA Status: Chronic (7) Dyslipidemia Code(s): E78.5 - HYPERLIPIDEMIA, UNSPECIFIED Status: Chronic (8) H/O: CVA (cerebrovascular accident) Code(s): Z86.73 - PRSNL HX OF TIA (TIA), AND CEREB INFRC W/O RESID DEFICITS Status: Chronic (9) Hypertension Code(s): I10 - ESSENTIAL (PRIMARY) HYPERTENSION Status: Chronic Qualifiers: - Plan Plan: Medical unit Adjust insulin sliding-scale coverage Continue Metformin advanced diet, DM and healthy heart chest x-ray to monitor for volume overload echocardiogram history of coronary artery bypass grafting no chest pain or discomfort on this admission on Ranexa chronically for angina On admission had aggressive IV fluid resuscitation blood pressure control continual home medications as able G.I. prophylaxis DVT prophylaxis CM for D/c planning
[2019-10-06] MEDS: Acetaminophen 500 MG TAB PO PRN (20:13)
[2019-10-07] MEDS: Acetaminophen 500 MG TAB PO PRN ×2 (02:43→20:00)
[2019-10-07] MEDS: HumaLOG 300 UNITS/3 ML VIAL SC PRN ×3 (05:17→16:45)
[2019-10-07] MEDS: Carvedilol 3.125 MG TAB PO SCH ×2 (08:26→16:46)
[2019-10-07] MEDS: Isosorbide Mononitrate (ER) 30 MG TAB PO SCH (08:27)
[2019-10-07] MEDS: Lisinopril 2.5 MG TAB PO SCH (08:27)
[2019-10-07] MEDS: metFORMIN 500 MG TAB PO SCH ×2 (08:27→16:46)
[2019-10-07] MEDS: Tamsulosin HCl 0.4 MG CAP PO SCH (08:28)
[2019-10-07] MEDS: levETIRAcetam 500 MG TAB PO SCH ×2 (08:28→20:00)
[2019-10-07] MEDS: Topiramate 25 MG TAB PO SCH (08:28)
[2019-10-07] MEDS: Famotidine/PF 20 mg/2ml Vial SLOW IVP SCH ×2 (08:29→20:00)
[2019-10-07] MEDS: Insulin Glargine 12 UNITS in Pre-Filled Syringe 1 EACH SC SCH ×2 (09:38→20:01)
--- NOTE | 2019-10-07 13:18 | PDOC.HOSPP ---
- Subjective Subjective: Seen and examined. Patient clinically stable. Breathing comfortably on room air. Tolerating diet. Moving bowels. Case management is working on placement. Patient is pleasant and happy with plan of care. - Objective Vital Signs & Weight: Vital Signs (12 hours) Temp Pulse Resp BP BP Pulse Ox 10/07/19 08:27 77 114/72 10/07/19 08:00 97.8 F 77 14 114/72 97 Weight Weight 156 lb 3 oz Most Recent Monitor Data Heart Rate from ECG 85 NIBP 133/83 NIBP BP-Mean 99 Respiration from ECG 9 SpO2 100 I&O: 10/06/19 10/07/19 10/08/19 06:59 06:59 06:59 Intake Total 1650 1750 Output Total 775 1700 300 Balance 875 50 -300 Result Diagrams: 10/02/19 19:53 10/06/19 04:45 Additional Labs: Accuchecks 10/07/19 10/07/19 10/06/19 11:12 05:17 19:48 POC Glucose 270 H 230 H 318 H 10/06/19 17:05 POC Glucose 209 H Hospitalist ROS - Review of Systems All other systems reviewed; all pertinent +/- noted in HPI/Subj - Medication Medications: Active Medications Generic Name Dose Route Start Last Admin Trade Name Freq PRN Reason Stop Dose Admin Acetaminophen 1,000 mg 10/02/19 22:54 10/07/19 02:43 Tylenol PO 1,000 mg Q6H PRN Administration Mild Pain (1-3) Carvedilol 6.25 mg 10/03/19 17:00 10/07/19 08:26 Coreg PO 6.25 mg BID-WM KISHAN Administration Famotidine 20 mg 10/03/19 09:00 10/07/19 08:29 Pepcid SLOW IVP 20 mg Q12HR KISHAN Administration Insulin Glargine 12 units/ 0.12 mls @ 1 mls/hr 10/07/19 09:00 10/07/19 09:38 Miscellaneous Medication SC 0.12 mls BID KISHAN Administration Insulin Human Lispro 0 units 10/03/19 09:16 10/07/19 11:39 Humalog SC 6 unit .MODERATE SLIDING SC PRN Administration Moderate Correctional Scale Insulin Human Lispro 0 units 10/03/19 09:16 10/07/19 05:17 Humalog SC 2 unit .BEDTIME SLIDING SC PRN Administration Bedtime Correctional Scale Isosorbide Mononitrate 30 mg 10/04/19 09:00 10/07/19 08:27 Imdur Er PO 30 mg DAILY KISHAN Administration Levetiracetam 1,000 mg 10/03/19 21:00 10/07/19 08:28 Keppra PO 1,000 mg BID KISHAN Administration Lisinopril 2.5 mg 10/04/19 09:00 10/07/19 08:27 Zestril PO 2.5 mg DAILY KISHAN Administration Metformin HCl 1,000 mg 10/04/19 17:00 10/07/19 08:27 Glucophage PO 1,000 mg BID-WM KISHAN Administration Ranolazine 500 mg 10/03/19 21:00 10/07/19 08:30 Ranexa PO 500 mg BID KISHAN Administration Tamsulosin HCl 0.4 mg 10/04/19 09:00 10/07/19 08:28 Flomax PO 0.4 mg DAILY KISHAN Administration Topiramate 50 mg 10/04/19 09:00 10/07/19 08:28 Topamax PO 50 mg DAILY KISHAN Administration - Exam General Appearance: NAD, awake alert Eye: anicteric sclera ENT: normocephalic atraumatic, moist mucosa Neck: supple, symmetric, no lymphadenopathy Heart: no murmur, no gallops, no rubs Respiratory: CTAB, no wheezes, no rales, no ronchi, normal chest expansion Gastrointestinal: soft, non-tender, no guarding, no rigidity Extremities: no edema Skin: no lesions, no rashes Neurological: cranial nerve grossly intact, no focal deficits Musculoskeletal: generalized weakness Psychiatric: normal affect, normal behavior, A&O x 3 Hosp A/P (1) CKD (chronic kidney disease) stage 3, GFR 30-59 ml/min Code(s): N18.3 - CHRONIC KIDNEY DISEASE, STAGE 3 (MODERATE) Status: Acute (2) Seizure Code(s): R56.9 - UNSPECIFIED CONVULSIONS Status: Acute (3) CAD (coronary artery disease) Code(s): I25.10 - ATHSCL HEART DISEASE OF [place] CORONARY ARTERY W/O ANG PCTRS Status: Chronic Qualifiers: Coronary Disease-Associated Artery/Lesion type: bypass graft [place] vs. transplanted heart: [place] heart Associated angina: without angina Qualified Code(s): I25.810 - Atherosclerosis of coronary artery bypass graft(s) without angina pectoris (4) COPD (chronic obstructive pulmonary disease) Status: Chronic Qualifiers: COPD type: unspecified COPD Qualified Code(s): J44.9 - Chronic obstructive pulmonary disease, unspecified (5) Chronic kidney disease, stage 3 Code(s): N18.3 - CHRONIC KIDNEY DISEASE, STAGE 3 (MODERATE) Status: Chronic (6) Diabetes mellitus type II, uncontrolled Code(s): E11.65 - TYPE 2 DIABETES MELLITUS WITH HYPERGLYCEMIA Status: Chronic (7) Dyslipidemia Code(s): E78.5 - HYPERLIPIDEMIA, UNSPECIFIED Status: Chronic (8) H/O: CVA (cerebrovascular accident) Code(s): Z86.73 - PRSNL HX OF TIA (TIA), AND CEREB INFRC W/O RESID DEFICITS Status: Chronic (9) Hypertension Code(s): I10 - ESSENTIAL (PRIMARY) HYPERTENSION Status: Chronic Qualifiers: - Plan Plan: Medical unit Adjust insulin sliding-scale coverage Continue Metformin advanced diet, DM and healthy heart chest x-ray to monitor for volume overload echocardiogram history of coronary artery bypass grafting no chest pain or discomfort on this admission on Ranexa chronically for angina On admission had aggressive IV fluid resuscitation blood pressure control continual home medications as able G.I. prophylaxis DVT prophylaxis CM for D/c planning
[2019-10-08] MEDS: metFORMIN 500 MG TAB PO SCH ×2 (08:11→16:57)
[2019-10-08] MEDS: levETIRAcetam 500 MG TAB PO SCH ×2 (08:11→20:39)
[2019-10-08] MEDS: Famotidine/PF 20 mg/2ml Vial SLOW IVP SCH ×2 (08:11→20:39)
[2019-10-08] MEDS: Topiramate 25 MG TAB PO SCH (08:11)
[2019-10-08] MEDS: Tamsulosin HCl 0.4 MG CAP PO SCH (08:11)
[2019-10-08] MEDS: Isosorbide Mononitrate (ER) 30 MG TAB PO SCH (08:11)
[2019-10-08] MEDS: Insulin Glargine 12 UNITS in Pre-Filled Syringe 1 EACH SC SCH ×2 (08:44→20:39)
[2019-10-08] MEDS: Lisinopril 2.5 MG TAB PO SCH (11:46)
[2019-10-08] MEDS: Carvedilol 3.125 MG TAB PO SCH ×2 (11:46→16:59)
[2019-10-08] MEDS: HumaLOG 300 UNITS/3 ML VIAL SC PRN ×2 (11:47→16:57)
--- NOTE | 2019-10-08 18:32 | PDOC.HOSPP ---
- Subjective Encounter Date: 10/08/19 Encounter Time: 17:30 Subjective: Patient seen and examined for gen weakness. Feeling better. No CP/SOB/ Palpitations. No new complaints. No overnight events - Objective Vital Signs & Weight: Vital Signs (12 hours) Temp Pulse Resp BP BP Pulse Ox 10/08/19 16:00 116/72 10/08/19 11:46 92 129/70 10/08/19 11:30 92 16 129/70 10/08/19 07:39 98.5 F 86 16 104/64 95 Weight Weight 156 lb 3 oz Most Recent Monitor Data Heart Rate from ECG 85 NIBP 133/83 NIBP BP-Mean 99 Respiration from ECG 9 SpO2 100 I&O: 10/07/19 10/08/19 10/09/19 06:59 06:59 06:59 Intake Total 1750 1270 Output Total 1700 600 Balance 50 670 Result Diagrams: 10/02/19 19:53 10/06/19 04:45 Additional Labs: Accuchecks 10/08/19 10/08/19 10/08/19 16:22 11:32 05:16 POC Glucose 174 H 274 H 182 H 10/07/19 20:04 POC Glucose 188 H Radiology Reviewed by me: Yes (CXR - neg) Hospitalist ROS - Review of Systems Respiratory: denies: cough, dry, shortness of breath, hemoptysis, SOB with excertion, pleuritic pain, sputum, wheezing, other Cardiovascular: denies: chest pain, palpitations, orthopnea, paroxysmal noc. dyspnea, edema, light headedness, other Gastrointestinal: denies: nausea, vomiting, abdominal pain, diarrhea, constipation, melena, hematochezia, other - Medication Medications: Active Medications Generic Name Dose Route Start Last Admin Trade Name Freq PRN Reason Stop Dose Admin Acetaminophen 1,000 mg 10/02/19 22:54 10/07/19 20:00 Tylenol PO 1,000 mg Q6H PRN Administration Mild Pain (1-3) Carvedilol 6.25 mg 10/03/19 17:00 10/08/19 16:59 Coreg PO Not Given BID-WM KISHAN Famotidine 20 mg 10/03/19 09:00 10/08/19 08:11 Pepcid SLOW IVP 20 mg Q12HR KISHAN Administration Insulin Glargine 12 units/ 0.12 mls @ 1 mls/hr 10/07/19 09:00 10/08/19 08:44 Miscellaneous Medication SC 0.12 mls BID KISHAN Administration Insulin Human Lispro 0 units 10/03/19 09:16 10/08/19 16:57 Humalog SC 2 unit .MODERATE SLIDING SC PRN Administration Moderate Correctional Scale Insulin Human Lispro 0 units 10/03/19 09:16 10/07/19 05:17 Humalog SC 2 unit .BEDTIME SLIDING SC PRN Administration Bedtime Correctional Scale Isosorbide Mononitrate 30 mg 10/04/19 09:00 10/08/19 08:11 Imdur Er PO 30 mg DAILY KISHAN Administration Levetiracetam 1,000 mg 10/03/19 21:00 10/08/19 08:11 Keppra PO 1,000 mg BID KISHAN Administration Lisinopril 2.5 mg 10/04/19 09:00 10/08/19 11:46 Zestril PO 2.5 mg DAILY KISHAN Administration Metformin HCl 1,000 mg 10/04/19 17:00 10/08/19 16:57 Glucophage PO 1,000 mg BID-WM KISHAN Administration Ranolazine 500 mg 10/03/19 21:00 10/08/19 08:11 Ranexa PO 500 mg BID KISHAN Administration Tamsulosin HCl 0.4 mg 10/04/19 09:00 10/08/19 08:11 Flomax PO 0.4 mg DAILY KISHAN Administration Topiramate 50 mg 10/04/19 09:00 10/08/19 08:11 Topamax PO 50 mg DAILY KISHAN Administration - Exam General Appearance: NAD Heart: RRR, no gallops Respiratory: no wheezes, no rales Gastrointestinal: non-tender, non-distended, normal bowel sounds Extremities: no cyanosis Neurological: no new deficit Hosp A/P - Plan DVT proph w/SCDs Gen weakness LOBO on CKD 3 DKA HTN HLD Dementia h/o CVA PLAN: Await Placement Cont current meds
[2019-10-09 08:10] VITALS: BP 117/67; TEMP 98.4
[2019-10-09] MEDS: Isosorbide Mononitrate (ER) 30 MG TAB PO SCH (08:49)
[2019-10-09] MEDS: metFORMIN 500 MG TAB PO SCH (08:49)
[2019-10-09] MEDS: Carvedilol 3.125 MG TAB PO SCH (08:49)
[2019-10-09] MEDS: levETIRAcetam 500 MG TAB PO SCH (08:50)
[2019-10-09] MEDS: Lisinopril 2.5 MG TAB PO SCH (08:50)
[2019-10-09] MEDS: Tamsulosin HCl 0.4 MG CAP PO SCH (08:50)
[2019-10-09] MEDS: Topiramate 25 MG TAB PO SCH (08:50)
[2019-10-09] MEDS: Famotidine/PF 20 mg/2ml Vial SLOW IVP SCH (08:50)
[2019-10-09] MEDS: Insulin Glargine 12 UNITS in Pre-Filled Syringe 1 EACH SC SCH (09:27)
--- NOTE | 2019-10-09 11:40 | DIS ---
DATE OF ADMISSION: 10/02/2019 DATE OF DISCHARGE: 10/09/2019 DISCHARGE DISPOSITION: [facility] facility at [facility]. INPATIENT CONSULTANTS: None The patient was seen and examined on the day of discharge. Denies any new complaints. No chest pain, shortness of breath, palpitations, fever, chills, or lightheadedness reported. The patient will follow up with Dr. Knight post discharge. BRIEF HOSPITAL COURSE: The patient is a 69-year-old male, currently residing at assisted living facility, presented to the hospital with generalized weakness and poor appetite. He was found to be lethargic with a pH of 7.26, blood sugar over 500 with elevated beta-hydroxybutyrate level. He was monitored in the intermediate care unit on an insulin drip along with IV fluids per protocol. His mentation gradually improved. He also had acute kidney injury that improved with IV hydration. His creatinine on admission was 2.19 that improved to 1.33. He will be discharged to care home facility due to poor living condition. FINAL DIAGNOSES: 1. Toxic metabolic encephalopathy secondary to diabetic ketoacidosis, resolved. 2. Diabetic ketoacidosis on admission, resolved. 3. Acute kidney injury on chronic kidney disease stage 3, improved. 4. Generalized weakness, multifactorial. 5. Hypertension. 6. Hyperlipidemia. 7. Dementia. 8. History of cerebrovascular accident. 9. Seizure disorder. 10. Benign prostatic hypertrophy. 11. Mild tricuspid regurgitation. 12. Hypertensive heart disease. 13. Jurj-th-qtuxlpdi mitral regurgitation. DISCHARGE MEDICATIONS: 1. Lipitor 20 mg daily. 2. Aspirin 81 mg daily. 3. Carvedilol 6.25 mg b.i.d. 4. Imdur 30 mg daily. 5. Metformin 500 mg b.i.d. 6. Ranexa 500 mg b.i.d. 7. Flomax 0.4 mg daily. 8. Topamax 50 mg daily. 9. Lantus 12 units b.i.d. 10. Keppra 1000 mg twice a day. 11. Lisinopril 2.5 mg daily. 12. Senokot S p.r.n. Time coordinating the discharge of this patient was 37 minutes. Job ID: [id number]
[2019-10-09] MEDS: HumaLOG 300 UNITS/3 ML VIAL SC PRN (12:50)
== END 2019-10-09 14:15 | DRG 637 ==
LOC: ERS 19:24 → IMCU/EMU 22:52 → ONC 10-04 12:33
PROVIDERS: ADMIT Family Medicine; ATTEND Family Medicine
DX: E11.10 Type 2 diabetes mellitus with ketoacidosis without coma (principal); G92 Toxic encephalopathy; N17.9 Acute kidney failure, unspecified; Z86.73 Personal history of transient ischemic attack (TIA), and cerebral infarction without residual deficits; G30.9 Alzheimer's disease, unspecified; F02.80 Dementia in other diseases classified elsewhere, unspecified severity, without behavioral disturbance, psychotic disturbance, mood disturbance, and anxiety; E78.5 Hyperlipidemia, unspecified; I25.10 Atherosclerotic heart disease of native coronary artery without angina pectoris; Z95.1 Presence of aortocoronary bypass graft; Z98.890 Other specified postprocedural states; Z91.14 Patient's other noncompliance with medication regimen; N18.3 Chronic kidney disease, stage 3 (moderate); E11.22 Type 2 diabetes mellitus with diabetic chronic kidney disease; G40.909 Epilepsy, unspecified, not intractable, without status epilepticus; E11.65 Type 2 diabetes mellitus with hyperglycemia; R53.81 Other malaise; J44.9 Chronic obstructive pulmonary disease, unspecified; N40.0 Benign prostatic hyperplasia without lower urinary tract symptoms; I07.1 Rheumatic tricuspid insufficiency; I13.10 Hypertensive heart and chronic kidney disease without heart failure, with stage 1 through stage 4 chronic kidney disease, or unspecified chronic kidney disease; R40.2142 Coma scale, eyes open, spontaneous, at arrival to emergency department; R40.2252 Coma scale, best verbal response, oriented, at arrival to emergency department; R40.2362 Coma scale, best motor response, obeys commands, at arrival to emergency department
CPT/HCPCS: 36415; 36416; 71045; 80048; 80053; 81003; 82010; 82330; 82803; 83735; 83930; 84443; 85025; 90471; 90662; 93005; 93306; 96361; 96365; G0008; J1815; J3490; S0028

== ENCOUNTER 2019-12-23 12:37 | Inpatient (IN) | payer MEDICARE, MEDICAID, OTHER ==
[2019-12-23 13:26] LABS: #Lymphocytes 0.6 thou/uL (1.20-3.40); #Monocytes 0.9 thou/uL (0.11-0.59); #Neutrophils 14.3 thou/uL (1.40-6.50); %Eosinophils 0.1 % (0.0-10.0); %Monocytes 5.7 % (0.0-10.0); %Neutrophils 90.1 % (42.0-75.0); Hemoglobin 17.4 g/dL (14.0-18.0); Mean Corpuscular HGB CONC 31.7 g/dL (32.0-36.0); Mean Corpuscular Hemoglobin 29.2 pg (27.0-31.0); Mean Corpuscular Volume 91.9 fL (78.0-98.0); Mean Platelet Volume 10.1 fL (7.4-10.4); Platelet Count 301 thou/uL (130-400); RBC Distribution Width 13.5 % (11.5-14.5); Red Blood Cell (RBC) Count 5.98 mill/uL (4.70-6.10); White Blood Cell (WBC) Count 15.9 thou/uL (4.8-10.8)
[2019-12-23 13:32] LABS: Base Excess-Venous -11.7 mmol/L (-2.0 to 3.0); Bicarbonate (HCO3v) 13.9 mmol/L (22.0-28.0); Calcium, Ionized 1.14 mmol/L (See Comments:); Chloride 114 mmol/L (98-107); Hemoglobin - Calc 17.3 g/dL (14.0-18.0); Sodium 147 mmol/L (138-145); T. Carbon Dioxide 14.8 mmol/L (22.0-28.0)
[2019-12-23] MEDS ORDERED: Insulin Regular 300 UNITS/3 ML VIAL ONE ×2 (13:52→14:52)
--- NOTE | 2019-12-23 13:52 | RAD ---
PORTABLE CHEST: Date: 12/23/2019 PROVIDED CLINICAL HISTORY: Altered mental status. FINDINGS: Comparison with 10/03/2019. Evaluation is limited due to artifact overlying the left chest. Cardiac and mediastinal silhouette is unchanged in appearance. Median sternotomy changes are again seen. No definite focal consolidation. The supine nature of this study is not sensitive for detection of pleural fluid or pneumothorax. IMPRESSION: Limited exam without evidence for an acute cardiopulmonary process. POS: RIK
--- NOTE | 2019-12-23 14:06 | CT ---
Exam: Head CT without contrast HISTORY: Patient found down. Altered mental status. COMPARISON: 03/14/2019 FINDINGS: Hemorrhage: No intraparenchymal hemorrhage or extra-axial hematoma. Brain parenchyma: Cortical franco-white matter differentiation is preserved. No mass effect or midline shift. Basilar cisterns are patent.Age-appropriate atrophy. Stable minimal chronic small vessel ischemic changes. Ventricular system: Ventricles and sulci are patent and symmetric. Calvarium: Intact. Sinuses and mastoid air cells: Left maxillary sinus and scattered ethmoidal mucosal disease. IMPRESSION: 1. No acute intracranial process. 2. Age-appropriate atrophy.
[2019-12-23] MEDS ORDERED: HUMULIN R 100 UNITS in Sodium Chloride 0.9% 100 ML IVPB SCH ×2 (14:15→17:22)
[2019-12-23 14:20] LABS: ALT (SGPT) 13 U/L (8-55); AST (SGOT) 17 U/L (5-34); Acetaminophen Less than 6.0 mcg/mL (10.0-30.0); Albumin 4.5 g/dL (3.4-4.8); Alcohol Less than 10 mg/dL (Less than 10); Alkaline Phosphatase 92 U/L (40-110); Anion Gap 40 mmol/L (10-20); BUN (Urea Nitrogen) 76 mg/dL (8.4-25.7); Bilirubin, Total 0.5 mg/dL (0.2-1.2); Calc. Creatinine Clearance 0 mL/min (70-130); Calcium 10.1 mg/dL (7.8-10.44); Carbon Dioxide 9 mmol/L (23-31); Chloride 108 mmol/L (98-107); Estimated GFR-MDRD 21; Globulin 3.7 g/dL (2.4-3.5); Glucose 759 mg/dL (80-115); Potassium 5.9 mmol/L (3.5-5.1); Protein, Total 8.2 g/dL (5.8-8.1); Salicylate Less than 8.0 mg/dL (15.0-30.0); Sodium 151 mmol/L (136-145)
[2019-12-23 14:43] LABS: Bilirubin Negative (Negative); Blood, Urine Negative (Negative); Clarity Clear (Clear); Glucose, Urine (Dipstick) Greater than 1000 mg/dL (Negative); Leukocyte Negative Leu/uL (Negative); Nitrite Negative (Negative); Protein, Urine (Dipstick) Negative (Neg-Trace); Urobilinogen Normal mg/dL (Less than 2)
[2019-12-23] MEDS ORDERED: Insulin Regular 300 UNITS/3 ML VIAL IVP SCH (14:45)
[2019-12-23 14:53] LABS: Amphetamine Not Detected (NotDetected); Barbiturates Screen Not Detected (NotDetected); Benzodiazepine Screen Not Detected (NotDetected); Cocaine Metabolite Screen Not Detected (NotDetected); Medtox Control Line Valid? VALID (VALID); Medtox Reader # READER 1; Methadone Not Detected (NotDetected); Methamphetamine Not Detected (NotDetected); Opiate Screen Not Detected (NotDetected); Oxycodone Screen Not Detected (NotDetected); Phencyclidine (PCP) Not Detected (NotDetected); THC/Cannabinoid Screen Not Detected (NotDetected); Tricyclic Screen Not Detected (NotDetected)
[2019-12-23 16:23] LABS: Lactic Acid 3.7 mmol/L (0.5-2.2)
[2019-12-23] MEDS ORDERED: Acetaminophen 650 MG Suppository PR PRN (17:22)
[2019-12-23] MEDS ORDERED: NS 0.9% w/ 20 MEQ KCL 1,000 ML IV PRN (17:22)
[2019-12-23] MEDS ORDERED: Ondansetron PF 4 MG/2 ML Vial IVP PRN (17:22)
[2019-12-23] MEDS ORDERED: CCU Electrolyte Replacement 1 EACH IVPB ONE (17:22)
[2019-12-23] MEDS ORDERED: Dextrose 5 %-0.45 % NaCl 1,000 ML IV PRN (17:22)
[2019-12-23] MEDS ORDERED: Sodium Chloride 0.9% 1,000 ML IV PRN ×4 (17:22)
[2019-12-23] MEDS ORDERED: PHOS-NAK 1 PKT PACK PO PRN ×2 (17:58)
[2019-12-23] MEDS ORDERED: Potassium Chloride 40 MEQ in Sodium Chloride 0.9% 250 ML 250 ML IVPB PRN (17:58)
[2019-12-23] MEDS ORDERED: Magnesium 2 GM/50 ML 2 GM in Premix Bag 1 BAG IVPB PRN (17:58)
[2019-12-23] MEDS ORDERED: CCU ELECTROLYTE REPLACEMENT PROTOCOL FS PRN (17:58)
[2019-12-23] MEDS ORDERED: Potassium Phosphate 9 MMOL in Sodium Chloride 0.9% 100 ML IVPB PRN (17:58)
[2019-12-23] MEDS ORDERED: Potassium Chloride 40 MEQ in Premix Bag 1 BAG IVPB PRN (17:58)
[2019-12-23] MEDS ORDERED: Magnesium Oxide 400 MG TAB PO PRN ×2 (17:58)
[2019-12-23] MEDS ORDERED: Potassium Chloride 20 MEQ TAB PO PRN (17:58)
[2019-12-23] MEDS ORDERED: Potassium Phosphate 12 MMOL in Sodium Chloride 0.9% 250 ML 250 ML IV PRN (17:58)
[2019-12-23] MEDS ORDERED: Potassium Phosphate 15 MMOL in Sodium Chloride 0.9% 250 ML 250 ML IV PRN (17:58)
[2019-12-23 18:29] LABS: Anion Gap 27 mmol/L (10-20); BUN (Urea Nitrogen) 72 mg/dL (8.4-25.7); Calc. Creatinine Clearance 0 mL/min (70-130); Carbon Dioxide 17 mmol/L (23-31); Chloride 117 mmol/L (98-107); Estimated GFR-MDRD 23; Glucose 542 mg/dL (80-115); Potassium 3.9 mmol/L (3.5-5.1); Sodium 157 mmol/L (136-145)
[2019-12-23] MEDS: NS 0.9% w/ 20 MEQ KCL 1,000 ML IV PRN ×2 (19:22→23:49)
[2019-12-23] MEDS ORDERED: Vancomycin 1 GM in Premix Bag 1 BAG IVPB SCH (20:00)
[2019-12-23] MEDS: Famotidine/PF 20 mg/2ml Vial SLOW IVP SCH (20:07)
[2019-12-23] MEDS: Heparin 5,000 UNITS/ML VIAL SC SCH (20:07)
[2019-12-23] MEDS: Piperacillin/Tazobactam 2.25 GM in Sodium Chloride 0.9% 100 ML IVPB SCH (21:31)
[2019-12-23 21:48] LABS: Troponin I 0.077 ng/mL (< 0.028)
[2019-12-23 23:10] LABS: Anion Gap 20 mmol/L (10-20); BUN (Urea Nitrogen) 77 mg/dL (8.4-25.7); Calc. Creatinine Clearance 24 mL/min (70-130); Carbon Dioxide 13 mmol/L (23-31); Estimated GFR-MDRD 29; Glucose 313 mg/dL (80-115); Potassium 4.8 mmol/L (3.5-5.1); Sodium 159 mmol/L (136-145)
--- NOTE | 2019-12-23 23:16 | HP ---
PRIMARY CARE PHYSICIAN: Unknown. The patient is obtunded and cannot give me any history and old records it looks like it is either Dr. Knight or Dr. Christina. CHIEF COMPLAINT: Found down by the [employer] [employer] [facility] staff. HISTORY OF PRESENT ILLNESS: The history of present illness is extremely limited and is taken from discussion with the ER physician, as well as review of the ER records as the patient is unable to give me any history. The patient was last seen normal two days ago. He lives alone. He receives the [employer] [employer] services and when they came to call on him, he was found down unconscious in his home with feces and urine surrounding him. Otherwise, no other history is obtainable. He was seen at our facility back in September of this year for diabetic ketoacidosis. At that time, he was treated and released to the [facility] facility at [facility]. Otherwise, no other history is obtainable. He was evaluated in the ER and found to be in DKA. His chest x-ray was essentially clear but due to the inability to obtain any history, the ER staff felt it was best to rule out COVID-19 infection as well. REVIEW OF SYSTEMS: Unobtainable due to the patient being obtunded. PAST MEDICAL HISTORY: Significant for hypertension, diabetes mellitus, coronary artery disease, Alzheimer disease, hyperlipidemia, and history of failure to thrive. PAST SURGICAL HISTORY: He has had bypass surgery and knee surgery. ALLERGIES: NO KNOWN DRUG ALLERGIES. FAMILY HISTORY: Significant for hypertension and coronary artery disease. SOCIAL HISTORY: He apparently lives at home, previously had lived in assisted living. No alcohol or drug use was mentioned in the records. CURRENT MEDICATIONS: Unknown. PHYSICAL EXAMINATION: GENERAL: He is obtunded. He will not open his eyes to command, but he will grimace with pain. He is moving all extremities. He appears well developed and well nourished. VITAL SIGNS: Blood pressure was 132/108, heart rate 117, respiratory rate of 16, temperature was 96.9 rectally. HEENT: He is normocephalic, atraumatic. Pupils are reactive. Throat, slightly dry mucous membranes. NECK: No adenopathy. No bruits. LUNGS: He has rhonchi essentially throughout, as well as mild expiratory wheeze. CARDIOVASCULAR: He has normal S1, S2. There is no S3 or S4. No murmurs, clicks, no rubs. ABDOMEN: Soft, nontender, and nondistended. Positive for bowel sounds. No rebound. No guarding. EXTREMITIES: There are no edema. No calf tenderness. No joint effusions. NEUROLOGIC: Again grossly nonfocal. Moving all extremities. SKIN AND INTEGUMENT: He has slightly mycotic nails and he does have some what appears to be dirt under the nails. LABORATORY DATA: Sodium is 151, potassium 5.9, chloride is 108, CO2 is 9, BUN of 76, creatinine 3.58, glucose is 759. Lactic acid 2.9. CBC, white blood cell count 15.9, hemoglobin 17.4, hematocrit is 54.9, and platelet count was 301. On his ABG, the pH is 7.25, pCO2 of 31, PO2 of 80 . Chest x-ray, there was something overlying the left chest, but otherwise no infiltrates using by my reading. CT scan of the brain was negative also by my reading. ASSESSMENT: This is a 69-year-old gentleman, who was found down and has been determined to be in diabetic ketoacidosis. He has an elevated white blood cell count and could be septic. He will be admitted to the ICU, started on an insulin drip, placed on empiric antibiotics. Urine culture has been done. COVID-19 serology has been sent. Fluids and electrolytes will be monitored and replaced, and further recommendations will determine on the patient's clinical course. Job ID: [id number]
[2019-12-23 23:17] LABS: Chloride 131 mmol/L (98-107)
[2019-12-24 01:52] LABS: Anion Gap 14 mmol/L (10-20); BUN (Urea Nitrogen) 64 mg/dL (8.4-25.7); Calc. Creatinine Clearance 26 mL/min (70-130); Calcium 8.9 mg/dL (7.8-10.44); Carbon Dioxide 25 mmol/L (23-31); Chloride 126 mmol/L (98-107); Estimated GFR-MDRD 32; Glucose 187 mg/dL (80-115); Sodium 161 mmol/L (136-145)
[2019-12-24] MEDS: D5 1/2 NS w/20 mEq KCL 1,000 ML IV PRN ×2 (02:41→07:46)
[2019-12-24 04:38] LABS: Anion Gap 12 mmol/L (10-20); BUN (Urea Nitrogen) 59 mg/dL (8.4-25.7); Calc. Creatinine Clearance 29 mL/min (70-130); Calcium 8.7 mg/dL (7.8-10.44); Carbon Dioxide 24 mmol/L (23-31); Estimated GFR-MDRD 35; Glucose 156 mg/dL (80-115); Potassium 4.2 mmol/L (3.5-5.1); Sodium 160 mmol/L (136-145)
[2019-12-24 04:44] LABS: #Lymphocytes 0.6 thou/uL (1.20-3.40); #Monocytes 0.4 thou/uL (0.11-0.59); #Neutrophils 3.3 thou/uL (1.40-6.50); %Basophils 0.1 % (0.0-1.0); %Eosinophils 0.1 % (0.0-10.0); %Lymphocytes 14.3 % (21.0-51.0); %Monocytes 8.1 % (0.0-10.0); %Neutrophils 77.4 % (42.0-75.0); Hemoglobin 16.1 g/dL (14.0-18.0); Mean Corpuscular Hemoglobin 29.4 pg (27.0-31.0); Mean Corpuscular Volume 89.3 fL (78.0-98.0); Mean Platelet Volume 9.2 fL (7.4-10.4); Platelet Count 181 thou/uL (130-400); RBC Distribution Width 13.7 % (11.5-14.5); Red Blood Cell (RBC) Count 5.46 mill/uL (4.70-6.10); White Blood Cell (WBC) Count 4.3 thou/uL (4.8-10.8)
[2019-12-24 04:51] LABS: Chloride 128 mmol/L (98-107)
[2019-12-24] MEDS: Piperacillin/Tazobactam 2.25 GM in Sodium Chloride 0.9% 100 ML IVPB SCH ×3 (05:07→22:25)
[2019-12-24] MEDS: Lorazepam 2 MG/ML VIAL SLOW IVP PRN ×3 (06:27→23:53)
[2019-12-24] MEDS ORDERED: levETIRAcetam In NaCl (Iso-Os) 1,000 MG in Premix Bag 1 BAG IVPB SCH ×2 (06:30→09:00)
[2019-12-24] MEDS: Heparin 5,000 UNITS/ML VIAL SC SCH ×3 (07:45→21:16)
[2019-12-24 09:32] LABS: Anion Gap 10 mmol/L (10-20); BUN (Urea Nitrogen) 53 mg/dL (8.4-25.7); Calc. Creatinine Clearance 28 mL/min (70-130); Calcium 8.3 mg/dL (7.8-10.44); Carbon Dioxide 25 mmol/L (23-31); Estimated GFR-MDRD 35; Glucose 227 mg/dL (80-115); Potassium 4.2 mmol/L (3.5-5.1); Sodium 159 mmol/L (136-145)
[2019-12-24 09:37] LABS: Chloride 128 mmol/L (98-107)
[2019-12-24] MEDS ORDERED: D5 1/4 NS w/20 mEq KCL 1,000 ML IV SCH (10:15)
--- NOTE | 2019-12-24 10:18 | PDOC.HOSPP ---
- Subjective Encounter Date: 12/24/19 Encounter Time: 10:16 Subjective: Mr. Reed was seen today in follow-up of DKA. He is still unresponsive. He will grimace, and withdraw to pain. - Objective Vital Signs & Weight: Vital Signs (12 hours) Temp Pulse Ox 12/24/19 08:00 99 12/24/19 04:00 99.4 F 12/24/19 00:00 98.9 F Weight Weight 142 lb 6.698 oz Most Recent Monitor Data Heart Rate from ECG 110 NIBP 143/76 NIBP BP-Mean 98 Respiration from ECG 31 SpO2 100 I&O: 12/23/19 12/24/19 12/25/19 06:59 06:59 06:59 Intake Total 932 2600 Output Total 1435 40 Balance -503 2560 Result Diagrams: 12/24/19 03:49 12/24/19 08:55 Additional Labs: Accuchecks 12/24/19 12/24/19 12/24/19 06:30 05:13 04:35 POC Glucose 203 H 166 H 158 H 12/24/19 12/24/19 12/24/19 03:39 02:45 01:23 POC Glucose 124 H 96 173 H 12/23/19 12/23/19 12/23/19 23:00 22:16 21:13 POC Glucose 287 H 308 H 369 H 12/23/19 12/23/19 12/23/19 19:55 18:42 18:36 POC Glucose 380 H 513 H Greater than 550 H* 12/23/19 12/23/19 12/23/19 17:51 16:29 15:06 POC Glucose 464 H Greater than 550 H* Greater than 550 H* 12/23/19 12/23/19 12:57 12:56 POC Glucose Greater than 550 H* Greater than 550 H* Hospitalist ROS - Medication Medications: Active Medications Generic Name Dose Route Start Last Admin Trade Name Freq PRN Reason Stop Dose Admin Famotidine 20 mg 12/23/19 21:00 12/23/19 20:07 Pepcid SLOW IVP 20 mg HS KISHAN Administration Heparin Sodium (Porcine) 5,000 units 12/23/19 21:00 12/24/19 07:45 Heparin SC 5,000 units TID KISHAN Administration Piperacillin Sod/Tazobactam 100 mls @ 200 mls/hr 12/23/19 22:00 12/24/19 05: 07 Sod 2.25 gm/ Sodium Chloride IVPB 100 mls Q8HR KISHAN Administration Lorazepam 1 mg 12/24/19 06:22 12/24/19 06:27 Ativan SLOW IVP 1 mg Q6H PRN Administration Seizures - Exam Eye: PERRL Heart: RRR, no murmur, no gallops, no rubs, normal peripheral pulses Respiratory: CTAB, no wheezes, no rales, no ronchi, normal chest expansion, no tachypnea, normal percussion Gastrointestinal: soft, non-tender, non-distended, normal bowel sounds, no palpable masses, no hepatomegaly Extremities: no cyanosis, no edema Hosp A/P (1) DKA, type 1 Code(s): E10.10 - TYPE 1 DIABETES MELLITUS WITH KETOACIDOSIS WITHOUT COMA Status: Acute (2) CAD (coronary artery disease) Code(s): I25.10 - ATHSCL HEART DISEASE OF [place] CORONARY ARTERY W/O ANG PCTRS Status: Chronic Qualifiers: (3) Hypertension Code(s): I10 - ESSENTIAL (PRIMARY) HYPERTENSION Status: Chronic Qualifiers: (4) PAD (peripheral artery disease) Code(s): I73.9 - PERIPHERAL VASCULAR DISEASE, UNSPECIFIED Status: Chronic - Plan * DKA- in review of his records, he has had multiple hospital admission with regards to uncontrolled diabetes, either hypoglycemia, or DKA. He has a history of medical non-compliance. I saw him last year in February. His AG is now closed. Will discontinue the insulin drip. Place him on scheduled Lantus, and SSI * Hypernatremia- will change his fluids to D5 1/4 NS. * Acute kidney injury- slowly improving with volume replacement * HTN- blood pressure is stable * Overall prognosis is guarded, if he does not wake up soon, will need to try to locate family, and discuss care going forward.
[2019-12-24] MEDS ORDERED: Dextrose 50% Abboject 50 ML SYRINGE SLOW IVP PRN (10:22)
[2019-12-24] MEDS ORDERED: Dextrose 5% in Water 1,000 ML IV PRN (10:22)
--- NOTE | 2019-12-24 10:23 | CON ---
DATE OF CONSULTATION: 12/24/2019 REASON FOR CONSULTATION: ICU management. HISTORY OF PRESENT ILLNESS: The patient is a 69-year-old -[place] male who was hospitalized after being found down at home unconscious. Working theory was that he had diabetic ketoacidosis. He has also had a witnessed seizure activity overnight because he was unconscious. He has been put in a rule out COVID-19 status and is in isolation. I am unable to get history from the patient because he is currently not talking. PAST MEDICAL HISTORY: 1. Hypertension. 2. Diabetes mellitus. 3. Coronary artery disease. 4. Alzheimer disease. 5. Hyperlipidemia. 6. Failure to thrive. PAST SURGICAL HISTORY: 1. Coronary artery bypass grafting surgery. 2. Knee surgery. ALLERGIES: NONE. FAMILY MEDICAL HISTORY: Remarkable for hypertension and coronary artery disease. SOCIAL HISTORY: Does not smoke. Does not use alcohol. MEDICATIONS: Prior to admission full records show he been on metformin, Keppra, Topamax, Flomax, Senokot, Ranexa, Zestril, Imdur, Lantus, Coreg, aspirin, and atorvastatin. Current inpatient medications include insulin drip, subcutaneous heparin, Pepcid, Keppra, Ativan, vancomycin and Zosyn. REVIEW OF SYSTEMS: Cannot be obtained secondary to patient being obtunded. PHYSICAL EXAMINATION: VITAL SIGNS: Temperature 99.9, pulse 113, blood pressure 154/84, O2 saturation 100%. Neurological: I cannot get him to withdrawal to pain in all 4 extremities. He will not follow commands. He will not answer any questions. HEENT: Pupils reactive. Sclerae anicteric. Oropharynx dry. NECK: No adenopathy or JVD. LUNGS: Clear anteriorly. CARDIOVASCULAR: S1, S2. Regular. ABDOMEN: Soft, nontender. EXTREMITIES: No clubbing, cyanosis, or edema. LABORATORY DATA: White blood cell count 4.3, hematocrit 48.8, and platelet count 181. Sodium of 160, potassium 4.2, chloride 128, CO2 of 24, BUN 59, creatinine 2.2, glucose 126. His urinalysis showed greater than 1000 glucose. His beta hydroxybutyrate was 12.8. ASSESSMENT: This patient has been found down at home and it is likely suffering from the effects of dehydration and is in diabetic ketoacidosis. Additionally, he is having seizure activity. I would have a hard time attributing any of this to the COVID-19 virus given that he has normal x-ray and normal oxygenation. RECOMMENDATION: 1. Continue supportive care with the insulin drip, antibiotics and anticonvulsants. 2. Agree with IV fluid management. 3. Once he has been ruled out for the COVID, he can be transferred out of this room. Job ID: [id number]
[2019-12-24] MEDS: HumaLOG 300 UNITS/3 ML VIAL SC PRN ×4 (10:58→23:52)
[2019-12-24] MEDS ORDERED: Vancomycin 1 GM in Premix Bag 1 BAG IVPB SCH (21:00)
[2019-12-24] MEDS: levETIRAcetam In NaCl (Iso-Os) 1,000 MG in Premix Bag 1 BAG IVPB SCH (21:14)
[2019-12-24] MEDS: Famotidine/PF 20 mg/2ml Vial SLOW IVP SCH (21:15)
[2019-12-24] MEDS: Insulin Glargine 18 UNITS in Pre-Filled Syringe 1 EACH SC SCH (21:36)
[2019-12-25] MEDS: Lorazepam 2 MG/ML VIAL SLOW IVP PRN ×3 (03:21→21:18)
[2019-12-25] MEDS: HumaLOG 300 UNITS/3 ML VIAL SC PRN ×10 (03:22→22:24)
[2019-12-25 03:44] LABS: Anion Gap 11 mmol/L (10-20); BUN (Urea Nitrogen) 38 mg/dL (8.4-25.7); Calc. Creatinine Clearance 31 mL/min (70-130); Calcium 8.6 mg/dL (7.8-10.44); Carbon Dioxide 24 mmol/L (23-31); Chloride 124 mmol/L (98-107); Estimated GFR-MDRD 39; Glucose 457 mg/dL (80-115); Potassium 4.5 mmol/L (3.5-5.1); Sodium 154 mmol/L (136-145)
[2019-12-25] MEDS: Piperacillin/Tazobactam 2.25 GM in Sodium Chloride 0.9% 100 ML IVPB SCH ×3 (05:46→21:00)
--- NOTE | 2019-12-25 07:46 | RAD ---
Exam: Chest one view HISTORY:Right proximal Comparison: 12/23/2019 FINDINGS: Cardiac silhouette:Able cardiac silhouette. Sternotomy wires are redemonstrated Aorta: Unremarkable Pulmonary vessels: Normal Costophrenic angles: Clear LUNGS: Patchy interstitial opacities throughout the lung parenchyma. Possible focal alveolar infiltra te in both lung bases. Pneumothorax: None Osseous abnormalities: None IMPRESSION: Interstitial and alveolar opacities. Correlate for atypical pneumonia. Continued surveill ance to ensure resolution.
--- NOTE | 2019-12-25 07:50 | PRG ---
DATE OF SERVICE: 12/25/2019 SUBJECTIVE: Mr. Reed is still having intermittent seizure activity. He did rule out for the COVID-19 virus. OBJECTIVE: VITAL SIGNS: His temperature is 99.7 with a T-max of 101.5, pulse is 112, blood pressure 183/113. HEENT: He will open his eyes. Pupils are reactive. Sclerae anicteric. Oropharynx is clear. NECK: No JVD. LUNGS: Clear anteriorly. CARDIAC: S1, S2. Regular. ABDOMEN: Soft. EXTREMITIES: No edema. LABORATORY DATA: Sodium 154, potassium 4.5, chloride 124, CO2 of 24, BUN 38, creatinine 2.0, glucose 457. ASSESSMENT: 1. Seizure disorder with continued seizures. 2. Profound hyponatremia, likely indicative of poor nutritional intake and poor water intake prior to admission. 3. Status post diabetic ketoacidosis. 4. Febrile illness, likely indicative of aspiration or from the seizures. RECOMMENDATIONS: Would continue to follow him in critical care at this time. He is on empiric antibiotics with piperacillin and vancomycin. We will follow up culture results. He is currently receiving D5 quarter normal saline with potassium. Hopefully, he will wake up to the point where we can begin to feed him. Insulin therapy per hospitalist group. Job ID: [id number]
[2019-12-25] MEDS: Heparin 5,000 UNITS/ML VIAL SC SCH ×3 (08:00→20:42)
[2019-12-25] MEDS: levETIRAcetam In NaCl (Iso-Os) 1,000 MG in Premix Bag 1 BAG IVPB SCH (08:03)
[2019-12-25] MEDS: cloNIDine 0.2mg/24 Hour PATCH TD SCH (08:06)
[2019-12-25] MEDS ORDERED: Insulin Glargine 18 UNITS in Pre-Filled Syringe 1 EACH SC SCH (09:00)
[2019-12-25] MEDS ORDERED: levETIRAcetam 500 mg/5 ml Oral Solution PER TUBE SCH (09:00)
--- NOTE | 2019-12-25 09:14 | PDOC.HOSPP ---
- Subjective Encounter Date: 12/25/19 Encounter Time: 09:13 Subjective: Mr. Reed was seen today in follow-up of DKA and seizures. He is a bit more responsive this AM. He will open his eyes when you speak to him. He tried to squeeze my hand on command. His motions seem a little more purposeful. - Objective Vital Signs & Weight: Vital Signs (12 hours) Pulse Ox 12/25/19 07:06 98 Weight Weight 149 lb 14.629 oz Most Recent Monitor Data Heart Rate from ECG 107 NIBP 146/89 NIBP BP-Mean 108 Respiration from ECG 25 SpO2 100 I&O: 12/24/19 12/25/19 12/26/19 06:59 06:59 06:59 Intake Total 932 5752 100 Output Total 1435 1895 155 Balance -503 3857 -55 Result Diagrams: 12/24/19 03:49 12/25/19 03:16 Additional Labs: Accuchecks 12/25/19 12/25/19 12/25/19 07:57 05:46 03:20 POC Glucose 416 H 454 H 402 H 12/24/19 12/24/19 12/24/19 23:48 21:28 18:18 POC Glucose 358 H 405 H 338 H 12/24/19 12/24/19 12/23/19 11:01 08:01 18:36 POC Glucose 200 H 227 H Greater than 550 H* 12/23/19 12/23/19 12/23/19 16:29 15:06 12:57 POC Glucose Greater than 550 H* Greater than 550 H* Greater than 550 H* 12/23/19 12:56 POC Glucose Greater than 550 H* Hospitalist ROS - Medication Medications: Active Medications Generic Name Dose Route Start Last Admin Trade Name Freq PRN Reason Stop Dose Admin Acetaminophen 650 mg 12/23/19 17:22 12/24/19 21:44 Tylenol DE 650 mg Q4H PRN Administration Headache/Fever/Mild Pain (1-3) Clonidine 0.2 mg 12/25/19 09:00 12/25/19 08:06 Pnnoqzbg-Ofm-1 TD 0.2 mg Q7DAYS KISHAN Administration Famotidine 20 mg 12/23/19 21:00 12/24/19 21:15 Pepcid SLOW IVP 20 mg HS KISHAN Administration Heparin Sodium (Porcine) 5,000 units 12/23/19 21:00 12/25/19 08:00 Heparin SC 5,000 units TID KISHAN Administration Piperacillin Sod/Tazobactam 100 mls @ 200 mls/hr 12/23/19 22:00 12/25/19 05: 46 Sod 2.25 gm/ Sodium Chloride IVPB 100 mls Q8HR KISHAN Administration Levetiracetam 1,000 mg/ Device 100 mls @ 200 mls/hr 12/24/19 21:00 12/25/19 08:03 IVPB 100 mls BID KISHAN Administration Insulin Glargine 18 units/ 0.18 mls @ 0 mls/hr 12/24/19 21:00 12/24/19 21:36 Miscellaneous Medication SC 0.18 mls HS KISHAN Administration Potassium Chloride 20 meq/ 1,010 mls @ 150 mls/hr 12/24/19 11:15 12/25/19 08: 36 Dextrose/Sodium Chloride IV Not Given .Q6H44M KISHAN Insulin Human Lispro 0 units 12/24/19 10:22 12/25/19 08:26 Humalog SC 5 unit .BEDTIME SLIDING SC PRN Administration Bedtime Correctional Scale Lorazepam 1 mg 12/25/19 03:09 12/25/19 03:21 Ativan SLOW IVP 1 mg Q4H PRN Administration Seizures - Exam Eye: PERRL Heart: RRR, no murmur, no gallops, no rubs, normal peripheral pulses Respiratory: no rales, rhonchi Gastrointestinal: soft, non-tender, non-distended, normal bowel sounds, no palpable masses, no hepatomegaly Extremities: no cyanosis, no clubbing, no edema Hosp A/P (1) DKA, type 1 Code(s): E10.10 - TYPE 1 DIABETES MELLITUS WITH KETOACIDOSIS WITHOUT COMA Status: Acute (2) CAD (coronary artery disease) Code(s): I25.10 - ATHSCL HEART DISEASE OF [place] CORONARY ARTERY W/O ANG PCTRS Status: Chronic Qualifiers: (3) Hypertension Code(s): I10 - ESSENTIAL (PRIMARY) HYPERTENSION Status: Chronic Qualifiers: (4) PAD (peripheral artery disease) Code(s): I73.9 - PERIPHERAL VASCULAR DISEASE, UNSPECIFIED Status: Chronic (5) Seizure Code(s): R56.9 - UNSPECIFIED CONVULSIONS Status: Chronic - Plan * Seizure disorder- he was re-started on Keppra IV * DKA-resolved - will continue Lantus and SSI- will try tube feeds, therefore can change IV fluids, and achieve better glycemic control * Metabolic encephalopathy- from DKA, hypernatremia, and recent seizure- slowly improving- will place NG tube to feed him, and hopefully over the next few days he will become awake enough to eat. * Hypernatremia- slowly improving * Acute kidney injury- improving with volume replacement * HTN- blood pressure is elevated- will add a Catapres patch * Overall prognosis is still guarded, not clear what his new baseline level of functioning will be.
[2019-12-25] MEDS: Insulin Glargine 25 UNITS in Pre-Filled Syringe 1 EACH SC SCH (09:31)
[2019-12-25] MEDS: Lisinopril 2.5 MG TAB PER TUBE SCH (09:42)
[2019-12-25] MEDS: Famotidine 20 MG TAB PER TUBE SCH (09:42)
[2019-12-25] MEDS ORDERED: levETIRAcetam 500 mg/5 ml Oral Solution PO SCH (10:30)
[2019-12-25] MEDS ORDERED: Pancrelipase DR 12000 1 CAP FS PRN (11:50)
[2019-12-25] MEDS ORDERED: Sodium Bicarbonate Tab 325 MG TAB PER TUBE PRN (11:50)
[2019-12-25] MEDS: Acetaminophen 650 MG/20.3 ML UDCUP PER TUBE PRN ×3 (12:27→20:55)
--- NOTE | 2019-12-25 15:17 | CON ---
DATE OF CONSULTATION: 12/25/2019 REASON FOR CONSULTATION: Recurrent seizures. HISTORY OF PRESENT ILLNESS: Mr. Gilson Reed is a 69-year-old male, who was consulted by Neurology for recurrent seizures in the last 48 hours. He was admitted to [facility] on 12/23/2019, after he was found down by [id number] . He was unconscious and his clothes were soaked in feces and urine. No history was obtainable at that time. On review of the records, he does have history of diabetic ketoacidosis and was admitted here in September and was sent to the assisted facility on discharge. On arrival to the emergency room, he was found to be in diabetic ketoacidosis, which was treated but over the next 48 hours, he had multiple seizures characterized by twitching and jerking. He was started on home dose of Keppra 1000 mg IV twice daily, but continues to remain somnolent with altered awareness. REVIEW OF SYSTEMS: Unobtainable. PAST MEDICAL HISTORY: Hypertension, diabetes mellitus, coronary artery disease, Alzheimer disease, hyperlipidemia, and failure to thrive. PAST SURGICAL HISTORY: Bypass surgery and knee surgery. ALLERGIES: NO KNOWN DRUG ALLERGIES. FAMILY HISTORY: Hypertension and coronary artery disease. SOCIAL HISTORY: He lives at home alone. There is no mention of alcohol or drug abuse in the records. CURRENT ANTICONVULSANT MEDICATION: Keppra 1000 mg IV b.i.d. PHYSICAL EXAMINATION: GENERAL: The patient is extremely somnolent. Does not follow commands. He does not maintain any eye contact. VITAL SIGNS: Blood pressure 132/80, pulse 89, and temperature 98. CV: Regular rate and rhythm. CHEST: Clear. ABDOMEN: Soft. NEUROLOGIC: Mental status, the patient is extremely somnolent. He does not follow commands. He does not maintain eye contact. Cranial nerves 2 through 12 are intact. Motor, muscle tone and bulk are normal. No spontaneous movement seen. Sensory, withdrawals all 4 extremities to nailbed pressure. Reflexes 1+ bilaterally. Cerebellar, could not be assessed secondary to extreme somnolence. Gait :eferred due to the patient's condition. LABORATORY DATA: Sodium is 151, potassium is 5.9, chloride is 108. Chest x-ray unremarkable. Head CT did not reveal any acute intracranial pathology. ASSESSMENT AND PLAN: This is a 69-year-old gentleman, who was found down and was found to be in ketoacidosis. During the hospital course, had multiple seizures. 1. Continue [id number] mg IV q.12 hours. 2. Consider routine EEG to see if there is any evidence of interictal epileptiform discharges, which may require more aggressive management of the seizure disorder. 3. Observe seizure precautions. 4. Neuro-checks every 4 hours. 5. Continue home medications. 6. Continue medical management per primary team. We will continue to follow. Thank you for the consult. Job ID: [id number] BREANN
--- NOTE | 2019-12-25 16:08 | PQF ---
BRANDO MONSIVAIS TONI MD [id number] CLINICAL DOCUMENTATION IMPROVEMENT CLARIFICATION FORM: ICD-10 Updated PLEASE DO AN ADDENDUM TO THE PROGRESS NOTE WITH ANY DOCUMENTATION UPDATES OR ADDITIONS AND CARRY THROUGH TO DC SUMMARY. THANK YOU. DATE: 12/25/19 , 12/29/19 ATTN: DR. Eric FUNEZ, DR. Massimo DAWKINS Please exercise your independent, professional judgment in responding to the clarification form. Clinical indicators are provided on the bottom of this form for your review. Please check appropriate box(es): SEPSIS [ ] Sepsis present on admission [ ] Sepsis NOT present on admission [ ] Unable to determine [ ] Sepsis due to Aspiration Pneumonia - POA [ ]Sepsis not due to pneumonia [x ] Severe sepsis due to Aspiration Pneumonia present on admission [ ] Severe Sepsis NOT present on admission [ ] Unable to determine with acute organ dysfunction of: ____ [ ] Septic Shock present on Admission [ ] Septic Shock NOT present on Admission [ ] Unable to determine [ ] Other diagnosis [ ] Unable to determine For continuity of documentation, please document condition throughout progress notes and discharge summary. Thank You. CLINICAL INDICATORS - SIGNS / SYMPTOMS / LABS / RESULTS AND LOCATION IN MR 12/22 WBC 15.9 12/22 LACTIC ACID 2.9 > 3.7 12/22 PULSE 120, TEMP 96.9 RECTAL 12/22 ED REPORT : PT FOUND DOWN FOR UNKNOWN AMOUNT OF TIME, LAST SEEN NORMAL X 2 DAYS PRIOR BY MEALS ON WHEELS. FINAL DX: DKA 12/22 H&P (DEE DEE) ASSESSMENT: HE HAS AN ELEVATED WBC COUNT AND COULD BE SEPTIC. HE WILL BE ADMITTED TO ICU,STARTED ON EMPIRIC ANTIBIOTICS. 12/24 CXR IMPRESSION: INTERSTITIAL AND ALVEOLAR OPACITIES. CORRELATE FOR ATYPICAL PNEUMONIA. 12/24 PN (ALON) ASSESSMENT: FEBRILE ILLNESS, LIKELY INDICATIVE OF ASPIRATION OR FROM THE SEIZURES. RISK: HX SEIZURE DISORDER, UNKNOWN DOWN TIME, METABOLIC ENCEPHALOPATHY (H&P/DEE DEE) TREATMENTS: SUPPLEMENTAL OXYGEN (12/23 - PRESENT) ZOSYN IV ( 12/22 - PRESENT) VANCOMYCIN IV ( 12/22 - PRESENT) THANK YOU! TREASURE (This form is maintained as a part of the permanent medical record) 2015 [employer] All Rights Reserved [email or web address]
[2019-12-25] MEDS: Carvedilol 3.125 MG TAB PER TUBE SCH (16:29)
[2019-12-25 19:47] LABS: Vancomycin, Random 9.4 ug/mL (See Comment)
[2019-12-25] MEDS: levETIRAcetam 500 mg/5 ml Oral Solution PER TUBE SCH (20:42)
[2019-12-25] MEDS: Insulin Glargine 18 UNITS in Pre-Filled Syringe 1 EACH SC SCH (20:42)
[2019-12-25] MEDS: Vancomycin 1 GM in Premix Bag 1 BAG IVPB SCH (21:18)
[2019-12-26] MEDS: Vancomycin 1 GM in Premix Bag 1 BAG IVPB SCH ×2 (00:19→18:00)
[2019-12-26] MEDS: HumaLOG 300 UNITS/3 ML VIAL SC PRN ×8 (00:41→18:02)
[2019-12-26 03:55] LABS: Anion Gap 13 mmol/L (10-20); BUN (Urea Nitrogen) 28 mg/dL (8.4-25.7); Calc. Creatinine Clearance 41 mL/min (70-130); Calcium 8.6 mg/dL (7.8-10.44); Carbon Dioxide 20 mmol/L (23-31); Chloride 122 mmol/L (98-107); Estimated GFR-MDRD 50; Glucose 259 mg/dL (80-115); Potassium 5.3 mmol/L (3.5-5.1); Sodium 150 mmol/L (136-145)
[2019-12-26 04:09] LABS: Band 14 % (5-11); Eosinophils 1 % (0-10); Hemoglobin 15.7 g/dL (14.0-18.0); Lymphocytes 10 % (21-51); MDiff Complete? YES; Mean Corpuscular HGB CONC 31.3 g/dL (32.0-36.0); Mean Corpuscular Hemoglobin 28.8 pg (27.0-31.0); Mean Corpuscular Volume 92.1 fL (78.0-98.0); Mean Platelet Volume 10.7 fL (7.4-10.4); Monocytes 8 % (0-10); Neutrophil 67 % (42-75); Platelet Morphology Comment PLT clumps seen-ADEQ; RBC Distribution Width 14.1 % (11.5-14.5); RBC Morphology Normal; Red Blood Cell (RBC) Count 5.44 mill/uL (4.70-6.10); White Blood Cell (WBC) Count 7.3 thou/uL (4.8-10.8)
[2019-12-26] MEDS: Piperacillin/Tazobactam 2.25 GM in Sodium Chloride 0.9% 100 ML IVPB SCH ×3 (05:52→21:06)
[2019-12-26] MEDS: Carvedilol 3.125 MG TAB PER TUBE SCH ×2 (07:28→18:02)
--- NOTE | 2019-12-26 07:28 | CON ---
DATE OF CONSULTATION: 12/25/2019 Duplicate. Please see other consult note Job ID: [id number] MTDD
[2019-12-26] MEDS: levETIRAcetam 500 mg/5 ml Oral Solution PER TUBE SCH ×2 (08:04→20:57)
[2019-12-26] MEDS: Insulin Glargine 25 UNITS in Pre-Filled Syringe 1 EACH SC SCH (08:05)
[2019-12-26] MEDS: Topiramate 25 MG TAB PO SCH (08:05)
[2019-12-26] MEDS: Heparin 5,000 UNITS/ML VIAL SC SCH ×3 (08:07→20:59)
[2019-12-26] MEDS: Famotidine 20 MG TAB PER TUBE SCH (08:09)
[2019-12-26] MEDS: Lisinopril 2.5 MG TAB PER TUBE SCH (08:09)
[2019-12-26] MEDS: Atorvastatin Calcium 20 MG TAB PER TUBE SCH (08:09)
[2019-12-26] MEDS: Aspirin 81 mg Enteric Coated Tablet PER TUBE SCH (08:09)
[2019-12-26] MEDS: Dextrose 5% in Water 1,000 ML IV SCH (08:44)
--- NOTE | 2019-12-26 09:00 | PRG ---
DATE OF SERVICE: 12/26/2019 SUBJECTIVE: The patient remains in the ICU. He is much more awake. He is able to say some words to me. OBJECTIVE: VITAL SIGNS: Temperature 98.8 with a T-max of 99.1, pulse 103, and blood pressure 114/76. Intake 4664, output 1385. HEENT: Remarkable for some gurgling secretions. NECK: No adenopathy or JVD. LUNGS: Coarse breath sounds. CARDIAC: S1, S2. Regular. ABDOMEN: Soft, nontender. EXTREMITIES: No clubbing, cyanosis, or edema. NEUROLOGIC: He can move his left side without difficulty. He can move his right, but he is much weaker on that side. LABORATORY DATA: White count 7.3, hematocrit 50, and platelet count not reported because of clumping. Sodium 150, potassium 5.3, chloride 122, CO2 of 20, BUN 28, creatinine 1.6, and glucose 259. Cultures show no growth to date. ASSESSMENT: 1. Seizure disorder with less activity yesterday. 2. Improved mental status. 3. Improving hypernatremia. 4. Status post diabetic ketoacidosis. 5. Suspect aspiration pneumonia. PLAN: 1. From my standpoint, he can be transferred out to IMCU or telemetry-stroke unit. 2. Continue the antibiotics. 3. Continue anticonvulsants. 4. Continue enteral tube feeds. Job ID: [id number]
[2019-12-26 10:59] VITALS: BMI 23.5
--- NOTE | 2019-12-26 13:09 | PDOC.HOSPP ---
- Subjective Encounter Date: 12/26/19 non-verbal Subjective: Patient is little bit responsive today and opened eyes to verbal stimuli. Followed commands intermittently - Objective Vital Signs & Weight: Vital Signs (12 hours) Pulse BP Pulse Ox 12/26/19 08:09 110 H 146/89 H 12/26/19 07:05 100 12/26/19 06:28 100 Weight Admit Weight 149 lb Weight 154 lb 8.705 oz Most Recent Monitor Data Heart Rate from ECG 88 NIBP 130/72 NIBP BP-Mean 91 Respiration from ECG 22 SpO2 100 I&O: 12/25/19 12/26/19 12/27/19 06:59 06:59 06:59 Intake Total 5745 4664 515 Output Total 1895 1385 225 Balance 3857 3279 290 Result Diagrams: 12/26/19 03:26 12/26/19 03:26 Additional Labs: Accuchecks 12/26/19 12/26/19 12/26/19 11:42 10:08 07:55 POC Glucose 226 H 212 H 254 H 12/26/19 12/26/19 12/26/19 06:35 04:23 00:44 POC Glucose 272 H 275 H 283 H 12/25/19 12/25/19 12/25/19 22:27 20:48 17:58 POC Glucose 323 H 279 H 294 H 12/25/19 12/25/19 16:02 14:10 POC Glucose 236 H 371 H Radiology Reviewed by me: Yes EKG Reviewed by me: Yes Hospitalist ROS - Review of Systems ROS unobtainable: due to mental status (positive for seizures, confusion) - Medication Medications: Active Medications Generic Name Dose Route Start Last Admin Trade Name Freq PRN Reason Stop Dose Admin Acetaminophen 650 mg 12/25/19 11:23 12/25/19 20:55 Tylenol Elixir PER TUBE 650 mg Q4H PRN Administration TEMP > 101 F Aspirin 81 mg 12/26/19 09:00 12/26/19 08:09 Ecotrin PER TUBE 81 mg DAILY KISHAN Administration Atorvastatin Calcium 20 mg 12/26/19 09:00 12/26/19 08:09 Lipitor PER TUBE 20 mg DAILY KISHAN Administration Carvedilol 6.25 mg 12/25/19 17:00 12/26/19 07:28 Coreg PER TUBE 6.25 mg BID-WM KISHAN Administration Clonidine 0.2 mg 12/25/19 09:00 12/25/19 08:06 Luezcjkt-Dwa-2 TD 0.2 mg Q7DAYS KISHAN Administration Famotidine 20 mg 12/25/19 09:00 12/26/19 08:09 Pepcid PER TUBE 20 mg DAILY KISHAN Administration Heparin Sodium (Porcine) 5,000 units 12/23/19 21:00 12/26/19 08:07 Heparin SC 5,000 units TID KISHAN Administration Piperacillin Sod/Tazobactam 100 mls @ 200 mls/hr 12/23/19 22:00 12/26/19 05: 52 Sod 2.25 gm/ Sodium Chloride IVPB 100 mls Q8HR KISHAN Administration Insulin Glargine 18 units/ 0.18 mls @ 0 mls/hr 12/24/19 21:00 12/25/19 20:42 Miscellaneous Medication SC 0.18 mls HS KISHAN Administration Insulin Glargine 25 units/ 0.25 mls @ 0 mls/hr 12/25/19 09:00 12/26/19 08:05 Miscellaneous Medication SC 0.25 mls QAM KISHAN Administration Vancomycin HCl 1 gm/ Device 200 mls @ 200 mls/hr 12/25/19 23:59 12/26/19 00: 19 IVPB 200 mls Q18H KISHAN Administration Dextrose/Water 1,000 mls @ 75 mls/hr 12/26/19 08:45 12/26/19 08:44 D5w IV 1,000 mls .[id number] KISHAN Administration Insulin Human Lispro 0 units 12/24/19 10:22 12/26/19 11:41 Humalog SC 2 unit .BEDTIME SLIDING SC PRN Administration Bedtime Correctional Scale Insulin Human Lispro 0 units 12/25/19 06:17 12/26/19 06:30 Humalog SC 9 unit .AGGRESSIVE SLIDING PRN Administration AGGRESSIVE SLIDING SCALE Protocol Levetiracetam 1,500 mg 12/25/19 21:00 12/26/19 08:04 Keppra Oral Solution PER TUBE 1,500 mg BID KISHAN Administration Lisinopril 2.5 mg 12/25/19 09:00 12/26/19 08:09 Zestril PER TUBE 2.5 mg DAILY KISHAN Administration Lorazepam 1 mg 12/25/19 03:09 12/25/19 21:18 Ativan SLOW IVP 1 mg Q4H PRN Administration Seizures Ranolazine 500 mg 12/25/19 09:00 12/26/19 08:10 Ranexa PO 500 mg BID KISHAN Administration Topiramate 50 mg 12/26/19 09:00 12/26/19 08:05 Topamax PO 50 mg DAILY KISHAN Administration - Exam General Appearance: ill appearing Eye: PERRL ENT: normocephalic atraumatic Neck: supple Heart: RRR Respiratory: CTAB Gastrointestinal: soft Extremities: no cyanosis Skin: normal turgor Neurological: no new deficit Neurological - other findings: Patient is extremely somnolent.Follows commands intermittently. No focal Musculoskeletal: normal tone Psychiatric: normal affect, somnolent Hosp A/P (1) Seizure disorder Code(s): G40.909 - EPILEPSY, UNSP, NOT INTRACTABLE, WITHOUT STATUS EPILEPTICUS Status: Acute - Plan old records reviewed/req, DVT proph w/heparin One witnessed seizure per nursing staff. Mild improvement in mental status I. Continue keppra 1500 mg IV q12 2. Observe seizure precautions 3. Neurochecks every 4 hours. 4. EEG to rule out interictal activities. 5. continue medical management per primary team. 6. Consider MRI Brain to rule out acute intracranial pathology. We will continue to follow.
[2019-12-26] MEDS ORDERED: DC Electrolyte Protocol FS ONE (15:46)
--- NOTE | 2019-12-26 16:37 | PRG ---
DATE OF SERVICE: 12/26/2019 SUBJECTIVE: A 69-year-old male with diabetes mellitus type 2, coronary artery disease, hypertension, and hyperlipidemia, was found unresponsive on 22 December. He was admitted to the intensive care unit with a diagnosis of diabetic ketoacidosis. COVID-19 testing was negative. He has currently been evaluated by Neurology for recurrent seizures. He is also on empiric antibiotics. At this time, his mentation is improving. He is awake. His speech is not clear. He follows commands most of the time. REVIEW OF SYSTEMS: Cannot be reliably obtained due to current mentation. PHYSICAL EXAMINATION: VITAL SIGNS: Temperature 97, pulse of 93, blood pressure of 140/92 with O2 saturation of 95% on 2 L nasal cannula. GENERAL: A 69-year-old male in no apparent distress. LUNGS: Showed diminished air entry at bilateral bases with few rales. HEART: S1 and S2 present. Regular rate and rhythm. No rubs or gallops. ABDOMEN: Soft. Bowel sounds present. EXTREMITIES: No edema or calf tenderness. NEUROLOGIC: As discussed above, LABORATORY DATA: Telemetry monitoring by my review showed sinus rhythm. He had nonsustained ventricular tachycardia earlier. CURRENT MEDICATIONS: Reviewed. The patient is on, 1. D5 water with Lantus 25 units in the morning and 18 units at night. 2. IV Zosyn. 3. Vancomycin. 4. Clonidine patch. 5. Aspirin. 6. Lipitor. 7. Carvedilol. 8. Pepcid. 9. Heparin for DVT prophylaxis. 10. Keppra. 11. Lisinopril. 12. Ranexa. 13. Topamax. 14. He is on insulin sliding scale. LABORATORY FINDINGS: CBC showed WBC of 7.3 from 15.9 on admission. Hemoglobin 15.7. Chemistry showed sodium of 150, potassium 5.3, chloride 122, bicarb 20, BUN of 28, creatinine 1.6. Ketones on admission were 12.89. Blood culture and urine cultures have been negative. Chest x-ray was consistent with interstitial and alveolar opacities. IMPRESSION: 1. Toxic metabolic encephalopathy. 2. Severe sepsis due to pneumonia, suspected aspiration. 3. Diabetic ketoacidosis. 4. Lactic acidosis on admission. 5. Severe dehydration with hypernatremia, hyperchloremia. 6. Hyperkalemia. 7. Acute kidney injury on chronic kidney disease stage 3 present on admission. 8. Recurrent seizures. 9. Nonsustained ventricular tachycardia. 10. Coronary artery disease, status post coronary artery bypass grafting and stent placement in the past. 11. Deconditioning. PLAN: The patient will be transferred to intermediate care unit. We will continue IV fluids with D5 water. Continue current dose of Lantus. We will continue aggressive sliding scale. We will continue other medications. The patient had an echocardiogram earlier this year that showed ejection fraction of 55% to 60% with moderate concentric left ventricular hypertrophy. Repeat labs in a.m. Continue tube feeding. We will discontinue electrolyte protocol. Job ID: [id number]
--- NOTE | 2019-12-26 16:45 | EEG ---
Referring Physician: Carmen COKER EEG # [id number] TEST TYPE: EXTENDED PORTABLE INPATIENT REPORT: This EEG was performed using [employer] video digital electroencephalogram machine with 24 disc electrodes. This was an extended 2 hour, 7 minutes of EEG recording. Dominant posterior background rhythm was not observed. HYPERVENTILATION: Not performed PHOTIC STIMULATION: Not performed. SLEEP: No stage change was observed. EEG DIAGNOSIS 1.) LOW AMPLITUDE THETA ACTIVITY SEEN DURING THE RECORDING. 2.) ABSENCE OF POSTERIOR BACKGROUND RHYTHM, CLINICAL INTERPRETATION: THIS EEG IS CONSISTENT WITH SEVERE GENERALIZED CEREBRAL DYSFUNCTION. NO ICTAL OR INTERICTAL EPILEPTIFORM ABNORMALITIES SEEN DURING THE RECORDING. Joiners Supervisor: [employer] Courtroom Deputy Or Calendar Clerk: EEG.[facility] MTDD
[2019-12-26] MEDS: Insulin Glargine 18 UNITS in Pre-Filled Syringe 1 EACH SC SCH (21:18)
[2019-12-27] MEDS: Dextrose 5% in Water 1,000 ML IV SCH ×4 (00:38→20:20)
[2019-12-27] MEDS: Acetaminophen 650 MG/20.3 ML UDCUP PER TUBE PRN (00:38)
[2019-12-27 04:19] LABS: Band 22 % (5-11); Eosinophils 2 % (0-10); Hemoglobin 13.3 g/dL (14.0-18.0); Lymphocytes 20 % (21-51); MDiff Complete? YES; Mean Corpuscular HGB CONC 31.7 g/dL (32.0-36.0); Mean Corpuscular Hemoglobin 29.1 pg (27.0-31.0); Mean Corpuscular Volume 91.6 fL (78.0-98.0); Mean Platelet Volume 10.1 fL (7.4-10.4); Neutrophil 56 % (42-75); Platelet Count 136 thou/uL (130-400); Platelet Morphology Comment Appears Adequate; RBC Distribution Width 13.6 % (11.5-14.5); Red Blood Cell (RBC) Count 4.56 mill/uL (4.70-6.10); White Blood Cell (WBC) Count 4.7 thou/uL (4.8-10.8)
[2019-12-27 04:25] LABS: Anion Gap 10 mmol/L (10-20); BUN (Urea Nitrogen) 28 mg/dL (8.4-25.7); Calc. Creatinine Clearance 46 mL/min (70-130); Calcium 8.7 mg/dL (7.8-10.44); Carbon Dioxide 24 mmol/L (23-31); Chloride 114 mmol/L (98-107); Estimated GFR-MDRD 55; Glucose 380 mg/dL (80-115); Magnesium 2.1 mg/dL (1.6-2.6); Potassium 4.6 mmol/L (3.5-5.1); Sodium 143 mmol/L (136-145)
[2019-12-27] MEDS: Piperacillin/Tazobactam 2.25 GM in Sodium Chloride 0.9% 100 ML IVPB SCH ×3 (05:24→21:20)
[2019-12-27] MEDS: HumaLOG 300 UNITS/3 ML VIAL SC PRN ×5 (05:27→23:45)
[2019-12-27] MEDS: Carvedilol 3.125 MG TAB PER TUBE SCH ×2 (09:30→17:05)
--- NOTE | 2019-12-27 09:48 | EKG ---
Test Reason : AMS Blood Pressure : / mmHG Vent. Rate : 116 BPM Atrial Rate : 116 BPM P-R Int : 138 ms QRS Dur : 064 ms QT Int : 346 ms P-R-T Axes : 082 086 043 degrees QTc Int : 480 ms Sinus tachycardia with Premature supraventricular complexes Right atrial enlargement Septal infarct , age undetermined Abnormal ECG Confirmed by SULAIMAN ASENCIO DO ([id number]), scientific publications editor ARLEN SEXTON ([id number]) on 12/27/2019 9:48:49 AM Referred By: Confirmed By:SULAIMAN ASENCIO DO
[2019-12-27] MEDS: Aspirin 81 mg Enteric Coated Tablet PER TUBE SCH (09:58)
[2019-12-27] MEDS: Famotidine 20 MG TAB PER TUBE SCH (09:58)
[2019-12-27] MEDS: Lisinopril 2.5 MG TAB PER TUBE SCH (09:58)
[2019-12-27] MEDS: Atorvastatin Calcium 20 MG TAB PER TUBE SCH (09:59)
[2019-12-27] MEDS: Heparin 5,000 UNITS/ML VIAL SC SCH ×3 (09:59→20:20)
[2019-12-27] MEDS: Insulin Glargine 25 UNITS in Pre-Filled Syringe 1 EACH SC SCH (09:59)
[2019-12-27] MEDS: Topiramate 25 MG TAB PO SCH (10:00)
[2019-12-27] MEDS: levETIRAcetam 500 mg/5 ml Oral Solution PER TUBE SCH ×2 (10:00→20:20)
--- NOTE | 2019-12-27 10:13 | PRG ---
DATE OF SERVICE: 12/27/2019 SUBJECTIVE: The patient will wake up with some stimulation, not very oriented. OBJECTIVE: VITAL SIGNS: Temperature 97, pulse 93, blood pressure 127/79, and O2 saturation 100%. HEENT: Unremarkable except for the NG tube in place. NECK: No JVD. CHEST: Clear. CARDIAC: S1 and S2. Regular. ABDOMEN: Soft. EXTREMITIES: No edema. LABORATORY DATA: Sodium 143, potassium 4.6, chloride 114, CO2 of 24, BUN 28, creatinine 1.5, glucose 318. White blood cell count 4.7, hematocrit 41.8, and platelet count 136. ASSESSMENT: 1. Suspected aspiration pneumonia. 2. Status post diabetic ketoacidosis. 3. Diabetes mellitus type 2. 4. Alzheimer disease. 5. Seizure disorder. PLAN: Undergoing neurologic evaluation. Continuing anticonvulsants. Given that he has had no Staph grow out of his cultures, I think we should go ahead and stop the vancomycin and continue Zosyn for 5 to 7 days. Job ID: [id number]
--- NOTE | 2019-12-27 12:48 | MRI ---
EXAM: MRI Brain WO Con PROVIDED CLINICAL HISTORY: Altered mental status. COMPARISON: 03/17/2019 FINDINGS: Again noted are foci of increased FLAIR and T2-weighted signal intensity seen in the periventricular white matter which is nonspecific but likely reflective of chronic small vessel ischemic changes not significantly progressed when compared to the prior exam. Again noted are areas of gliosis within the patricia bilaterally also unchanged compared to prior study. No acute infarction is identified. Cerebral and cerebellar volume loss is again seen. A ortega cisterna magna is again present. Ventricula r system is normal in size, shape, and position for the degree of atrophy. Appropriate flow voids are demonstrated in the large intracranial vessels at the base of the brain. [place] lenses are again not visualized. Mucosal thickening is seen throughout the ethmoidal air cells with mild mucosal thickening involving each sphenoid sinus as well as mucosal thickening in each maxillary antrum. IMPRESSION: 1. No acute intracranial abnormalities demonstrated. 2. Stable chronic small vessel ischemic changes and cerebral and cerebellar volume loss. 3. Stable areas of gliosis in the patricia. 4. Sinus disease.
--- NOTE | 2019-12-27 17:02 | PDOC.HOSPP ---
- Subjective Encounter Date: 12/27/19 Encounter Time: 15:30 Subjective: Patient seen and examined for AMS. Mentation slowly improving. No new complaints. No overnight events - Objective Vital Signs & Weight: Vital Signs (12 hours) Temp Pulse BP Pulse Ox 12/27/19 15:13 98 12/27/19 15:05 97.5 F L 12/27/19 11:13 97.7 F 12/27/19 09:58 88 127/79 12/27/19 07:47 100 12/27/19 07:17 97.0 F L Weight Admit Weight 149 lb Weight 154 lb 8.705 oz Most Recent Monitor Data Heart Rate from ECG 81 NIBP 124/74 NIBP BP-Mean 90 Respiration from ECG 0 SpO2 97 I&O: 12/26/19 12/27/19 12/28/19 06:59 06:59 06:59 Intake Total 4664 2744 60 Output Total 1385 1670 Balance 3279 1074 60 Result Diagrams: 12/27/19 03:47 12/27/19 03:47 Additional Labs: Accuchecks 12/27/19 12/27/19 12/26/19 12:33 05:28 21:10 POC Glucose 317 H 336 H 271 H 12/26/19 17:57 POC Glucose 365 H Radiology Reviewed by me: Yes (MRI brain - no CVA) EKG Reviewed by me: Yes (Tele SR) Hospitalist ROS - Review of Systems ROS unobtainable: due to mental status - Medication Medications: Active Medications Generic Name Dose Route Start Last Admin Trade Name Freq PRN Reason Stop Dose Admin Acetaminophen 650 mg 12/25/19 11:23 12/27/19 00:38 Tylenol Elixir PER TUBE 650 mg Q4H PRN Administration TEMP > 101 F Aspirin 81 mg 12/26/19 09:00 12/27/19 09:58 Ecotrin PER TUBE 81 mg DAILY KISHAN Administration Atorvastatin Calcium 20 mg 12/26/19 09:00 12/27/19 09:59 Lipitor PER TUBE 20 mg DAILY KISHAN Administration Carvedilol 6.25 mg 12/25/19 17:00 12/27/19 09:30 Coreg PER TUBE 6.25 mg BID-WM KISHAN Administration Clonidine 0.2 mg 12/25/19 09:00 12/25/19 08:06 Lxgmamlo-Mnu-6 TD 0.2 mg Q7DAYS KISHAN Administration Famotidine 20 mg 12/25/19 09:00 12/27/19 09:58 Pepcid PER TUBE 20 mg DAILY KISHAN Administration Heparin Sodium (Porcine) 5,000 units 12/23/19 21:00 12/27/19 09:59 Heparin SC 5,000 units TID KISHAN Administration Piperacillin Sod/Tazobactam 100 mls @ 200 mls/hr 12/23/19 22:00 12/27/19 14: 05 Sod 2.25 gm/ Sodium Chloride IVPB 100 mls Q8HR KISHAN Administration Insulin Glargine 18 units/ 0.18 mls @ 0 mls/hr 12/24/19 21:00 12/26/19 21:18 Miscellaneous Medication SC 0.18 mls HS KISHAN Administration Insulin Glargine 25 units/ 0.25 mls @ 0 mls/hr 12/25/19 09:00 12/27/19 09:59 Miscellaneous Medication SC 0.25 mls QAM KISHAN Administration Insulin Human Lispro 0 units 12/24/19 10:22 12/26/19 13:55 Humalog SC 3 unit .BEDTIME SLIDING SC PRN Administration Bedtime Correctional Scale Insulin Human Lispro 0 units 12/25/19 06:17 12/27/19 13:02 Humalog SC 11 unit .AGGRESSIVE SLIDING PRN Administration AGGRESSIVE SLIDING SCALE Protocol Levetiracetam 1,500 mg 12/25/19 21:00 12/27/19 10:00 Keppra Oral Solution PER TUBE 1,500 mg BID KISHAN Administration Lisinopril 2.5 mg 12/25/19 09:00 12/27/19 09:58 Zestril PER TUBE 2.5 mg DAILY KISHAN Administration Lorazepam 1 mg 12/25/19 03:09 12/25/19 21:18 Ativan SLOW IVP 1 mg Q4H PRN Administration Seizures Ranolazine 500 mg 12/25/19 09:00 12/27/19 09:58 Ranexa PO 500 mg BID KISHAN Administration Topiramate 50 mg 12/26/19 09:00 12/27/19 10:00 Topamax PO 50 mg DAILY KISHAN Administration - Exam General Appearance: NAD Heart: RRR, no gallops Respiratory: no wheezes, no ronchi Gastrointestinal: soft, non-tender, normal bowel sounds, no guarding, no rigidity Extremities: no cyanosis Neurological: no new deficit Neurological - other findings: LUE - 2-3/6, LLE - 4/6 Hosp A/P - Plan DVT proph w/SCDs 1. Toxic metabolic encephalopathy. 2. Severe sepsis due to Aspiration Pneumonia. 3. Diabetic ketoacidosis. 4. Lactic acidosis on admission. 5. Severe dehydration with hypernatremia, hyperchloremia. 6. Hyperkalemia. 7. LOBO on CKD 3 8. Recurrent seizures - on Keppra 9. NSVT. 10. CAD s/p CABG and stent. 11. Physical deconditioning 12. Swallow dysfunction. PLAN: Dec IVF to 40ml Cont TF Cont Keppra Cont Zosyn Cont sliding scale Cont current dose of Lantus Cont BB AM labs Cont other meds as above. Verify home meds
[2019-12-27] MEDS: cloNIDine 0.2mg/24 Hour PATCH TD SCH (17:04)
[2019-12-27] MEDS: Insulin Glargine 18 UNITS in Pre-Filled Syringe 1 EACH SC SCH (20:29)
[2019-12-28 03:51] LABS: #Eosinphils 0.2 thou/uL (0.0-0.7); #Lymphocytes 0.9 thou/uL (1.20-3.40); #Monocytes 0.3 thou/uL (0.11-0.59); #Neutrophils 2.6 thou/uL (1.40-6.50); %Eosinophils 5.3 % (0.0-10.0); %Lymphocytes 21.4 % (21.0-51.0); %Monocytes 8.3 % (0.0-10.0); %Neutrophils 65.1 % (42.0-75.0); Hemoglobin 13.6 g/dL (14.0-18.0); Mean Corpuscular HGB CONC 32.9 g/dL (32.0-36.0); Mean Corpuscular Hemoglobin 29.7 pg (27.0-31.0); Mean Corpuscular Volume 90.3 fL (78.0-98.0); Mean Platelet Volume 9.9 fL (7.4-10.4); Platelet Count 146 thou/uL (130-400); RBC Distribution Width 13.5 % (11.5-14.5); Red Blood Cell (RBC) Count 4.58 mill/uL (4.70-6.10)
[2019-12-28 04:11] LABS: Anion Gap 11 mmol/L (10-20); BUN (Urea Nitrogen) 27 mg/dL (8.4-25.7); Calc. Creatinine Clearance 51 mL/min (70-130); Calcium 8.9 mg/dL (7.8-10.44); Carbon Dioxide 25 mmol/L (23-31); Chloride 111 mmol/L (98-107); Estimated GFR-MDRD 62; Glucose 248 mg/dL (80-115); Potassium 4.5 mmol/L (3.5-5.1); Sodium 142 mmol/L (136-145)
[2019-12-28] MEDS: Piperacillin/Tazobactam 2.25 GM in Sodium Chloride 0.9% 100 ML IVPB SCH ×3 (05:22→21:00)
[2019-12-28] MEDS: HumaLOG 300 UNITS/3 ML VIAL SC PRN ×5 (05:27→23:33)
[2019-12-28] MEDS: Insulin Glargine 25 UNITS in Pre-Filled Syringe 1 EACH SC SCH (09:05)
[2019-12-28] MEDS: levETIRAcetam 500 mg/5 ml Oral Solution PER TUBE SCH ×2 (09:06→20:56)
[2019-12-28] MEDS: Carvedilol 3.125 MG TAB PER TUBE SCH ×2 (09:07→18:06)
[2019-12-28] MEDS: Atorvastatin Calcium 20 MG TAB PER TUBE SCH (09:07)
[2019-12-28] MEDS: Lisinopril 2.5 MG TAB PER TUBE SCH (09:08)
[2019-12-28] MEDS: Famotidine 20 MG TAB PER TUBE SCH (09:10)
[2019-12-28] MEDS: Heparin 5,000 UNITS/ML VIAL SC SCH ×3 (09:10→21:01)
[2019-12-28] MEDS: Aspirin 81 mg Enteric Coated Tablet PER TUBE SCH (09:10)
--- NOTE | 2019-12-28 11:03 | PRG ---
DATE OF SERVICE: 12/28/2019 SUBJECTIVE: Seems to be doing well, has no acute complaints. OBJECTIVE: VITAL SIGNS: Temperature 98.7, pulse 97, blood pressure 129/80, and O2 saturation 100%. HEENT: Unremarkable. NECK: No adenopathy or JVD. CHEST: Clear anteriorly. CARDIAC: S1 and S2. Regular. ABDOMEN: Soft. EXTREMITIES: No edema. LABORATORY DATA: White blood cell count 4, hematocrit 41.3, and platelet count 146. Sodium 142, potassium 4.5, chloride 111, CO2 of 25, BUN 27, creatinine 1.3, and glucose 248. ASSESSMENT: 1. Aspiration pneumonia. 2. Status post diabetic ketoacidosis. 3. Type 2 diabetes mellitus. 4. Alzheimer disease. 5. Seizure disorder. PLAN: 1. Continuing antibiotics to finish up 5 to 7 days. 2. Increase activity as tolerated. 3. He is stable for transfer to the medical floor from my standpoint. Job ID: [id number]
--- NOTE | 2019-12-28 17:16 | PDOC.HOSPP ---
- Subjective Encounter Date: 12/28/19 Encounter Time: 16:20 Subjective: Patient seen and examined for Sepsis/AMS. No new complaints. No overnight events - Objective Vital Signs & Weight: Vital Signs (12 hours) Temp Pulse BP Pulse Ox 12/28/19 15:12 98.2 F 12/28/19 11:07 98.1 F 12/28/19 09:08 91 123/73 12/28/19 08:00 100 12/28/19 07:20 97.0 F L Weight Admit Weight 149 lb Weight 154 lb 8.705 oz Most Recent Monitor Data Heart Rate from ECG 93 NIBP 137/96 NIBP BP-Mean 109 Respiration from ECG 12 SpO2 100 I&O: 12/27/19 12/28/19 12/29/19 06:59 06:59 06:59 Intake Total 2744 2921 90 Output Total 1670 2250 Balance 1074 671 90 Result Diagrams: 12/28/19 03:28 12/28/19 03:28 Additional Labs: Accuchecks 12/28/19 12/28/19 12/27/19 12:12 05:30 23:43 POC Glucose 285 H 235 H 190 H 12/27/19 12/27/19 20:33 18:15 POC Glucose 259 H 352 H EKG Reviewed by me: Yes (Tele SR) Hospitalist ROS - Review of Systems ROS unobtainable: due to mental status - Medication Medications: Active Medications Generic Name Dose Route Start Last Admin Trade Name Freq PRN Reason Stop Dose Admin Acetaminophen 650 mg 12/25/19 11:23 12/27/19 00:38 Tylenol Elixir PER TUBE 650 mg Q4H PRN Administration TEMP > 101 F Aspirin 81 mg 12/26/19 09:00 12/28/19 09:10 Ecotrin PER TUBE 81 mg DAILY KISHAN Administration Atorvastatin Calcium 20 mg 12/26/19 09:00 12/28/19 09:07 Lipitor PER TUBE 20 mg DAILY KISHAN Administration Carvedilol 6.25 mg 12/25/19 17:00 12/28/19 09:07 Coreg PER TUBE 6.25 mg BID-WM KISHAN Administration Clonidine 0.2 mg 12/25/19 09:00 12/27/19 17:04 Dgabsgaw-Rcr-0 TD 0.2 mg Q7DAYS KISHAN Administration Famotidine 20 mg 12/25/19 09:00 12/28/19 09:10 Pepcid PER TUBE 20 mg DAILY KISHAN Administration Heparin Sodium (Porcine) 5,000 units 12/23/19 21:00 12/28/19 15:10 Heparin SC 5,000 units TID KISHAN Administration Piperacillin Sod/Tazobactam 100 mls @ 200 mls/hr 12/23/19 22:00 12/28/19 15: 09 Sod 2.25 gm/ Sodium Chloride IVPB 100 mls Q8HR KISHAN Administration Insulin Glargine 18 units/ 0.18 mls @ 0 mls/hr 12/24/19 21:00 12/27/19 20:29 Miscellaneous Medication SC 0.18 mls HS KISHAN Administration Insulin Glargine 25 units/ 0.25 mls @ 0 mls/hr 12/25/19 09:00 12/28/19 09:05 Miscellaneous Medication SC 0.25 mls QAM KISHAN Administration Dextrose/Water 1,000 mls @ 40 mls/hr 12/27/19 16:57 12/27/19 20:20 D5w IV 1,000 mls .Q24H KISHAN Administration Insulin Human Lispro 0 units 12/24/19 10:22 12/26/19 13:55 Humalog SC 3 unit .BEDTIME SLIDING SC PRN Administration Bedtime Correctional Scale Insulin Human Lispro 0 units 12/25/19 06:17 12/28/19 13:54 Humalog SC 9 unit .AGGRESSIVE SLIDING PRN Administration AGGRESSIVE SLIDING SCALE Protocol Levetiracetam 1,500 mg 12/25/19 21:00 12/28/19 09:06 Keppra Oral Solution PER TUBE 1,500 mg BID KISHAN Administration Lisinopril 2.5 mg 12/25/19 09:00 12/28/19 09:08 Zestril PER TUBE 2.5 mg DAILY KISHAN Administration Lorazepam 1 mg 12/25/19 03:09 12/25/19 21:18 Ativan SLOW IVP 1 mg Q4H PRN Administration Seizures Ranolazine 500 mg 12/25/19 09:00 12/28/19 14:57 Ranexa PO Not Given BID KISHAN - Exam General Appearance: NAD Heart: RRR, no gallops Respiratory: no wheezes, rhonchi Gastrointestinal: soft, non-tender, normal bowel sounds Extremities: no cyanosis Hosp A/P - Plan PT/OT, speech therapy, DVT proph w/heparin, DVT proph w/SCDs 1. Toxic metabolic encephalopathy. 2. Severe sepsis due to Aspiration Pneumonia. 3. Diabetic ketoacidosis. 4. Lactic acidosis on admission. 5. Severe dehydration with hypernatremia, hyperchloremia. 6. Hyperkalemia. 7. LOBO on CKD 3 8. Recurrent seizures - on Keppra 9. NSVT. 10. CAD s/p CABG and stent. 11. Physical deconditioning 12. Swallow dysfunction. PLAN: DC IVF Cont TF Cont Keppra Cont Zosyn Cont sliding scale/Lantus Cont BB and other meds as above. Verify home meds Unsafe for any consistency per [employer]
[2019-12-28] MEDS: Insulin Glargine 18 UNITS in Pre-Filled Syringe 1 EACH SC SCH (21:01)
[2019-12-29 04:09] LABS: #Eosinphils 0.1 thou/uL (0.0-0.7); #Lymphocytes 0.8 thou/uL (1.20-3.40); #Monocytes 0.6 thou/uL (0.11-0.59); #Neutrophils 2.5 thou/uL (1.40-6.50); %Basophils 0.2 % (0.0-1.0); %Eosinophils 3.4 % (0.0-10.0); %Lymphocytes 20.7 % (21.0-51.0); %Monocytes 14.5 % (0.0-10.0); %Neutrophils 61.3 % (42.0-75.0); Hemoglobin 13.8 g/dL (14.0-18.0); Mean Corpuscular HGB CONC 32.6 g/dL (32.0-36.0); Mean Corpuscular Hemoglobin 29.2 pg (27.0-31.0); Mean Corpuscular Volume 89.5 fL (78.0-98.0); Mean Platelet Volume 10.3 fL (7.4-10.4); Platelet Count 172 thou/uL (130-400); RBC Distribution Width 13.3 % (11.5-14.5); Red Blood Cell (RBC) Count 4.74 mill/uL (4.70-6.10); White Blood Cell (WBC) Count 4.1 thou/uL (4.8-10.8)
[2019-12-29 04:30] LABS: Anion Gap 10 mmol/L (10-20); BUN (Urea Nitrogen) 30 mg/dL (8.4-25.7); Calc. Creatinine Clearance 54 mL/min (70-130); Calcium 9.2 mg/dL (7.8-10.44); Carbon Dioxide 25 mmol/L (23-31); Chloride 110 mmol/L (98-107); Estimated GFR-MDRD 67; Glucose 249 mg/dL (80-115); Potassium 4.5 mmol/L (3.5-5.1); Sodium 140 mmol/L (136-145)
[2019-12-29] MEDS: Piperacillin/Tazobactam 2.25 GM in Sodium Chloride 0.9% 100 ML IVPB SCH ×3 (05:22→21:23)
[2019-12-29] MEDS: HumaLOG 300 UNITS/3 ML VIAL SC PRN ×4 (05:31→20:55)
--- NOTE | 2019-12-29 08:13 | PRG ---
DATE OF SERVICE: 12/29/2019 SUBJECTIVE: The patient is about the same. Does not verbalize much to me. OBJECTIVE: VITAL SIGNS: Temperature 96.8, pulse 87, blood pressure 109/69. HEENT: Unremarkable except for the NG tube placed in the left nostril. NECK: No JVD. LUNGS: Clear. CARDIAC: S1, S2. Regular. ABDOMEN: Soft and nontender. LABORATORY DATA: White blood cell count 4.1, hematocrit 42.4, and platelet count 172. Sodium 140, potassium 4.5, chloride 110, CO2 of 25, BUN 30, creatinine 1.3, glucose 249. ASSESSMENT: 1. Aspiration pneumonitis, resolved. 2. Diabetic ketoacidosis, resolved. 3. Type 2 diabetes mellitus. 4. Seizure disorder. 5. Alzheimer disease. PLAN: The patient is stable for transfer out to the medical floor. He really has no active pulmonary issues. We will be available as needed. Job ID: [id number]
[2019-12-29] MEDS: Insulin Glargine 25 UNITS in Pre-Filled Syringe 1 EACH SC SCH (09:24)
[2019-12-29] MEDS: levETIRAcetam 500 mg/5 ml Oral Solution PER TUBE SCH ×2 (09:24→20:50)
[2019-12-29] MEDS: Heparin 5,000 UNITS/ML VIAL SC SCH ×3 (09:25→20:50)
[2019-12-29] MEDS: Carvedilol 3.125 MG TAB PER TUBE SCH ×2 (09:25→16:25)
[2019-12-29] MEDS: Atorvastatin Calcium 20 MG TAB PER TUBE SCH (09:26)
[2019-12-29] MEDS: Aspirin 81 mg Enteric Coated Tablet PER TUBE SCH (09:26)
[2019-12-29] MEDS: Famotidine 20 MG TAB PER TUBE SCH (09:26)
[2019-12-29] MEDS: Lisinopril 2.5 MG TAB PER TUBE SCH (09:26)
--- NOTE | 2019-12-29 16:52 | PDOC.HOSPP ---
- Subjective Encounter Date: 12/29/19 Encounter Time: 15:00 Subjective: Patient seen and examined for AMS/Sepsis. Started on PO diet. No new complaints. No overnight events - Objective Vital Signs & Weight: Vital Signs (12 hours) Temp Pulse BP Pulse Ox 12/29/19 15:19 97.5 F L 12/29/19 11:14 96.8 F L 12/29/19 09:26 89 129/64 12/29/19 08:00 98 12/29/19 07:09 96.8 F L Weight Admit Weight 149 lb Weight 154 lb 8.705 oz Most Recent Monitor Data Heart Rate from ECG 82 NIBP 124/75 NIBP BP-Mean 91 Respiration from ECG 22 SpO2 99 I&O: 12/28/19 12/29/19 12/30/19 06:59 06:59 06:59 Intake Total 2921 1761 60 Output Total 2250 2250 Balance 671 -489 60 Result Diagrams: 12/29/19 03:21 12/29/19 03:21 Additional Labs: Accuchecks 12/29/19 12/29/19 12/28/19 12:10 05:32 23:31 POC Glucose 296 H 234 H 295 H 12/28/19 12/28/19 21:00 18:11 POC Glucose 238 H 242 H EKG Reviewed by me: Yes (Tele SR) Hospitalist ROS - Review of Systems Respiratory: denies: cough, dry, shortness of breath, hemoptysis, SOB with excertion, pleuritic pain, sputum, wheezing, other Cardiovascular: denies: chest pain, palpitations, orthopnea, paroxysmal noc. dyspnea, edema, light headedness, other - Medication Medications: Active Medications Generic Name Dose Route Start Last Admin Trade Name Freq PRN Reason Stop Dose Admin Acetaminophen 650 mg 12/25/19 11:23 12/27/19 00:38 Tylenol Elixir PER TUBE 650 mg Q4H PRN Administration TEMP > 101 F Aspirin 81 mg 12/26/19 09:00 12/29/19 09:26 Ecotrin PER TUBE 81 mg DAILY KISHAN Administration Atorvastatin Calcium 20 mg 12/26/19 09:00 12/29/19 09:26 Lipitor PER TUBE 20 mg DAILY KISHAN Administration Carvedilol 6.25 mg 12/25/19 17:00 12/29/19 16:25 Coreg PER TUBE 6.25 mg BID-WM KISHAN Administration Clonidine 0.2 mg 12/25/19 09:00 12/27/19 17:04 Jgpyfwoi-Lnp-6 TD 0.2 mg Q7DAYS KISHAN Administration Famotidine 20 mg 12/25/19 09:00 12/29/19 09:26 Pepcid PER TUBE 20 mg DAILY KISHAN Administration Heparin Sodium (Porcine) 5,000 units 12/23/19 21:00 12/29/19 16:25 Heparin SC 5,000 units TID KISHAN Administration Piperacillin Sod/Tazobactam 100 mls @ 200 mls/hr 12/23/19 22:00 12/29/19 13: 57 Sod 2.25 gm/ Sodium Chloride IVPB 12/30/19 23:59 100 mls Q8HR KISHAN Administration Insulin Human Lispro 0 units 12/24/19 10:22 12/28/19 21:01 Humalog SC 2 unit .BEDTIME SLIDING SC PRN Administration Bedtime Correctional Scale Levetiracetam 1,500 mg 12/25/19 21:00 12/29/19 09:24 Keppra Oral Solution PER TUBE 1,500 mg BID KISHAN Administration Lisinopril 2.5 mg 12/25/19 09:00 12/29/19 09:26 Zestril PER TUBE 2.5 mg DAILY KISHAN Administration Lorazepam 1 mg 12/25/19 03:09 12/25/19 21:18 Ativan SLOW IVP 1 mg Q4H PRN Administration Seizures Ranolazine 500 mg 12/25/19 09:00 12/29/19 10:50 Ranexa PO Not Given BID [facility] - Exam General Appearance: NAD Heart: RRR, no gallops Respiratory: no rales, rhonchi Gastrointestinal: soft, non-tender, normal bowel sounds Extremities: no cyanosis, no clubbing Hosp A/P - Plan PT/OT, DVT proph w/heparin, DVT proph w/SCDs 1. Toxic metabolic encephalopathy - improving 2. Severe sepsis due to Aspiration Pneumonia. 3. Diabetic ketoacidosis. 4. Lactic acidosis on admission. 5. Severe dehydration with hypernatremia/hyperchloremia. 6. Hyperkalemia. 7. LOBO on CKD 3 8. Recurrent seizures - on Keppra 9. NSVT. 10. CAD s/p CABG and stent. 11. Physical deconditioning 12. Swallow dysfunction. PLAN: Cont Zosyn for 1 more day Increase Lantus dose Change sliding scale to moderate Cont Tube feeding Cont Keppra/BB and other meds as above. home meds unknown DC to SNF when bed available
[2019-12-29] MEDS ORDERED: Insulin Glargine 25 UNITS in Pre-Filled Syringe 1 EACH SC SCH (21:00)
[2019-12-30] MEDS: Acetaminophen 650 MG/20.3 ML UDCUP PER TUBE PRN (00:33)
[2019-12-30 04:09] LABS: Anion Gap 11 mmol/L (10-20); BUN (Urea Nitrogen) 32 mg/dL (8.4-25.7); Calc. Creatinine Clearance 48 mL/min (70-130); Calcium 9.1 mg/dL (7.8-10.44); Carbon Dioxide 27 mmol/L (23-31); Chloride 106 mmol/L (98-107); Estimated GFR-MDRD 58; Glucose 341 mg/dL (80-115); Potassium 4.5 mmol/L (3.5-5.1); Sodium 139 mmol/L (136-145)
[2019-12-30 04:19] LABS: Hemoglobin 13.1 g/dL (14.0-18.0); Mean Corpuscular HGB CONC 32.6 g/dL (32.0-36.0); Mean Corpuscular Hemoglobin 29.2 pg (27.0-31.0); Mean Corpuscular Volume 89.7 fL (78.0-98.0); Platelet Count 202 thou/uL (130-400); Red Blood Cell (RBC) Count 4.49 mill/uL (4.70-6.10); White Blood Cell (WBC) Count 4.7 thou/uL (4.8-10.8)
[2019-12-30 04:20] LABS: Band 10 % (5-11); Eosinophils 4 % (0-10); Hypochromia SLIGHT = 6-15 cells (100X) (0-5/hpf); Lymphocytes 12 % (21-51); MDiff Complete? YES; Monocytes 15 % (0-10); Neutrophil 57 % (42-75); Platelet Morphology Comment Appears Adequate; Reactive Lymphocytes 2 % (0-10)
[2019-12-30] MEDS: Piperacillin/Tazobactam 2.25 GM in Sodium Chloride 0.9% 100 ML IVPB SCH ×3 (06:03→22:12)
[2019-12-30] MEDS: HumaLOG 300 UNITS/3 ML VIAL SC PRN ×3 (06:07→20:53)
[2019-12-30] MEDS: Aspirin 81 mg Enteric Coated Tablet PER TUBE SCH (08:43)
[2019-12-30] MEDS: Carvedilol 3.125 MG TAB PER TUBE SCH ×2 (08:43→17:29)
[2019-12-30] MEDS: Atorvastatin Calcium 20 MG TAB PER TUBE SCH (08:44)
[2019-12-30] MEDS: Famotidine 20 MG TAB PER TUBE SCH (08:44)
[2019-12-30] MEDS: Lisinopril 2.5 MG TAB PER TUBE SCH (08:44)
[2019-12-30] MEDS: levETIRAcetam 500 mg/5 ml Oral Solution PER TUBE SCH ×2 (08:44→20:53)
[2019-12-30] MEDS: Heparin 5,000 UNITS/ML VIAL SC SCH ×3 (08:45→20:52)
[2019-12-30] MEDS ORDERED: Insulin Glargine 30 UNITS in Pre-Filled Syringe 1 EACH SC SCH ×2 (09:00→21:00)
--- NOTE | 2019-12-30 19:31 | PDOC.HOSPP ---
- Subjective Encounter Date: 12/30/19 Encounter Time: 15:30 Subjective: Patient seen and examined for AMS. NG tubed dced earlier today. Tolerating PO well. No new complaints. No overnight events - Objective Vital Signs & Weight: Vital Signs (12 hours) Temp Pulse BP Pulse Ox 12/30/19 19:25 96.8 F L 12/30/19 15:20 96.7 F L 12/30/19 11:25 97.0 F L 12/30/19 08:44 85 121/61 12/30/19 08:00 100 Weight Admit Weight 149 lb Weight 154 lb 8.705 oz Most Recent Monitor Data Heart Rate from ECG 87 NIBP 120/73 NIBP BP-Mean 88 Respiration from ECG 22 SpO2 98 I&O: 12/29/19 12/30/19 12/31/19 06:59 06:59 06:59 Intake Total 1761 1790 600.4 Output Total 2250 1275 1225 Balance -489 515 -624.6 Result Diagrams: 12/30/19 03:14 12/30/19 03:14 Additional Labs: Accuchecks 12/30/19 12/30/19 12/30/19 17:26 11:57 05:50 POC Glucose 285 H 355 H 323 H 12/29/19 12/29/19 23:51 20:57 POC Glucose 284 H 263 H EKG Reviewed by me: Yes (Tele SR) Hospitalist ROS - Review of Systems Respiratory: denies: cough, dry, shortness of breath, hemoptysis, SOB with excertion, pleuritic pain, sputum, wheezing, other Cardiovascular: denies: chest pain, palpitations, orthopnea, paroxysmal noc. dyspnea, edema, light headedness, other Gastrointestinal: denies: nausea, vomiting, abdominal pain, diarrhea, constipation, melena, hematochezia, other - Medication Medications: Active Medications Generic Name Dose Route Start Last Admin Trade Name Freq PRN Reason Stop Dose Admin Acetaminophen 650 mg 12/25/19 11:23 12/30/19 00:33 Tylenol Elixir PER TUBE 650 mg Q4H PRN Administration TEMP > 101 F Aspirin 81 mg 12/26/19 09:00 12/30/19 08:43 Ecotrin PER TUBE 81 mg DAILY KISHAN Administration Atorvastatin Calcium 20 mg 12/26/19 09:00 12/30/19 08:44 Lipitor PER TUBE 20 mg DAILY KISHAN Administration Carvedilol 6.25 mg 12/25/19 17:00 12/30/19 17:29 Coreg PER TUBE 6.25 mg BID-WM KISHAN Administration Clonidine 0.2 mg 12/25/19 09:00 12/27/19 17:04 Taeiiacm-Vcu-9 TD 0.2 mg Q7DAYS KISHAN Administration Famotidine 20 mg 12/25/19 09:00 12/30/19 08:44 Pepcid PER TUBE 20 mg DAILY KISHAN Administration Heparin Sodium (Porcine) 5,000 units 12/23/19 21:00 12/30/19 15:38 Heparin SC 5,000 units TID KISHAN Administration Piperacillin Sod/Tazobactam 100 mls @ 200 mls/hr 12/23/19 22:00 12/30/19 15: 38 Sod 2.25 gm/ Sodium Chloride IVPB 12/30/19 23:59 100 mls Q8HR KISHAN Administration Insulin Human Lispro 0 units 12/24/19 10:22 12/29/19 20:55 Humalog SC 3 unit .BEDTIME SLIDING SC PRN Administration Bedtime Correctional Scale Levetiracetam 1,500 mg 12/25/19 21:00 12/30/19 08:44 Keppra Oral Solution PER TUBE 1,500 mg BID KISHAN Administration Lisinopril 2.5 mg 12/25/19 09:00 12/30/19 08:44 Zestril PER TUBE 2.5 mg DAILY KISHAN Administration Lorazepam 1 mg 12/25/19 03:09 12/25/19 21:18 Ativan SLOW IVP 1 mg Q4H PRN Administration Seizures Ranolazine 500 mg 12/25/19 09:00 12/30/19 08:45 Ranexa PO 500 mg BID KISHAN Administration - Exam General Appearance: NAD Heart: RRR, no rubs Respiratory: no wheezes, no rales Gastrointestinal: non-tender, non-distended, normal bowel sounds Extremities: no cyanosis Hosp A/P - Plan DVT proph w/SCDs 1. Toxic metabolic encephalopathy - improving 2. Severe sepsis due to Aspiration Pneumonia. 3. Diabetic ketoacidosis. 4. Lactic acidosis on admission. 5. Severe dehydration with hypernatremia/hyperchloremia. 6. Hyperkalemia. 7. LOBO on CKD 3 8. Recurrent seizures - on Keppra 9. NSVT. 10. CAD s/p CABG and stent. 11. Physical deconditioning 12. Swallow dysfunction. PLAN: DC Zosyn today Increase Lantus and change sliding scale to aggressive NG tube dced DC norma in AM Cont Keppra and other meds as above. home meds to be verified DC to SNF when bed available
[2019-12-31] MEDS: HumaLOG 300 UNITS/3 ML VIAL SC PRN ×3 (02:46→11:22)
[2019-12-31] MEDS ORDERED: Insulin Glargine 35 UNITS in Pre-Filled Syringe 1 EACH SC SCH (09:00)
[2019-12-31] MEDS: Carvedilol 3.125 MG TAB PER TUBE SCH (09:33)
[2019-12-31] MEDS: Atorvastatin Calcium 20 MG TAB PER TUBE SCH (09:33)
[2019-12-31] MEDS: Aspirin 81 mg Enteric Coated Tablet PER TUBE SCH (09:34)
[2019-12-31] MEDS: Lisinopril 2.5 MG TAB PER TUBE SCH (09:34)
[2019-12-31] MEDS: Famotidine 20 MG TAB PER TUBE SCH (09:34)
[2019-12-31] MEDS: Heparin 5,000 UNITS/ML VIAL SC SCH ×2 (09:34→14:05)
[2019-12-31] MEDS: levETIRAcetam 500 mg/5 ml Oral Solution PER TUBE SCH (09:35)
[2019-12-31 10:10] VITALS: BP 115/63
[2019-12-31 15:25] VITALS: TEMP 97.4
--- NOTE | 2019-12-31 18:47 | DIS ---
DATE OF ADMISSION: 12/23/2019 DATE OF DISCHARGE: 12/31/2019 DISCHARGE DISPOSITION: [facility]. The patient was seen and examined on the day of discharge. DISCHARGE MEDICATIONS: 1. Lipitor 20 mg daily. 2. Coreg 6.25 mg b.i.d. 3. Ranexa 500 mg b.i.d. 4. Flomax 0.4 mg daily. 5. Clonidine 0.2 mg patch every 7 days. 6. Tylenol as needed. 7. Aspirin 81 mg daily. 8. Pepcid 20 mg daily. 9. Lantus 30 units at night and 35 units in the morning. 10. Keppra 1500 mg b.i.d. 11. Lisinopril 2.5 mg daily. 12. Senokot as needed. Seizure precautions. BRIEF HOSPITAL COURSE: The patient is a 69-year-old -French male with diabetes mellitus type 2, coronary artery disease, hypertension, and hyperlipidemia, was found unresponsive on December 23, 2019. He was admitted to the intensive care unit with a diagnosis of diabetic ketoacidosis. His VBG's on admission showed pH of 7.25 with bicarbonate of 14, pCO2 of 31. His ketone level was 12.89. He was started on the insulin drip per diabetic ketoacidosis protocol. COVID-19 testing came back negative. He developed recurrent seizures and was evaluated by Neurology. He has been started on Keppra. His mentation has gradually improved. He was placed on NG tube feeding that has been discontinued. He is currently on modified diet per Speech Therapy. He was placed on empiric antibiotics for aspiration pneumonia that has been completed. He appears stable for discharge to half-way facility. FINAL DIAGNOSES: 1. Toxic metabolic encephalopathy, multifactorial. 2. Diabetic ketoacidosis. 3. Severe sepsis due to aspiration pneumonia, completed antibiotics. 4. Lactic acidosis. 5. Severe dehydration with hypernatremia and hyperchloremia. 6. Hyperkalemia. 7. Acute kidney injury on chronic kidney disease stage 3. His creatinine improved to 1.47 from 3.58 on admission. 8. Nonsustained ventricular tachycardia. 9. Recurrent seizures, on Keppra. 10. Coronary artery disease, status post coronary artery bypass grafting and stent placement. 11. Physical deconditioning. 12. Swallow dysfunction. TIME SPENT: Time coordinating the discharge of this patient was 37 minutes. Job ID: [id number]
== END 2019-12-31 16:25 | DRG 871 ==
LOC: ERS 12:37 → CCU 16:08 → IMCU/EMU 12-26 15:21
PROVIDERS: ADMIT Internal Medicine; ATTEND Internal Medicine
PROC: 8E0ZXY6 Isolation (ICD-10-PCS; principal; 2019-12-23)
DX: A41.9 Sepsis, unspecified organism (principal); Z20.828 Contact with and (suspected) exposure to other viral communicable diseases; E10.10 Type 1 diabetes mellitus with ketoacidosis without coma; J69.0 Pneumonitis due to inhalation of food and vomit; G92 Toxic encephalopathy; N17.9 Acute kidney failure, unspecified; I47.2 Ventricular tachycardia; E87.0 Hyperosmolality and hypernatremia; E87.1 Hypo-osmolality and hyponatremia; R65.20 Severe sepsis without septic shock; E86.0 Dehydration; E87.5 Hyperkalemia; N18.3 Chronic kidney disease, stage 3 (moderate); I25.10 Atherosclerotic heart disease of native coronary artery without angina pectoris; G30.9 Alzheimer's disease, unspecified; F02.80 Dementia in other diseases classified elsewhere, unspecified severity, without behavioral disturbance, psychotic disturbance, mood disturbance, and anxiety; E78.5 Hyperlipidemia, unspecified; R62.7 Adult failure to thrive; E10.51 Type 1 diabetes mellitus with diabetic peripheral angiopathy without gangrene; G40.909 Epilepsy, unspecified, not intractable, without status epilepticus; E87.8 Other disorders of electrolyte and fluid balance, not elsewhere classified; E10.22 Type 1 diabetes mellitus with diabetic chronic kidney disease; I12.9 Hypertensive chronic kidney disease with stage 1 through stage 4 chronic kidney disease, or unspecified chronic kidney disease; Z95.1 Presence of aortocoronary bypass graft; Z68.23 Body mass index [BMI] 23.0-23.9, adult; Z79.899 Other long term (current) drug therapy; Z79.82 Long term (current) use of aspirin
CPT/HCPCS: 36415; 36416; 51701; 70450; 70551; 71045; 80048; 80053; 80202; 80306; 80307; 81003; 82010; 82330; 82803; 83605; 83735; 83880; 84484; 85025; 87040; 87086; 87635; 93005; 95816; 95819; 96361; 96365; 96366; J1644; J1815; J1953; J2060; J2543; J3370; J3480; J3490; J7042; S0028; U0002

== ENCOUNTER 2020-02-17 10:02 | Emergency (ER) | payer MEDICARE, OTHER ==
[2020-02-17 10:48] LABS: #Eosinphils 0.2 thou/uL (0.0-0.7); #Lymphocytes 0.8 thou/uL (1.20-3.40); #Monocytes 0.4 thou/uL (0.11-0.59); #Neutrophils 7.8 thou/uL (1.40-6.50); %Eosinophils 2.1 % (0.0-10.0); %Lymphocytes 8.1 % (21.0-51.0); %Monocytes 4.6 % (0.0-10.0); %Neutrophils 85.2 % (42.0-75.0); Hemoglobin 15.5 g/dL (14.0-18.0); Mean Corpuscular Hemoglobin 26.8 pg (27.0-31.0); Mean Corpuscular Volume 83.7 fL (78.0-98.0); Mean Platelet Volume 8.7 fL (7.4-10.4); Platelet Count 238 thou/uL (130-400); RBC Distribution Width 13.2 % (11.5-14.5); Red Blood Cell (RBC) Count 5.78 mill/uL (4.70-6.10); White Blood Cell (WBC) Count 9.2 thou/uL (4.8-10.8)
[2020-02-17 11:13] LABS: ALT (SGPT) 23 U/L (8-55); AST (SGOT) 34 U/L (5-34); Alkaline Phosphatase 103 U/L (40-110); Anion Gap 16 mmol/L (10-20); BUN (Urea Nitrogen) 19 mg/dL (8.4-25.7); Bilirubin, Total 0.6 mg/dL (0.2-1.2); CK (CPK) 285 U/L (30-200); Calc. Creatinine Clearance 0 mL/min (70-130); Calcium 9.9 mg/dL (7.8-10.44); Carbon Dioxide 30 mmol/L (23-31); Chloride 102 mmol/L (98-107); Estimated GFR-MDRD 77; Glucose 102 mg/dL (80-115); Potassium 3.5 mmol/L (3.5-5.1); Sodium 144 mmol/L (136-145)
[2020-02-17 11:27] LABS: CKMB 2.6 ng/mL (0-6.6)
[2020-02-17 12:02] LABS: Bilirubin Negative (Negative); Blood, Urine 1+ (Negative); Clarity Clear (Clear); Glucose, Urine (Dipstick) Normal (Negative); Leukocyte 500 Leu/uL (Negative); Nitrite Negative (Negative); Protein, Urine (Dipstick) 70 mg/dL (Neg-Trace); Squamous Epithelial None Seen HPF (0-3)
[2020-02-17 12:04] LABS: Bacteria/HPF 1+ HPF (None Seen)
[2020-02-17] MEDS ORDERED: cefTRIAXone\\ROCEPHIN 1 GM VIAL ONE (12:54)
--- NOTE | 2020-02-17 14:02 | RAD ---
RIGHT HIP RADIOGRAPH: INDICATION: History of fall with right hip pain. COMPARISON: Prior exam dated 07/30/2018. IMPRESSION: No acute fracture or subluxation is evident. There is stable moderate degenerative arthrosis of the right hip. Surgical clips are seen within the right inguinal region. POS: [facility]
--- NOTE | 2020-02-17 14:10 | RAD ---
THREE VIEWS RIGHT KNEE: INDICATION: History of fall, right-sided knee pain. COMPARISON: Prior exam 02/12/2018. IMPRESSION: No acute fracture or subluxation is evident. Calcification is seen within the adjacent soft tissues. Mild osteoarthritis is seen affecting the right knee. IMPRESSION: No acute osseous abnormality. POS: [facility]
--- NOTE | 2020-02-17 14:11 | RAD ---
CHEST 1 VIEW: INDICATION: History of recurrent falls. COMPARISON: Prior exam dated 12/25/2019. FINDINGS: Mild cardiomegaly is present. Post CABG change is present. Lungs are clear. No pleural effusion or pneumothorax is evident. No acute osseous abnormality is evident. IMPRESSION: No definite acute cardiopulmonary abnormality. POS: [facility]
== END 2020-02-17 13:03 ==
LOC: ERS 10:02
DX: N39.0 Urinary tract infection, site not specified (principal); L91.0 Hypertrophic scar; E11.9 Type 2 diabetes mellitus without complications; I10 Essential (primary) hypertension; E78.5 Hyperlipidemia, unspecified; D64.9 Anemia, unspecified; I25.10 Atherosclerotic heart disease of native coronary artery without angina pectoris; Z79.899 Other long term (current) drug therapy; Z79.84 Long term (current) use of oral hypoglycemic drugs; Z86.73 Personal history of transient ischemic attack (TIA), and cerebral infarction without residual deficits
CPT/HCPCS: 71045; 80053; 81003; 81015; 82550; 82553; 84484; 85025; 87077; 87086; 87186; 93005; 96365; J0696

== ENCOUNTER 2020-02-17 18:36 | Emergency (ER) | payer MEDICARE, OTHER ==
[2020-02-17] MEDS ORDERED: Lidocaine 5% Patch TD SCH (19:30)
[2020-02-17] MEDS ORDERED: Acetaminophen 500 MG TAB ONE (19:41)
[2020-02-18] MEDS ORDERED: Lidocaine Patch Removal 1 EACH TOP SCH (09:00)
== END 2020-02-17 19:46 | disposition home or self-care (01) ==
LOC: ERS 18:36
DX: S80.01XA Contusion of right knee, initial encounter (principal); E11.9 Type 2 diabetes mellitus without complications; I10 Essential (primary) hypertension; X58.XXXA Exposure to other specified factors, initial encounter
CPT/HCPCS: 99283

== ENCOUNTER 2020-02-18 08:59 | Emergency (ER) | payer MEDICARE, OTHER ==
[2020-02-18] MEDS ORDERED: traMADol HCl 50 MG TAB ONE (09:12)
--- NOTE | 2020-02-18 09:34 | RAD ---
TWO VIEWS RIGHT FEMUR: HISTORY: Fall. Pain. FINDINGS: No fracture, cortical irregularity, or periosteal reaction. Minimal atherosclerosis is noted. IMPRESSION: No fracture. POS: [facility]
--- NOTE | 2020-02-18 09:44 | RAD ---
TWO VIEWS RIGHT TIBIA FIBULA: HISTORY: Fall. Pain. COMPARISON: 03/15/2019. FINDINGS: No fracture, cortical irregularity, or periosteal reaction. IMPRESSION: No fracture. POS: [facility]
== END 2020-02-18 10:17 | disposition home or self-care (01) ==
LOC: ERS 08:59
DX: S80.01XA Contusion of right knee, initial encounter (principal); E11.9 Type 2 diabetes mellitus without complications; I10 Essential (primary) hypertension; Z86.73 Personal history of transient ischemic attack (TIA), and cerebral infarction without residual deficits; I25.10 Atherosclerotic heart disease of native coronary artery without angina pectoris; E78.5 Hyperlipidemia, unspecified; D64.9 Anemia, unspecified; W01.0XXA Fall on same level from slipping, tripping and stumbling without subsequent striking against object, initial encounter

== ENCOUNTER 2020-02-20 12:07 | Emergency (ER) | payer MEDICARE, OTHER ==
[2020-02-20] MEDS ORDERED: Ibuprofen 800 MG TAB ONE (12:47)
[2020-02-20] MEDS ORDERED: Acetaminophen 500 MG TAB ONE (12:47)
--- NOTE | 2020-02-20 15:56 | RAD ---
LEFT ANKLE THREE VIEW: 02/20/20 HISTORY: Fall. COMPARISON: None. FINDINGS: No acute displaced fracture or malalignment. No significant joint effusion. No medial or lateral mall eolar soft tissue swelling. IMPRESSION: No acute osseous abnormality. POS: [facility]
--- NOTE | 2020-02-20 17:01 | RAD ---
LEFT HIP TWO VIEW: History: Fall Comparison: 2009 FINDINGS: The left obturator ring is intact. No acute displaced fracture or malalignment. Mild lateral hip soft tissue swelling. IMPRESSION: Moderate degenerative change. No acute fracture of the left hip. POS: HOME
--- NOTE | 2020-02-20 17:02 | RAD ---
LEFT KNEE FOUR VIEWS: Date: 02-20-2020 Comparison: None History: Fall, pain. FINDINGS: There is no displaced fracture or evidence of dislocation. No knee joint effusion. There is enthesoph yte formation at the insertion of the quadriceps tendon. IMPRESSION: No acute fracture or dislocation seen. POS: [facility]
--- NOTE | 2020-02-20 17:04 | RAD ---
LUMBAR SPINE THREE VIEWS: History: Back pain following injury from a fall. FINDINGS: Multilevel disc osteophytosis and facet arthrosis. No acute fracture or dislocation. IMPRESSION: Lumbar spondylosis without acute fracture or dislocation. POS: RRE
--- NOTE | 2020-02-20 17:06 | RAD ---
LEFT TIBIA AND FIBULA TWO VIEWS: History: Injury from a fall. FINDINGS: No fractures, dislocation, or other significant acute osseous abnormality. IMPRESSION: Unremarkable left tibia and fibula without fracture or dislocation. POS: RRE
== END 2020-02-20 15:39 ==
LOC: ERS 12:07
DX: M79.661 Pain in right lower leg (principal); I69.392 Facial weakness following cerebral infarction; E78.5 Hyperlipidemia, unspecified; I25.10 Atherosclerotic heart disease of native coronary artery without angina pectoris; E11.9 Type 2 diabetes mellitus without complications; I10 Essential (primary) hypertension; Z79.84 Long term (current) use of oral hypoglycemic drugs; Z79.891 Long term (current) use of opiate analgesic; Z79.899 Other long term (current) drug therapy; W18.30XA Fall on same level, unspecified, initial encounter
CPT/HCPCS: 72100

== ENCOUNTER 2020-04-03 13:11 | Observation (INO) | payer MEDICARE, OTHER ==
--- NOTE | 2020-04-03 14:01 | RAD ---
PORTABLE CHEST: 04/03/20 HISTORY: Chest pain. COMPARISON: 02/17/20 exam. Heart size within normal limits. Postop sternotomy changes are seen. Lungs appear clear of any infilt rative process. No signs of failure. IMPRESSION: No acute findings. POS: ASHISH
[2020-04-03 14:02] LABS: #Eosinphils 0.3 thou/uL (0.0-0.7); #Lymphocytes 1.8 thou/uL (1.20-3.40); #Monocytes 0.4 thou/uL (0.11-0.59); #Neutrophils 3.1 thou/uL (1.40-6.50); %Basophils 0.2 % (0.0-1.0); %Eosinophils 4.7 % (0.0-10.0); %Lymphocytes 31.9 % (21.0-51.0); %Monocytes 6.9 % (0.0-10.0); %Neutrophils 56.4 % (42.0-75.0); Hemoglobin 14.8 g/dL (14.0-18.0); Mean Corpuscular HGB CONC 31.8 g/dL (32.0-36.0); Mean Corpuscular Hemoglobin 27.3 pg (27.0-31.0); Mean Corpuscular Volume 85.9 fL (78.0-98.0); Mean Platelet Volume 9.1 fL (7.4-10.4); Platelet Count 201 thou/uL (130-400); RBC Distribution Width 14.6 % (11.5-14.5); Red Blood Cell (RBC) Count 5.42 mill/uL (4.70-6.10); White Blood Cell (WBC) Count 5.6 thou/uL (4.8-10.8)
[2020-04-03 14:22] LABS: ALT (SGPT) 7 U/L (8-55); AST (SGOT) 10 U/L (5-34); Albumin 3.6 g/dL (3.4-4.8); Alkaline Phosphatase 82 U/L (40-110); Anion Gap 13 mmol/L (10-20); BUN (Urea Nitrogen) 15 mg/dL (8.4-25.7); Bilirubin, Total 0.4 mg/dL (0.2-1.2); CK (CPK) 35 U/L (30-200); Calc. Creatinine Clearance 0 mL/min (70-130); Calcium 8.9 mg/dL (7.8-10.44); Carbon Dioxide 27 mmol/L (23-31); Chloride 102 mmol/L (98-107); Estimated GFR-MDRD 68; Globulin 2.9 g/dL (2.4-3.5); Glucose 336 mg/dL (80-115); Potassium 4.8 mmol/L (3.5-5.1); Protein, Total 6.5 g/dL (5.8-8.1); Sodium 137 mmol/L (136-145)
[2020-04-03 14:48] LABS: Bacteria/HPF 4+ HPF (None Seen); Bilirubin Negative (Negative); Clarity Turbid (Clear); Glucose, Urine (Dipstick) Greater than 1000 mg/dL (Negative); Ketone, Urine Negative (Negative); Leukocyte 500 Leu/uL (Negative); Nitrite 2+ (Negative); Protein, Urine (Dipstick) 30 mg/dL (Neg-Trace); Specific Gravity, Urine 1.026 (1.002-1.036); Squamous Epithelial None Seen HPF (0-3); Urobilinogen Normal mg/dL (Less than 2); WBC/HPF Greater than 50 HPF (0-3)
[2020-04-03 14:51] LABS: Blood, Urine Small (Negative)
[2020-04-03 15:03] LABS: Triple Phosphate Crystal 4+ HPF (None Seen)
[2020-04-03] MEDS ORDERED: Insulin Regular 300 UNITS/3 ML VIAL ONE (15:19)
[2020-04-03] MEDS ORDERED: Senokot S 8.6-50 MG TAB PO PRN (16:53)
[2020-04-03] MEDS ORDERED: Nitroglycerin 0.4 MG TAB (25 Tab Bottle) SL PRN (16:55)
[2020-04-03] MEDS ORDERED: hydrALAZINE 20 MG/ML VIAL SLOW IVP PRN (16:55)
[2020-04-03] MEDS ORDERED: Dextrose 5% in Water 1,000 ML IV PRN (17:00)
[2020-04-03] MEDS ORDERED: Dextrose 50% Abboject 50 ML SYRINGE SLOW IVP PRN (17:00)
[2020-04-03 17:15] LABS: Troponin I 0.021 ng/mL (< 0.028)
[2020-04-03] MEDS ORDERED: Cefepime 2 GM in Sodium Chloride 0.9% 100 ML IVPB SCH (17:15)
[2020-04-03] MEDS ORDERED: Insulin Regular 300 UNITS/3 ML VIAL IVP SCH (17:15)
[2020-04-03 18:33] LABS: Cardiac Risk 3.1 (Less than 4.5)
[2020-04-03 19:23] VITALS: BMI 27.7
[2020-04-03] MEDS: Carvedilol 6.25 MG TAB PO SCH (19:25)
[2020-04-03] MEDS ORDERED: Insulin Glargine 30 UNITS in Pre-Filled Syringe SC SCH (21:00)
[2020-04-03] MEDS: levETIRAcetam 500 mg/5 ml Oral Solution PO SCH (22:08)
[2020-04-04 04:50] LABS: #Eosinphils 0.3 thou/uL (0.0-0.7); #Lymphocytes 1.6 thou/uL (1.20-3.40); #Monocytes 0.4 thou/uL (0.11-0.59); #Neutrophils 2.6 thou/uL (1.40-6.50); %Basophils 0.6 % (0.0-1.0); %Eosinophils 5.4 % (0.0-10.0); %Lymphocytes 33.4 % (21.0-51.0); %Neutrophils 52.7 % (42.0-75.0); Mean Corpuscular HGB CONC 33.2 g/dL (32.0-36.0); Mean Corpuscular Hemoglobin 28.3 pg (27.0-31.0); Mean Corpuscular Volume 85.3 fL (78.0-98.0); Mean Platelet Volume 8.6 fL (7.4-10.4); Platelet Count 206 thou/uL (130-400); RBC Distribution Width 14.7 % (11.5-14.5); Red Blood Cell (RBC) Count 4.59 mill/uL (4.70-6.10); White Blood Cell (WBC) Count 4.9 thou/uL (4.8-10.8)
[2020-04-04 04:58] LABS: Hemoglobin A1c 8.5 % (4.0-6.0)
[2020-04-04 05:11] LABS: Anion Gap 10 mmol/L (10-20); BUN (Urea Nitrogen) 18 mg/dL (8.4-25.7); Calc. Creatinine Clearance 57 mL/min (70-130); Calcium 8.7 mg/dL (7.8-10.44); Carbon Dioxide 26 mmol/L (23-31); Chloride 106 mmol/L (98-107); Estimated GFR-MDRD 66; Glucose 249 mg/dL (80-115); Potassium 4.3 mmol/L (3.5-5.1); Sodium 138 mmol/L (136-145)
[2020-04-04] MEDS: HumaLOG 300 UNITS/3 ML VIAL SC PRN ×2 (06:28→17:23)
--- NOTE | 2020-04-04 06:35 | HP ---
CHIEF COMPLAINT: Chest pain. HISTORY OF PRESENT ILLNESS: A 70-year-old male with a history of coronary artery disease, hypertension, type 2 diabetes mellitus, presented with elevated blood pressure. He also had chest pain. The patient is not cognitively intact to get a proper history, but initial evaluation showed a systolic blood pressure of over 200. After Nitropaste and monitoring in the ER for couple of hours, his blood pressure ranges from systolic 140 to 160. EKG, sinus rhythm with PVC, and troponin negative. The patient will be admitted for further optimization of his hypertensive emergency. REVIEW OF SYSTEMS: A 13-point review of systems is not obtained completely from the patient as the patient has a cognitive impairment. However, he does deny that he did have any productive cough or fever. Denies any nausea, vomiting, or abdominal pain. He does have a chronic suprapubic catheter. ALLERGIES: HE HAS NO KNOWN DRUG ALLERGY. MEDICATIONS: 1. Vitamin D3, 2000 units daily. 2. Amaryl 4 mg p.o. in the morning. 3. Famotidine 20 mg daily. 4. Coreg 6.25 mg twice a day. 5. Lisinopril 2.5 mg daily. 6. Lipitor 20 mg daily. 7. Keppra 1500 mg twice a day. 8. Clonidine 0.2 mg every 7 days. 9. Flomax 0.4 mg daily. 10. Senokot. 11. Ranexa 500 mg twice a day. PAST MEDICAL HISTORY: Coronary artery disease, hypertension, type 2 diabetes mellitus, as well as BPH. SOCIAL HISTORY: He lives at a snf. He does not smoke or drink alcohol. PHYSICAL EXAMINATION: VITAL SIGNS: Pulse 82, blood pressure 122/90, saturating 98% on room air. GENERAL: The patient is able to give me some information and he is not in any acute distress. For his baseline mentation, he is alert and oriented x3. CARDIOVASCULAR: Regular rate and rhythm without murmurs, rubs, or gallops. LUNGS: Clear to auscultation bilaterally without wheezing, rales, or rhonchi. ABDOMEN: Soft, nontender, nondistended. Good bowel sounds. EXTREMITIES: Without any pitting edema. IMPRESSION AND PLAN: This is a 70-year-old, snf resident, presenting with the following. 1. Hypertensive emergency. 2. Indwelling chronic suprapubic catheter. 3. Dementia. 4. Coronary artery disease. 5. Hypertension. 6. Type 2 diabetes mellitus. 7. Probable Urine colonization due to chronic indwelling suprapubic catheter [ no fever or high wbcs] He had an echo done in September 2019, showed normal EF of 60% with moderate concentric left ventricular hypertrophy, normal left atrial and normal right atrial size, and aortic valve structures and function are normal. His current labs, his CMP panel is in the normal range. His blood glucose is high around 208. His LDL is 62. TSH is 1.8. His troponin is 0.02 currently. His CBC is in the normal range. His chest x-ray did not show any acute findings. The patient is admitted. His blood pressure seems to be improving to an extent that we need to remove the nitro paste. We will continue his home regimen. Remove the Nitropaste as his blood pressure is dropping, the latest one is 96/53. We will do serial troponins to make sure that he has no cardiac ischemia. Plan for nuclear stress testing in am. Keep him nPO. Nurse has been notified as system was very slow last evening to put NPO status. secondary to hypertensive emergency. The patient did complain of chest pain on presentation which could be due to hypertensive emergency. Rest of the management based on the clinical course. Job ID: [id number] [facility]
[2020-04-04] MEDS ORDERED: Famotidine 20 MG TAB PER TUBE SCH (09:00)
[2020-04-04] MEDS ORDERED: Tamsulosin HCl 0.4 MG CAP PO SCH (09:00)
[2020-04-04] MEDS ORDERED: Aspirin 81 mg Enteric Coated Tablet PO SCH (09:00)
[2020-04-04] MEDS ORDERED: Atorvastatin Calcium 20 MG TAB PO SCH (09:00)
[2020-04-04] MEDS ORDERED: Lisinopril 2.5 MG TAB PO SCH (09:00)
[2020-04-04] MEDS ORDERED: ADENOSINE 60 MG/20 ML VIAL ONE (11:40)
[2020-04-04 12:22] LABS: SARS-CoV-2 MS2 Positive; SARS-CoV-2 N Gene Negative; SARS-CoV-2 S Gene Negative; SARS-CoV-2 by NAA Not Detected (NotDetected); SARS-CoV-2 orf1ab Negative
[2020-04-04] MEDS: levETIRAcetam 500 mg/5 ml Oral Solution PO SCH (13:35)
[2020-04-04] MEDS: Carvedilol 6.25 MG TAB PO SCH ×2 (13:36→16:38)
[2020-04-04 15:28] VITALS: TEMP 97.8
--- NOTE | 2020-04-04 15:59 | NM ---
MYOCARDIAL PERFUSION SCAN WITH SPECT IMAGING: History: Chest pain Technique: Examination was performed using 27.2 mCi Technetium 99M Sestamibi on stress and 9 mCi Technetium 99M Sestamibi on the resting images. FINDINGS: This shows a normal distribution of the radiopharmaceutical without signs of ischemia or scar. WALL MOTION: There is symmetric contractility to the ventricle. LEFT VENTRICULAR EJECTION FRACTION: The calculated left ventricular ejection fraction is 48%. IMPRESSION: 1. No evidence of ischemic change. 2. LVEF: 48%, correlate with echocardiogram. POS: ASHISH
[2020-04-04 16:38] VITALS: BP 123/73
[2020-04-04] MEDS ORDERED: Insulin Glargine 20 UNITS in Pre-Filled Syringe SC SCH (21:00)
[2020-04-05] MEDS ORDERED: Glimepiride 4 MG TAB PO SCH (07:30)
--- NOTE | 2020-04-05 07:54 | DIS ---
DATE OF ADMISSION: 04/03/2020 DATE OF DISCHARGE: 04/04/2020 Mr. Reed is a 70-year-old patient of Dr. Alvino Christina. He is a resident of [facility]. DIAGNOSES: Vague chest pain, diabetes mellitus type 2, hypertension, seizure disorder, coronary artery disease, urinary tract infection. DISCHARGE MEDICATIONS: He was discharged on his usual medications which include ; 1. Aspirin 81 mg a day. 2. Ranexa 500 mg twice a day. 3. Flomax 0.4 mg a day. 4. Clonidine TTS-2, change every 7 days, on skin. 5. Keppra 1500 mg twice a day. 6. Lipitor 20 mg a day. 7. Lisinopril 2.5 mg a day. 8. Coreg 6.25 mg a day. 9. Famotidine 20 mg a day. 10. Insulin glargine 20 units subcu twice a day. 11. Amaryl 4 mg a day. 12. Tylenol No. 3, one twice a day. ALLERGIES: NO KNOWN DRUG ALLERGIES. CODE STATUS: Full resuscitation. DIET: Diabetic. PENDING AT TIME OF DISCHARGE: Nothing. HOSPITAL COURSE: The patient referred to the Hospitalist Service by [facility] for hypertension, chest pain. The patient is demented, unable to give a decent history. He did have elevated blood pressures at the time he was admitted. After nitro, systolics dropped to 140 range. Troponins were negative. Chest pain is unable to be described. He had multiple medical problems. Echocardiogram done in 2019 showed EF of 60%. Chest x-ray showed no acute change. Regular sinus rhythm with some PVCs with no ischemic change. Nuclear medicine cardiac stress test was done which reported EF of 48% and no ischemic change whatsoever. He was discharged on, in addition to the above, Omnicef 300 mg p.o. b.i.d. for 7 days for UTI. He will need followup by Dr. Alvino Christina in 3 to 7 days for his problems. PHYSICAL EXAMINATION: GENERAL: Currently, exam at this time reveals pleasantly confused man. CARDIORESPIRATORY: Unremarkable. VITAL SIGNS: Blood pressure 123/73, pulse 77, 99% sat, 18 respirations. I see no further point to any other workup at this time. Job ID: [id number] [facility]
[2020-04-10] MEDS ORDERED: cloNIDine 0.2mg/24 Hour PATCH TD SCH (09:00)
--- NOTE | 2020-04-29 14:05 | EKG ---
Test Reason : Blood Pressure : / mmHG Vent. Rate : 077 BPM Atrial Rate : 077 BPM P-R Int : 150 ms QRS Dur : 072 ms QT Int : 384 ms P-R-T Axes : 066 055 026 degrees QTc Int : 434 ms Sinus rhythm with frequent Premature ventricular complexes Possible Left atrial enlargement Septal infarct , age undetermined Abnormal ECG Confirmed by PUNEET ZAMORA, KIRK ([id number]), film editor supervisor NILSA SEYMOUR ([id number]) on 04/29/2020 2:05:11 PM Referred By: Confirmed By:KIRK TEIXEIRA MD
--- NOTE | 2020-06-10 14:45 | STRESS ---
Acquisition Time: 2020-04-04 10:19:40 Total Exercise Time: 00:04:00 Test Indications: CHEST PAIN Medications: Protocol: ADENOSINE Max HR: 086 BPM 56% of Pred: 151 BPM Max BP: 118/072 mmHG Max Work Load: 1.0 METS RESTING ECG: NORMAL SINUS RHYTHM AT 67 BPM WITH NON-SPECIFIC ST AND T WAVE CHANGES SYMPTOMS: NONE NORMAL BP RESPONSE ECTOPY: NONE ECG STRESS: TRANSIENT 2:1 AV BLOCK INTERPRETATION: NEGATIVE ECG/AWAIT NUCLEAR IMAGES FOR DEFINITIVE DIAGNOSIS Confirmed by DR. Tone ROSADO ([id number]), state editor JOSE CLARK ([id number]) on 06/10/2020 2:44:45 PM Referred By: MANN THORNE Confirmed By:DR. Tone ROSADO
== END 2020-04-04 18:10 ==
LOC: ERS 13:11 → 2NO 16:26
PROVIDERS: ADMIT Internal Medicine; ATTEND Internal Medicine
DX: R07.9 Chest pain, unspecified (principal); E11.9 Type 2 diabetes mellitus without complications; I16.1 Hypertensive emergency; I10 Essential (primary) hypertension; G40.909 Epilepsy, unspecified, not intractable, without status epilepticus; I25.10 Atherosclerotic heart disease of native coronary artery without angina pectoris; N39.0 Urinary tract infection, site not specified; N40.0 Benign prostatic hyperplasia without lower urinary tract symptoms; F03.90 Unspecified dementia, unspecified severity, without behavioral disturbance, psychotic disturbance, mood disturbance, and anxiety; E78.5 Hyperlipidemia, unspecified; Z79.4 Long term (current) use of insulin; Z79.82 Long term (current) use of aspirin; Z79.899 Other long term (current) drug therapy; Z96.0 Presence of urogenital implants; Z11.59 Encounter for screening for other viral diseases
CPT/HCPCS: 71045; 78452; 80048; 80061; 82550; 82962 ×2; 83036; 84484 ×2; 85025; 87077; 87086; 87186; 93005; 93017; 96374; 96375 ×2; 99285; A9500; G0378 ×3; U0003; 36415; 36416; 80053; 81003; 81015; 84443; 87635; J0153; J0360; J0692; J1815; J3490

== ENCOUNTER 2020-07-03 17:21 | Inpatient (IN) | payer MEDICARE, OTHER ==
[2020-07-03] MEDS ORDERED: Cefepime 2 GM VIAL ONE (17:43)
[2020-07-03] MEDS ORDERED: Vancomycin 1 GM/200 ML BAG ONE (17:59)
[2020-07-03 18:25] LABS: #Lymphocytes 0.7 thou/uL (1.20-3.40); #Monocytes 0.2 thou/uL (0.11-0.59); #Neutrophils 4.3 thou/uL (1.40-6.50); %Basophils 0.1 % (0.0-1.0); %Eosinophils 0.2 % (0.0-10.0); %Lymphocytes 13.1 % (21.0-51.0); %Monocytes 4.4 % (0.0-10.0); %Neutrophils 82.2 % (42.0-75.0); Hemoglobin 11.2 g/dL (14.0-18.0); Mean Corpuscular HGB CONC 32.6 g/dL (32.0-36.0); Mean Corpuscular Hemoglobin 28.7 pg (27.0-31.0); Mean Corpuscular Volume 87.8 fL (78.0-98.0); Mean Platelet Volume 8.2 fL (7.4-10.4); Platelet Count 262 thou/uL (130-400); RBC Distribution Width 13.3 % (11.5-14.5); Red Blood Cell (RBC) Count 3.91 mill/uL (4.70-6.10); White Blood Cell (WBC) Count 5.2 thou/uL (4.8-10.8)
[2020-07-03 18:49] LABS: ALT (SGPT) 56 U/L (8-55); AST (SGOT) 63 U/L (5-34); Albumin 2.9 g/dL (3.4-4.8); Alkaline Phosphatase 74 U/L (40-110); Anion Gap 13 mmol/L (10-20); BUN (Urea Nitrogen) 31 mg/dL (8.4-25.7); Bilirubin, Total 0.4 mg/dL (0.2-1.2); Calc. Creatinine Clearance 0 mL/min (70-130); Calcium 8.5 mg/dL (7.8-10.44); Carbon Dioxide 25 mmol/L (23-31); Chloride 106 mmol/L (98-107); Estimated GFR-MDRD 57; Globulin 3.6 g/dL (2.4-3.5); Glucose 384 mg/dL (80-115); Lipase 52 U/L (8-78); Potassium 3.9 mmol/L (3.5-5.1); Protein, Total 6.5 g/dL (5.8-8.1); Sodium 140 mmol/L (136-145)
[2020-07-03 18:54] LABS: Bacteria/HPF 4+ HPF (None Seen); Bilirubin Negative (Negative); Blood, Urine 1+ (Negative); Clarity Turbid (Clear); Glucose, Urine (Dipstick) Greater than 1000 mg/dL (Negative); Ketone, Urine Negative (Negative); Leukocyte 500 Leu/uL (Negative); Nitrite 2+ (Negative); Protein, Urine (Dipstick) 100 mg/dL (Neg-Trace); Squamous Epithelial 0-3 HPF (0-3); Urobilinogen Normal mg/dL (Less than 2); WBC/HPF Greater than 50 HPF (0-3); pH, Urine 5.5 (5.0-9.0)
--- NOTE | 2020-07-03 18:54 | RAD ---
PORTABLE CHEST: 07/03/20 HISTORY: COVID type symptoms, hypoxia. COMPARISON: A 04/03/20 exam. Heart size is within normal limits. Some minimal increased density in the right mid lung field and so me more interstitial changes in the bases are present. The changes in the bases could represent atele ctasis. I cannot exclude the changes in the mid lung field is seen related to ground glass infiltrate s, particularly if patient is COVID positive. IMPRESSION: Questionable ground glass infiltrate in the right mid lung field. Clinical correlation as to whether patient is COVID positive. The interstitial changes in the lung bases have more of the appearance of atelectasis. POS: OFF
[2020-07-03 19:30] LABS: CKMB 0.4 ng/mL (0-6.6)
[2020-07-03] MEDS ORDERED: Acetaminophen 325 MG TAB PO PRN (19:33)
[2020-07-03] MEDS ORDERED: Dextrose 50% Abboject 50 ML SYRINGE SLOW IVP PRN (19:38)
[2020-07-03] MEDS ORDERED: Dextrose 5% in Water 1,000 ML IV PRN (19:38)
[2020-07-03 20:17] LABS: SARS-CoV-2 NAA Rapid Test DETECTED (NotDetected)
--- NOTE | 2020-07-03 20:30 | PDOC.EVN ---
Event Note - Event Note Event Note: [id number] HP dictated
[2020-07-03 20:43] LABS: Vancomycin, Trough 18.7 ug/mL
[2020-07-03 21:05] LABS: Glucose 352 mg/dL (80-115)
--- NOTE | 2020-07-03 23:03 | HP ---
CHIEF COMPLAINT: Shortness of breath and low oxygen saturation. HISTORY OF PRESENT ILLNESS: A 70-year-old male, with past medical history of diabetes mellitus, CVA, hypertension, hyperlipidemia, seizure, and coronary artery disease, among others, was brought to the emergency room with shortness of breath, low oxygen saturation, and concern for sepsis. Patient was recently diagnosed with COVID-19 ten days ago. He was sent from his group home for reported increasing work of breathing and some hypoxia. Patient does not normally wear oxygen. Patient is severely demented and only oriented x1. He was awakened immediately to loud command and stimuli. No known fever. He was hypoxic on room air on arrival to the emergency room. Nursing team also reported the patient to have cloudy urine from the patient's James catheter. No further history can be obtained at this time due to the patient's underlying medical condition. PAST MEDICAL HISTORY: As mentioned above in history of present illness. PAST SURGICAL HISTORY: 1. Right knee surgery. 2. Two bypass surgeries. 3. ?brain surgery/procedure? SOCIAL HISTORY: No history of alcohol abuse or drug abuse. Patient lives in a long-term facility. FAMILY HISTORY: Unknown. ALLERGIES: NO KNOWN ALLERGIES. HOME MEDICATIONS: See home medication reconciliation form for updated medications. PHYSICAL EXAMINATION: GENERAL: Patient is awake, in mild distress. VITAL SIGNS: Blood pressure is 148/88, pulse is 93, respiratory rate is 22, temperature is 99.8, and oxygen saturation is 96% on 2 L/minute nasal cannula. HEAD AND NECK: Normocephalic. NECK: Supple. CHEST: Coarse bilateral breath sounds. Respirations are labored. HEART: S1, S2. Regular. ABDOMEN: Soft, nontender. Bowel sounds present. NEUROLOGIC: Awake, alert, and oriented x1. Does not answer questions or follow commands. NEUROLOGIC: Limited. EXTREMITIES: No clubbing, no cyanosis. LABORATORY DATA: Chest x-ray showed questionable ground-glass infiltrate in right mid lung field. Troponin is detectable, 0.04. Urine is showing 4+ bacteria and more than 50 wbc's. BUN is 31, creatinine 1.48. ASSESSMENT AND PLAN: 1. Acute hypoxic respiratory failure. It was reported patient's oxygen saturation was in the 80s at the nursing facility. 2. ?COVID-19 pneumonia. 3. Urinary tract infection. 4. Detectable troponin. 5. History of cerebrovascular accident. 6. Dementia. 7. Diabetes mellitus with hyperglycemia. 8. Chronic kidney disease. 9. Hypertension. 10. History of seizures. 11. Coronary artery disease. PLAN: 1. Admit. 2. Oxygen to keep saturation more than 92%. 3. Septic workup done in the ED. 4. Continue with IV antibiotics. We will continue with vancomycin and cefepime for now. 5. Cautious IV fluid hydration, reassess in a.m. 6. Isolation precautions. 7. Reconcile home medications. 8. DVT prophylaxis as appropriate. 9. Expected length of stay, 2 midnights or more. Job ID: [id number]
[2020-07-03] MEDS: Sodium Chloride 0.9% 1,000 ML IV SCH (23:15)
[2020-07-03 23:41] LABS: Troponin I 0.051 ng/mL (< 0.028)
--- NOTE | 2020-07-04 00:28 | PDOC.EVN ---
Event Note - Event Note Event Note: patient has penis purulent drainage. cultures, abx, urology consultation. ARCHIE BRYANT.
[2020-07-04] MEDS: metroNIDAZOLE 500 MG in Premix Bag 1 BAG IVPB SCH ×3 (01:57→17:56)
[2020-07-04 05:50] LABS: ALT (SGPT) 48 U/L (8-55); AST (SGOT) 64 U/L (5-34); Albumin 2.6 g/dL (3.4-4.8); Alkaline Phosphatase 64 U/L (40-110); Anion Gap 14 mmol/L (10-20); BUN (Urea Nitrogen) 26 mg/dL (8.4-25.7); Bilirubin, Total 0.3 mg/dL (0.2-1.2); Calc. Creatinine Clearance 55 mL/min (70-130); Calcium 7.8 mg/dL (7.8-10.44); Carbon Dioxide 23 mmol/L (23-31); Chloride 109 mmol/L (98-107); Estimated GFR-MDRD 71; Glucose 279 mg/dL (80-115); Potassium 3.7 mmol/L (3.5-5.1); Protein, Total 5.6 g/dL (5.8-8.1); Sodium 142 mmol/L (136-145)
[2020-07-04] MEDS: Cefepime 1 GM in Sodium Chloride 0.9% 100 ML IVPB SCH ×2 (05:51→18:33)
[2020-07-04] MEDS: HumaLOG 300 UNITS/3 ML VIAL SC PRN ×4 (06:29→20:40)
[2020-07-04 07:23] LABS: Band 21 % (5-11); Hemoglobin 11.2 g/dL (14.0-18.0); Lymphocytes 15 % (21-51); MDiff Complete? YES; Mean Corpuscular HGB CONC 33.4 g/dL (32.0-36.0); Mean Corpuscular Hemoglobin 28.7 pg (27.0-31.0); Mean Platelet Volume 8.7 fL (7.4-10.4); Monocytes 1 % (0-10); Neutrophil 63 % (42-75); Platelet Count 238 thou/uL (130-400); RBC Distribution Width 13.2 % (11.5-14.5); Red Blood Cell (RBC) Count 3.88 mill/uL (4.70-6.10); White Blood Cell (WBC) Count 3.8 thou/uL (4.8-10.8)
[2020-07-04] MEDS ORDERED: Vancomycin 1 GM in Premix Bag 1 BAG IVPB SCH (09:00)
[2020-07-04] MEDS: Enoxaparin Sodium 30 MG/0.3 ML SYRINGE SC SCH (09:45)
--- NOTE | 2020-07-04 13:03 | CON ---
DATE OF CONSULTATION: PRIMARY CARE: Dr. Palacio. resident of [facility]. REASON FOR CONSULTATION: Penile infection, chronic indwelling James catheter. HISTORY OF PRESENT ILLNESS: Mr. Reed is a 70-year-old male with multiple medical comorbidities, who is admitted for hypoxia, shortness of breath, r/o sepsis. Patient tested positive for COVID-19 10 days ago, on admission remains Covid positive. patient is unable to provide his own subjective history due to baseline encephalopathy. Therefore, extensive chart review dating back to 2012 performed as there is no prior pertinent urologic history. Per nursing staff, there was limited history on transfer from the half-way. As there was concern for hypoxia on room air, he was transferred to the emergency room. He has a chronic indwelling James catheter of unclear etiology, it is also unknown when his last urethral James catheter was exchanged. There is no family present as well and he is unable to provide subjective history. Therefore, I did review his chart and pertinent imaging extensively. He has been admitted to [facility] for numerous occasions due to similar issues of mental status changes, encephalopathy, DKA, acute kidney injury, and UTI. It appears the patient has history of BPH, as he is on tamsulosin; however, no urologic records present. He was found to have 92% on room air. He was provided vancomycin and cefepime in the ER. Nursing staff's assessment on arrival demonstrated discharge at the James catheter site. Therefore, urologic consultation was obtained by the hospitalist. Prior medical history demonstrates that he was seen by multiple subspecialists including Neurology due to history of seizure events and encephalopathy; Dr. Fraire for chronic kidney insufficiency and acute kidney injury; Vascular Surgery including Dr. Flynn; Cardiology, Dr. Morris, as he has a history of CABG with coronary artery disease and prior history of cardiac stents. PAST MEDICAL HISTORY: I 1. Diabetes. 2. Hypertension. 3. CVA. 4. Right lower extremity weakness. 5. Seizure disorder. 6. CAD. 7. Peripheral vascular disease. 8. Alzheimer's. 9. COPD. 10. History of DKA with prior admission. 11.encephalopathy. 12. History of acute kidney injury with chronic renal insufficiency. PAST SURGICAL HISTORY: Includes: 1. Right knee surgery. 2. Cardiac stent. 3. CABG. 4. Questionable brain surgery, unknown. 5. Questionable history of lower extremity stent; however, per Dr. Flynn's note, there is no imaging pertinent or physical exam consistent with lower extremity stent. SOCIAL HISTORY: Unknown as he is unable to provide subjective history. FAMILY HISTORY: Unknown. ALLERGIES: NO KNOWN DRUG ALLERGIES. HOME MEDICATIONS: Include: 1. Tradjenta. 2. Vitamin D. 3. Tylenol No. 3. 4. Flomax. 5. Senokot. 6. Ranexa. 7. Insulin Novolin. 8. Milk of magnesia. 9. Zestril. 10. Keppra. 11. Pepcid. 12. Coreg. 13. Clonidine. 14. Atorvastatin. 15. Aspirin. 16. Tylenol 650. PHYSICAL EXAMINATION: VITAL SIGNS: On arrival, his vital signs are stable. He is afebrile. Temperature 98.8, heart rate 83, respirations 18, oxygen saturation 98, and blood pressure 140/80. GENERAL: The patient is somnolent. With sternal rub, he does open his eyes. Appears to be oriented x1. HEENT: Grossly unremarkable. HEART: Regular rate. LUNGS: Suboptimal as he has decreased inspiratory effort. sternotomy incision with extensive keloid formation. ABDOMEN: Soft. No rigidity. No rebound. No suprapubic tenderness. No abdominal incision is appreciated. No inguinal incision. : Uncircumcised phallus. There is excoriation of the prepuce due to poorly unkempt James care. mid penile /penoscrotal acquired hypospadias from chronic indwelling James catheter, consistent with traction and suboptimal care. There is mild excoriated skin on the lateral prepuce with no purulent discharge noted. Bilateral testes with no evidence of crepitus, induration of concern. No pustular discharge can be expressed. As it is unclear regarding when the existing James catheter was exchanged, I did exchange his 14-Bengali catheter 10 mL, although it is a 10 mL balloon of the pre-existing catheter, it had 25 mL in the balloon. A new catheter was placed without significant issues, attached to gravity bag, demonstrating clear urine. EXTREMITIES: No cyanosis, clubbing, or edema. No calf tenderness. SKIN: There is a decubitus ulcer of his sacrum as well. NEUROLOGIC: Unable to assess. This patient is somewhat obtunded. RECTAL: Digital rectal exam demonstrates no discrete nodularity of concern. No fluctuance. PERTINENT LABORATORY DATA: White count of 3.8, hemoglobin 11, and platelets 238. Creatinine is 1.2, baseline creatinine is variable from 1.1 to 3.1. Hemoglobin A1c on 03/29 was 8.5, his highest A1c in 05/2015 was 10.4. PSA in 2013 was 0.34. He is COVID positive 10 days ago and remains COVID positive on recent swab on 07/03 on admission. UA demonstrates greater than 1000 glucose, 100 protein, 4 to 6 rbc's, greater than 50 wbc's, 0-3 epithelials, 4+ bacteria. Culture is pending. HIV in 2013 was negative. Blood culture is negative in 24 hours. IMAGING STUDIES: Renal ultrasound dated 02/2019, which I reviewed myself, demonstrates no evidence of hydronephrosis. Prevoid urine volume is just over 700 mL with distended bladder. No bladder lesion is seen. Pelvic CT from 03/2018, again which I reviewed myself, demonstrating no evidence of right hip fracture, hip osteoarthritis. Per my review, CT prostate volume is 45 g with no median lobe. The bladder is significantly distended to the level superior to the umbilicus. No intrinsic bladder mass was seen. IMPRESSION AND PLAN: Mr. Reed is a 70-year-old male with multiple medical comorbidities: Covid positive on current admission, tested +10 days ago in half-way 1. Diabetes. 2. Cerebrovascular accident. 3. Seizure disorder. 4. Coronary artery disease. 5. Encephalopathy. 6. Alzheimer's. 7. Chronic obstructive pulmonary disease. 8. retirement resident. Admitted with hypoxia, currently oxygenating without significant issues. chest x-ray on this admission demonstrates right infiltrate. Urologic issues of chronic indwelling James catheter of unclear etiology. What I can decipher on chart review is that he is a chronic retention as his bladder is significantly distended on prior imaging.(Although this is unclear if it is post void or prevoid) I will need to reach out to his PCP, Dr. Palacio, regarding course of his indwelling James catheter or prior urologic assessment, it is not available to me. He has an indwelling urethral James catheter, which is consistent with poor care, unkempt, as there is acquired hypospadias, which is usually consistent with catheters on traction. There is no purulent discharge on today's exam, recommend local wound care with 4x4s, bacitracin b.i.d. patient will benefit at a later date to converting to a suprapubic tube. However, I do feel that it is pertinent given his medical comorbidities, multiple admission due to encephalopathy, his overall clinical status and longevity is concerning consult Palliative Care regarding his disposition. I do expect his urine culture to have bacteruria due to chronic indwelling James catheter. In the absence of fever, routine antibiotic is not necessary for colonized indwelling urethral James catheter. His mental status appears to be his baseline. Quality of life appears poor. Job ID: [id number] [facility]
[2020-07-04] MEDS: Bacitracin 1 PK TOP PRN (14:26)
[2020-07-04] MEDS: Sodium Chloride 0.9% 1,000 ML IV SCH (18:31)
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
[2020-07-04] MEDS ORDERED: Dexamethasone 4 MG TAB PO SCH (21:00)
[2020-07-04] MEDS ORDERED: Insulin Glargine 10 UNITS in Pre-Filled Syringe 1 EACH SC SCH (21:00)
[2020-07-05 04:58] LABS: Hemoglobin 11.5 g/dL (14.0-18.0); Mean Corpuscular HGB CONC 33.3 g/dL (32.0-36.0); Mean Corpuscular Hemoglobin 28.6 pg (27.0-31.0); Mean Corpuscular Volume 85.7 fL (78.0-98.0); Mean Platelet Volume 8.5 fL (7.4-10.4); Platelet Count 263 thou/uL (130-400); RBC Distribution Width 12.8 % (11.5-14.5); Red Blood Cell (RBC) Count 4.01 mill/uL (4.70-6.10); White Blood Cell (WBC) Count 3.7 thou/uL (4.8-10.8)
[2020-07-05 05:21] LABS: ALT (SGPT) 52 U/L (8-55); AST (SGOT) 66 U/L (5-34); Albumin 2.6 g/dL (3.4-4.8); Alkaline Phosphatase 76 U/L (40-110); Bilirubin, Direct 0.2 mg/dL (0.1-0.3); Bilirubin, Total 0.3 mg/dL (0.2-1.2); Protein, Total 5.6 g/dL (5.8-8.1)
[2020-07-05] MEDS: HumaLOG 300 UNITS/3 ML VIAL SC PRN ×4 (05:38→20:25)
[2020-07-05] MEDS ORDERED: Cefdinir 300 MG CAP PO SCH (07:30)
[2020-07-05] MEDS: Dexamethasone 4 MG TAB PO SCH (08:44)
[2020-07-05] MEDS: Bacitracin 1 PK TOP PRN (08:46)
[2020-07-05] MEDS: Enoxaparin Sodium 30 MG/0.3 ML SYRINGE SC SCH (08:46)
[2020-07-05] MEDS: Azithromycin 250 MG TAB PO SCH (08:46)
[2020-07-05] MEDS ORDERED: Carvedilol 3.125 MG TAB PO SCH (12:15)
[2020-07-05] MEDS ORDERED: Benzonatate 100 MG CAP PO SCH (12:15)
[2020-07-05 13:36] LABS: Anion Gap 15 mmol/L (10-20); BUN (Urea Nitrogen) 25 mg/dL (8.4-25.7); Calc. Creatinine Clearance 54 mL/min (70-130); Calcium 8.1 mg/dL (7.8-10.44); Carbon Dioxide 22 mmol/L (23-31); Chloride 107 mmol/L (98-107); Estimated GFR-MDRD 68; Glucose 338 mg/dL (80-115); Magnesium 1.9 mg/dL (1.6-2.6); Potassium 4.1 mmol/L (3.5-5.1); Sodium 140 mmol/L (136-145)
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
[2020-07-05] MEDS: Carvedilol 3.125 MG TAB PO SCH (16:11)
[2020-07-05] MEDS: Benzonatate 100 MG CAP PO SCH ×2 (16:11→20:23)
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
[2020-07-05] MEDS: Piperacillin/Tazobactam 3.375 GM in Sodium Chloride 0.9% 100 ML IVPB SCH (18:14)
[2020-07-05] MEDS ORDERED: Insulin Glargine 10 UNITS in Pre-Filled Syringe 1 EACH SC SCH (21:00)
[2020-07-05] MEDS ORDERED: Insulin Glargine 14 UNITS in Pre-Filled Syringe SC SCH (21:00)
[2020-07-06] MEDS: Piperacillin/Tazobactam 3.375 GM in Sodium Chloride 0.9% 100 ML IVPB SCH ×5 (00:17→23:45)
[2020-07-06] MEDS: HumaLOG 300 UNITS/3 ML VIAL SC PRN ×3 (05:41→22:41)
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
[2020-07-06] MEDS ORDERED: Carvedilol 6.25 MG TAB PO SCH (09:45)
[2020-07-06] MEDS: Benzonatate 100 MG CAP PO SCH ×3 (09:50→22:36)
[2020-07-06] MEDS: Azithromycin 250 MG TAB PO SCH (09:50)
[2020-07-06] MEDS: Dexamethasone 4 MG TAB PO SCH (09:51)
--- NOTE | 2020-07-06 09:59 | PQF ---
CLINICAL DOCUMENTATION CLARIFICATION FORM: Dear Dr. Richmond Date: 07/06/2020 Please exercise your independent, professional judgment in responding to the clarification form. Clinical indicators are provided on the bottom of this form for your review. Please check appropriate box(es): [ ] Sepsis due to UTI due to indwelling green catheter. [ ] Sepsis due to UTI not due to indwelling green cather. [ ] Sepsis due to other: [ X] Localized infection without sepsis [ ] Other diagnosis [ ] Unable to determine In addition, please specify: Present on Admission (POA): [ ] Yes [ ] No [ ] Unable to determine For continuity of documentation, please document condition throughout progress notes and discharge summary. Thank You. To be completed by CDI/Coding staff for physician review: CLINICAL INDICATORS - SIGNS / SYMPTOMS / LABS / RESULTS AND LOCATION IN MR *ER Record 07/03: VS: BP 143/85, Pulse 93, Resp. 24, Temp 99.8, O2 sat 92 Room Air Doctor Notes 07/03: Pt did trip our sepsis protocol done here based on HR and tachycardia and does have evidence of severe UTI causing a septic state. DX: Hypoxia Additional: Coronavirus infection unspecified, Sepsis, UTI *H&P 07/03 (Mimi) Lab: Urine is showing 4+ bacteria and more than 50 wbc's. A/P: Acute hypoxic resp. failure. ?COVID-19 pneumonia. UTI Plan: Septic work-up done in the ED *07/05 pn ([facility]) UTI from indwelling Green catheter Hypospadias -Urine culture is growing 100,000. E. coli resistant to cephalosporins. Leukopenia -WBC 3.7, possibly from COVID, will monitor RISK FACTORS / RESULTS AND LOCATION IN MR H&P 07/03 (Mimi): PMH DM, CVA, HTN. CAD. Diagnosed with COVID-19 ten days ago. A/P: Acute hypoxic resp. failure. UTI. 07/04 Consult (Gabriela) HPI: he has chronic indwelling Green catheter of unclear etiology. TREATMENTS / RESULTS AND LOCATION IN MR ER Record Nursing procedure: 07/03: Urine Collection: Pre-existing green. Sample taken from green bag. 07/05 pn (Yi) A/P: Cefdinir discontinued and antibiotic switched to zosyn due to concomitant UTI. Continue azithro Thank you, Mica Mondragon RN, [email or web address] This is a permanent part of the Medical Record [facility]
[2020-07-06] MEDS ORDERED: Insulin Glargine 10 UNITS in Pre-Filled Syringe 1 EACH SC SCH (10:00)
[2020-07-06] MEDS ORDERED: Midazolam HCl 2 mg/2 ml Vial ONE (10:28)
[2020-07-06] MEDS ORDERED: Fentanyl 100 MCG/2 ML VIAL ONE (10:28)
[2020-07-06] MEDS ORDERED: Sodium Bicarbonate 2.5 MEQ/5 ML VIAL ONE (10:28)
[2020-07-06] MEDS: Carvedilol 3.125 MG TAB PO SCH (10:57)
[2020-07-06 11:08] LABS: PTT 33.4 sec (22.9-36.1); Prothrombin Time 13.7 sec (12.0-14.7)
[2020-07-06] MEDS: Bacitracin 1 PK TOP PRN (12:27)
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
--- NOTE | 2020-07-06 15:35 | CT ---
Suprapubic catheter placement CT-guided Conscious sedation: At least 30 minutes spent with the patient for conscious sedation. HISTORY: Urinary retention. FINDINGS: After explaining the procedure and answering all questions, sterile saline was carefully in stilled into the urinary bladder via the James catheter to distend the bladder for appropriate percutaneous access. Sterile technique, buffered local anesthesia, CT guidance, conscious sedation, and a midline suprapub ic approach were used to carefully advance a 12 Hebrew catheter into the urinary bladder with trocar technique. Balloon was inflated with sterile water. Catheter was secured externally with suture and urine left d raining to gravity. Patient tolerated the procedure well and was returned in unchanged condition. IMPRESSION : Technically successful suprapubic catheter placement.
[2020-07-06] MEDS: Carvedilol 6.25 MG TAB PO SCH (15:50)
[2020-07-06] MEDS: Insulin Glargine 18 UNITS in Pre-Filled Syringe 1 EACH SC SCH (22:36)
[2020-07-07] MEDS: Bacitracin 1 PK TOP PRN ×3 (03:46→21:21)
[2020-07-07 05:41] LABS: Hemoglobin 13.3 g/dL (14.0-18.0); Mean Corpuscular Volume 84.9 fL (78.0-98.0); Mean Platelet Volume 8.5 fL (7.4-10.4); Platelet Count 201 thou/uL (130-400); RBC Distribution Width 13.2 % (11.5-14.5); Red Blood Cell (RBC) Count 4.75 mill/uL (4.70-6.10); White Blood Cell (WBC) Count 8.5 thou/uL (4.8-10.8)
[2020-07-07 05:51] LABS: ALT (SGPT) 33 U/L (8-55); AST (SGOT) 25 U/L (5-34); Albumin 2.7 g/dL (3.4-4.8); Alkaline Phosphatase 71 U/L (40-110); Anion Gap 13 mmol/L (10-20); BUN (Urea Nitrogen) 28 mg/dL (8.4-25.7); Bilirubin, Total 0.3 mg/dL (0.2-1.2); Calc. Creatinine Clearance 48 mL/min (70-130); Calcium 8.4 mg/dL (7.8-10.44); Carbon Dioxide 25 mmol/L (23-31); Chloride 108 mmol/L (98-107); Estimated GFR-MDRD 60; Globulin 3.1 g/dL (2.4-3.5); Glucose 438 mg/dL (80-115); Potassium 4.2 mmol/L (3.5-5.1); Protein, Total 5.8 g/dL (5.8-8.1); Sodium 142 mmol/L (136-145)
[2020-07-07] MEDS: HumaLOG 300 UNITS/3 ML VIAL SC PRN ×4 (06:18→21:22)
[2020-07-07] MEDS: Piperacillin/Tazobactam 3.375 GM in Sodium Chloride 0.9% 100 ML IVPB SCH ×4 (07:50→21:20)
--- NOTE | 2020-07-07 07:56 | PRG ---
DATE OF SERVICE: 07/07/2020 SUBJECTIVE: Patient's mental status continues to improve throughout hospital course. He is alert, oriented. He is aware that he underwent a suprapubic tube yesterday and has minimal suprapubic discomfort. Per nursing staff, urine output has been demonstrating salter red output. OBJECTIVE: VITAL SIGNS: Stable. He is afebrile. On room air, he is 96%. I's and O's, 2500 in, 1500 out. GENERAL: Patient is in no acute distress. ABDOMEN: Soft, nontender, nondistended. Suprapubic tube site demonstrates old encrusted blood at the suprapubic tube site with no active bleeding. I did flush both his 12-Pakistani 10 mL suprapubic tube and his urethral James catheter, demonstrating patency. Urine output from both tubing is meredith pink tinged with no clots. : Again, acquired penile-scrotal hypospadias from prolonged James catheter placement, in proper care. EXTREMITIES: No cyanosis, clubbing, or edema. LABORATORY DATA: His white count is 8, hemoglobin stable at 13, platelets 201. Creatinine is 1.4. Urine culture, E coli, multi-drug resistant. Blood culture, 09/11, staph, coag negative, which is likely a contaminant. IMPRESSION AND PLAN: Mr. Reed is a pleasant 70-year-old male with multiple comorbidities, likely presents with history of chronic urinary retention based on review of his previous imaging. He is a assisted resident from [facility], admitted for rule out "sepsis." He has no significant septic parameters, his physical exam demonstrated above findings. He underwent suprapubic tube yesterday uneventfully. Continue to hold Lovenox as he does have hematuria component. We will continue his suprapubic and urethral James to gravity for now, as his suprapubic tube caliber is small at 12-Pakistani. My plan is to see him in my office in a few weeks to sequentially dilate his suprapubic tube for maximal drainage. Continue Zosyn for another 24 hours. No Lovenox unless it is okay with , as he has a component of hematuria. [facility] is being investigated by [facility] . I am unable to contact medical provider message has been left with the facility to call me back. No answer thus far Job ID: [id number] [facility]
[2020-07-07] MEDS: Insulin Glargine 10 UNITS in Pre-Filled Syringe 1 EACH SC SCH (10:12)
[2020-07-07] MEDS: Azithromycin 250 MG TAB PO SCH (10:13)
[2020-07-07] MEDS: Carvedilol 6.25 MG TAB PO SCH ×2 (10:14→16:19)
[2020-07-07] MEDS: Dexamethasone 4 MG TAB PO SCH (10:14)
[2020-07-07] MEDS: Benzonatate 100 MG CAP PO SCH ×3 (10:14→21:21)
--- NOTE | 2020-07-07 13:04 | CT ---
Suprapubic catheter placement CT-guided Conscious sedation: At least 30 minutes spent with the patient for conscious sedation. HISTORY: Urinary retention. FINDINGS: After explaining the procedure and answering all questions, sterile saline was carefully in stilled into the urinary bladder via the James catheter to distend the bladder for appropriate percutaneous access. Sterile technique, buffered local anesthesia, CT guidance, conscious sedation, and a midline suprapub ic approach were used to carefully advance a 12 Belarusian catheter into the urinary bladder with trocar technique. Balloon was inflated with sterile water. Catheter was secured externally with suture and urine left d raining to gravity. Patient tolerated the procedure well and was returned in unchanged condition. IMPRESSION : Technically successful suprapubic catheter placement. Transcribed Date/Time: 07/07/2020 1:04 PM
--- NOTE | 2020-07-07 14:23 | PDOC.HOSPP ---
- Subjective Encounter Date: 07/07/20 Encounter Time: 11:30 Subjective: F/u: COVID Patient has only mild intermittent dry cough. He denies chest pain. He denies abdominal. He does not feel like eating. I discussed with him about going back to another nursing facility and he was agreement to this because he states that [facility] not [facility] - Objective Vital Signs & Weight: Vital Signs (12 hours) Temp Pulse Resp BP BP Pulse Ox 07/07/20 13:36 97.2 F L 102 H 18 121/67 93 L 07/07/20 10:15 97.6 F 80 20 142/101 H 92 L 07/07/20 06:25 137/74 07/07/20 04:54 173/90 H 07/07/20 03:53 98.1 F 73 12 178/92 H 99 Weight Admit Weight 152 lb 1.6 oz Weight 152 lb 1.6 oz I&O: 07/06/20 07/07/20 07/08/20 06:59 06:59 06:59 Intake Total 2250 3125 Output Total 1710 2075 Balance 540 1050 Result Diagrams: 07/07/20 05:28 07/07/20 05:28 Additional Labs: Accuchecks 07/07/20 07/06/20 07/06/20 10:59 21:23 15:42 POC Glucose 317 H 419 H 358 H Hospitalist ROS - Review of Systems Constitutional: denies: fever, chills - Medication Medications: Active Medications Generic Name Dose Route Start Last Admin Trade Name Freq PRN Reason Stop Dose Admin Azithromycin 500 mg 07/05/20 09:00 07/07/20 10:13 Azithromycin 250 Mg Tab PO 07/08/20 09:01 500 mg DAILY KISHAN Administration Bacitracin 1 pk 07/04/20 12:24 07/07/20 10:18 Bacitracin 1 Pk TOP 1 pk BIDPRN PRN Administration Rash/Topical Irritation Benzonatate 100 mg 07/05/20 15:00 07/07/20 10:14 Benzonatate 100 Mg Cap PO 100 mg TID KISHAN Administration Carvedilol 12.5 mg 07/06/20 17:00 07/07/20 10:14 Carvedilol 6.25 Mg Tab PO 12.5 mg BID-WM KISHAN Administration Dexamethasone 6 mg 07/05/20 08:00 07/07/20 10:14 Dexamethasone 4 Mg Tab PO 6 mg QAM-WM KISHAN Administration Insulin Glargine 10 units/ 0.1 mls @ 0 mls/hr 07/07/20 09:00 07/07/20 10:12 Miscellaneous Medication SC 0.1 mls QAM KISHAN Administration Insulin Glargine 18 units/ 0.18 mls @ 0 mls/hr 07/06/20 21:00 07/06/20 22:36 Miscellaneous Medication SC 0.18 mls HS KISHAN Administration Piperacillin Sod/Tazobactam 100 mls @ 200 mls/hr 07/07/20 08:00 07/07/20 10:11 Sod 3.375 gm/ Sodium Chloride IVPB 100 mls 0200,0800,1400,2000 KISHAN Administration Insulin Human Lispro 0 units 07/03/20 19:38 07/07/20 11:06 Humalog 300 Units/3 Ml Vial SC 8 unit .MODERATE SLIDING SC PRN Administration Moderate Correctional Scale Insulin Human Lispro 0 units 07/04/20 20:15 07/06/20 22:41 Humalog 300 Units/3 Ml Vial SC 5 unit .BEDTIME SLIDING SC PRN Administration Bedtime Correctional Scale - Exam General Appearance: NAD, awake alert Eye: PERRL ENT: normocephalic atraumatic, no oropharyngeal lesions Neck: no JVD Heart: RRR, no murmur, no gallops, no rubs Respiratory: CTAB, no wheezes, no rales, no ronchi Gastrointestinal: soft, non-tender, non-distended, normal bowel sounds Extremities: no cyanosis, no clubbing, no edema Skin: normal turgor, no lesions, no rashes Neurological: cranial nerve grossly intact, normal sensation to touch, no weakness Musculoskeletal: normal tone, normal strength, no muscle wasting Psychiatric: normal affect, normal behavior, A&O x 3 Hosp A/P - Plan Chest X ray: Possible ground glass infiltrate in the right midlung field This is a 70-year-old male with a past medical history of diabetes, CVA, hypertension who presented to the emergency room due to shortness of breath and hypoxia. He was diagnosed with Covid 10 days prior. Acute hypoxic respiratory failure secondary to COVID pneumonia - resolved on room air. -Chest x-ray showed groundglass infiltrate in the right midlung field. Patient was hypoxic on room air and 92% and he was placed on 2 L of oxygen. He is now on room air - he was placed on vanc, cefepime and flagyl. He was switched to cefdinir and azithromycin . Cefdinir discontinued and antibiotic switched to zosyn 07/05 due to concomitant UTI. Continue azithro -will discontinue dexamethasone given that he is not requiring oxygen and his blood sugars are very high - hold off on remdesivir given CKD #UTI from indwelling Green catheter #Hypospadias -Urine culture is growing 100,000 E. coli resistant to cephalosporins - switched to IV zosyn day 3 currently -Patient had a suprapubic catheter removed on 07/06. Per Dr. Bravo, will keep indwelling green today for now Vtach - no further episodes Type II Diabetes - uncontrolled -blood sugars elevated - started lantus 10 units today. Continue 18 units qhs - switch to diabetic diet - discontinue dexamethasone Penile discharge - culture + for E coli. Treat with IV zosyn. GC/chlamydia pending Leukopenia- resolved Anemia - Hb improved to 13.3 Transaminitis - resolved Hypertension - controlled. BP 120-140. Continue coreg to 12.5 mg bid DVT prophylaxis: holding lovenox per Dr. Bravo Dispo: case management consulted, will look for alternative jail placement
[2020-07-07] MEDS ORDERED: Dextrose 5% in Water 1,000 ML IV PRN (17:24)
[2020-07-07] MEDS ORDERED: Dextrose 50% Abboject 50 ML SYRINGE SLOW IVP PRN (17:24)
[2020-07-07] MEDS: Insulin Glargine 18 UNITS in Pre-Filled Syringe 1 EACH SC SCH (21:21)
[2020-07-08] MEDS: Piperacillin/Tazobactam 3.375 GM in Sodium Chloride 0.9% 100 ML IVPB SCH (01:18)
[2020-07-08] MEDS: HumaLOG 300 UNITS/3 ML VIAL SC PRN ×3 (06:45→17:42)
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
[2020-07-08] MEDS: Azithromycin 250 MG TAB PO SCH (08:36)
[2020-07-08] MEDS: Carvedilol 6.25 MG TAB PO SCH ×2 (08:36→17:41)
[2020-07-08] MEDS: Insulin Glargine 10 UNITS in Pre-Filled Syringe 1 EACH SC SCH (08:36)
[2020-07-08] MEDS: Benzonatate 100 MG CAP PO SCH ×3 (08:36→20:37)
[2020-07-08 11:16] VITALS: BMI 28.1
--- NOTE | 2020-07-08 16:29 | PDOC.PALFU ---
Palliative Care Follow-up Note Palliative Care RN coordinating care with family. CM has placed a request for transfer to [facility]. Palliative care will communicate again with family and patient for further consideration of Hospice for overlay of care at facility and manage symptoms related to multiple morbidities. Please refer to Palliative Care RN notes in note section.
--- NOTE | 2020-07-08 16:51 | PDOC.HOSPP ---
- Subjective Encounter Date: 07/08/20 Encounter Time: 11:00 Subjective: The patient is sleeping. He denies abdominal pain, nausea, vomiting or any complaints. Spoke with the niece who is agreeable to sending the patient to a different assisted - Objective Vital Signs & Weight: Vital Signs (12 hours) Temp Pulse Resp BP Pulse Ox 07/08/20 11:04 97.6 F 79 18 138/68 95 07/08/20 08:30 97 07/08/20 08:20 97.9 F 74 18 169/94 H 97 Weight Admit Weight 152 lb 1.6 oz Weight 169 lb 1.6 oz I&O: 07/07/20 07/08/20 07/09/20 06:59 06:59 06:59 Intake Total 3125 1115 Output Total 5345 1175 Balance 1050 -60 Result Diagrams: 07/07/20 05:28 07/07/20 05:28 Additional Labs: Accuchecks 07/08/20 07/07/20 06:44 20:03 POC Glucose 376 H 438 H Hospitalist ROS - Review of Systems Constitutional: denies: fever, chills - Medication Medications: Active Medications Generic Name Dose Route Start Last Admin Trade Name Freq PRN Reason Stop Dose Admin Bacitracin 1 pk 07/04/20 12:24 07/07/20 21:21 Bacitracin 1 Pk TOP 1 pk BIDPRN PRN Administration Rash/Topical Irritation Benzonatate 100 mg 07/05/20 15:00 07/08/20 15:48 Benzonatate 100 Mg Cap PO 100 mg TID KISHAN Administration Carvedilol 12.5 mg 07/06/20 17:00 07/08/20 08:36 Carvedilol 6.25 Mg Tab PO 12.5 mg BID-WM KISHAN Administration Insulin Glargine 10 units/ 0.1 mls @ 0 mls/hr 07/07/20 09:00 07/08/20 08:36 Miscellaneous Medication SC 0.1 mls QAM IKSHAN Administration Insulin Glargine 18 units/ 0.18 mls @ 0 mls/hr 07/06/20 21:00 07/07/20 21:21 Miscellaneous Medication SC 0.18 mls HS KISHAN Administration Insulin Human Lispro 0 units 07/04/20 20:15 07/07/20 21:22 Humalog 300 Units/3 Ml Vial SC 5 unit .BEDTIME SLIDING SC PRN Administration Bedtime Correctional Scale Insulin Human Lispro 0 units 07/07/20 17:24 07/08/20 11:12 Humalog 300 Units/3 Ml Vial SC 11 unit .AGGRESSIVE SLIDING PRN Administration Aggressive Correctional Scale - Exam General Appearance: NAD, awake alert Eye: PERRL, anicteric sclera ENT: normocephalic atraumatic, no oropharyngeal lesions Neck: no JVD Heart: RRR, no murmur, no gallops, no rubs Respiratory: CTAB, no wheezes, no rales, no ronchi Gastrointestinal: soft, non-tender, non-distended, normal bowel sounds Gastrointestinal - other findings: suprapubic catheter in place Extremities: no cyanosis, no clubbing, no edema Skin: normal turgor, no lesions, no rashes Hosp A/P - Plan Chest X ray: Possible ground glass infiltrate in the right midlung field This is a 70-year-old male with a past medical history of diabetes, CVA, hyperte nsion who presented to the emergency room due to shortness of breath and hypoxia. He was diagnosed with Covid 10 days prior. Acute hypoxic respiratory failure secondary to COVID pneumonia - resolved on room air. -Chest x-ray showed groundglass infiltrate in the right midlung field. Patient was hypoxic on room air and 92% and he was placed on 2 L of oxygen. He is now on room air - he was placed on vanc, cefepime and flagyl. He was switched to cefdinir and azithromycin . Cefdinir discontinued and antibiotic switched to zosyn 07/05 due to concomitant UTI. Zosyn discontinued - 07/08: will switch to augmentin. S/p 5 days of azithro -will discontinue dexamethasone given that he is not requiring oxygen and his blood sugars are very high - hold off on remdesivir given CKD #UTI from indwelling Green catheter #Hypospadias -Urine culture is growing 100,000 E. coli resistant to cephalosporins. Received 3 days of IV zosyn, discontinued -Patient had a suprapubic catheter removed on 07/06. Indwelling green catheter removed today 07/08 Type II Diabetes - uncontrolled -blood sugars elevated - increase lantus to 12 units qam and 22 units qhs Penile discharge - culture + for E coli. Treat with IV zosyn. GC/chlamydia pending Vtach - no further episodes Leukopenia- resolved Anemia - Hb improved to 13.3 Transaminitis - resolved Hypertension - controlled. BP 120-140. Continue coreg to 12.5 mg bid DVT prophylaxis: holding lovenox per Dr. Bravo Dispo: case management consulted, will look for alternative assisted placement
[2020-07-08] MEDS: Bacitracin 1 PK TOP PRN (17:41)
[2020-07-08 19:16] LABS: Chlam.trachomatis by PCR,Urine Not Detected (NotDetected)
[2020-07-08] MEDS ORDERED: Insulin Glargine 22 UNITS in Pre-Filled Syringe 1 EACH SC SCH (21:00)
[2020-07-08] MEDS ORDERED: Amoxicillin/Potassium Clav 875 MG TAB PO SCH (21:00)
[2020-07-09 04:53] LABS: Hemoglobin 12.5 g/dL (14.0-18.0); Mean Corpuscular HGB CONC 33.6 g/dL (32.0-36.0); Mean Corpuscular Hemoglobin 28.5 pg (27.0-31.0); Mean Corpuscular Volume 84.9 fL (78.0-98.0); Mean Platelet Volume 7.8 fL (7.4-10.4); Platelet Count 436 thou/uL (130-400); RBC Distribution Width 13.5 % (11.5-14.5); Red Blood Cell (RBC) Count 4.37 mill/uL (4.70-6.10); White Blood Cell (WBC) Count 6.7 thou/uL (4.8-10.8)
[2020-07-09 05:14] LABS: Anion Gap 13 mmol/L (10-20); BUN (Urea Nitrogen) 22 mg/dL (8.4-25.7); Calc. Creatinine Clearance 70 mL/min (70-130); Calcium 8.2 mg/dL (7.8-10.44); Carbon Dioxide 25 mmol/L (23-31); Chloride 108 mmol/L (98-107); Estimated GFR-MDRD 82; Glucose 296 mg/dL (80-115); Potassium 3.6 mmol/L (3.5-5.1); Sodium 142 mmol/L (136-145)
[2020-07-09] MEDS: HumaLOG 300 UNITS/3 ML VIAL SC PRN ×3 (06:14→18:33)
--- NOTE | 2020-07-09 08:08 | PRG ---
DATE OF SERVICE: 07/09/2020 SUBJECTIVE: The patient without complaints, resting comfortably, arousable. OBJECTIVE: VITAL SIGNS: Stable. He is afebrile. Blood pressure is high at 150/101. GENERAL: The patient is in no acute distress. HEART: Regular rate. LUNGS: Clear. ABDOMEN: Soft. Suprapubic tube site is clean, dry, and intact. Draining yellow concentrated urine. : As previous acquired penoscrotal hypospadias from poorly kempt indwelling urethral James catheter. No gross evidence of cellulitic changes or acute infection. No crepitus noted. EXTREMITIES: No cyanosis, clubbing, or edema. PERTINENT LABORATORY DATA: White count 6, hemoglobin 12, and platelets 430. Creatinine 1.0. IMPRESSION AND PLAN: 1. Mr. Reed is a 70-year-old male with chronic indwelling James catheter. long-term resident. 2. COVID-19 positive, asymptomatic. 3. Chronic bacteriuria due to chronic indwelling James catheter. 4. Status post suprapubic tube, urinary diversion, indwelling urethral James catheter has been removed. awaits dispo, for an alternative penitentiary due to suboptimal care from his existing penitentiary. I have left multiple messages to provider to call me back from his existing penitentiary regarding course of his indwelling catheter. No answer thus far, which remains concerning. He is being worked up for transfer to a different facility, which I recommend. Outpatient followup will be provided for interval suprapubic to sequential upsizing. Can restart DVT prophylaxis as hematuria is resolved. If however hematuria recurs, will need to hold [facility] [place] Appreciate Palliative Care consult. Dr. Stroud from [facility] covering me this weekend for p.r.n. issues if needed. I do not anticipate that Mr. Reed will need acute urologic issue as he is currently stable. DISPOSITION: Pending replacement, penitentiary. Follow-up appointment in chart Job ID: [id number] [facility]
[2020-07-09] MEDS ORDERED: Insulin Glargine 12 UNITS in Pre-Filled Syringe 1 EACH SC SCH (09:00)
[2020-07-09] MEDS: Benzonatate 100 MG CAP PO SCH ×3 (09:54→22:10)
[2020-07-09] MEDS: Amlodipine 5 MG TAB PO SCH (09:54)
[2020-07-09] MEDS: Carvedilol 6.25 MG TAB PO SCH ×2 (09:54→18:33)
--- NOTE | 2020-07-09 17:18 | PDOC.HOSPP ---
- Subjective Encounter Date: 07/09/20 Encounter Time: 15:00 Subjective: F/u: COVID and s/p suprapubic placement The patient is very tired today. He has no SOB or cough. He has been weaned down to room air. He denies pain from his green catheter. Case management looking into hospice. Patient was denied from [facility], case management to discuss placing patient in Swing bed or sending to [facility] - Objective Vital Signs & Weight: Vital Signs (12 hours) Temp Pulse Pulse Pulse Resp BP BP 07/09/20 14:05 84 92 125/89 138/81 07/09/20 11:57 98.1 F 80 18 07/09/20 10:03 98.3 F 80 12 BP Pulse Ox Pulse Ox Pulse Ox 07/09/20 14:05 95 95 07/09/20 11:57 163/89 H 95 07/09/20 10:03 135/87 97 Weight Admit Weight 152 lb 1.6 oz Weight 169 lb 1.6 oz I&O: 07/08/20 07/09/20 07/10/20 06:59 06:59 06:59 Intake Total 1115 1780 419 Output Total 1175 625 Balance -60 1155 419 Result Diagrams: 07/09/20 04:32 07/09/20 04:32 Hospitalist ROS - Review of Systems Constitutional: denies: fever, chills - Medication Medications: Active Medications Generic Name Dose Route Start Last Admin Trade Name Freq PRN Reason Stop Dose Admin Amlodipine Besylate 5 mg 07/09/20 09:00 07/09/20 09:54 Amlodipine 5 Mg Tab PO 5 mg DAILY KISHAN Administration Bacitracin 1 pk 07/04/20 12:24 07/08/20 17:41 Bacitracin 1 Pk TOP 1 pk BIDPRN PRN Administration Rash/Topical Irritation Benzonatate 100 mg 07/05/20 15:00 07/09/20 09:54 Benzonatate 100 Mg Cap PO 100 mg TID KISHAN Administration Carvedilol 12.5 mg 07/06/20 17:00 07/09/20 09:54 Carvedilol 6.25 Mg Tab PO 12.5 mg BID-WM KISHAN Administration Insulin Glargine 12 units/ 0.12 mls @ 0 mls/hr 07/09/20 09:00 07/09/20 09:53 Miscellaneous Medication SC 0.12 mls QAM KISHAN Administration Insulin Glargine 22 units/ 0.22 mls @ 0 mls/hr 07/08/20 21:00 07/08/20 20:37 Miscellaneous Medication SC 0.22 mls HS KISHAN Administration Insulin Human Lispro 0 units 07/04/20 20:15 07/07/20 21:22 Humalog 300 Units/3 Ml Vial SC 5 unit .BEDTIME SLIDING SC PRN Administration Bedtime Correctional Scale Insulin Human Lispro 0 units 07/07/20 17:24 07/09/20 15:18 Humalog 300 Units/3 Ml Vial SC 3 unit .AGGRESSIVE SLIDING PRN Administration Aggressive Correctional Scale - Exam General Appearance: NAD, awake alert Eye: PERRL, anicteric sclera ENT: normocephalic atraumatic, no oropharyngeal lesions Neck: no JVD Heart: RRR, no murmur, no gallops, no rubs Respiratory - other findings: diminished breath sounds bilaterally Gastrointestinal - other findings: soft, nontender. Suprapubic catheter in place Extremities: no cyanosis, no clubbing, no edema Skin: normal turgor, no lesions, no rashes Neurological: cranial nerve grossly intact, normal sensation to touch, no weakness Hosp A/P - Plan Chest X ray: Possible ground glass infiltrate in the right midlung field This is a 70-year-old male with a past medical history of diabetes, CVA, hypertension who presented to the emergency room due to shortness of breath and hypoxia. He was diagnosed with Covid 10 days prior. Acute hypoxic respiratory failure secondary to COVID pneumonia - resolved on room air. -Chest x-ray showed groundglass infiltrate in the right midlung field. Patient was hypoxic on room air and 92% and he was placed on 2 L of oxygen. He is now on room air - he was placed on vanc, cefepime and flagyl. He was switched to cefdinir and azithromycin . Cefdinir discontinued and antibiotic switched to zosyn 07/05 due to concomitant UTI. Zosyn discontinued 07/08. He received total of five days of antibiotics and 5 days of azithromycin - steroids discontinued #UTI from indwelling Green catheter #Hypospadias -Urine culture is growing 100,000 E. coli resistant to cephalosporins. Received 3 days of IV zosyn, discontinued, likely colonization -Patient had a suprapubic catheter removed on 07/06. Indwelling green catheter removed 07/08 - patient will need outpatient follow up by urology for possible upsizing Type II Diabetes - uncontrolled -blood sugars elevated. Home dose is 20 units bid. Will do 20 units qam and 24 units at night Penile discharge - culture + for E coli. Treat with IV zosyn. GC/chlamydia not detected Vtach - no further episodes Leukopenia- resolved Anemia - Hb improved to 12.5 Transaminitis - resolved Hypertension - controlled. BP 120-140. Continue coreg o 12.5 mg bid DVT prophylaxis: resume lovenox per Dr. Bravo Dispo: case management consulted, will look for alternative skilled nursing placement. Was denied from [facility]. Alternative is Swing bed or [place] since they are the only ones that take COVID + patients
[2020-07-09] MEDS ORDERED: Magnesium 2 GM/50 ML 2 GM in Premix Bag 1 BAG IVPB SCH (22:00)
[2020-07-09] MEDS: Bacitracin 1 PK TOP PRN (22:10)
[2020-07-09] MEDS: Insulin Glargine 24 UNITS in Pre-Filled Syringe 1 EACH SC SCH (22:20)
[2020-07-10] MEDS: Enoxaparin Sodium 40 MG/0.4 ML SYRINGE SC SCH (09:24)
[2020-07-10] MEDS: Amlodipine 5 MG TAB PO SCH (09:24)
[2020-07-10] MEDS: Benzonatate 100 MG CAP PO SCH ×3 (09:24→20:09)
[2020-07-10] MEDS: Insulin Glargine 20 UNITS in Pre-Filled Syringe 1 EACH SC SCH (09:24)
[2020-07-10] MEDS: Carvedilol 6.25 MG TAB PO SCH ×2 (09:24→17:48)
[2020-07-10] MEDS: HumaLOG 300 UNITS/3 ML VIAL SC PRN (12:37)
--- NOTE | 2020-07-10 14:48 | PDOC.HOSPP ---
- Subjective Encounter Date: 07/10/20 - Objective Vital Signs & Weight: Vital Signs (12 hours) Temp Pulse Resp BP BP Pulse Ox 07/10/20 12:20 97.8 F 78 14 169/90 H 98 07/10/20 09:30 98 F 79 18 161/111 H 95 07/10/20 04:05 98.3 F 70 16 146/89 H 96 Weight Admit Weight 152 lb 1.6 oz Weight 169 lb 1.6 oz I&O: 07/09/20 07/10/20 07/11/20 06:59 06:59 05:59 Intake Total 1780 619 Output Total 625 760 Balance 1155 -141 Result Diagrams: 07/09/20 04:32 07/09/20 04:32 Additional Labs: Accuchecks 07/10/20 07/10/20 07/09/20 12:26 06:50 20:40 POC Glucose 201 H 222 H 169 H 07/09/20 07/09/20 07/09/20 17:07 11:56 05:54 POC Glucose 233 H 198 H 283 H 07/08/20 07/08/20 07/07/20 20:40 10:49 16:42 POC Glucose 301 H 318 H 410 H Hospitalist ROS - Medication Medications: Active Medications Generic Name Dose Route Start Last Admin Trade Name Freq PRN Reason Stop Dose Admin Amlodipine Besylate 5 mg 07/09/20 09:00 07/10/20 09:24 Amlodipine 5 Mg Tab PO 5 mg DAILY KISHAN Administration Bacitracin 1 pk 07/04/20 12:24 07/09/20 22:10 Bacitracin 1 Pk TOP 1 pk BIDPRN PRN Administration Rash/Topical Irritation Benzonatate 100 mg 07/05/20 15:00 07/10/20 09:24 Benzonatate 100 Mg Cap PO 100 mg TID KISHAN Administration Carvedilol 12.5 mg 07/06/20 17:00 07/10/20 09:24 Carvedilol 6.25 Mg Tab PO 12.5 mg BID-WM KISHAN Administration Enoxaparin Sodium 40 mg 07/10/20 09:00 07/10/20 09:24 Enoxaparin Sodium 40 Mg/0.4 Ml Syringe SC 40 mg 0900 KISHAN Administration Insulin Glargine 20 units/ 0.2 mls @ 0 mls/hr 07/10/20 09:00 07/10/20 09:24 Miscellaneous Medication SC 0.2 mls QAM KISHAN Administration Insulin Glargine 24 units/ 0.24 mls @ 0 mls/hr 07/09/20 21:00 07/09/20 22:20 Miscellaneous Medication SC 0.24 mls HS KISHAN Administration Insulin Human Lispro 0 units 07/04/20 20:15 07/07/20 21:22 Humalog 300 Units/3 Ml Vial SC 5 unit .BEDTIME SLIDING SC PRN Administration Bedtime Correctional Scale Insulin Human Lispro 0 units 07/07/20 17:24 07/10/20 12:37 Humalog 300 Units/3 Ml Vial SC 6 unit .AGGRESSIVE SLIDING PRN Administration Aggressive Correctional Scale Sodium Chloride 10 ml 07/10/20 09:00 07/10/20 09:24 Flush - Normal Saline 10 Ml Syringe IVF 10 ml Q12HR KISHAN Administration - Exam ENT: normocephalic atraumatic Neck: supple, no JVD Heart: RRR, no murmur, no gallops Respiratory: normal chest expansion, no tachypnea Hosp A/P - Plan Hosp A/P - Plan Chest X ray: Possible ground glass infiltrate in the right midlung field This is a 70-year-old male with a past medical history of diabetes, CVA, hypertension who presented to the emergency room due to shortness of breath and hypoxia. He was diagnosed with Covid 10 days prior. Acute hypoxic respiratory failure secondary to COVID pneumonia - resolved on room air. -Chest x-ray showed groundglass infiltrate in the right midlung field. Patient was hypoxic on room air and 92% and he was placed on 2 L of oxygen. He is now on room air - he was placed on vanc, cefepime and flagyl. He was switched to cefdinir and azithromycin . Cefdinir discontinued and antibiotic switched to zosyn 07/05 due to concomitant UTI. Zosyn discontinued 07/08. He received total of five days of antibiotics and 5 days of azithromycin - steroids discontinued #UTI from indwelling Green catheter #Hypospadias -Urine culture is growing 100,000 E. coli resistant to cephalosporins. Received 3 days of IV zosyn, discontinued, likely colonization -Patient had a suprapubic catheter removed on 07/06. Indwelling green catheter removed 07/08 - patient will need outpatient follow up by urology for possible upsizing Type II Diabetes - uncontrolled -blood sugars elevated. Home dose is 20 units bid. Will do 20 units qam and 24 units at night Penile discharge - culture + for E coli. Treat with IV zosyn. GC/chlamydia not detected Vtach - no further episodes Leukopenia- resolved Anemia - Hb improved to 12.5 Transaminitis - resolved Hypertension - controlled. BP 120-140. Continue coreg o 12.5 mg bid DVT prophylaxis: resume lovenox per Dr. Bravo Dispo: case management consulted, will look for alternative [place] [facility] placement. Was denied from [facility]. Alternative is Swing bed or [place] since they are the only ones that take COVID + patients 07/10: The patient is saturating well on room air today. Pending placement for discharge.
[2020-07-10] MEDS: Bacitracin 1 PK TOP PRN (15:44)
[2020-07-10] MEDS: Insulin Glargine 24 UNITS in Pre-Filled Syringe 1 EACH SC SCH ×2 (20:08→20:38)
[2020-07-11] MEDS: Amlodipine 5 MG TAB PO SCH (09:41)
[2020-07-11] MEDS: Benzonatate 100 MG CAP PO SCH ×3 (09:41→19:33)
[2020-07-11] MEDS: Carvedilol 6.25 MG TAB PO SCH ×2 (09:41→16:41)
[2020-07-11] MEDS: Enoxaparin Sodium 40 MG/0.4 ML SYRINGE SC SCH (09:42)
[2020-07-11] MEDS: Insulin Glargine 20 UNITS in Pre-Filled Syringe 1 EACH SC SCH (09:42)
--- NOTE | 2020-07-11 14:30 | PDOC.HOSPP ---
- Subjective Encounter Date: 07/11/20 - Objective Vital Signs & Weight: Vital Signs (12 hours) Temp Pulse Resp BP BP Pulse Ox 07/11/20 11:25 98.6 F 86 18 136/64 98 07/11/20 09:45 97 07/11/20 09:41 83 07/11/20 09:30 97.9 F 80 18 175/88 H 97 07/11/20 06:15 98.3 F 83 18 161/101 H 95 Weight Admit Weight 152 lb 1.6 oz Weight 169 lb 1.6 oz I&O: 07/10/20 07/11/20 07/12/20 07:59 06:59 06:59 Intake Total 240 Output Total Balance 240 Result Diagrams: 07/09/20 04:32 07/09/20 04:32 Additional Labs: Accuchecks 07/11/20 07/11/20 07/10/20 11:23 06:25 20:19 POC Glucose 138 H 89 76 07/10/20 17:34 POC Glucose 96 Hospitalist ROS - Medication Medications: Active Medications Generic Name Dose Route Start Last Admin Trade Name Freq PRN Reason Stop Dose Admin Amlodipine Besylate 5 mg 07/09/20 09:00 07/11/20 09:41 Amlodipine 5 Mg Tab PO 5 mg DAILY KISHAN Administration Bacitracin 1 pk 07/04/20 12:24 07/10/20 15:44 Bacitracin 1 Pk TOP 1 pk BIDPRN PRN Administration Rash/Topical Irritation Benzonatate 100 mg 07/05/20 15:00 07/11/20 09:41 Benzonatate 100 Mg Cap PO 100 mg TID KISHAN Administration Carvedilol 12.5 mg 07/06/20 17:00 07/11/20 09:41 Carvedilol 6.25 Mg Tab PO 12.5 mg BID-WM KISHAN Administration Enoxaparin Sodium 40 mg 07/10/20 09:00 07/11/20 09:42 Enoxaparin Sodium 40 Mg/0.4 Ml Syringe SC 40 mg 0900 KISHAN Administration Insulin Glargine 20 units/ 0.2 mls @ 0 mls/hr 07/10/20 09:00 07/11/20 09:42 Miscellaneous Medication SC Not Given QAM KISHAN Insulin Glargine 24 units/ 0.24 mls @ 0 mls/hr 07/09/20 21:00 07/10/20 20:38 Miscellaneous Medication SC Not Given HS KISHAN Insulin Human Lispro 0 units 07/04/20 20:15 07/07/20 21:22 Humalog 300 Units/3 Ml Vial SC 5 unit .BEDTIME SLIDING SC PRN Administration Bedtime Correctional Scale Insulin Human Lispro 0 units 07/07/20 17:24 07/10/20 12:37 Humalog 300 Units/3 Ml Vial SC 6 unit .AGGRESSIVE SLIDING PRN Administration Aggressive Correctional Scale Sodium Chloride 10 ml 07/10/20 09:00 07/11/20 09:42 Flush - Normal Saline 10 Ml Syringe IVF 10 ml Q12HR KISHAN Administration Hosp A/P - Plan Hosp A/P - Plan Chest X ray: Possible ground glass infiltrate in the right midlung field This is a 70-year-old male with a past medical history of diabetes, CVA, hypertension who presented to the emergency room due to shortness of breath and hypoxia. He was diagnosed with Covid 10 days prior. Acute hypoxic respiratory failure secondary to COVID pneumonia - resolved on room air. -Chest x-ray showed groundglass infiltrate in the right midlung field. Patient was hypoxic on room air and 92% and he was placed on 2 L of oxygen. He is now on room air - he was placed on vanc, cefepime and flagyl. He was switched to cefdinir and azithromycin . Cefdinir discontinued and antibiotic switched to zosyn 07/05 due to concomitant UTI. Zosyn discontinued 07/08. He received total of five days of antibiotics and 5 days of azithromycin - steroids discontinued #UTI from indwelling Green catheter #Hypospadias -Urine culture is growing 100,000 E. coli resistant to cephalosporins. Received 3 days of IV zosyn, discontinued, likely colonization -Patient had a suprapubic catheter removed on 07/06. Indwelling green catheter removed 07/08 - patient will need outpatient follow up by urology for possible upsizing Type II Diabetes - uncontrolled -blood sugars elevated. Home dose is 20 units bid. Will do 20 units qam and 24 units at night Penile discharge - culture + for E coli. Treat with IV zosyn. GC/chlamydia not detected Vtach - no further episodes Leukopenia- resolved Anemia - Hb improved to 12.5 Transaminitis - resolved Hypertension - controlled. BP 120-140. Continue coreg o 12.5 mg bid DVT prophylaxis: resume lovenox per Dr. Bravo Dispo: case management consulted, will look for alternative residential placement. Was denied from [facility]. Alternative is Swing bed or [place] since they are the only ones that take COVID + patients 07/10: The patient is saturating well on room air today. Pending placement for discharge. 07/11: The patient sustained a fall yesterday without any significant trauma to the head. She remains stable today with good oxygen saturations on room air. Hopefully we can place him soon.
[2020-07-11] MEDS: Bacitracin 1 PK TOP PRN (16:41)
[2020-07-11] MEDS: HumaLOG 300 UNITS/3 ML VIAL SC PRN ×2 (17:49→19:45)
[2020-07-11] MEDS: Insulin Glargine 24 UNITS in Pre-Filled Syringe 1 EACH SC SCH (19:33)
[2020-07-11 21:43] LABS: #Eosinphils 0.1 thou/uL (0.0-0.7); #Lymphocytes 1.1 thou/uL (1.20-3.40); #Monocytes 0.3 thou/uL (0.11-0.59); #Neutrophils 3.9 thou/uL (1.40-6.50); %Basophils 0.3 % (0.0-1.0); %Eosinophils 2.2 % (0.0-10.0); %Lymphocytes 20.1 % (21.0-51.0); %Neutrophils 71.4 % (42.0-75.0); Hemoglobin 12.5 g/dL (14.0-18.0); Mean Corpuscular HGB CONC 33.5 g/dL (32.0-36.0); Mean Corpuscular Hemoglobin 28.3 pg (27.0-31.0); Mean Corpuscular Volume 84.6 fL (78.0-98.0); Mean Platelet Volume 7.6 fL (7.4-10.4); Platelet Count 411 thou/uL (130-400); RBC Distribution Width 14.4 % (11.5-14.5); White Blood Cell (WBC) Count 5.5 thou/uL (4.8-10.8)
[2020-07-11 22:05] LABS: Anion Gap 13 mmol/L (10-20); BUN (Urea Nitrogen) 20 mg/dL (8.4-25.7); Calc. Creatinine Clearance 67 mL/min (70-130); Calcium 8.3 mg/dL (7.8-10.44); Carbon Dioxide 26 mmol/L (23-31); Chloride 106 mmol/L (98-107); Estimated GFR-MDRD 78; Glucose 272 mg/dL (80-115); Magnesium 1.7 mg/dL (1.6-2.6); Potassium 3.8 mmol/L (3.5-5.1); Sodium 141 mmol/L (136-145)
[2020-07-11] MEDS ORDERED: Magnesium 2 GM/50 ML 2 GM in Premix Bag 1 BAG IVPB SCH (22:45)
[2020-07-12 05:05] LABS: #Eosinphils 0.1 thou/uL (0.0-0.7); #Lymphocytes 1.1 thou/uL (1.20-3.40); #Monocytes 0.6 thou/uL (0.11-0.59); #Neutrophils 3.3 thou/uL (1.40-6.50); %Basophils 0.4 % (0.0-1.0); %Eosinophils 1.9 % (0.0-10.0); %Neutrophils 64.7 % (42.0-75.0); Hemoglobin 12.9 g/dL (14.0-18.0); Mean Corpuscular HGB CONC 33.2 g/dL (32.0-36.0); Mean Corpuscular Hemoglobin 28.2 pg (27.0-31.0); Mean Platelet Volume 7.6 fL (7.4-10.4); Platelet Count 398 thou/uL (130-400); RBC Distribution Width 14.6 % (11.5-14.5); Red Blood Cell (RBC) Count 4.55 mill/uL (4.70-6.10); White Blood Cell (WBC) Count 5.1 thou/uL (4.8-10.8)
[2020-07-12 05:34] LABS: Anion Gap 13 mmol/L (10-20); BUN (Urea Nitrogen) 18 mg/dL (8.4-25.7); Calc. Creatinine Clearance 77 mL/min (70-130); Calcium 8.2 mg/dL (7.8-10.44); Carbon Dioxide 24 mmol/L (23-31); Chloride 108 mmol/L (98-107); Estimated GFR-MDRD Greater than 90; Glucose 135 mg/dL (80-115); Magnesium 2.1 mg/dL (1.6-2.6); Potassium 4.4 mmol/L (3.5-5.1); Sodium 141 mmol/L (136-145)
--- NOTE | 2020-07-12 07:52 | PRG ---
DATE OF SERVICE: 07/12/2020 SUBJECTIVE: The patient is sleeping. OBJECTIVE: VITAL SIGNS: Stable. He is afebrile. I's and O's, urine output 1100. Events over the weekend reviewed, sustained a fall with no acute injury. ABDOMEN: Soft. No rigidity. No rebound. Suprapubic tube remains in place; however, it is inadequately secured. : Demonstrates as previous acquired penoscrotal hypospadias from prolonged indwelling urethral James catheter trauma. EXTREMITIES: No cyanosis, clubbing, or edema. LABORATORY DATA: Morning labs reviewed with no acute issues of concern. Long discussion with nursing staff morning /production supervisor off shift and charge nurse. Proper use of StatLock, SP tube care discussed with them in detail. Nursing education provided regarding proper care of StatLock IMPRESSION AND PLAN: 1. Mr. Reed is a 70-year-old male with history of chronic retention, likely multifactorial. 2. Deconditioned status. 3. [facility] resident. 4. COVID-19 positive with no evidence of hypoxia or respiratory distress. 5. I still have not heard from the original provider from his presenting senior living regarding the patient's indwelling James catheter management, I have left numerous messages. A new placement for this patient is pending. Nursing staff again educated regarding proper care of indwelling suprapubic tube, proper management, and securing devices. Await senior living placement at a different facility due to suboptimal care. [facility] [id number] [facility]
[2020-07-12] MEDS: Benzonatate 100 MG CAP PO SCH ×3 (08:34→20:21)
[2020-07-12] MEDS: Enoxaparin Sodium 40 MG/0.4 ML SYRINGE SC SCH (08:34)
[2020-07-12] MEDS: Carvedilol 6.25 MG TAB PO SCH ×2 (08:34→17:05)
[2020-07-12] MEDS: Amlodipine 5 MG TAB PO SCH (08:34)
[2020-07-12] MEDS: Bacitracin 1 PK TOP PRN (08:35)
[2020-07-12] MEDS: Insulin Glargine 20 UNITS in Pre-Filled Syringe 1 EACH SC SCH (09:24)
--- NOTE | 2020-07-12 12:24 | PDOC.HOSPP ---
- Subjective Encounter Date: 07/12/20 Subjective: The patient status unchanged since yesterday. - Objective Vital Signs & Weight: Vital Signs (12 hours) Temp Pulse Resp BP Pulse Ox 07/12/20 08:00 98 F 74 16 138/85 97 07/12/20 03:50 98.1 F 82 18 137/72 97 Weight Admit Weight 152 lb 1.6 oz Weight 169 lb 1.6 oz I&O: 07/11/20 07/12/20 07/13/20 06:59 06:59 06:59 Intake Total 770 Output Total 1100 Balance -330 Result Diagrams: 07/12/20 04:39 07/12/20 04:39 Additional Labs: Accuchecks 07/12/20 07/12/20 07/11/20 11:39 03:57 19:41 POC Glucose 222 H 144 H 316 H 07/11/20 16:47 POC Glucose 285 H Hospitalist ROS - Medication Medications: Active Medications Generic Name Dose Route Start Last Admin Trade Name Freq PRN Reason Stop Dose Admin Amlodipine Besylate 5 mg 07/09/20 09:00 07/12/20 08:34 Amlodipine 5 Mg Tab PO 5 mg DAILY KISHAN Administration Bacitracin 1 pk 07/04/20 12:24 07/12/20 08:35 Bacitracin 1 Pk TOP 1 pk BIDPRN PRN Administration Rash/Topical Irritation Benzonatate 100 mg 07/05/20 15:00 07/12/20 08:34 Benzonatate 100 Mg Cap PO 100 mg TID KISHAN Administration Carvedilol 12.5 mg 07/06/20 17:00 07/12/20 08:34 Carvedilol 6.25 Mg Tab PO 12.5 mg BID-WM KISHAN Administration Enoxaparin Sodium 40 mg 07/10/20 09:00 07/12/20 08:34 Enoxaparin Sodium 40 Mg/0.4 Ml Syringe SC 40 mg 0900 KISHAN Administration Insulin Glargine 20 units/ 0.2 mls @ 0 mls/hr 07/10/20 09:00 07/12/20 09:24 Miscellaneous Medication SC 0.2 mls QAM KISHAN Administration Insulin Glargine 24 units/ 0.24 mls @ 0 mls/hr 07/09/20 21:00 07/11/20 19:33 Miscellaneous Medication SC 0.24 mls HS KISHAN Administration Insulin Human Lispro 0 units 07/04/20 20:15 07/07/20 21:22 Humalog 300 Units/3 Ml Vial SC 5 unit .BEDTIME SLIDING SC PRN Administration Bedtime Correctional Scale Insulin Human Lispro 0 units 07/07/20 17:24 07/11/20 19:45 Humalog 300 Units/3 Ml Vial SC 11 unit .AGGRESSIVE SLIDING PRN Administration Aggressive Correctional Scale Sodium Chloride 10 ml 07/10/20 09:00 07/12/20 08:35 Flush - Normal Saline 10 Ml Syringe IVF 10 ml Q12HR KISHAN Administration - Exam General Appearance: awake alert ENT: normocephalic atraumatic Neck: supple, no JVD Heart: RRR Respiratory: normal chest expansion, no tachypnea Gastrointestinal: soft, non-tender Neurological: no new deficit Hosp A/P - Plan Hosp A/P - Plan Chest X ray: Possible ground glass infiltrate in the right midlung field This is a 70-year-old male with a past medical history of diabetes, CVA, hypertension who presented to the emergency room due to shortness of breath and hypoxia. He was diagnosed with Covid 10 days prior. Acute hypoxic respiratory failure secondary to COVID pneumonia - resolved on room air. -Chest x-ray showed groundglass infiltrate in the right midlung field. Patient was hypoxic on room air and 92% and he was placed on 2 L of oxygen. He is now on room air - he was placed on vanc, cefepime and flagyl. He was switched to cefdinir and azithromycin . Cefdinir discontinued and antibiotic switched to zosyn 07/05 due to concomitant UTI. Zosyn discontinued 07/08. He received total of five days of antibiotics and 5 days of azithromycin - steroids discontinued #UTI from indwelling Green catheter #Hypospadias -Urine culture is growing 100,000 E. coli resistant to cephalosporins. Received 3 days of IV zosyn, discontinued, likely colonization -Patient had a suprapubic catheter removed on 07/06. Indwelling green catheter removed 07/08 - patient will need outpatient follow up by urology for possible upsizing Type II Diabetes - uncontrolled -blood sugars elevated. Home dose is 20 units bid. Will do 20 units qam and 24 units at night Penile discharge - culture + for E coli. Treat with IV zosyn. GC/chlamydia not detected Vtach - no further episodes Leukopenia- resolved Anemia - Hb improved to 12.5 Transaminitis - resolved Hypertension - controlled. BP 120-140. Continue coreg o 12.5 mg bid DVT prophylaxis: resume lovenox per Dr. Bravo Dispo: case management consulted, will look for alternative custodial placement. Was denied from [facility]. Alternative is [facility] or [facility] since they are the only ones that take COVID + patients 07/12: The patient remained stable with good oxygen saturations. Continue current management. Pending placement.
[2020-07-12] MEDS: HumaLOG 300 UNITS/3 ML VIAL SC PRN ×2 (17:06→21:00)
[2020-07-12] MEDS: Insulin Glargine 24 UNITS in Pre-Filled Syringe 1 EACH SC SCH (20:21)
[2020-07-13] MEDS: HumaLOG 300 UNITS/3 ML VIAL SC PRN ×2 (04:18→16:17)
--- NOTE | 2020-07-13 08:09 | PRG ---
DATE OF SERVICE: 07/13/2020 SUBJECTIVE: The patient resting, does not appear uncomfortable. OBJECTIVE: VITAL SIGNS: Stable. I's and O's, urine output over 1 L, clear yellow. GENERAL: The patient is in no acute distress. ABDOMEN: Soft. No rigidity. No rebound. Suprapubic tube site is clean, dry, and intact. 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 IMPRESSION AND PLAN: Mr. Reed is a 70-year-old male with history of chronic retention. 1. Chronic indwelling urethral James catheter removed due to suboptimal care, neglect, status post suprapubic tube, which is draining uneventfully. Await fpc placement. 2. COVID positive. The patient asymptomatic. 3. Has appointment with me next week to upsize his suprapubic tube. Disposition pending. Job ID: [id number] MTDD
[2020-07-13] MEDS: Enoxaparin Sodium 40 MG/0.4 ML SYRINGE SC SCH (10:30)
[2020-07-13] MEDS: Carvedilol 6.25 MG TAB PO SCH ×2 (10:31→16:05)
[2020-07-13] MEDS: Amlodipine 5 MG TAB PO SCH (10:31)
[2020-07-13] MEDS: Benzonatate 100 MG CAP PO SCH ×3 (10:31→21:50)
[2020-07-13] MEDS: Insulin Glargine 20 UNITS in Pre-Filled Syringe 1 EACH SC SCH (10:35)
[2020-07-13] MEDS: Bacitracin 1 PK TOP PRN (11:00)
--- NOTE | 2020-07-13 12:02 | PDOC.DS.DS ---
Provider - Provider Date of Admission: 07/03/20 19:32 Date of Discharge: 07/13/20 Admitting Provider: Nas Le MD Consultations: Urology Primary Care Physician: Unknown Course - Hospital Course Hospital Course: This is a 70-year-old male with a past medical history of diabetes, CVA, hypertension who presented to the emergency room due to shortness of breath and hypoxia. He was diagnosed with Covid 10 days prior. Acute hypoxic respiratory failure secondary to COVID pneumonia - resolved on room air. -Chest x-ray showed groundglass infiltrate in the right midlung field. Patient was hypoxic on room air and 92% and he was placed on 2 L of oxygen. He is now on room air - he was placed on vanc, cefepime and flagyl. He was switched to cefdinir and azithromycin . Cefdinir discontinued and antibiotic switched to zosyn 07/05 due to concomitant UTI. Zosyn discontinued 07/08. He received total of five days of antibiotics and 5 days of azithromycin - steroids discontinued #UTI from indwelling Green catheter #Hypospadias -Urine culture is growing 100,000 E. coli resistant to cephalosporins. Received 3 days of IV zosyn, discontinued, likely colonization -Patient had a suprapubic catheter placed on 07/06. Chronic indwelling green catheter removed 07/08 due to neglect/suboptimal care. - patient will need outpatient follow up by urology for possible upsizing Type II Diabetes - uncontrolled -blood sugars elevated. Home dose is 20 units bid. Will do 20 units qam and 24 units at night Penile discharge - culture + for E coli. Treat with IV zosyn. GC/chlamydia not detected Vtach - no further episodes Leukopenia- resolved Anemia - Hb improved to 12.5 Transaminitis - resolved Hypertension - controlled. BP 120-140. Continue coreg o 12.5 mg bid Resuscitation Status: 07/04/20 00:23 Resuscitation Status Routine Resuscitation Status: DNAR: NO Resuscitation Discussed with: as per ayesha, pt is DNR.. Discuuded w RN - Labs Lab Results: 07/12/20 04:39 07/12/20 04:39 Abnormal Lab Results - Last 48 hrs 07/11/20 21:28: RBC 4.40 L, Hgb 12.5 L, Hct 37.2 L, Plt Count 411 H, Lymphocytes % 20.1 L, Lymphocytes # 1.1 L 07/12/20 04:39: Chloride 108 H 07/12/20 04:39: RBC 4.55 L, Hgb 12.9 L, Hct 38.7 L, RDW 14.6 H, Monocytes % 11.0 H, Lymphocytes # 1.1 L, Monocytes # 0.6 H Microbiology - Entire Visit 07/03/20 18:16 Venous blood - Right Hand Blood Culture - Final NO GROWTH IN 5 DAYS 07/04/20 02:04 Penis Gram Stain - Final 07/04/20 02:04 Penis Genital Culture - Final Escherichia coli 07/03/20 18:16 Venous blood - Right Arm Blood Culture - Final Coagulase Neg Staphylococcus 07/03/20 18:24 Urine green catheter Urine Culture - Final Escherichia coli - Physical Exam Vitals: Vital Signs (12 hours) Temp Pulse Resp BP Pulse Ox 07/13/20 10:31 82 07/13/20 04:00 98.0 F 82 18 153/75 H 96 Weight Admit Weight 152 lb 1.6 oz Weight 169 lb 1.6 oz Physical Exam: The patient was seen and examined on the day of discharge. Plan - Discharge Medications Home Medications: Medication Instructions Recorded Confirmed Type Atorvastatin Calcium 20 mg PO DAILY 10/22/16 07/03/20 History Ranolazine [Ranexa] 500 mg PO BID 07/20/18 07/03/20 History Lisinopril [Zestril] 2.5 mg PO DAILY tab 03/26/19 07/03/20 Rx Carvedilol [Coreg] 6.25 mg PO BID-WM 10/02/19 07/03/20 History Tamsulosin HCl [Flomax] 0.4 mg PO DAILY 10/02/19 07/03/20 History cloNIDine [Pmimhdek-BOF-0 Patch] 0.2 mg TD Q7DAYS patch 12/31/19 07/03/20 Rx levETIRAcetam [Keppra Oral 1,500 mg PO BID #0 ml 12/31/19 07/03/20 Rx Solution] Acetaminophen 650 mg PO Q4HR PRN 04/03/20 07/03/20 History Acetaminophen W/ Codeine 1 tab PO BID PRN 04/03/20 07/03/20 History [Acetaminophen/Codeine #3] Cholecalciferol (Vitamin D3) 2,000 unit PO DAILY 04/03/20 07/03/20 History [Vitamin D3] Insulin Glargine [Lantus Vial] 20 units SC BID 04/03/20 07/03/20 History Aspirin [Ecotrin Low Strength] 81 mg PO DAILY tab 04/04/20 07/03/20 Rx Famotidine [Pepcid] 20 mg PO DAILY 07/03/20 07/03/20 History Insulin Regular, Human [Novolin R] 100 units IJ ASDIR PRN 07/03/20 07/03/20 History Linagliptin [Tradjenta] 5 mg PO DAILY 07/03/20 07/03/20 History Magnesium Hydroxide [Milk of 2,400 mg PO Q2D 07/03/20 07/03/20 History Magnesia] Sennosides/Docusate Sodium 2 tab PO DAILY PRN 07/03/20 07/03/20 History [Senokot S] Allergies: No Known Allergies Allergy (Verified 07/03/20 22:07) - Discharge Instructions Discharge Instructions:: CARE INSTRUCTIONS: [] Leave dressing intact for: [] 24 hours [] 48 hours [] until follow-up appointment [] change dressing every day [] Leave steri-strips in place [] Scrotal support for [] [] Ice to incision for 24-48 hours [] Expect intermittent hematuria [] Expect intermittent spotting at the incision site [] Antibiotic ointment to incision twice daily after dressing removed [] No baths [] May shower [] May bathe [] Sponge bath only [] Increase fluid intake (2 -3 liters of water per day) [X] SPT to gravity * Do not allow bag to overfill * No tension or kinking of green tubing * do not manipulate stat locks [] Stent string taped to abdomen/pubis: no pulling on string; do not wipe after voiding, may dab dry [] No ASA, ibuprofen products until follow-up appointment ACTIVITY: [] No heavy lifting or strenuous activity for [] one to two weeks [] two to four weeks [] until follow-up appointment Suprapubic tube to gravity keep secured with StatLock's, do not remove StatLock's No tension or kinking of the suprapubic tube Change suprapubic tube dressing daily, clean suprapubic tube site with peroxide daily - Follow up Plan Referrals: Atiya Ochoa DO [Active] - 07/20/20 4:00 pm (pt to arrive 30 min before) Unknown,Unknown [Primary Care Provider] - Disposition: RESIDENTIAL/ASSISTED LIVING Quality - Care Measures CORE MEASURES:: N/A
[2020-07-13] MEDS: Insulin Glargine 24 UNITS in Pre-Filled Syringe 1 EACH SC SCH (21:50)
[2020-07-14] MEDS: Carvedilol 6.25 MG TAB PO SCH ×2 (08:50→16:19)
[2020-07-14] MEDS: Benzonatate 100 MG CAP PO SCH ×3 (08:50→22:14)
[2020-07-14] MEDS: Enoxaparin Sodium 40 MG/0.4 ML SYRINGE SC SCH (08:50)
[2020-07-14] MEDS: Insulin Glargine 20 UNITS in Pre-Filled Syringe 1 EACH SC SCH (08:51)
[2020-07-14] MEDS: Amlodipine 5 MG TAB PO SCH (08:51)
--- NOTE | 2020-07-14 13:26 | PDOC.HOSPP ---
- Subjective Encounter Date: 07/14/20 - Objective Vital Signs & Weight: Vital Signs (12 hours) Temp Pulse Resp BP BP Pulse Ox 07/14/20 11:50 97.8 F 84 18 151/98 H 97 07/14/20 08:40 97.4 F L 84 16 161/98 H 98 07/14/20 03:37 97.6 F 82 18 163/90 H 96 Weight Admit Weight 152 lb 1.6 oz Weight 169 lb 1.6 oz I&O: 07/13/20 07/14/20 07/15/20 06:59 06:59 06:59 Intake Total 720 720 Output Total 1005 850 Balance -285 -130 Result Diagrams: 07/12/20 04:39 07/12/20 04:39 Additional Labs: Accuchecks 07/14/20 07/14/20 07/13/20 10:31 05:23 16:11 POC Glucose 155 H 147 H 297 H 07/13/20 07/13/20 07/12/20 10:44 04:18 20:46 POC Glucose 182 H 175 H 401 H Hospitalist ROS - Medication Medications: Active Medications Generic Name Dose Route Start Last Admin Trade Name Freq PRN Reason Stop Dose Admin Amlodipine Besylate 5 mg 07/09/20 09:00 07/14/20 08:51 Amlodipine 5 Mg Tab PO 5 mg DAILY KISHAN Administration Bacitracin 1 pk 07/04/20 12:24 07/13/20 11:00 Bacitracin 1 Pk TOP 1 pk BIDPRN PRN Administration Rash/Topical Irritation Benzonatate 100 mg 07/05/20 15:00 07/14/20 08:50 Benzonatate 100 Mg Cap PO 100 mg TID KISHAN Administration Carvedilol 12.5 mg 07/06/20 17:00 07/14/20 08:50 Carvedilol 6.25 Mg Tab PO 12.5 mg BID-WM KISHAN Administration Enoxaparin Sodium 40 mg 07/10/20 09:00 07/14/20 08:50 Enoxaparin Sodium 40 Mg/0.4 Ml Syringe SC 40 mg 0900 KISHAN Administration Insulin Glargine 20 units/ 0.2 mls @ 0 mls/hr 07/10/20 09:00 07/14/20 08:51 Miscellaneous Medication SC 0.2 mls QAM KISHAN Administration Insulin Glargine 24 units/ 0.24 mls @ 0 mls/hr 07/09/20 21:00 07/13/20 21:50 Miscellaneous Medication SC 0.24 mls HS KISHAN Administration Insulin Human Lispro 0 units 07/04/20 20:15 07/12/20 21:00 Humalog 300 Units/3 Ml Vial SC 3 unit .BEDTIME SLIDING SC PRN Administration Bedtime Correctional Scale Insulin Human Lispro 0 units 07/07/20 17:24 07/13/20 16:17 Humalog 300 Units/3 Ml Vial SC 9 unit .AGGRESSIVE SLIDING PRN Administration Aggressive Correctional Scale Sodium Chloride 10 ml 07/10/20 09:00 07/14/20 08:51 Flush - Normal Saline 10 Ml Syringe IVF 10 ml Q12HR KISHAN Administration - Exam ENT: normocephalic atraumatic Neck: no JVD Respiratory: normal chest expansion, no tachypnea Extremities: no cyanosis, no clubbing Neurological: cranial nerve grossly intact Hosp A/P - Plan Hosp A/P - Plan Chest X ray: Possible ground glass infiltrate in the right midlung field This is a 70-year-old male with a past medical history of diabetes, CVA, hypertension who presented to the emergency room due to shortness of breath and hypoxia. He was diagnosed with Covid 10 days prior. Acute hypoxic respiratory failure secondary to COVID pneumonia - resolved on room air. -Chest x-ray showed groundglass infiltrate in the right midlung field. Patient was hypoxic on room air and 92% and he was placed on 2 L of oxygen. He is now on room air - he was placed on vanc, cefepime and flagyl. He was switched to cefdinir and azithromycin . Cefdinir discontinued and antibiotic switched to zosyn 07/05 due to concomitant UTI. Zosyn discontinued 07/08. He received total of five days of antibiotics and 5 days of azithromycin - steroids discontinued #UTI from indwelling Green catheter #Hypospadias -Urine culture is growing 100,000 E. coli resistant to cephalosporins. Received 3 days of IV zosyn, discontinued, likely colonization -Patient had a suprapubic catheter removed on 07/06. Indwelling green catheter removed 07/08 - patient will need outpatient follow up by urology for possible upsizing Type II Diabetes - uncontrolled -blood sugars elevated. Home dose is 20 units bid. Will do 20 units qam and 24 units at night Penile discharge - culture + for E coli. Treat with IV zosyn. GC/chlamydia not detected Vtach - no further episodes Leukopenia- resolved Anemia - Hb improved to 12.5 Transaminitis - resolved Hypertension - controlled. BP 120-140. Continue coreg o 12.5 mg bid DVT prophylaxis: resume lovenox per Dr. Bravo Dispo: case management consulted, will look for alternative correction placement. Was denied from [facility]. Alternative is [facility] bed or [place] since they are the only ones that take COVID + patients 07/13: The patient is stable. Continue current management. Pending placement.
[2020-07-14] MEDS: HumaLOG 300 UNITS/3 ML VIAL SC PRN (16:19)
--- NOTE | 2020-07-14 19:26 | EKG ---
Test Reason : STAT Blood Pressure : / mmHG Vent. Rate : 091 BPM Atrial Rate : 091 BPM P-R Int : 118 ms QRS Dur : 092 ms QT Int : 370 ms P-R-T Axes : 061 051 -81 degrees QTc Int : 455 ms Sinus rhythm with Premature supraventricular complexes with occasional Premature ventricular complexe s Low voltage QRS Septal infarct , age undetermined Nonspecific ST and T wave abnormality Abnormal ECG When compared with ECG of 03-JUL-2020 18:16, (Unconfirmed) Premature supraventricular complexes are now Present RSR' pattern in V1 is no longer Present Confirmed by AMPARO ZAMORA, DR. Pinon ([id number]) on 07/14/2020 7:25:37 PM Referred By: JOHN Confirmed By:DR. Zi CHRISTENSEN MD
[2020-07-14] MEDS: Insulin Glargine 24 UNITS in Pre-Filled Syringe 1 EACH SC SCH (22:15)
[2020-07-15] MEDS: Insulin Glargine 20 UNITS in Pre-Filled Syringe 1 EACH SC SCH (08:09)
[2020-07-15] MEDS: Benzonatate 100 MG CAP PO SCH ×3 (08:09→20:01)
[2020-07-15] MEDS: Enoxaparin Sodium 40 MG/0.4 ML SYRINGE SC SCH (08:09)
[2020-07-15] MEDS: Carvedilol 6.25 MG TAB PO SCH ×2 (08:10→17:33)
[2020-07-15] MEDS: Amlodipine 5 MG TAB PO SCH (08:10)
--- NOTE | 2020-07-15 08:15 | PRG ---
DATE OF SERVICE: 07/15/2020 SUBJECTIVE: The patient is sleeping, irritable, physical exam is difficult. OBJECTIVE: VITAL SIGNS: Stable. Urine output 550. ABDOMEN: Suprapubic tube site is clean, dry, and intact, urine output clear. Catheter StatLock resecured. EXTREMITIES: No cyanosis, clubbing, or edema. LABORATORY DATA: No new labs. IMPRESSION: 1. Mr. Reed is a 70-year-old male, admitted for COVID positive, asymptomatic. 2. 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 Final disposition is yet pending, as the patient remains in-house, I did discuss with hospitalist yesterday., he is cleared from medical service to stay in-house, until cystoscopy, suprapubic tube dilatation under anesthesia. I feel that he would do better under anesthesia, as he is combative to physical exam. Consent to be obtained for cysto, suprapubic tube tract dilatation, replacement. This is scheduled for July 21. I did send a message to Case Management, may obtain disposition, however, we will need to hold transfer. He can be discharged after suprapubic tube tract dilatation on July 21 Job ID: [id number] [facility]
[2020-07-15] MEDS: HumaLOG 300 UNITS/3 ML VIAL SC PRN ×2 (11:58→17:43)
--- NOTE | 2020-07-15 15:18 | PDOC.HOSPP ---
- Subjective Encounter Date: 07/15/20 - Objective Vital Signs & Weight: Vital Signs (12 hours) Temp Pulse Pulse Pulse Resp BP BP 07/15/20 11:15 81 83 136/83 134/81 07/15/20 11:10 97.7 F 83 20 07/15/20 08:15 98.6 F 80 18 07/15/20 03:45 97.9 F 78 18 BP BP Pulse Ox Pulse Ox Pulse Ox 07/15/20 11:15 97 97 07/15/20 11:10 134/81 97 07/15/20 08:15 159/77 H 93 L 07/15/20 03:45 135/72 98 Weight Admit Weight 152 lb 1.6 oz Weight 169 lb 1.6 oz I&O: 07/14/20 07/15/20 07/16/20 06:59 06:59 06:59 Intake Total 720 720 Output Total 850 1050 Balance -130 -330 Result Diagrams: 07/12/20 04:39 07/12/20 04:39 Additional Labs: Accuchecks 07/15/20 07/14/20 07/14/20 05:53 22:18 16:16 POC Glucose 110 H 190 H 266 H Hospitalist ROS - Medication Medications: Active Medications Generic Name Dose Route Start Last Admin Trade Name Freq PRN Reason Stop Dose Admin Amlodipine Besylate 5 mg 07/09/20 09:00 07/15/20 08:10 Amlodipine 5 Mg Tab PO 5 mg DAILY KISHAN Administration Benzonatate 100 mg 07/05/20 15:00 07/15/20 08:09 Benzonatate 100 Mg Cap PO 100 mg TID KISHAN Administration Carvedilol 12.5 mg 07/06/20 17:00 07/15/20 08:10 Carvedilol 6.25 Mg Tab PO 12.5 mg BID-WM KISHAN Administration Enoxaparin Sodium 40 mg 07/10/20 09:00 07/15/20 08:09 Enoxaparin Sodium 40 Mg/0.4 Ml Syringe SC 40 mg 0900 KISHAN Administration Insulin Glargine 20 units/ 0.2 mls @ 0 mls/hr 07/10/20 09:00 07/15/20 08:09 Miscellaneous Medication SC 0.2 mls QAM KISHAN Administration Insulin Glargine 24 units/ 0.24 mls @ 0 mls/hr 07/09/20 21:00 07/14/20 22:15 Miscellaneous Medication SC 0.24 mls HS KISHAN Administration Insulin Human Lispro 0 units 07/04/20 20:15 07/12/20 21:00 Humalog 300 Units/3 Ml Vial SC 3 unit .BEDTIME SLIDING SC PRN Administration Bedtime Correctional Scale Insulin Human Lispro 0 units 07/07/20 17:24 07/15/20 11:58 Humalog 300 Units/3 Ml Vial SC 3 unit .AGGRESSIVE SLIDING PRN Administration Aggressive Correctional Scale Sodium Chloride 10 ml 07/10/20 09:00 07/15/20 08:10 Flush - Normal Saline 10 Ml Syringe IVF 10 ml Q12HR KISHAN Administration - Exam ENT: normocephalic atraumatic Neck: supple, no JVD Respiratory: normal chest expansion, no tachypnea Neurological: cranial nerve grossly intact, no weakness Hosp A/P - Plan Hosp A/P - Plan Chest X ray: Possible ground glass infiltrate in the right midlung field This is a 70-year-old male with a past medical history of diabetes, CVA, hypertension who presented to the emergency room due to shortness of breath and hypoxia. He was diagnosed with Covid 10 days prior. Acute hypoxic respiratory failure secondary to COVID pneumonia This has now resolved. Patient saturating well on room air. #UTI from indwelling James catheter #Hypospadias The patient has a suprapubic catheter which was placed by urology. He will require upsizing of the catheter. Urology has scheduled that for July 21. This can be done as an inpatient if the patient does not have any place to go until then. Otherwise, if the placement comes available soon and urology agrees, we can schedule the procedure on an outpatient basis. Type II Diabetes - uncontrolled -blood sugars elevated. Home dose is 20 units bid. Will do 20 units qam and 24 units at night Vtach - no further episodes Leukopenia- resolved Anemia Resolved. Transaminitis - resolved Hypertension - controlled. BP 120-140. Continue coreg o 12.5 mg bid
[2020-07-15] MEDS: Insulin Glargine 24 UNITS in Pre-Filled Syringe 1 EACH SC SCH (20:01)
--- NOTE | 2020-07-16 07:45 | PRG ---
DATE OF SERVICE: 07/16/2020 SUBJECTIVE: The patient is resting. OBJECTIVE: VITAL SIGNS: Stable. He is afebrile. I's and O's; urine output 1175 of clear dilute urine. GENERAL: The patient is in no acute distress. ABDOMEN: Soft, nontender, and nondistended. Suprapubic tube adequately secured. GENITOURINARY: As previous acquire penoscrotal hypospadias from improper care of indwelling James catheter. EXTREMITIES: No cyanosis, clubbing, or edema. PERTINENT LABORATORY DATA: White count 5, hemoglobin 12, and platelet 396. IMPRESSION AND PLAN: Mr. Reed is a 70-year-old male with multiple medical comorbidities, admitted with history of COVID, the patient asymptomatic, doing well. Penoscrotal hypospadias, which is acquired from traumatic James catheter in suboptimal care/neglect, status post suprapubic tube by IR. Final disposition is pending. The patient may be transitioned to [facility] today. I had a long conversation with case management yesterday, in which a preoperative chart will be made for the patient as he is scheduled forEUA suprapubic tube dilatation under anesthesia on July 21. If the patient remains in-house, we will proceed as planned anyway. If he is discharged to care home, preoperative chart needs to be completed, consent signed by power of state's attorney prior to transfer to the care home. Call if any questions or concerns. Dr. Nguyen covering me this weekend for p.r.n. issues. [facility]: [id number] [facility]
[2020-07-16] MEDS: Benzonatate 100 MG CAP PO SCH ×3 (09:24→21:16)
[2020-07-16] MEDS: Insulin Glargine 20 UNITS in Pre-Filled Syringe 1 EACH SC SCH (09:25)
[2020-07-16] MEDS: Carvedilol 6.25 MG TAB PO SCH ×2 (09:25→18:02)
[2020-07-16] MEDS: Amlodipine 5 MG TAB PO SCH (09:26)
[2020-07-16] MEDS: Enoxaparin Sodium 40 MG/0.4 ML SYRINGE SC SCH (09:26)
[2020-07-16] MEDS: HumaLOG 300 UNITS/3 ML VIAL SC PRN ×2 (12:38→18:03)
--- NOTE | 2020-07-16 15:26 | PDOC.HOSPP ---
- Subjective Encounter Date: 07/16/20 Subjective: Status unchanged. - Objective Vital Signs & Weight: Vital Signs (12 hours) Temp Pulse Resp BP BP BP BP 07/16/20 12:52 97.8 F 85 18 141/83 H 07/16/20 09:26 76 141/83 H 07/16/20 09:25 141/83 H 07/16/20 08:00 96.6 F L 82 14 139/85 07/16/20 04:08 97.5 F L 76 16 141/83 H Pulse Ox 07/16/20 12:52 100 07/16/20 09:26 07/16/20 09:25 07/16/20 08:00 95 07/16/20 04:08 97 Weight Admit Weight 152 lb 1.6 oz Weight 169 lb 1.6 oz I&O: 07/15/20 07/16/20 07/17/20 06:59 06:59 06:59 Intake Total 720 1200 Output Total 1050 1175 Balance -330 25 Result Diagrams: 07/12/20 04:39 07/12/20 04:39 Additional Labs: Accuchecks 07/16/20 07/15/20 07/15/20 11:52 20:18 17:12 POC Glucose 241 H 167 H 238 H 07/15/20 11:03 POC Glucose 198 H Hospitalist ROS - Medication Medications: Active Medications Generic Name Dose Route Start Last Admin Trade Name Freq PRN Reason Stop Dose Admin Amlodipine Besylate 5 mg 07/09/20 09:00 07/16/20 09:26 Amlodipine 5 Mg Tab PO 5 mg DAILY KISHAN Administration Benzonatate 100 mg 07/05/20 15:00 07/16/20 09:24 Benzonatate 100 Mg Cap PO 100 mg TID KISHAN Administration Carvedilol 12.5 mg 07/06/20 17:00 07/16/20 09:25 Carvedilol 6.25 Mg Tab PO 12.5 mg BID-WM KISHAN Administration Enoxaparin Sodium 40 mg 07/10/20 09:00 07/16/20 09:26 Enoxaparin Sodium 40 Mg/0.4 Ml Syringe SC 40 mg 0900 KISHAN Administration Insulin Glargine 20 units/ 0.2 mls @ 0 mls/hr 07/10/20 09:00 11/06/20 09:25 Miscellaneous Medication SC 0.2 mls QAM KISHAN Administration Insulin Glargine 24 units/ 0.24 mls @ 0 mls/hr 07/09/20 21:00 07/15/20 20:01 Miscellaneous Medication SC 0.24 mls HS KISHAN Administration Insulin Human Lispro 0 units 07/04/20 20:15 07/12/20 21:00 Humalog 300 Units/3 Ml Vial SC 3 unit .BEDTIME SLIDING SC PRN Administration Bedtime Correctional Scale Insulin Human Lispro 0 units 07/07/20 17:24 07/16/20 12:38 Humalog 300 Units/3 Ml Vial SC 6 unit .AGGRESSIVE SLIDING PRN Administration Aggressive Correctional Scale Sodium Chloride 10 ml 07/10/20 09:00 07/16/20 09:27 Flush - Normal Saline 10 Ml Syringe IVF 10 ml Q12HR KISHAN Administration - Exam ENT: normocephalic atraumatic Neck: supple, no JVD Heart: RRR Respiratory: normal chest expansion, no tachypnea Neurological: no focal deficits Hosp A/P - Plan Hosp A/P - Plan Chest X ray: Possible ground glass infiltrate in the right midlung field This is a 70-year-old male with a past medical history of diabetes, CVA, hypertension who presented to the emergency room due to shortness of breath and hypoxia. He was diagnosed with Covid 10 days prior. Acute hypoxic respiratory failure secondary to COVID pneumonia Hypoxia has resolved. #UTI from indwelling James catheter #Hypospadias The patient has a suprapubic catheter which was placed by urology. He will require upsizing of the catheter. Urology has scheduled that for July 21. This can be done as an inpatient if the patient does not have any place to go until then. Otherwise, if the placement comes available soon and urology agrees, we can schedule the procedure on an outpatient basis. Type II Diabetes - uncontrolled Sugar levels are controlled. Vtach - no further episodes Leukopenia- resolved Anemia Resolved. Transaminitis - resolved Hypertension - controlled. BP 120-140. Continue coreg o 12.5 mg bid
--- NOTE | 2020-07-16 15:42 | RAD ---
PORTABLE CHEST: 07/16/20 INDICATIONS: Preop. COMPARISON: 07/03/20. There is more confluent infiltrate now seen in the right mid and lower lung with probable associated linear atelectasis in the right lower lobe. I cannot exclude some early infiltrate in the left lung b ase. IMPRESSION: Increasing right lung infiltrate in the right mid and lower lung field. Question early infiltrate in the left lower lung. POS: AH
[2020-07-16] MEDS: Insulin Glargine 24 UNITS in Pre-Filled Syringe 1 EACH SC SCH (21:16)
[2020-07-17 04:48] LABS: #Eosinphils 0.1 thou/uL (0.0-0.7); #Lymphocytes 1.5 thou/uL (1.20-3.40); #Monocytes 0.6 thou/uL (0.11-0.59); #Neutrophils 2.5 thou/uL (1.40-6.50); %Basophils 0.4 % (0.0-1.0); %Eosinophils 1.7 % (0.0-10.0); %Lymphocytes 31.5 % (21.0-51.0); %Monocytes 12.7 % (0.0-10.0); %Neutrophils 53.7 % (42.0-75.0); Hemoglobin 12.1 g/dL (14.0-18.0); Mean Corpuscular HGB CONC 32.9 g/dL (32.0-36.0); Mean Corpuscular Hemoglobin 28.8 pg (27.0-31.0); Mean Corpuscular Volume 87.6 fL (78.0-98.0); Mean Platelet Volume 7.9 fL (7.4-10.4); Platelet Count 243 thou/uL (130-400); Red Blood Cell (RBC) Count 4.19 mill/uL (4.70-6.10); White Blood Cell (WBC) Count 4.6 thou/uL (4.8-10.8)
[2020-07-17 04:53] LABS: PTT 37.2 sec (22.9-36.1)
[2020-07-17 04:54] LABS: Prothrombin Time 13.4 sec (12.0-14.7)
[2020-07-17 05:14] LABS: Anion Gap 12 mmol/L (10-20); BUN (Urea Nitrogen) 17 mg/dL (8.4-25.7); Calc. Creatinine Clearance 71 mL/min (70-130); Calcium 8.8 mg/dL (7.8-10.44); Carbon Dioxide 28 mmol/L (23-31); Chloride 109 mmol/L (98-107); Estimated GFR-MDRD 83; Glucose 71 mg/dL (80-115); Potassium 4.2 mmol/L (3.5-5.1); Sodium 145 mmol/L (136-145)
[2020-07-17] MEDS: Benzonatate 100 MG CAP PO SCH ×3 (09:00→20:29)
[2020-07-17] MEDS: Carvedilol 6.25 MG TAB PO SCH ×2 (10:30→18:10)
[2020-07-17] MEDS: Amlodipine 5 MG TAB PO SCH (10:30)
[2020-07-17] MEDS: Enoxaparin Sodium 40 MG/0.4 ML SYRINGE SC SCH (10:30)
[2020-07-17] MEDS: Insulin Glargine 20 UNITS in Pre-Filled Syringe 1 EACH SC SCH (13:24)
--- NOTE | 2020-07-17 14:40 | PDOC.HOSPP ---
- Subjective Subjective: no acute event overnight. d/w with nursing staff, remains afebrile. - Objective Vital Signs & Weight: Vital Signs (12 hours) Temp Pulse Resp BP Pulse Ox 07/17/20 10:58 97.9 F 95 16 143/74 H 98 07/17/20 08:25 98.5 F 72 16 147/76 H 98 Weight Admit Weight 152 lb 1.6 oz Weight 169 lb 1.6 oz I&O: 07/16/20 07/17/20 07/18/20 06:59 06:59 06:59 Intake Total 1200 Output Total 1175 900 Balance 25 -900 Result Diagrams: 07/17/20 04:39 07/17/20 04:39 Additional Labs: Accuchecks 07/17/20 07/16/20 07/16/20 10:57 20:56 16:57 POC Glucose 171 H 214 H 182 H Radiology Reviewed by me: Yes EKG Reviewed by me: Yes Hospitalist ROS - Medication Medications: Active Medications Generic Name Dose Route Start Last Admin Trade Name Freq PRN Reason Stop Dose Admin Amlodipine Besylate 5 mg 07/09/20 09:00 07/17/20 10:30 Amlodipine 5 Mg Tab PO 5 mg DAILY KISHAN Administration Benzonatate 100 mg 07/05/20 15:00 07/17/20 09:00 Benzonatate 100 Mg Cap PO Not Given TID KISHAN Carvedilol 12.5 mg 07/06/20 17:00 07/17/20 10:30 Carvedilol 6.25 Mg Tab PO 12.5 mg BID-WM KISHAN Administration Enoxaparin Sodium 40 mg 07/10/20 09:00 07/17/20 10:30 Enoxaparin Sodium 40 Mg/0.4 Ml Syringe SC 40 mg 0900 KISHAN Administration Insulin Glargine 20 units/ 0.2 mls @ 0 mls/hr 07/10/20 09:00 07/17/20 13:24 Miscellaneous Medication SC 0.2 mls QAM KISHAN Administration Insulin Glargine 24 units/ 0.24 mls @ 0 mls/hr 07/09/20 21:00 07/16/20 21:16 Miscellaneous Medication SC 0.24 mls HS KISHAN Administration Insulin Human Lispro 0 units 07/04/20 20:15 07/12/20 21:00 Humalog 300 Units/3 Ml Vial SC 3 unit .BEDTIME SLIDING SC PRN Administration Bedtime Correctional Scale Insulin Human Lispro 0 units 07/07/20 17:24 07/16/20 18:03 Humalog 300 Units/3 Ml Vial SC 3 unit .AGGRESSIVE SLIDING PRN Administration Aggressive Correctional Scale Sodium Chloride 10 ml 07/10/20 09:00 07/16/20 21:16 Flush - Normal Saline 10 Ml Syringe IVF 10 ml Q12HR KISHAN Administration - Exam General Appearance: NAD Eye: PERRL ENT: normocephalic atraumatic Neck: supple Heart: RRR Respiratory: CTAB Gastrointestinal: soft, non-tender Extremities: no cyanosis Skin: normal turgor Musculoskeletal: normal tone Psychiatric: normal affect, normal behavior, A&O x 3 Hosp A/P - Plan This is a 70-year-old male with a past medical history of diabetes, CVA, hypertension who presented to the emergency room due to shortness of breath and hypoxia. He was diagnosed with Covid 10 days prior. Acute hypoxic respiratory failure secondary to COVID pneumonia --resolved. sat'ng well on room air COVID-19 PNA --resolved. UTI d/t indwelling James catheter --E coli. Treated with IV abx Hypospadias --s/p suprapubic catheter placement by IR. Urology plans for suprapubic tube dilation on 07/21. Type II Diabetes - uncontrolled --BG stable. Cont Lantus, ISS NSVT --no further episodes Transaminitis --resolved Hypertension --BP stable. Cont Coreg Disposition: pending ins approval for SNF
--- NOTE | 2020-07-17 15:29 | EKG ---
Test Reason : Blood Pressure : / mmHG Vent. Rate : 092 BPM Atrial Rate : 092 BPM P-R Int : 136 ms QRS Dur : 072 ms QT Int : 328 ms P-R-T Axes : 089 099 -42 degrees QTc Int : 405 ms Sinus rhythm with sinus arrhythmia with occasional Premature ventricular complexes Rightward axis RSR' or QR pattern in V1 suggests right ventricular conduction delay Abnormal ECG Confirmed by JAYASHREE GARCIA ([id number]), industrial editor ARLEN SEXTON ([id number]) on 07/17/2020 3:29:01 PM Referred By: Confirmed By:JAYASHREE Deleon
[2020-07-17] MEDS: Bacitracin 1 PK TOP PRN (16:30)
[2020-07-17] MEDS: HumaLOG 300 UNITS/3 ML VIAL SC PRN (18:08)
[2020-07-17] MEDS: Insulin Glargine 24 UNITS in Pre-Filled Syringe 1 EACH SC SCH (20:28)
[2020-07-18] MEDS: Insulin Glargine 20 UNITS in Pre-Filled Syringe 1 EACH SC SCH (08:48)
[2020-07-18] MEDS: Carvedilol 6.25 MG TAB PO SCH ×2 (08:48→16:47)
[2020-07-18] MEDS: Benzonatate 100 MG CAP PO SCH ×3 (08:48→20:32)
[2020-07-18] MEDS: Enoxaparin Sodium 40 MG/0.4 ML SYRINGE SC SCH (08:48)
[2020-07-18] MEDS: Amlodipine 5 MG TAB PO SCH (08:48)
--- NOTE | 2020-07-18 12:29 | PDOC.HOSPP ---
- Subjective Subjective: No acute events overnight. Waiting for placement. He is satting well on room air - Objective Vital Signs & Weight: Vital Signs (12 hours) Temp Pulse Resp BP Pulse Ox 07/18/20 04:20 98.0 F 90 18 130/69 98 Weight Admit Weight 152 lb 1.6 oz Weight 169 lb 1.6 oz I&O: 07/17/20 07/18/20 07/19/20 06:59 06:59 06:59 Output Total 900 1300 Balance -900 -1300 Result Diagrams: 07/17/20 04:39 07/17/20 04:39 Additional Labs: Accuchecks 07/18/20 07/18/20 07/17/20 11:23 05:38 20:08 POC Glucose 252 H 162 H 245 H Radiology Reviewed by me: Yes EKG Reviewed by me: Yes Hospitalist ROS - Medication Medications: Active Medications Generic Name Dose Route Start Last Admin Trade Name Freq PRN Reason Stop Dose Admin Amlodipine Besylate 5 mg 07/09/20 09:00 07/18/20 08:48 Amlodipine 5 Mg Tab PO 5 mg DAILY KISHAN Administration Bacitracin 1 pk 07/17/20 00:28 07/17/20 16:30 Bacitracin 1 Pk TOP 1 pk BIDPRN PRN Administration Rash/Topical Irritation Benzonatate 100 mg 07/05/20 15:00 07/18/20 08:48 Benzonatate 100 Mg Cap PO 100 mg TID KISHAN Administration Carvedilol 12.5 mg 07/06/20 17:00 07/18/20 08:48 Carvedilol 6.25 Mg Tab PO 12.5 mg BID-WM KISHAN Administration Enoxaparin Sodium 40 mg 07/10/20 09:00 07/18/20 08:48 Enoxaparin Sodium 40 Mg/0.4 Ml Syringe SC 40 mg 0900 KISHAN Administration Insulin Glargine 20 units/ 0.2 mls @ 0 mls/hr 07/10/20 09:00 07/18/20 08:48 Miscellaneous Medication SC 0.2 mls QAM KISHAN Administration Insulin Glargine 24 units/ 0.24 mls @ 0 mls/hr 07/09/20 21:00 07/17/20 20:28 Miscellaneous Medication SC 0.24 mls HS KISHAN Administration Insulin Human Lispro 0 units 07/04/20 20:15 07/12/20 21:00 Humalog 300 Units/3 Ml Vial SC 3 unit .BEDTIME SLIDING SC PRN Administration Bedtime Correctional Scale Insulin Human Lispro 0 units 07/07/20 17:24 07/17/20 18:08 Humalog 300 Units/3 Ml Vial SC 11 unit .AGGRESSIVE SLIDING PRN Administration Aggressive Correctional Scale Sodium Chloride 10 ml 07/10/20 09:00 07/18/20 08:49 Flush - Normal Saline 10 Ml Syringe IVF 10 ml Q12HR KISHAN Administration - Exam General Appearance: NAD Eye: PERRL ENT: normocephalic atraumatic Neck: supple, symmetric Heart: RRR, no murmur Respiratory: CTAB, no wheezes Gastrointestinal: soft, non-tender Extremities: no cyanosis Skin: normal turgor Neurological: cranial nerve grossly intact Musculoskeletal: normal tone Psychiatric: normal affect, normal behavior, A&O x 3 Hosp A/P - Plan This is a 70-year-old male with a past medical history of diabetes, CVA, hypertension who presented to the emergency room due to shortness of breath and hypoxia. He was diagnosed with Covid 10 days prior. Acute hypoxic respiratory failure secondary to COVID pneumonia --resolved. sat'ng well on room air COVID-19 PNA --resolved. UTI d/t indwelling James catheter --E coli. Treated with IV abx Hypospadias --s/p suprapubic catheter placement by IR. Urology plans for suprapubic tube dilation on 07/21. Type II Diabetes - uncontrolled --BG stable. Cont Lantus, ISS NSVT --no further episodes Transaminitis --resolved Hypertension --BP stable. Cont Coreg Disposition: pending ins approval for SNF
[2020-07-18] MEDS: HumaLOG 300 UNITS/3 ML VIAL SC PRN ×3 (13:06→21:40)
[2020-07-18] MEDS: Insulin Glargine 24 UNITS in Pre-Filled Syringe 1 EACH SC SCH (20:32)
--- NOTE | 2020-07-19 07:58 | PRG ---
DATE OF SERVICE: 07/19/2020 SUBJECTIVE: The patient is sleeping. Vital signs are stable. Afebrile. The patient remained in-house over the weekend as he did not have appropriate placing per transfer likely due to insurance. OBJECTIVE: VITAL SIGNS: Stable. ABDOMEN: Soft, nontender, nondistended. Suprapubic tube draining clear yellow urine. EXTREMITIES: No cyanosis, clubbing, or edema. PERTINENT LABORATORY DATA: White count 4, hemoglobin 12, and platelet 243. INR is 1.0, PTT of 37. Renal function remains stable. Creatinine of 1.0. IMPRESSION AND PLAN: 1. Mr. Reed is a 70-year-old male with multiple comorbidities with chronic retention. 2. 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 RECOMMENDATION: The patient remains in-house due to await disposition. As such, we will keep him in-house until Sunday, as he is scheduled for cysto, suprapubic tube tract dilatation, flexible cystoscopy. Consent in chart, signed by the [facility]. Disposition pending. [facility] ID: [id number] [facility]
[2020-07-19] MEDS: Amlodipine 5 MG TAB PO SCH (08:34)
[2020-07-19] MEDS: Benzonatate 100 MG CAP PO SCH ×3 (08:34→20:22)
[2020-07-19] MEDS: Carvedilol 6.25 MG TAB PO SCH ×2 (08:34→17:08)
[2020-07-19] MEDS: Enoxaparin Sodium 40 MG/0.4 ML SYRINGE SC SCH (08:35)
[2020-07-19] MEDS: Insulin Glargine 20 UNITS in Pre-Filled Syringe 1 EACH SC SCH (08:48)
[2020-07-19] MEDS: HumaLOG 300 UNITS/3 ML VIAL SC PRN ×2 (12:21→17:08)
--- NOTE | 2020-07-19 14:40 | PDOC.HOSPP ---
- Subjective Subjective: no acute event overnight. sat well on room air. P2P done today, approved for SNF - Objective Vital Signs & Weight: Vital Signs (12 hours) Temp Pulse Resp BP BP BP Pulse Ox 07/19/20 12:19 98.1 F 76 18 147/80 H 100 07/19/20 08:35 97.7 F 80 18 142/77 H 97 07/19/20 08:34 80 141/83 H 07/19/20 04:00 80 18 161/83 H 97 Weight Admit Weight 152 lb 1.6 oz Weight 169 lb 1.6 oz I&O: 07/18/20 07/19/20 07/20/20 06:59 06:59 06:59 Intake Total 472 Output Total 6836 0477 Balance -1300 -8114 Result Diagrams: 07/17/20 04:39 07/17/20 04:39 Additional Labs: Accuchecks 07/19/20 07/19/20 07/18/20 12:16 05:23 21:25 POC Glucose 284 H 121 H 278 H 07/18/20 07/17/20 16:44 15:55 POC Glucose 224 H 324 H Radiology Reviewed by me: Yes EKG Reviewed by me: Yes Hospitalist ROS - Medication Medications: Active Medications Generic Name Dose Route Start Last Admin Trade Name Freq PRN Reason Stop Dose Admin Amlodipine Besylate 5 mg 07/09/20 09:00 07/19/20 08:34 Amlodipine 5 Mg Tab PO 5 mg DAILY KISHAN Administration Bacitracin 1 pk 07/17/20 00:28 07/17/20 16:30 Bacitracin 1 Pk TOP 1 pk BIDPRN PRN Administration Rash/Topical Irritation Benzonatate 100 mg 07/05/20 15:00 07/19/20 14:14 Benzonatate 100 Mg Cap PO 100 mg TID KISHAN Administration Carvedilol 12.5 mg 07/06/20 17:00 07/19/20 08:34 Carvedilol 6.25 Mg Tab PO 12.5 mg BID-WM KISHAN Administration Enoxaparin Sodium 40 mg 07/10/20 09:00 07/19/20 08:35 Enoxaparin Sodium 40 Mg/0.4 Ml Syringe SC 40 mg 0900 KISHAN Administration Insulin Glargine 20 units/ 0.2 mls @ 0 mls/hr 07/10/20 09:00 07/19/20 08:48 Miscellaneous Medication SC 0.2 mls QAM KISHAN Administration Insulin Glargine 24 units/ 0.24 mls @ 0 mls/hr 07/09/20 21:00 07/18/20 20:32 Miscellaneous Medication SC 0.24 mls HS KISHAN Administration Insulin Human Lispro 0 units 07/04/20 20:15 07/18/20 21:40 Humalog 300 Units/3 Ml Vial SC 3 unit .BEDTIME SLIDING SC PRN Administration Bedtime Correctional Scale Insulin Human Lispro 0 units 07/07/20 17:24 07/19/20 12:21 Humalog 300 Units/3 Ml Vial SC 9 unit .AGGRESSIVE SLIDING PRN Administration Aggressive Correctional Scale Sodium Chloride 10 ml 07/10/20 09:00 07/19/20 08:34 Flush - Normal Saline 10 Ml Syringe IVF 10 ml Q12HR KISHAN Administration - Exam General Appearance: NAD Eye: PERRL ENT: normocephalic atraumatic Neck: supple Heart: RRR Respiratory: CTAB Extremities: no cyanosis Skin: normal turgor Neurological: cranial nerve grossly intact Musculoskeletal: normal tone Psychiatric: normal affect Hosp A/P - Plan This is a 70-year-old male with a past medical history of diabetes, CVA, hypertension who presented to the emergency room due to shortness of breath and hypoxia. He was diagnosed with Covid 10 days prior. 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 Urology plans for cysto with suprapubic tube dilation on 07/21. Acute hypoxic respiratory failure secondary to COVID pneumonia --resolved. sat'ng well on room air COVID-19 PNA --resolved. UTI d/t indwelling James catheter --E coli. Treated with IV abx Type II Diabetes - uncontrolled --BG stable. Cont Lantus, ISS NSVT --no further episodes Transaminitis --resolved Hypertension --BP stable. Cont Coreg Disposition: approved for SNF, d/w
[2020-07-19] MEDS: Insulin Glargine 24 UNITS in Pre-Filled Syringe 1 EACH SC SCH (20:22)
[2020-07-20] MEDS: Enoxaparin Sodium 40 MG/0.4 ML SYRINGE SC SCH (07:53)
[2020-07-20] MEDS: Amlodipine 5 MG TAB PO SCH (07:53)
[2020-07-20] MEDS: Carvedilol 6.25 MG TAB PO SCH ×2 (07:53→16:08)
[2020-07-20] MEDS: Benzonatate 100 MG CAP PO SCH ×3 (07:54→19:32)
--- NOTE | 2020-07-20 08:16 | PRG ---
DATE OF SERVICE: 07/20/2020 SUBJECTIVE: The patient is sleeping, events of over night reviewed, status post fall. Lower extremity x-ray was obtained. Report yet pending. OBJECTIVE: VITAL SIGNS: Stable, afebrile. I's and O's, urine output 1775 of concentrated yellow urine. ABDOMEN: Soft, nontender, nondistended. No rigidity. No rebound. EXTREMITIES: No cyanosis, clubbing, or edema. No gross calf tenderness or ecchymosis is appreciated. Nontender on physical exam. PERTINENT LABORATORY DATA: White count 4, hemoglobin 12, and platelets 243. INR 1.0, PTT 37. Renal function is stable with creatinine of 1.0. IMPRESSION AND PLAN: Mr. Reed is a 70-year-old male with multiple medical comorbidities, urologic issues of chronic urinary retention. History of chronic indwelling urethral James catheter. Trauma and suboptimal care resulting in penoscrotal hypospadias, status post suprapubic diversion by Interventional Radiology. RECOMMENDATIONS: The patient has been approved to dispo tomorrow after his suprapubic tube tract dilatation replacement. PLAN: NPO after midnight, hold Lovenox in a.m. will provide Zosyn on-call to OR. The patient can be transitioned [facility] after spt exchange /cysto tomorrow afternoon. [facility] [id number] [facility]
--- NOTE | 2020-07-20 08:21 | RAD ---
EXAM: 2 views of the right tibia/fibula HISTORY: Leg pain after fall COMPARISON: 02/18/2020 FINDINGS: There is no evidence of acute fracture or dislocation. No soft tissue swelling is seen. No degenerative changes are seen in the knee or ankle. Surgical clips are seen posterior to the knee. IMPRESSION: No evidence of acute osseous abnormality.
[2020-07-20] MEDS: Insulin Glargine 20 UNITS in Pre-Filled Syringe 1 EACH SC SCH (11:32)
[2020-07-20] MEDS: Lidocaine 5% Patch TD SCH (13:06)
[2020-07-20] MEDS: HumaLOG 300 UNITS/3 ML VIAL SC PRN (13:06)
--- NOTE | 2020-07-20 14:26 | PDOC.HOSPP ---
- Subjective Subjective: c/o left ankle pain. no fever. - Objective Vital Signs & Weight: Vital Signs (12 hours) Temp Pulse Resp BP BP Pulse Ox 07/20/20 11:57 97.8 F 82 20 125/58 L 99 07/20/20 08:00 97.6 F 84 18 128/81 99 07/20/20 03:44 98.1 F 85 16 142/80 H 98 Weight Admit Weight 152 lb 1.6 oz Weight 169 lb 1.6 oz I&O: 07/19/20 07/20/20 07/21/20 06:59 06:59 06:59 Intake Total 472 1325 Output Total 3612 3235 Balance -5028 -218 Result Diagrams: 07/17/20 04:39 07/17/20 04:39 Additional Labs: Accuchecks 07/20/20 07/20/20 07/19/20 11:35 05:25 20:27 POC Glucose 262 H 153 H 208 H 07/19/20 16:57 POC Glucose 321 H Radiology Reviewed by me: Yes EKG Reviewed by me: Yes Hospitalist ROS - Medication Medications: Active Medications Generic Name Dose Route Start Last Admin Trade Name Freq PRN Reason Stop Dose Admin Acetaminophen 650 mg 07/03/20 19:33 07/20/20 00:23 Acetaminophen 325 Mg Tab PO 650 mg Q4H PRN Administration Headache/Fever/Mild Pain (1-3) Amlodipine Besylate 5 mg 07/09/20 09:00 07/20/20 07:53 Amlodipine 5 Mg Tab PO 5 mg DAILY KISHAN Administration Bacitracin 1 pk 07/17/20 00:28 07/17/20 16:30 Bacitracin 1 Pk TOP 1 pk BIDPRN PRN Administration Rash/Topical Irritation Benzonatate 100 mg 07/05/20 15:00 07/20/20 07:54 Benzonatate 100 Mg Cap PO 100 mg TID KISHAN Administration Carvedilol 12.5 mg 07/06/20 17:00 07/20/20 07:53 Carvedilol 6.25 Mg Tab PO 12.5 mg BID-WM KISHAN Administration Enoxaparin Sodium 40 mg 07/10/20 09:00 07/20/20 07:53 Enoxaparin Sodium 40 Mg/0.4 Ml Syringe SC 40 mg 899 KISHAN Administration Insulin Glargine 20 units/ 0.2 mls @ 0 mls/hr 07/10/20 09:00 07/20/20 11:32 Miscellaneous Medication SC 0.2 mls QAM KISHAN Administration Insulin Glargine 24 units/ 0.24 mls @ 0 mls/hr 07/09/20 21:00 07/19/20 20:22 Miscellaneous Medication SC 0.24 mls HS KISHAN Administration Insulin Human Lispro 0 units 07/04/20 20:15 07/18/20 21:40 Humalog 300 Units/3 Ml Vial SC 3 unit .BEDTIME SLIDING SC PRN Administration Bedtime Correctional Scale Insulin Human Lispro 0 units 07/07/20 17:24 07/20/20 13:06 Humalog 300 Units/3 Ml Vial SC 9 unit .AGGRESSIVE SLIDING PRN Administration Aggressive Correctional Scale Lidocaine 1 patch 07/20/20 11:00 07/20/20 13:06 Lidocaine 5% Patch TD 1 patch 1100 KISHAN Administration Sodium Chloride 10 ml 07/10/20 09:00 07/20/20 07:54 Flush - Normal Saline 10 Ml Syringe IVF 10 ml Q12HR KISHAN Administration - Exam General Appearance: NAD Eye: PERRL ENT: normocephalic atraumatic Neck: supple Heart: RRR Respiratory: CTAB Gastrointestinal: soft Neurological: cranial nerve grossly intact Musculoskeletal: normal tone Psychiatric: normal affect, normal behavior, A&O x 3 Hosp A/P - Plan This is a 70-year-old male with a past medical history of diabetes, CVA, hypertension who presented to the emergency room due to shortness of breath and hypoxia. He was diagnosed with Covid 10 days prior. 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 Urology plans for cysto with suprapubic tube dilation on 07/21. --appreciate Dr. Ochoa. Plan for transition to SNF tomorrow afternoon Acute hypoxic respiratory failure secondary to COVID pneumonia --resolved. sat'ng well on room air COVID-19 PNA --resolved. UTI d/t indwelling James catheter --E coli. Treated with IV abx Type II Diabetes - uncontrolled --BG stable. Cont Lantus, ISS NSVT --no further episodes Transaminitis --resolved Hypertension --BP stable. Cont Coreg Disposition: approved for SNF, d/w CM
[2020-07-20] MEDS ORDERED: Magnesium Sulfate 4 GM in Sodium Chloride 0.9% 250 ML 250 ML IVPB SCH (17:15)
[2020-07-20] MEDS: Insulin Glargine 24 UNITS in Pre-Filled Syringe 1 EACH SC SCH (22:03)
[2020-07-20] MEDS ORDERED: Lidocaine Patch Removal 1 EACH TOP SCH (23:00)
[2020-07-21 05:55] LABS: #Eosinphils 0.1 thou/uL (0.0-0.7); #Lymphocytes 1.4 thou/uL (1.20-3.40); #Monocytes 0.6 thou/uL (0.11-0.59); #Neutrophils 2.5 thou/uL (1.40-6.50); %Basophils 0.3 % (0.0-1.0); %Eosinophils 3.1 % (0.0-10.0); %Lymphocytes 30.5 % (21.0-51.0); %Monocytes 12.3 % (0.0-10.0); %Neutrophils 53.9 % (42.0-75.0); Hemoglobin 12.3 g/dL (14.0-18.0); Mean Corpuscular HGB CONC 32.2 g/dL (32.0-36.0); Mean Corpuscular Hemoglobin 28.3 pg (27.0-31.0); Mean Corpuscular Volume 88.1 fL (78.0-98.0); Mean Platelet Volume 9.1 fL (7.4-10.4); Platelet Count 194 thou/uL (130-400); RBC Distribution Width 14.5 % (11.5-14.5); Red Blood Cell (RBC) Count 4.34 mill/uL (4.70-6.10); White Blood Cell (WBC) Count 4.6 thou/uL (4.8-10.8)
[2020-07-21 06:02] LABS: Anion Gap 11 mmol/L (10-20); BUN (Urea Nitrogen) 18 mg/dL (8.4-25.7); Calc. Creatinine Clearance 76 mL/min (70-130); Calcium 8.6 mg/dL (7.8-10.44); Carbon Dioxide 28 mmol/L (23-31); Chloride 106 mmol/L (98-107); Estimated GFR-MDRD Greater than 90; Glucose 182 mg/dL (80-115); Magnesium 2.3 mg/dL (1.6-2.6); Potassium 4.4 mmol/L (3.5-5.1); Sodium 141 mmol/L (136-145)
[2020-07-21] MEDS ORDERED: Senokot S 8.6-50 MG TAB PO PRN (08:22)
[2020-07-21] MEDS ORDERED: MAGNESIUM HYDROXIDE PO SCH (08:30)
[2020-07-21] MEDS ORDERED: [UNRECOGNIZED DRUG - OTHER] PO SCH (08:30)
[2020-07-21] MEDS ORDERED: Milk Of Magnesia 30 ML UDCUP PO SCH (09:00)
[2020-07-21] MEDS ORDERED: Atorvastatin Calcium 20 MG TAB PO SCH (09:00)
[2020-07-21] MEDS ORDERED: levETIRAcetam 500 mg/5 ml Oral Solution PO SCH (09:00)
[2020-07-21] MEDS ORDERED: Lisinopril 2.5 MG TAB PO SCH (09:00)
[2020-07-21] MEDS: Carvedilol 6.25 MG TAB PO SCH ×2 (09:25→17:29)
[2020-07-21] MEDS: Amlodipine 5 MG TAB PO SCH (09:25)
[2020-07-21] MEDS: Benzonatate 100 MG CAP PO SCH ×2 (09:25→16:15)
[2020-07-21] MEDS ORDERED: Lidocaine 1% PF 5 ML VIAL ONE (09:36)
[2020-07-21] MEDS ORDERED: Metoclopramide HCl 10 MG/2 ML VIAL ONE ×2 (09:36→12:41)
[2020-07-21] MEDS ORDERED: Ondansetron PF 4 MG/2 ML Vial ONE ×2 (09:36→12:41)
[2020-07-21] MEDS ORDERED: ePHEDrine 50 MG/ML VIAL ONE (09:36)
[2020-07-21] MEDS ORDERED: PHENYLEPHRINE-NS 100 MCG/ML 10 ML SYRINGE ONE (09:36)
[2020-07-21] MEDS ORDERED: Piperacillin/Tazobactam 3.375 GM in Sodium Chloride 0.9% 100 ML IVPB SCH (11:00)
[2020-07-21] MEDS ORDERED: Piperacillin/Tazobactam 3.375 GM VIAL ONE (11:32)
[2020-07-21] MEDS ORDERED: Sodium Chloride 0.9% 100 ML ONE (11:32)
[2020-07-21] MEDS ORDERED: Fentanyl 100 MCG/2 ML VIAL ONE (12:29)
[2020-07-21] MEDS ORDERED: Famotidine/PF 20 mg/2ml Vial ONE (12:30)
[2020-07-21] MEDS ORDERED: PROPOFOL 20 ML ONE (12:30)
[2020-07-21] MEDS ORDERED: Propofol 500 MG/50 ML VIAL ONE (12:30)
[2020-07-21] MEDS ORDERED: Promethazine HCl 25 MG/ML VIAL IM PRN (12:48)
[2020-07-21] MEDS ORDERED: Ondansetron HCl/PF 4 MG/2 ML Vial IVP PRN (12:48)
[2020-07-21] MEDS ORDERED: Promethazine HCl 25 MG/ML VIAL SLOW IVP PRN (12:48)
[2020-07-21 15:09] VITALS: TEMP 97.9
--- NOTE | 2020-07-21 15:55 | PDOC.DS.DS ---
Provider - Provider Date of Admission: 07/03/20 19:32 Date of Discharge: 07/21/20 Admitting Provider: Nas Le MD Primary Care Physician: Unknown Course - Hospital Course Hospital Course: DISCHARGE DIAGNOSES: 1. Acute hypoxic respiratory failure secondary to Covid pneumonia 2. COVID-19 pneumonia 3. UTI due to indwelling Green catheter 4. Diabetes type 2 5. Nonsustained V. tach 6. Transaminitis, resolved 7. Hypertension PERTINENT IMAGING STUDIES: Chest x-ray: Questionable groundglass infiltrate in the right middle lung field. Correlate with Covid pneumonia Repeat chest x-ray on 07/16/2020: Increasing right lung infiltrate in the right mid and lower lung field. Tib-fib x-ray: No evidence of acute osseous abnormality HISTORY OF PRESENT ILLNESS AND BRIEF HOSPITAL COURSE: The patient is unfortunate 70 years old -[place] gentleman who has significant past medical history of diabetes type 2, CVA, hypertension, dyslipidemia, seizure disorder, CAD, [place] [facility] resident, who was presented to ED with complaint of short of breath, and hypoxia. He was diagnosed with COVID- 19, bowel 10 days ago prior to admission. Patient was ultimately admitted to hospitalist service for acute hypoxic respiratory failure secondary to COVID-19 pneumonia. Patient was treated empirically, supportive care. He responded quite well. Ultimately weaned off to room air. His symptoms resolved. He also found to have a urinary tract infection, his urine culture positive for E. coli. He was found to have traumatic Green injury, due to chronic indwelling Green catheter with acquired hypospadias. Urology was consulted. He subsequently underwent diversion, and had a subtherapeutic catheter placement by IR. He tolerated the procedure well. He was treated for his penile infection, with daily wound care and antibiotic. He was subsequently underwent cystoscopy, and dilation, and catheter changed on 07/21/2020. I have done a peer to peer review with his insulin, knee, and ultimately approved for long term facility at [facility]. At this time he is stable to transition to long term facility for further wound care, physical therapy. PROCEDURE PERFORMED: Successful suprapubic catheter placement by IR on 07/06/2020 Cystoscopy, dilation, placement of catheter suprapubic by urology on 07/21/2020 DISCHARGE CONDITION: STABLE DISPOSITION: [facility] PHYSICAL EXAM: General Appearance: Alert, oriented, resting comfortably, no apparent distress, well developed/nourished. HEENT: Normocephalic/atraumatic, moist mucous membrane, normal ENT inspection, normal tones. PERRLA, no scleral icterus, normal conjunctiva Neck: Supple, normal inspection, no JVD Respiratory: Lungs are clear bilaterally, normal breath sounds, no accessory muscle use Cardiovascular: Regular rate, regular rhythm, no murmur, no rubs Abdomen: Soft, nontender, nondistended, normal bowel sounds, no organomegaly, no guarding no rebound : Suprapubic catheter Extremities: No clubbing, no cyanosis, no edema Psych/Mental Status: Normal affect, speech, non-pressured, AAO x 3 Skin: Warm/Dry, Normal Color, no rashes DISCHARGE TIME SPENT: >30 MINUTES Resuscitation Status: 07/04/20 00:23 Resuscitation Status Routine Resuscitation Status: DNAR: NO Resuscitation Discussed with: as per ayesha, pt is DNR.. Discuuded w RN - Labs Lab Results: 07/21/20 05:17 07/21/20 05:17 Abnormal Lab Results - Last 48 hrs 07/21/20 05:17: WBC 4.6 L, RBC 4.34 L, Hgb 12.3 L, Hct 38.2 L, Monocytes % 12.3 H, Monocytes # 0.6 H Microbiology - Entire Visit 07/03/20 18:16 Venous blood - Right Hand Blood Culture - Final NO GROWTH IN 5 DAYS 07/04/20 02:04 Penis Gram Stain - Final 07/04/20 02:04 Penis Genital Culture - Final Escherichia coli 07/03/20 18:16 Venous blood - Right Arm Blood Culture - Final Coagulase Neg Staphylococcus 07/03/20 18:24 Urine green catheter Urine Culture - Final Escherichia coli - Physical Exam Vitals: Vital Signs (12 hours) Temp Pulse Resp BP BP Pulse Ox 07/21/20 15:00 97.9 F 60 14 131/73 98 07/21/20 09:25 98.4 F 85 15 124/75 99 07/21/20 04:15 98.1 F 81 18 142/78 H 96 Weight Admit Weight 152 lb 1.6 oz Weight 169 lb 1.6 oz Physical Exam: The patient was seen and examined on the day of discharge. Plan - Discharge Medications Home Medications: Medication Instructions Recorded Confirmed Type Atorvastatin Calcium 20 mg PO DAILY 10/22/16 07/03/20 History Ranolazine [Ranexa] 500 mg PO BID 07/20/18 07/03/20 History Lisinopril [Zestril] 2.5 mg PO DAILY tab 03/26/19 07/03/20 Rx Carvedilol [Coreg] 6.25 mg PO BID-WM 10/02/19 07/03/20 History Tamsulosin HCl [Flomax] 0.4 mg PO DAILY 10/02/19 07/03/20 History cloNIDine [Sogdyydf-QYP-1 Patch] 0.2 mg TD Q7DAYS patch 12/31/19 07/03/20 Rx levETIRAcetam [Keppra Oral 1,500 mg PO BID #0 ml 12/31/19 07/03/20 Rx Solution] Acetaminophen 650 mg PO Q4HR PRN 04/03/20 07/03/20 History Acetaminophen W/ Codeine 1 tab PO BID PRN 04/03/20 07/03/20 History [Acetaminophen/Codeine #3] Cholecalciferol (Vitamin D3) 2,000 unit PO DAILY 04/03/20 07/03/20 History [Vitamin D3] Insulin Glargine [Lantus Vial] 20 units SC BID 04/03/20 07/03/20 History Aspirin [Ecotrin Low Strength] 81 mg PO DAILY tab 04/04/20 07/03/20 Rx Famotidine [Pepcid] 20 mg PO DAILY 07/03/20 07/03/20 History Insulin Regular, Human [Novolin R] 100 units IJ ASDIR PRN 07/03/20 07/03/20 History Linagliptin [Tradjenta] 5 mg PO DAILY 07/03/20 07/03/20 History Magnesium Hydroxide [Milk of 2,400 mg PO Q2D 07/03/20 07/03/20 History Magnesia] Sennosides/Docusate Sodium 2 tab PO DAILY PRN 07/03/20 07/03/20 History [Senokot S] Allergies: No Known Allergies Allergy (Verified 07/03/20 22:07) - Discharge Instructions Discharge Instructions:: Penile Wound Care: Apply topical bacitracin ointment to wound bed daily and wrap in gauze for protection. Sacral Pressure Ulcer Care: Change sacral dressing Q3days. Rinse with normal saline solution and apply Medihoney to wound bed and cover with Mepilex dressing. CARE INSTRUCTIONS: [] Leave dressing intact for: [] 24 hours [] 48 hours [] until follow-up appointment [] change dressing every day [] Leave steri-strips in place [] Scrotal support for [] [] Ice to incision for 24-48 hours [] Expect intermittent hematuria [] Expect intermittent spotting at the incision site [] Antibiotic ointment to incision twice daily after dressing removed [] No baths [] May shower [] May bathe [] Sponge bath only [] Increase fluid intake (2 -3 liters of water per day) [X] SPT to gravity * Do not allow bag to overfill * No tension or kinking of green tubing * do not manipulate stat locks [] Stent string taped to abdomen/pubis: no pulling on string; do not wipe after voiding, may dab dry [] No ASA, ibuprofen products until follow-up appointment ACTIVITY: [] No heavy lifting or strenuous activity for [] one to two weeks [] two to four weeks [] until follow-up appointment Suprapubic tube to gravity keep secured with StatLock's, do not remove StatLock's No tension or kinking of the suprapubic tube Change suprapubic tube dressing daily, clean suprapubic tube site with peroxide daily Activity:: Activity as Tolerated Nourishment:: Diabetic Diet - Follow up Plan Referrals: [facility] [Outside] Atiya Ochoa DO [Active] - 08/19/20 11:00 am (pt to arrive 30 min before) Unknown,Unknown [Primary Care Provider] - Disposition: LONG TERM/ASSISTED LIVING Quality - Care Measures CORE MEASURES:: N/A
[2020-07-21] MEDS: Insulin Glargine 20 UNITS in Pre-Filled Syringe 1 EACH SC SCH (16:14)
[2020-07-21] MEDS: Lidocaine 5% Patch TD SCH (16:15)
[2020-07-21] MEDS: Bacitracin 1 PK TOP PRN (16:17)
[2020-07-21 18:06] VITALS: BP 132/66
--- NOTE | 2020-07-23 10:23 | OP ---
DATE OF PROCEDURE: 07/21/2020 PREOPERATIVE DIAGNOSES: 1. A 70-year-old male with history of chronic retention. 2. History of chronic indwelling urethral James catheter. 3. 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 POSTOPERATIVE DIAGNOSES: 1. A 70-year-old male with history of chronic retention. 2. History of chronic indwelling urethral James catheter. 3. 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 PROCEDURES PERFORMED: Cystoscopy; suprapubic tube tract dilatation; suprapubic tube exchange, 20-Moldovan, 30 mL. ANESTHESIA: TIVA. COMPLICATIONS: None apparent. DISPOSITION: To recovery room in stable condition. INDICATIONS FOR THE PROCEDURE AND HISTORY: Mr. Reed is a 70-year-old male, who presented to [facility] for presumed sepsis. However, he had no leukocytosis or fever. He was COVID positive last month. He remains asymptomatic. He has a chronic indwelling James catheter, in which we do not know the reason why. However, research of medical records likely indicates he has chronic retention. I have tried multiple times to attempt to contact the physician of record at his previous custodial, however, no return phone call and no one is able to inform me why he has had indwelling James catheter and how long. Review of records demonstrated he likely has chronic retention, therefore, an indwelling James catheter. Nevertheless, there was improper care and neglect of his indwelling urethral James catheter resulting in penoscrotal hypospadias, the suprapubic tube was performed by IR. He is being transitioned back to a different nursing facility and presents for suprapubic tube tract dilatation for a larger catheter size. DESCRIPTION OF PROCEDURE: After an informed consent was signed, the patient was taken to the operating room, placed in a dorsal lithotomy position with the genital and the abdomen area prepped and draped. The pre-existing suprapubic tube suture was cut and a cystoscopy was performed. Again, he has a penoscrotal hypospadias due to traumatic and chronic indwelling urethral James catheter suboptimally cared for. Cystoscopy was performed, demonstrating no urethral stricture. Prostatic urethra demonstrated severe bilobar hyperplasia of the prostate with high median bar. Bladder was entered, demonstrating no tumors, no lesions, no trabeculation. The UOs were about 3 to 4 mm proximal to the bladder neck. The pre-existing 12-Moldovan suprapubic tube was deflated. We were able to pass a 0.035 angled Sensor Glidewire through the catheter port. With the wire visualized to be in the bladder, this was then switched to a 0.035 Superstiff wire over a 5-Moldovan open-ended catheter. Subsequently, we dilated the tract to 30-Moldovan using a balloon dilator. Subsequently, I was able to pass a 20-Moldovan 30 mL suprapubic tube catheter. 30 mL insufflated, with sterile water and this was attached to gravity bag. Sterile dressing was applied and the catheter secured. The patient will transition back to the floor and can be discharged to his new nursing facility which is [facility]. Recommend followup on August 19 for interval suprapubic tube exchange. Job ID: [id number]
[2020-07-24] MEDS ORDERED: cloNIDine 0.2mg/24 Hour PATCH TD SCH (09:00)
== END 2020-07-21 18:55 | DRG 177 ==
LOC: ERS 17:21 → 2SW 19:32
PROVIDERS: ADMIT Internal Medicine; ATTEND Family Medicine
PROC: 8E0ZXY6 Isolation (ICD-10-PCS; principal; 2020-07-03)
PROC: 0T9 Urinary System, Drainage (ICD-10-PCS; 2020-07-07)
PROC: 0T2BX0Z Change Drainage Device in Bladder, External Approach (ICD-10-PCS; 2020-07-21)
PROC: 0T7C8ZZ Dilation of Bladder Neck, Via Natural or Artificial Opening Endoscopic (ICD-10-PCS; 2020-07-21)
DX: U07.1 COVID-19 (principal); J12.89 Other viral pneumonia; J96.01 Acute respiratory failure with hypoxia; T83.518A Infection and inflammatory reaction due to other urinary catheter, initial encounter; I47.2 Ventricular tachycardia; J44.0 Chronic obstructive pulmonary disease with (acute) lower respiratory infection; G93.40 Encephalopathy, unspecified; Z16.24 Resistance to multiple antibiotics; Z16.19 Resistance to other specified beta lactam antibiotics; Z16.23 Resistance to quinolones and fluoroquinolones; Z66 Do not resuscitate; Z51.5 Encounter for palliative care; Y84.6 Urinary catheterization as the cause of abnormal reaction of the patient, or of later complication, without mention of misadventure at the time of the procedure; E78.5 Hyperlipidemia, unspecified; G40.909 Epilepsy, unspecified, not intractable, without status epilepticus; I25.10 Atherosclerotic heart disease of native coronary artery without angina pectoris; B96.20 Unspecified Escherichia coli [E. coli] as the cause of diseases classified elsewhere; I12.9 Hypertensive chronic kidney disease with stage 1 through stage 4 chronic kidney disease, or unspecified chronic kidney disease; E11.22 Type 2 diabetes mellitus with diabetic chronic kidney disease; N18.9 Chronic kidney disease, unspecified; E11.65 Type 2 diabetes mellitus with hyperglycemia; E11.51 Type 2 diabetes mellitus with diabetic peripheral angiopathy without gangrene; G30.9 Alzheimer's disease, unspecified; R74.01 Elevation of levels of liver transaminase levels; R33.9 Retention of urine, unspecified; D63.1 Anemia in chronic kidney disease; F02.80 Dementia in other diseases classified elsewhere, unspecified severity, without behavioral disturbance, psychotic disturbance, mood disturbance, and anxiety; Z86.73 Personal history of transient ischemic attack (TIA), and cerebral infarction without residual deficits; Q54.2 Hypospadias, penoscrotal; Z79.899 Other long term (current) drug therapy; Z79.82 Long term (current) use of aspirin; Z79.4 Long term (current) use of insulin; Z95.5 Presence of coronary angioplasty implant and graft; Z95.1 Presence of aortocoronary bypass graft
CPT/HCPCS: 36415; 36416; 51102; 71045; 77002; 80048; 80053; 80076; 80202; 81003; 81015; 82553; 83605; 83690; 83735; 83880; 84484; 85007; 85025; 85027; 85610; 85730; 87040; 87070; 87077; 87086; 87149; 87186; 87491; 87591; 93005; 93010; 96365; 96367; J0692; J1650; J1815; J2250; J2405; J2543; J2704; J2765; J3010; J3370; J3475; J3490; J7050; J8540; S0028; U0002

== ENCOUNTER 2021-06-29 11:17 | Day surgery (SDC) | payer MEDICARE, MEDICAID ==
[2021-06-28 16:44] VITALS: BMI 27.4
[2021-06-29] MEDS ORDERED: Fentanyl 100 MCG/2 ML VIAL ONE (13:03)
[2021-06-29] MEDS ORDERED: ceFAZolin 2 GM/DEX 5% 100 ML BAG ONE (13:05)
[2021-06-29] MEDS ORDERED: PROPOFOL 200 MG/20 ML VIAL ONE (13:38)
== END 2021-06-29 16:40 ==
LOC: SDC 11:17
PROVIDERS: ATTEND Internal Medicine Gastroenterology
PROC: 0DH63UZ Insertion of Feeding Device into Stomach, Percutaneous Approach (ICD-10-PCS; principal; 2021-06-29)
DX: I69.391 Dysphagia following cerebral infarction (principal); R13.12 Dysphagia, oropharyngeal phase; I25.10 Atherosclerotic heart disease of native coronary artery without angina pectoris; I12.9 Hypertensive chronic kidney disease with stage 1 through stage 4 chronic kidney disease, or unspecified chronic kidney disease; E11.22 Type 2 diabetes mellitus with diabetic chronic kidney disease; N18.9 Chronic kidney disease, unspecified; E78.00 Pure hypercholesterolemia, unspecified; F03.90 Unspecified dementia, unspecified severity, without behavioral disturbance, psychotic disturbance, mood disturbance, and anxiety; E46 Unspecified protein-calorie malnutrition; Z68.27 Body mass index [BMI] 27.0-27.9, adult; Z79.4 Long term (current) use of insulin; Z79.899 Other long term (current) drug therapy; Z88.8 Allergy status to other drugs, medicaments and biological substances
CPT/HCPCS: 36416; J2704; J3010

== ENCOUNTER 2021-12-02 12:33 | Outpatient (CLI) | payer MEDICARE, MEDICAID | END 2021-12-02 12:34 | disposition home or self-care (01) | LOC: ULT 12:33 | PROVIDERS: ATTEND Urology | DX: N40.1 Benign prostatic hyperplasia with lower urinary tract symptoms (principal); R33.9 Retention of urine, unspecified; N28.1 Cyst of kidney, acquired | CPT/HCPCS: 74018; 76770 ==

== ENCOUNTER 2024-09-18 08:08 | Outpatient (CLI) | payer MEDICARE, MEDICAID | END 2024-09-18 08:09 | disposition home or self-care (01) | LOC: CT 08:08 | PROVIDERS: ATTEND Urology | DX: Z43.5 Encounter for attention to cystostomy (principal); N40.1 Benign prostatic hyperplasia with lower urinary tract symptoms; R33.9 Retention of urine, unspecified; N28.1 Cyst of kidney, acquired; N20.0 Calculus of kidney; N32.89 Other specified disorders of bladder | CPT/HCPCS: 74176 ==